=== PATIENT | female | born 1945 | race Caucasian/White ===

== ENCOUNTER 2017-06-16 09:07 | Observation (INO) | payer MEDICARE ==
--- NOTE | 2017-06-16 10:45 | CT ---
CT HEAD NONCONTRAST DATE: 06/16/17 HISTORY: Fall. Head injury. COMPARISON: 04/09/15. FINDINGS: There is no evidence of acute intracranial hemorrhage or infarct. Ventricular dilatation has progress ed slightly and is somewhat out of proportion to the degree of peripheral atrophy. There is no mass e ffect or shift of midline structures. IMPRESSION: 1. Diffuse ventricular prominence. Clinical correlation regarding other signs and symptoms of normal pressure hydrocephalus is required. 2. No acute traumatic injury is demonstrated. POS: XENA
[2017-06-16 12:17] LABS: #Eosinphils 0.3 thou/uL (0.0-0.7); #Lymphocytes 1.3 thou/uL (1.20-3.40); #Monocytes 0.4 thou/uL (0.11-0.59); #Neutrophils 6.4 thou/uL (1.40-6.50); %Basophils 0.6 % (0.0-1.0); %Eosinophils 4.1 % (0.0-10.0); %Lymphocytes 15.5 % (21.0-51.0); %Monocytes 4.6 % (0.0-10.0); %Neutrophils 75.3 % (42.0-75.0); Hemoglobin 11.7 g/dL (12.0-16.0); Mean Corpuscular HGB CONC 34.3 g/dL (32.0-36.0); Mean Corpuscular Hemoglobin 32.5 pg (27.0-31.0); Mean Corpuscular Volume 94.7 fl (81.0-99.0); Mean Platelet Volume 8.4 fL (7.4-10.4); Platelet Count 190 thou/uL (130-400); RBC Distribution Width 11.9 % (11.5-14.5); Red Blood Cell (RBC) Count 3.59 mill/uL (4.20-5.40); White Blood Cell (WBC) Count 8.6 thou/uL (4.8-10.8)
[2017-06-16 12:37] LABS: ALT (SGPT) 18 U/L (8-55); AST (SGOT) 22 U/L (5-34); Albumin 3.9 g/dL (3.4-4.8); Alkaline Phosphatase 54 U/L (40-150); Anion Gap 13 mmol/L (10-20); BUN (Urea Nitrogen) 50 mg/dL (9.8-20.1); Bilirubin, Total 0.3 mg/dL (0.2-1.2); Calc. Creatinine Clearance 0 mL/min (70-130); Calcium 9.6 mg/dL (7.8-10.44); Carbon Dioxide 19 mmol/L (23-31); Chloride 112 mmol/L (98-107); Estimated GFR-MDRD 17; Globulin 2.5 g/dL (2.4-3.5); Glucose 131 mg/dL (83-110); Potassium 4.8 mmol/L (3.5-5.1); Protein, Total 6.4 g/dL (6.0-8.3); Sodium 139 mmol/L (136-145)
[2017-06-16 12:39] LABS: Troponin I 0.016 ng/mL (< 0.028)
[2017-06-16 12:43] LABS: CKMB 10.5 ng/mL (0-6.6)
[2017-06-16 14:01] LABS: Bilirubin Negative (Negative); Blood, Urine Small (Negative); Clarity CLEAR (Clear); Glucose, Urine (Dipstick) Negative (Negative); Leukocyte Negative (Negative); Nitrite Negative (Negative); Protein, Urine (Dipstick) 300 mg/dL (Neg-Trace); Specific Gravity, Urine 1.012 (1.002-1.036); Urobilinogen 0.2 mg/dL (0.2-1.0)
[2017-06-16 14:03] LABS: Bacteria/HPF None Seen HPF (None Seen); Hyaline Casts/LPF 0-3 HYALINE CAST LPF (0-3 Hyaline); Pathc Cast-AUWi Flag 0.14 (0-2.49); RBC/HPF 0-3 HPF (0-3); Squamous Epithelial 0-3 HPF (0-3); WBC/HPF 0-3 HPF (0-3)
[2017-06-16] MEDS ORDERED: Ondansetron ODT 4 MG TAB SL PRN (16:06)
[2017-06-16] MEDS ORDERED: Ondansetron HCl/PF 4 MG/2 ML Vial IVP PRN (16:06)
[2017-06-16] MEDS ORDERED: Sodium Chloride 0.9% 1,000 ML IV SCH (16:06)
[2017-06-16 16:11] VITALS: BMI 33.4
[2017-06-16] MEDS ORDERED: Amlodipine 10 MG TAB PO SCH (17:15)
[2017-06-16] MEDS ORDERED: Dextrose 5% in Water 1,000 ML IV PRN (19:18)
[2017-06-16] MEDS ORDERED: Acetaminophen 325 MG TAB PO PRN (19:18)
[2017-06-16] MEDS ORDERED: Calcium Carbonate 500 MG ChewTAB PO PRN (19:18)
[2017-06-16] MEDS ORDERED: Nitroglycerin 0.4 MG TAB (25 Tab Bottle) PO PRN (19:18)
[2017-06-16] MEDS ORDERED: Insulin Regular 300 UNITS/3 ML VIAL SC PRN ×2 (19:18)
[2017-06-16] MEDS ORDERED: Dextrose 50% Abboject 50 ML SYRINGE SLOW IVP PRN (19:18)
[2017-06-16] MEDS ORDERED: Senokot 8.6 MG TAB PO PRN (19:18)
[2017-06-16] MEDS ORDERED: hydrALAZINE 20 MG/ML VIAL SLOW IVP PRN (19:21)
[2017-06-16] MEDS ORDERED: Labetalol HCl 100 MG/20 ML VIAL SLOW IVP PRN (19:21)
--- NOTE | 2017-06-16 20:01 | HP ---
DATE OF ADMISSION: 06/16/2017 PRIMARY CARE PHYSICIAN: Jennie Ayala M.D. at [facility]. CHIEF COMPLAINT: Mechanical fall. HISTORY OF PRESENT ILLNESS: Patient is a 71-year-old female with hypertension, diabetes mellitus typ e 2, and chronic kidney disease presented to the emergency room with above complaints. The patient currently lives at assisted living. She fell earlier today while she was trying to bend over to put something in a cabinet. She hit her head at that time. She was unable to get up for [facility] EMS was called. The patient denies any loss of consciousness, dizziness, double vision, blurring of vision, facial asymmetry, chest pain, palpitations prior to this event. When EMS picked her up, s he had some dizziness that has resolved. She denies any headaches or loss of consciousness. She is currently not on any blood thinners. In the emergency room, initial vital signs showed temperature 97.9, respirations 17, pulse of 81, blo od pressure of 155/80 with O2 saturation 100% on room air. Her workup was consistent with acute kidn ey injury with creatinine of 2.77. Her baseline creatinine is close to 2. She received IV fluids in the emergency room. PAST MEDICAL HISTORY: 1. Diabetes mellitus type 2. 2. Hypertension. 3. History of renal cancer requiring nephrectomy. 4. Dyslipidemia. 5. Hypothyroidism. 6. Glaucoma. 7. Chronic kidney disease stage 4. 8. Glaucoma. PAST SURGICAL HISTORY: 1. Appendectomy. 2. Nephrectomy. 3. Tonsillectomy. 4. Hysterectomy. ALLERGIES: Patient is allergic to AZITHROMYCIN and PENICILLIN. CURRENT HOME MEDICATIONS: Patient is unable to recall any of her home medications. Her son will get the accurate list of medications. SOCIAL HISTORY: Patient currently lives at the [facility] (Formerly [facility]). She is . She has two sons. [place] ambulates with the help of her walker. No alcohol or tobacco use. She makes her own physician. S he is FULL CODE. FAMILY HISTORY: Mother with breast cancer. Father with colon cancer. REVIEW OF SYSTEMS: The following complete review of systems was negative, unless otherwise mentioned in the HPI or below: Constitutional: Weight loss or gain, ability to conduct usual activities. Sk in: Rash, itching. Eyes: Double vision, pain. ENT/Mouth: Nose bleeding, neck stiffness, pain, te nderness. Cardiovascular: Palpitations, dyspnea on exertion, orthopnea. Respiratory: Shortness of breath, wheezing, cough, hemoptysis, fever or night sweats. Gastrointestinal: Poor appetite, abdom inal pain, heartburn, nausea, vomiting, constipation, or diarrhea. Genitourinary: Urgency, frequenc y, dysuria, nocturia. Musculoskeletal: Pain, swelling. Neurologic/Psychiatric: Anxiety, depressio n. Allergy/Immunologic: Skin rash, bleeding tendency. PHYSICAL EXAMINATION: VITAL SIGNS: As discussed above. GENERAL: A 71-year-old female in no apparent distress. Denies any symptoms at this time. HEENT: Head atraumatic, normocephalic. Sclerae are anicteric. Dry mucous membranes. No oral lesio n. NECK: Supple, no JVD appreciated. No carotid bruit. LUNGS: Clear to auscultation bilaterally, no wheezing, rales or rhonchi. HEART: S1, S2 present. Regular rate and rhythm, 2/6 systolic murmur over the mitral area. No heave s or pulsation. ABDOMEN: Soft, nontender, bowel sounds present, no rebound or guarding. EXTREMITIES: A 3+ to 4+ edema in bilateral lower extremities, which is chronic per patient report. SKIN: Warm and dry. LYMPH NODES: No palpable lymph nodes in the neck. PERIPHERAL VASCULAR: Radial pulses palpable bilaterally. MUSCULOSKELETAL: No joint swelling or tenderness. LABORATORY FINDINGS: CBC showed WBC 8.6 with hemoglobin 11.7, platelet count of 190. Chemistry show ed sodium 139, potassium 4.8, chloride 112, bicarbonate 19, BUN 50, creatinine 2.77, glucose 131. CK -MB was 10.5. Troponin was 0.016. Urinalysis was negative for wbc, bacteria. IMAGING: CT scan of the brain by my review was negative for acute findings. EKG by my review showed normal sinus rhythm. IMPRESSION: 1. Acute kidney injury on chronic kidney disease stage 4. 2. Mechanical fall without any loss of consciousness. 3. Diabetes mellitus type 2. 4. Hypertension. 5. Dyslipidemia. 6. Hypothyroidism. 7. Obesity with a BMI 33.5. 8. Chronic anemia, suspected secondary to renal insufficiency. PLAN: The patient will be monitored on the telemetry unit. Dr. Andrews has been notified of the consult . We will continue IV fluids. We will confirm home medications and start accordingly. We will chec k labs in a.m. We will check orthostatic vitals. Consult physical therapy. Plan of care was discussed with the patient in detail. She stated understanding.
[2017-06-16 20:32] LABS: Troponin I 0.021 ng/mL (< 0.028)
[2017-06-16] MEDS ORDERED: Donepezil HCl 10 MG TAB PO SCH (21:00)
[2017-06-16] MEDS ORDERED: Latanoprost 0.005% Ophth Soln 2.5 ml Bottle EA EYE SCH (21:00)
[2017-06-16] MEDS: cloNIDine 0.1 MG TAB PO SCH (21:02)
[2017-06-16] MEDS: hydrALAZINE 25 MG TAB PO SCH (21:03)
[2017-06-16] MEDS: Sodium Chloride 0.9% 1,000 ML IV SCH (21:04)
--- NOTE | 2017-06-17 00:01 | CON ---
DATE OF CONSULTATION: 06/16/2017 HISTORY OF PRESENT ILLNESS: Ms. Bee is a 71-year-old white female with known history of chronic renal failure from hypertensive nephropathy, longstanding hypertension, early dementia, and admitted for a fall. According to the patient, she bent and tripped over and fell down. She denies any syncopal episode with this. CAT scan done at the ER showed no acute intracranial abnormality. There was ? of her ventricle slightly larger from baseline. REVIEW OF SYSTEMS: No syncopal episode, status post fall. No chest pain or shortness of breath. Positive for chronic leg edema. No nausea, no vomiting. Appetite and energy level is fair. Positive for forgetfulness. No fever or chills. No productive cough. No gross hematuria, no dysuria, no urinary frequency. No syncopal episode. HOME MEDICATIONS: Include donepezil 10 mg once a day, levothyroxine 137 mcg tab daily, amlodipine 10 mg once a day, vitamin B1 100 mg daily, glimepiride 4 mg tablet before meals, fenofibrate 48 mg once a day, clonidine 0.1 mg daily, atorvastatin 80 mg tab at bedtime, latanoprost eye drop as directed, furosemide 40 mg - on hold, metoprolol succinate 25 mg once a day. PAST MEDICAL HISTORY: History of early dementia, chronic renal failure from hypertensive nephropathy, longstanding hypertension, diabetes mellitus, hyperlipidemia, DJD, renal cell carcinoma - in remission, hypothyroidism, and history of liver hemangioma/fatty liver. PAST SURGICAL HISTORY: Status post left nephrectomy for renal cell cancer, status post excision of squamous cell cancer, status post appendectomy, status post tonsillectomy, status post hysterectomy, status post colonoscopy, and status post liver biopsy. SOCIAL HISTORY: The patient is , lives in assisted living center. Smoked for 5 years, 1/4 pack per day, status post blood transfusion. 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 Alcohol, none. Education, high school. No IV drug abuse. ALLERGIES: PENICILLIN. TRAUMA: Status post snake bite. IMMUNIZATION: Up to date. HOSPITALIZATION: Please see past medical history. FAMILY HISTORY: No family history of ESRD. PHYSICAL EXAMINATION: VITAL SIGNS: Blood pressure is noted at 191/76, heart rate 76, respiratory rate 18, temperature 98.6, and pulse ox 98%. GENERAL: Awake, alert, comfortable, and not in distress. SKIN: Adequate turgor. HEENT: She has pinkish conjunctivae, anicteric sclerae. NECK: No neck mass, no carotid bruits, no JVD. CHEST: No deformities. LUNGS: Clear breath sounds, no wheezing, no crackles. HEART: Normal sinus rhythm. No murmurs, no gallops, no rubs. ABDOMEN: Globular, soft, nontender, no masses. EXTREMITIES: Positive for edema. NEUROLOGIC: Awake, oriented to 3 spheres. Moving all extremities. No tremors , no asterixis, no ataxia. LABORATORY DATA: On 06/16/2017 white count 8.6, hemoglobin 11.7. Sodium 139, potassium 4.8, chloride 112, carbon dioxide 19, BUN 50, creatinine 2.77, glucose 131, calcium 9.6, AST 22, ALT 18, CK 248, CK-MB 10.5. Troponin I 0.016. Albumin 3.9. CT scan of the brain on 06/16/2017, showed no acute traumatic injury, diffuse ventricular prominence. ASSESSMENT AND PLAN: 1. Acute Renal Failure/Chronic renal failure from hypertensive nephropathy. Creatinine slightly improved from baseline of 3.06. Please note she is already off her diuretics and for that reason, this may have caused some slight improvement of the renal dysfunction. She is currently at stage 4 chronic renal failure. Agree with empiric volume repletion, normal saline 100-125 mL per hour to see if we could still get some improvement with the renal function. 2. Hypertension - resume blood pressure medications. 3. Dementia, on donepezil. Continue current medications. Overall prognosis remains guarded with this patient. Agree with current management. Recheck patient's CBC in a.m. Renal ultrasound in a.m. [facility]
[2017-06-17] MEDS: Sodium Chloride 0.9% 1,000 ML IV SCH (03:28)
[2017-06-17 04:43] LABS: #Eosinphils 0.4 thou/uL (0.0-0.7); #Lymphocytes 1.7 thou/uL (1.20-3.40); #Monocytes 0.4 thou/uL (0.11-0.59); #Neutrophils 3.6 thou/uL (1.40-6.50); %Basophils 0.8 % (0.0-1.0); %Eosinophils 6.3 % (0.0-10.0); %Lymphocytes 26.8 % (21.0-51.0); %Monocytes 6.9 % (0.0-10.0); %Neutrophils 59.2 % (42.0-75.0); Hemoglobin 10.3 g/dL (12.0-16.0); Mean Corpuscular HGB CONC 34.6 g/dL (32.0-36.0); Mean Corpuscular Hemoglobin 32.3 pg (27.0-31.0); Mean Corpuscular Volume 93.3 fl (81.0-99.0); Mean Platelet Volume 8.3 fL (7.4-10.4); Platelet Count 157 thou/uL (130-400); RBC Distribution Width 11.9 % (11.5-14.5); White Blood Cell (WBC) Count 6.2 thou/uL (4.8-10.8)
[2017-06-17 05:04] LABS: Anion Gap 14 mmol/L (10-20); BUN (Urea Nitrogen) 45 mg/dL (9.8-20.1); Calc. Creatinine Clearance 33 mL/min (70-130); Calcium 9.1 mg/dL (7.8-10.44); Carbon Dioxide 18 mmol/L (23-31); Chloride 114 mmol/L (98-107); Estimated GFR-MDRD 19; Glucose 99 mg/dL (83-110); Potassium 4.2 mmol/L (3.5-5.1); Sodium 142 mmol/L (136-145)
[2017-06-17] MEDS ORDERED: Levothyroxine Sodium 25 MCG TAB PO SCH (06:00)
[2017-06-17] MEDS ORDERED: Levothyroxine Sodium 112 MCG TAB PO SCH (06:00)
[2017-06-17] MEDS ORDERED: Non-Formulary Item 1 EACH (Levothyroxine Sodium [Synthroid] 1 TAB) PO SCH (06:00)
[2017-06-17] MEDS ORDERED: Glimepiride 4 MG TAB PO SCH (07:30)
[2017-06-17] MEDS: cloNIDine 0.1 MG TAB PO SCH (09:20)
[2017-06-17] MEDS: hydrALAZINE 25 MG TAB PO SCH (09:21)
--- NOTE | 2017-06-17 09:43 | PRG ---
DATE OF SERVICE: 06/17/2017 RENAL MEDICINE SUBJECTIVE: Ms. Bee is a 71-year-old white female with chronic renal failure and was seen for man agement of chronic renal failure. She was essentially admitted for a fall. She denied losing any co nsciousness with this. She was also empirically given volume repletion to see if she will have some improvement with the estella al function. This morning, she is feeling better. She denies any chest pain, shortness of breath. PHYSICAL EXAMINATION: VITAL SIGNS: Blood pressure is 143/80, heart rate 85, respiratory rate 12, temperature 98.2, pulse o x 97%. GENERAL: Awake, sitting comfortable, not in distress. SKIN: Adequate turgor. HEENT: Pinkish conjunctivae, anicteric sclerae. NECK: No neck mass, no carotid bruits, no JVD. CHEST: No deformities. LUNGS: Clear breath sounds, no wheezing, no crackles. HEART: Normal sinus rhythm. No murmurs, no gallops, no rubs. ABDOMEN: Globular, soft, nontender, no masses. EXTREMITIES: No edema, no deformities. MEDICATIONS: Medications of 06/17/2017 reviewed. LABORATORY DATA: Laboratories of 06/17/2017; sodium 142, potassium 4.2, chloride 114, carbon dioxide 18, BUN 45, creatinine 2.49, GFR 19 mL per minute, glucose 99, calcium 9.1, troponin I 0.021, hemogl obin 10.3. ASSESSMENT AND PLAN: 1. Acute kidney injury on top of her chronic renal failure, improved renal function. Continue curre nt supportive management. Continue hydration. Creatinine is much improved and is now near baseline. She is currently stage 4 chronic renal failure. There is no indication for any renal dialysis. 2. Renal cancer - in remission. We will at least do a renal ultrasound prior to her discharge. 3. Status post fall, much improved. Overall, agree with current management.
[2017-06-17 12:08] VITALS: TEMP 98.6
--- NOTE | 2017-06-17 13:25 | ULT ---
ULTRASOUND RETROPERITONEUM COMPLETE: (RENAL) DATE: 06-17-17 HISTORY: 71-year-old female with chronic renal failure and renal cancer, status post nephrectomy. FINDINGS: The right kidney is 11 x 5.5 x 6.5 cm. There is a tiny 0.8 cm cortical cyst at the lower pole. Renal parenchymal thickness is normal. No hydronephrosis. No evidence of moderate sized or large solid mass of the right kidney. Urinary bladder is empty at the time of this scan. The left kidney is surgicall y absent. IMPRESSION: 1. Status post left nephrectomy. 2. Tiny right renal cortical cyst. 3. Otherwise negative. ИВАН Barreto POS: DEANDRE
[2017-06-17 14:02] VITALS: BP 139/82
--- NOTE | 2017-06-18 22:27 | DIS ---
DISCHARGE DISPOSITION: Home. FOLLOWUP: 1. Follow up with primary care physician at [facility] in 1 week. 2. Follow up with Nephrology, Dr. Andrews in 1 week. 3. Base met after 1 week is recommended. Primary care physician is advised to follow. The patient was seen and examined on the day of discharge, denies any new complaints. No chest pain, shortness of breath, or palpitations. BRIEF HOSPITAL COURSE: The patient is a 71-year-old female with chronic kidney disease stage 4, diab etes mellitus type 2, and hypertension, who presented to the emergency room with a mechanical fall. Her workup in the emergency room was consistent with acute kidney injury. There was no loss of consc iousness, chest pain, palpitations, or focal neurologic deficit reported. The patient was admitted to the hospital as 23-hour observation for acute kidney injury. The patient was seen by Dr. Andrews. Renal ultrasound was done that showed tiny right renal cortical cyst. The pat ient has a history of left nephrectomy. Renal function improved with IV hydration to 2.49 from 2.77. The patient has been cleared by Nephrology for discharge. FINAL DIAGNOSES: 1. Mechanical fall. 2. Acute kidney injury on chronic kidney disease stage 4, improved. 3. Diabetes mellitus type 2. 4. Hypertension. 5. Dyslipidemia. 6. Hypothyroidism. 7. Obesity with a BMI 33.5. 8. Chronic anemia, probably secondary to renal insufficiency. Plan of care was discussed with the patient in detail. She stated understanding.
== END 2017-06-17 14:05 | disposition home or self-care (01) ==
LOC: ERS 09:07 → 2SW 13:53
PROVIDERS: ADMIT Internal Medicine; ATTEND Internal Medicine
DX: Z04.3 Encounter for examination and observation following other accident (principal); E11.22 Type 2 diabetes mellitus with diabetic chronic kidney disease; I12.9 Hypertensive chronic kidney disease with stage 1 through stage 4 chronic kidney disease, or unspecified chronic kidney disease; N18.4 Chronic kidney disease, stage 4 (severe); N17.9 Acute kidney failure, unspecified; E78.5 Hyperlipidemia, unspecified; E03.9 Hypothyroidism, unspecified; E66.9 Obesity, unspecified; D63.1 Anemia in chronic kidney disease; F03.90 Unspecified dementia, unspecified severity, without behavioral disturbance, psychotic disturbance, mood disturbance, and anxiety; M19.90 Unspecified osteoarthritis, unspecified site; K76.0 Fatty (change of) liver, not elsewhere classified; F17.210 Nicotine dependence, cigarettes, uncomplicated; H40.9 Unspecified glaucoma; W22.8XXA Striking against or struck by other objects, initial encounter; Z68.33 Body mass index [BMI] 33.0-33.9, adult; Z79.84 Long term (current) use of oral hypoglycemic drugs; Z79.899 Other long term (current) drug therapy; Z88.0 Allergy status to penicillin; Z88.1 Allergy status to other antibiotic agents; Z90.5 Acquired absence of kidney; Z90.49 Acquired absence of other specified parts of digestive tract; Z90.89 Acquired absence of other organs; Z90.710 Acquired absence of both cervix and uterus; Z91.81 History of falling; Z85.528 Personal history of other malignant neoplasm of kidney
CPT/HCPCS: 70450; 76770; 80048; 80053; 82550; 82553; 82962; 84484 ×2; 85025 ×2; 93005; 94760; 96360; 96361 ×2; 97116; 97139; 99285; G0378; G8978; G8979; 36415; 36416; 81003; 81015

== ENCOUNTER 2017-08-09 17:53 | Inpatient (IN) | payer MEDICARE ==
[2017-08-09 18:49] LABS: #Basophils 0.1 thou/uL (0.0-0.2); #Eosinphils 0.3 thou/uL (0.0-0.7); #Lymphocytes 1.4 thou/uL (1.20-3.40); #Monocytes 0.5 thou/uL (0.11-0.59); %Basophils 1.1 % (0.0-1.0); %Eosinophils 4.2 % (0.0-10.0); %Lymphocytes 19.4 % (21.0-51.0); %Monocytes 6.5 % (0.0-10.0); %Neutrophils 68.8 % (42.0-75.0); Hemoglobin 11.2 g/dL (12.0-16.0); Mean Corpuscular HGB CONC 34.9 g/dL (32.0-36.0); Mean Corpuscular Hemoglobin 31.7 pg (27.0-31.0); Mean Corpuscular Volume 90.8 fL (78.0-98.0); Mean Platelet Volume 7.5 fL (7.4-10.4); Platelet Count 180 thou/uL (130-400); RBC Distribution Width 11.7 % (11.5-14.5); Red Blood Cell (RBC) Count 3.52 mill/uL (4.20-5.40); White Blood Cell (WBC) Count 7.3 thou/uL (4.8-10.8)
[2017-08-09 19:10] LABS: ALT (SGPT) 17 U/L (8-55); AST (SGOT) 20 U/L (5-34); Albumin 3.9 g/dL (3.4-4.8); Alkaline Phosphatase 69 U/L (40-150); Anion Gap 13 mmol/L (10-20); BUN (Urea Nitrogen) 42 mg/dL (9.8-20.1); Bilirubin, Total 0.4 mg/dL (0.2-1.2); Calc. Creatinine Clearance 0 mL/min (70-130); Calcium 9.3 mg/dL (7.8-10.44); Carbon Dioxide 19 mmol/L (23-31); Chloride 113 mmol/L (98-107); Estimated GFR-MDRD 15; Globulin 2.5 g/dL (2.4-3.5); Glucose 143 mg/dL (83-110); Potassium 4.6 mmol/L (3.5-5.1); Protein, Total 6.4 g/dL (6.0-8.3); Sodium 140 mmol/L (136-145)
[2017-08-09 19:15] LABS: CKMB 5.5 ng/mL (0-6.6); Troponin I 0.022 ng/mL (< 0.028)
--- NOTE | 2017-08-09 19:51 | CT ---
CT CERVICAL SPINE NONCONTRAST: 08/09/17 HISTORY: 71-year-old female status post acute cervical trauma from fall. FINDINGS: There are no jumped or perched facets. There is no evidence of acute fracture. The vertebral body h eights are maintained. There is no prevertebral soft tissue swelling. IMPRESSION: No evidence of acute fracture or acute traumatic subluxation. andre [] POS: DEANDRE
[2017-08-09 20:05] LABS: Bilirubin Negative (Negative); Blood, Urine Small (Negative); Clarity CLEAR (Clear); Glucose, Urine (Dipstick) 100 mg/dL (Negative); Leukocyte Small (Negative); Nitrite Negative (Negative); Protein, Urine (Dipstick) 300 mg/dL (Neg-Trace); Specific Gravity, Urine 1.017 (1.002-1.036); Urobilinogen 0.2 mg/dL (0.2-1.0); pH, Urine 6.5 (5.0-9.0)
[2017-08-09 20:07] LABS: Bacteria/HPF None Seen HPF (None Seen); Hyaline Casts/LPF 0-3 HYALINE CAST LPF (0-3 Hyaline); Pathc Cast-AUWi Flag 0.29 (0-2.49); Squamous Epithelial 0-3 HPF (0-3)
[2017-08-09] MEDS ORDERED: Ondansetron HCl/PF 4 MG/2 ML Vial IVP PRN (20:33)
[2017-08-09] MEDS ORDERED: Ondansetron ODT 4 MG TAB SL PRN (20:33)
[2017-08-09] MEDS ORDERED: Acetaminophen 325 MG TAB PO PRN (20:33)
[2017-08-09] MEDS ORDERED: cefTRIAXone\\ROCEPHIN 1 GM VIAL ONE (21:06)
--- NOTE | 2017-08-09 21:12 | CT ---
CT BRAIN NONCONTRAST: DATE: 08/09/17 TIME: 7:17 p.m. HISTORY: 71-year-old female status post acute head trauma due to fall, striking the back of the head. COMPARISON: 06/16/17 and 04/09/15. FINDINGS: Again noted is the moderate dilation of the lateral ventricles bilaterally, and mild to moderate dila tion of the third ventricle. This is unchanged since 04/09/15, but has progressed since 07/17/07. There is no acute intra-axial or extra-axial hemorrhage. There is periventricular white matter low attenua tion, consistent with chronic ischemic white matter changes (or transependymal migration of CSF). No mass effect, midline shift, extra-axial fluid collection, acute calvarial fracture, or gross opacific ation of the upper portions of the paranasal sinuses and the bilateral tympanomastoid cavities. No in terval change overall since 06/16/17 and 04/09/15. IMPRESSION: 1. No acute intracranial findings. 2. Ventriculomegaly. It is presumed that this is due to central brain parenchymal atrophy rather than obstructive hydrocephalus such as normal pressure hydrocephalus, but clinical correlation is re commended (is there gait apraxia, urinary incontinence, and/or dementia?). 3. Chronic ischemic white matter changes. ИВАН Barreto POS: DEANDRE
[2017-08-09] MEDS ORDERED: cefTRIAXone\\ROCEPHIN 2 GM VIAL ONE (21:13)
[2017-08-09] MEDS ORDERED: Acetaminophen 500 MG TAB ONE (23:24)
[2017-08-10 01:10] VITALS: BMI 35.3
[2017-08-10] MEDS ORDERED: Acetaminophen 325 MG TAB PO PRN (09:47)
[2017-08-10 11:06] LABS: INR-International Normal Ratio 1.1; Prothrombin Time 14.1 SEC (12.0-14.7)
[2017-08-10] MEDS ORDERED: Amlodipine 10 MG TAB PO SCH (11:30)
[2017-08-10] MEDS: Furosemide 40 MG/4 ML VIAL SLOW IVP SCH (15:36)
--- NOTE | 2017-08-10 18:42 | HP ---
REASON FOR ADMISSION: Normal pressure hydrocephalus with history of frequent falling. HISTORY OF PRESENTING ILLNESS: The patient gives history of having frequent falls from last 1 month. She fell almost twice yesterday and 2 more times last week. She ambulates with a walker. The patient states she was sitting in a chair and just could not hold herself up and she was fully awake when she slid through it. This happened yesterday. She also fell once she was ambulating with a walker. She has never lost consciousness. The patient does not recall if she loses her tone. She has had spinal tap done 2 years back for normal pressure hydrocephalus. No complaints of rectal incontinence. The patient has chronic history of urinary incontinence. Her son at bedside shows me cell phone video of how she was ambulating with the cane 2 years back. PAST MEDICAL AND SURGICAL HISTORY: History of normal pressure hydrocephalus, history of renal cancer requiring nephrectomy, hypertension, diabetes mellitus type 2, dyslipidemia, hypothyroidism, glaucoma, chronic kidney disease stage 4 for which she follows up with Dr. Andrews, glaucoma, appendectomy, nephrectomy, tonsillectomy, hysterectomy. ALLERGIES: ZITHROMAX and PENICILLIN. PERSONAL HISTORY: Does not abuse alcohol or drugs. No history of smoking. She lives at a snf place in [facility]. FAMILY HISTORY: Mother had breast cancer. Father had colon cancer. CODE STATUS: FULL. Power of assistant district attorney is her son. CURRENT MEDICATIONS: The patient is on Norvasc 10 mg daily, atorvastatin 80 mg daily, calcium with vitamin D3 one tab daily, clonidine 0.1 mg daily, donepezil 10 mg p.o. at bedtime, fenofibrate 48 mg daily, latanoprost eyedrops daily, levothyroxine 137 mcg daily, Toprol-XL 25 mg daily, multivitamin 1 tab once daily. REVIEW OF SYSTEMS: The following complete review of systems was negative, unless otherwise mentioned in the HPI or below: Constitutional: Weight loss or gain, ability to conduct usual activities. Skin: Rash, itching. Eyes: Double vision, pain. ENT/Mouth: Nose bleeding, neck stiffness, pain, tenderness. Cardiovascular: Palpitations, dyspnea on exertion, orthopnea. Respiratory: Shortness of breath, wheezing, cough, hemoptysis, fever or night sweats. Gastrointestinal: Poor appetite, abdominal pain, heartburn, nausea, vomiting, constipation, or diarrhea. Genitourinary: Urgency, frequency, dysuria, nocturia. Musculoskeletal: Pain, swelling. Neurologic/Psychiatric: Anxiety, depression. Allergy/Immunologic: Skin rash, bleeding tendency. PHYSICAL EXAMINATION: GENERAL: The patient is a 71-year-old female who is currently not in any acute distress. VITAL SIGNS: Blood pressure 166/84, pulse 76 per minute, respiratory rate 18 per minute, temperature 99 degrees on arrival, saturating 98% on room air. NECK: Supple, no elevated JVD. HEENT: Eyes: Extraocular muscles intact. Pupils reacting to light. Oral cavity mucous membranes are moist. No exudates or congestion. CARDIOVASCULAR: S1, S2 heard. Regular rhythm. RESPIRATORY: Air entry 1+ bilaterally. No rales or rhonchi. ABDOMEN: Soft, bowel sounds heard. No tenderness, rigidity or guarding. EXTREMITIES: There is 2+ peripheral edema. No calf tenderness. There is also mild erythema to both leg area. There is mild skin excoriation from retching. The patient states these are chronic in nature. VASCULAR: Peripheral pulses are 1+ bilateral. No ischemic ulcerations or gangrene. CENTRAL NERVOUS SYSTEM: No gross focal deficits noted. The patient is alert, awake, oriented well. PSYCHIATRIC: The patient's mood is euthymic. No hallucinations or delusions. LABORATORY AND X-RAY FINDINGS: White count 7, H&H 11 and 32, platelet count is 180 with 68% neutrophils, MCV is 90. PT, INR, PTT within normal limits. Serum bicarbonate 19, BUN 42, creatinine 3.0. Glucose is 143. Liver enzymes within normal limits. Albumin is 3.9. First set of cardiac enzymes are negative. BNP is 118. CT brain done shows no acute intracranial findings. The patient has ventriculomegaly with chronic ischemic white matter changes seen. CT cervical spine noncontrast done showed no acute fracture or traumatic subluxation. EKG normal sinus rhythm at 77 beats per minute. CLINICAL IMPRESSION AND PLAN: The patient will be admitted to stroke unit for recurrent falls with likely normal pressure hydrocephalus. The patient and son do mention that she has had lumbar puncture done 2 years back and had dramatic improvement with similar complaints. Her CT brain shows ventriculomegaly. I have discussed her findings with Dr. Nicholas over telephone. The plan is to have Interventional Radiology do spinal tap for relief of normal pressure hydrocephalus. She will have PT, OT evaluations as well. If patient were to have gait abnormalities, the patient will be discharged to inpatient rehabilitation prior to going back to her snf facility at [facility]. She also has chronic lower extremity edema which has been progressively worsening and has a history of CKD as well. She will be placed on Lasix 40 mg IV q.12 hourly. If needed, Dr. Andrews's help will be requested. We will continue her atorvastatin, Norvasc, donepezil, TriCor, latanoprost, levothyroxine, and Toprol-XL as before. She will set up outpatient appointment with Dr. Nicholas in the next 2-4 months for followup. She is hemodynamically and neurologically stable at present. The patient has no motor deficits as such at present. VERENICE
[2017-08-10] MEDS ORDERED: Latanoprost 0.005% Ophth Soln 2.5 ml Bottle EA EYE SCH (21:00)
[2017-08-10] MEDS ORDERED: Donepezil HCl 10 MG TAB PO SCH (21:00)
[2017-08-10] MEDS: Docusate 100 MG CAP PO SCH (21:15)
[2017-08-10] MEDS: Famotidine 20 MG TAB PO SCH (21:15)
[2017-08-11] MEDS: hydrALAZINE 20 MG/ML VIAL SLOW IVP PRN ×2 (00:18→04:01)
[2017-08-11] MEDS: Furosemide 40 MG/4 ML VIAL SLOW IVP SCH (05:26)
[2017-08-11 05:30] LABS: #Eosinphils 0.3 thou/uL (0.0-0.7); #Lymphocytes 2.1 thou/uL (1.20-3.40); #Monocytes 0.5 thou/uL (0.11-0.59); #Neutrophils 4.1 thou/uL (1.40-6.50); %Basophils 0.1 % (0.0-1.0); %Eosinophils 4.1 % (0.0-10.0); %Monocytes 6.6 % (0.0-10.0); %Neutrophils 59.2 % (42.0-75.0); Hemoglobin 11.2 g/dL (12.0-16.0); Mean Corpuscular HGB CONC 33.7 g/dL (32.0-36.0); Mean Corpuscular Hemoglobin 31.1 pg (27.0-31.0); Mean Corpuscular Volume 92.2 fL (78.0-98.0); Platelet Count 175 thou/uL (130-400); RBC Distribution Width 11.9 % (11.5-14.5); Red Blood Cell (RBC) Count 3.62 mill/uL (4.20-5.40); White Blood Cell (WBC) Count 6.9 thou/uL (4.8-10.8)
[2017-08-11 05:31] LABS: Anion Gap 15 mmol/L (10-20); BUN (Urea Nitrogen) 36 mg/dL (9.8-20.1); Calc. Creatinine Clearance 29 mL/min (70-130); Calcium 9.1 mg/dL (7.8-10.44); Carbon Dioxide 17 mmol/L (23-31); Chloride 113 mmol/L (98-107); Estimated GFR-MDRD 15; Glucose 142 mg/dL (83-110); Potassium 4.4 mmol/L (3.5-5.1); Sodium 141 mmol/L (136-145)
[2017-08-11] MEDS ORDERED: Levothyroxine Sodium 25 MCG TAB PO SCH (06:00)
[2017-08-11] MEDS ORDERED: Levothyroxine Sodium 112 MCG TAB PO SCH (06:00)
[2017-08-11] MEDS ORDERED: Non-Formulary Item 1 EACH (Levothyroxine Sodium [Synthroid] 1 TAB) PO SCH (09:00)
[2017-08-11] MEDS ORDERED: Amlodipine 10 MG TAB PO SCH (09:00)
[2017-08-11] MEDS ORDERED: Enoxaparin Sodium 40 MG/0.4 ML SYRINGE SC SCH (09:00)
[2017-08-11] MEDS ORDERED: Enoxaparin Sodium 30 MG/0.3 ML SYRINGE SC SCH (09:00)
[2017-08-11] MEDS ORDERED: Fenofibrate 48 MG TAB PO SCH (09:00)
[2017-08-11] MEDS ORDERED: Atorvastatin Calcium 40 MG TAB PO SCH (09:00)
--- NOTE | 2017-08-11 10:56 | PDOC.PN ---
- Subjective Encounter Start Date: 08/11/17 Encounter Start Time: 09:00 Subjective: no sob or specific weakness - Objective Resuscitation Status: Resuscitation Status FULL:Full Resuscitation MAR Reviewed: Yes Vital Signs & Weight: Vital Signs (12 hours) Temp Pulse Resp BP Pulse Ox 08/11/17 07:57 98.9 F 93 16 160/82 H 95 08/11/17 04:47 170/82 H 08/11/17 04:01 94 08/11/17 03:53 98.8 F 94 24 H 215/95 H 96 08/11/17 01:00 172/80 H 08/11/17 00:18 94 08/11/17 00:11 98.4 F 85 20 180/92 H 96 Weight Weight 232 lb 6.4 oz Result Diagrams: 08/11/17 04:29 08/11/17 04:29 Phys Exam - Physical Examination HEENT: PERRLA, moist MMs Neck: no JVD, supple Respiratory: no wheezing, no rales Cardiovascular: RRR, no significant murmur Gastrointestinal: soft, non-tender, positive bowel sounds Musculoskeletal: pulses present, edema present Neurological: non-focal, moves all 4 limbs Psychiatric: A&O x 3 Dx/Plan (1) Normal pressure hydrocephalus Code(s): G91.2 - (IDIOPATHIC) NORMAL PRESSURE HYDROCEPHALUS Status: Acute (2) Frequent falls Code(s): R29.6 - REPEATED FALLS Status: Acute (3) Hypothyroidism Code(s): E03.9 - HYPOTHYROIDISM, UNSPECIFIED Status: Chronic Qualifiers: Hypothyroidism type: unspecified Qualified Code(s): E03.9 - Hypothyroidism , unspecified (4) Metabolic acidosis Code(s): E87.2 - ACIDOSIS Status: Acute (5) DM type 2 (diabetes mellitus, type 2) Status: Chronic Qualifiers: Diabetes mellitus long-term insulin use: without long-term use Diabetes mellitus complication status: with kidney complications Diabetes mellitus complication detail: with chronic kidney disease Chronic kidney disease stage : stage 3 (moderate) Qualified Code(s): E11.22 - Type 2 diabetes mellitus with diabetic chronic kidney disease; N18.3 - Chronic kidney disease, stage 3 ( moderate); N18.3 - Chronic kidney disease, stage 3 (moderate); N18.3 - Chronic kidney disease, stage 3 (moderate) (6) Chronic kidney disease Code(s): N18.9 - CHRONIC KIDNEY DISEASE, UNSPECIFIED Status: Chronic Qualifiers: Chronic kidney disease stage: stage 3 (moderate) Qualified Code(s): N18.3 - Chronic kidney disease, stage 3 (moderate) (7) Dyslipidemia Code(s): E78.5 - HYPERLIPIDEMIA, UNSPECIFIED Status: Chronic (8) Hypertension Code(s): I10 - ESSENTIAL (PRIMARY) HYPERTENSION Status: Chronic Qualifiers: Hypertension type: essential hypertension Qualified Code(s): I10 - Essential (primary) hypertension - Plan is going for lumbar puncture with csf removal today -: will likely need rehab, await PT eval -: change lasix to oral daily -: norvasc, toprol, lipitor, tricor, aricept and synthroid -: Pt had lumbar puncture with removal of 30ml csf, post procedure has amb bet * . -ter and wants to go home. Son at bedside agrees with above. dc pt home with Review of Systems - Medications/Allergies Allergies/Adverse Reactions: Allergies Allergy/AdvReac Type Severity Reaction Status Date / Time azithromycin Allergy Verified 06/16/17 16:42 [From Zithromax Z-Gato] Penicillins Allergy Verified 06/16/17 16:42 Medications: Current Medications Acetaminophen (Tylenol) 650 mg PO Q4H PRN PRN Reason: Headache/Fever or Pain Last Admin: 08/11/17 05:27 Dose: 650 mg Amlodipine Besylate (Norvasc) 10 mg PO DAILY [facility] Atorvastatin Calcium (Lipitor) 80 mg PO DAILY [facility] Docusate Sodium (Colace) 100 mg PO BID [facility] Last Admin: 08/10/17 21:15 Dose: 100 mg Donepezil HCl (Aricept) 10 mg PO HS [facility] Last Admin: 08/10/17 21:15 Dose: 10 mg Enoxaparin Sodium (Lovenox) 30 mg SC 0900 [facility] Famotidine (Pepcid) 20 mg PO BID [facility] Last Admin: 08/10/17 21:15 Dose: 20 mg Fenofibrate (Tricor) 48 mg PO DAILY [facility] Furosemide (Lasix) 40 mg SLOW IVP 0600,1400 [facility] Last Admin: 08/11/17 05:26 Dose: 40 mg Hydralazine HCl (Apresoline) 10 mg SLOW IVP Q4H PRN PRN Reason: FOR SBP > 180 Last Admin: 08/11/17 04:01 Dose: 10 mg Latanoprost (Xalatan 0.005% [facility]) 0 drop EA EYE QPM [facility] Last Admin: 08/10/17 21:14 Dose: 1 drop Levothyroxine Sodium (Synthroid) 112 mcg PO 0600 [facility] Last Admin: 08/11/17 05:27 Dose: 112 mcg Levothyroxine Sodium (Synthroid) 25 mcg PO 0600 [facility] Last Admin: 08/11/17 05:26 Dose: 25 mcg Metoprolol Succinate (Toprol Xl) 25 mg PO DAILY [facility]
[2017-08-11 11:10] VITALS: TEMP 98.3
[2017-08-11] MEDS: Docusate 100 MG CAP PO SCH (11:21)
[2017-08-11] MEDS: Famotidine 20 MG TAB PO SCH (11:27)
--- NOTE | 2017-08-11 12:06 | RAD ---
LUMBAR PUNCTURE WITH FLUOROSCOPIC GUIDANCE: 08/11/2017 HISTORY: A 71-year-old female with frequent falls and balance abnormalities. CT demonstrates ventricular enlargement, concerning for normal pressure hydrocephalus. A high volume lumbar puncture, to obtain 30 mL, was requested. FINDINGS: Informed consent was obtained prior to the procedure. Postoperative clips are noted in the upper abdomen. There is mild anterolisthesis of L4 on L5, measuring in the 7 mm range. There is multilevel lower suha mbar spine facet hypertrophy. The patient was placed on the fluoroscopic table, in the oblique prone position, and the skin overlyi ng the lumbar spine was prepped and draped in the normal sterile fashion. At the L3 level, the skin was anesthetized with 1% buffered Lidocaine. With intermittent fluoroscopic guidance, a 22 gauge spi nal needle was advanced into the thecal sac. Removal of the stylet yielded clear cerebrospinal fluid , and 30 mL was obtained, as per request. the needle was removed. The patient tolerated the procedu re well. Opening pressure is 13 cm of water. EXPOSURE DATA: 0.6 minutes of fluoroscopic time 156.8 mGy per m2 IMPRESSION: Successful lumbar puncture with 30 mL of clear cerebrospinal fluid removed. POS: [facility]
[2017-08-11 12:16] VITALS: BP 157/106
[2017-08-11 13:55] LABS: CSF Source CSF; Clarity Clear (Clear); RBC Count - Manual 28 /cumm (None Seen); Tube # 4; WBC/NonHematics Count - Manual 0 /cumm (0-5)
--- NOTE | 2017-08-12 01:33 | DIS ---
DATE OF ADMISSION: 08/09/2017 DATE OF DISCHARGE: 08/11/2017 DISCHARGE DISPOSITION: To home. PRIMARY DISCHARGE DIAGNOSES: Normal pressure hydrocephalus, status post lumbar puncture with removal of 30 mL of cerebrospinal fluid; history of frequent falls , likely secondary to above. SECONDARY DISCHARGE DIAGNOSES: Hypothyroidism, chronic kidney disease stage 3 and 4, metabolic acidosis due to kidney disease, diabetes mellitus type 2, dyslipidemia, hypertension. PROCEDURES DONE DURING HOSPITALIZATION: CT cervical spine done showed no acute fracture or traumatic subluxation. CT brain done showed no acute intracranial abnormalities, but had ventriculomegaly. H and H 11 and 33, platelet count 175 , MCV is 92. Discharge BUN and creatinine is 36 and 2.9. BNP 118, CSF tube #4 showed 28 RBCs, no WBCs, which was clear and colorless. Had a lumbar puncture done by Interventional Radiology on 08/11/2017 with removal of 30 mL of CSF. DISCHARGE MEDICATIONS: Norvasc 10 mg daily, atorvastatin 80 mg daily, calcium with vitamin D3 one tab daily, clonidine 0.1 mg daily, Aricept 10 mg p.o. at bedtime, TriCor 48 mg daily, Lasix 40 mg daily, Xalatan eyedrops as before, Synthroid 137 mcg p.o. daily, Toprol-XL 25 mg daily, multivitamin 1 tab once daily. ALLERGIES: AZITHROMYCIN and PENICILLIN. DISCHARGE PLAN: Patient is to follow up with Dr. Nicholas, Neurosurgeon in 3 months. She also needs follow up with her primary care physician in 1 week. BRIEF COURSE DURING HOSPITALIZATION: Patient initially was brought to emergency room as she had frequent falls [facility] her [facility]. This has been gradually getting worse from the last 1 month or so. The patient has history of normal pressure hydrocephalus and has had lumbar puncture with removal of CSF for relief done 2 years back. I have discussed her CAT scan findings with Dr. Nicholas over telephone. Interventional Radiology was requested for removal of CSF. This was done this morning with removal of 30 mL of CSF. The patient has ambulated with the physical therapy post-procedure, she has felt better. All through her stay, her son and patient was completely updated. She has help at her [facility] and is wanting to go home today. She will be shortly discharged home. She is advised to follow up with Dr. Nicholas in 3 months. Please see a [id number] documentation on [facility] for the day of discharge. [facility]
[2017-08-12] MEDS ORDERED: Furosemide 40 MG TAB PO SCH (07:30)
[2017-08-12] MEDS ORDERED: Famotidine 20 MG TAB PO SCH (09:00)
== END 2017-08-11 17:06 | disposition home or self-care (01) | DRG 57 ==
LOC: ERS 17:53 → 2SE 22:20
PROVIDERS: ADMIT Hospitalist; ATTEND Hospitalist
PROC: 009Y3ZZ Drainage of Lumbar Spinal Cord, Percutaneous Approach (ICD-10-PCS; principal; 2017-08-11)
DX: G91.2 (Idiopathic) normal pressure hydrocephalus (principal); E87.2 Acidosis; E11.22 Type 2 diabetes mellitus with diabetic chronic kidney disease; I12.9 Hypertensive chronic kidney disease with stage 1 through stage 4 chronic kidney disease, or unspecified chronic kidney disease; N18.3 Chronic kidney disease, stage 3 (moderate); G30.9 Alzheimer's disease, unspecified; F02.80 Dementia in other diseases classified elsewhere, unspecified severity, without behavioral disturbance, psychotic disturbance, mood disturbance, and anxiety; E03.9 Hypothyroidism, unspecified; R29.6 Repeated falls; E78.5 Hyperlipidemia, unspecified
CPT/HCPCS: 36415; 36416; 62270; 70450; 72125; 80048; 80053; 81003; 81015; 82553; 83880; 84484; 85025; 85610; 85730; 87086; 89051; 93005; 96365; G8978-GP-CL; G8979-GP-CJ; G8987-GO-CK; G8988-GO-CI; J0360; J0696; J1650; J1940

== ENCOUNTER 2017-10-23 18:13 | Inpatient (IN) | payer MEDICARE ==
[2017-10-23 20:10] LABS: #Basophils 0.1 thou/uL (0.0-0.2); #Eosinphils 0.2 thou/uL (0.0-0.7); #Lymphocytes 1.5 thou/uL (1.20-3.40); #Monocytes 0.6 thou/uL (0.11-0.59); #Neutrophils 5.8 thou/uL (1.40-6.50); %Basophils 0.7 % (0.0-1.0); %Eosinophils 2.9 % (0.0-10.0); %Lymphocytes 18.6 % (21.0-51.0); %Neutrophils 70.8 % (42.0-75.0); Hemoglobin 10.6 g/dL (12.0-16.0); Mean Corpuscular HGB CONC 34.8 g/dL (32.0-36.0); Mean Corpuscular Hemoglobin 32.3 pg (27.0-31.0); Mean Corpuscular Volume 92.6 fL (78.0-98.0); Platelet Count 177 thou/uL (130-400); RBC Distribution Width 12.7 % (11.5-14.5); Red Blood Cell (RBC) Count 3.27 mill/uL (4.20-5.40); White Blood Cell (WBC) Count 8.2 thou/uL (4.8-10.8)
[2017-10-23 20:31] LABS: Anion Gap 13 mmol/L (10-20); BUN (Urea Nitrogen) 58 mg/dL (9.8-20.1); Calc. Creatinine Clearance 0 mL/min (70-130); Calcium 8.8 mg/dL (7.8-10.44); Carbon Dioxide 18 mmol/L (23-31); Chloride 115 mmol/L (98-107); Estimated GFR-MDRD 12; Glucose 80 mg/dL (83-110); Potassium 4.6 mmol/L (3.5-5.1); Sodium 141 mmol/L (136-145)
[2017-10-23 20:38] LABS: CKMB 13.1 ng/mL (0-6.6)
--- NOTE | 2017-10-23 20:54 | CT ---
CT CERVICAL SPINE NONCONTRAST: DATE: 10-23-18 TIME: 7:35 p.m. HISTORY: 72-year-old female status post acute cervical trauma from fall. FINDINGS: There are no jumped or perched facets. There is no evidence of acute fracture. The vertebral body h eights are maintained. There is no prevertebral soft tissue swelling. IMPRESSION: No evidence of acute fracture or acute traumatic subluxation. andre POS: [facility]
[2017-10-23 20:58] LABS: Bilirubin Negative (Negative); Blood, Urine Small (Negative); Clarity CLEAR (Clear); Glucose, Urine (Dipstick) Negative (Negative); Leukocyte Negative (Negative); Nitrite Negative (Negative); Protein, Urine (Dipstick) > or equal to 300 mg/dL (Neg-Trace); Specific Gravity, Urine 1.016 (1.002-1.036); Urobilinogen 0.2 mg/dL (0.2-1.0); pH, Urine 6.5 (5.0-9.0)
[2017-10-23 20:59] LABS: Bacteria/HPF None Seen HPF (None Seen); Hyaline Casts/LPF 0-3 HYALINE CAST LPF (0-3 Hyaline); Pathc Cast-AUWi Flag 0.14 (0-2.49); RBC/HPF 0-3 HPF (0-3); Squamous Epithelial 0-3 HPF (0-3); WBC/HPF 0-3 HPF (0-3)
--- NOTE | 2017-10-23 20:59 | CT ---
CT BRAIN NONCONTRAST: DATE: 10-23-17 TIME: 7:32 p.m. HISTORY: 72-year-old female with traumatic headache after fall. COMPARISON: 08-09-17, 04-09-15, and 07-17-07. FINDINGS: There is moderate dilation of the lateral ventricles bilaterally, and mild to moderate dilation of th e third ventricle. This is unchanged since 04-09-15, but has progressed since 07-17-07. There is no acu te intraaxial or extraaxial hemorrhage. There is periventricular white matter rim of low attenuation, consistent with chronic ischemic white matter changes (or alternatively, transepidermal migration of CSF). No mass effect, midline shift, extraaxial fluid collection, acute calvarial fracture, acute in traaxial hemorrhage, or acute extraaxial hemorrhage. No interval change overall since 04-09-15. IMPRESSION: 1. No acute intracranial findings. 2. Ventriculomegaly. It is presumed that this is due to central brain parenchymal atrophy, but there is a possibility that this could represent normal pressure hydrocephalus. Clinical correlation is rec ommended. (Is there gait apraxia, urinary incontinence, and/or dementia?). 3. Chronic ischemic white matter changes. ИВАН Barreto POS: [facility]
[2017-10-23] MEDS ORDERED: Ondansetron HCl/PF 4 MG/2 ML Vial ONE (21:04)
[2017-10-24 02:12] VITALS: BMI 34.2
[2017-10-24] MEDS: Lactated Ringer's 1,000 ML IV SCH ×3 (04:39→20:19)
[2017-10-24 05:43] LABS: #Eosinphils 0.2 thou/uL (0.0-0.7); #Lymphocytes 1.5 thou/uL (1.20-3.40); #Monocytes 0.4 thou/uL (0.11-0.59); #Neutrophils 3.7 thou/uL (1.40-6.50); %Basophils 0.6 % (0.0-1.0); %Eosinophils 3.6 % (0.0-10.0); %Lymphocytes 25.6 % (21.0-51.0); %Neutrophils 63.2 % (42.0-75.0); Hemoglobin 9.9 g/dL (12.0-16.0); Mean Corpuscular HGB CONC 34.4 g/dL (32.0-36.0); Mean Corpuscular Hemoglobin 31.5 pg (27.0-31.0); Mean Corpuscular Volume 91.5 fL (78.0-98.0); Platelet Count 156 thou/uL (130-400); RBC Distribution Width 12.5 % (11.5-14.5); Red Blood Cell (RBC) Count 3.13 mill/uL (4.20-5.40); White Blood Cell (WBC) Count 5.9 thou/uL (4.8-10.8)
[2017-10-24 06:00] LABS: Anion Gap 11 mmol/L (10-20); BUN (Urea Nitrogen) 52 mg/dL (9.8-20.1); Calc. Creatinine Clearance 24 mL/min (70-130); Calcium 8.4 mg/dL (7.8-10.44); Carbon Dioxide 17 mmol/L (23-31); Chloride 117 mmol/L (98-107); Estimated GFR-MDRD 13; Glucose 91 mg/dL (83-110); Potassium 4.2 mmol/L (3.5-5.1); Sodium 141 mmol/L (136-145)
[2017-10-24] MEDS ORDERED: Amlodipine 10 MG TAB PO SCH (10:45)
--- NOTE | 2017-10-24 11:17 | CON ---
DATE OF CONSULTATION: 10/24/2017 HISTORY OF PRESENT ILLNESS: Ms. Bee is a 72-year-old white female with chronic renal failure, and admitted for a fall. She landed on her head and back. She was admitted for volume repletion due to the slightly higher creatinine. She was also scheduled for head surgery this coming Tuesday. She h as a diagnosis of normal pressure hydrocephalus. I planned a shunt placement, this is being consider ed for tomorrow. She has a history of memory problems and hydrocephalus may be playing a factor with this as well as f or the frequent falls. We were consulted on this patient for further management of her acute kidney injury/chronic renal failure. This morning, she is feeling better. REVIEW OF SYSTEMS: No chest pain. Positive for frequent falls. No nausea, no vomiting. Decreased memory. No diarrhea, no constipation, no productive cough, no fever or chills, no headache, no diplo opal, no gross hematuria, no dysuria, no urinary frequency, no abdominal pain, appetite and energy lev el is fair. No joint pains, no new skin rash. MEDICATIONS: Currently on Tylenol 650 mg q.4 hours p.r.n., Norvasc 10 mg daily, Lipitor 80 mg at bed time, Catapres 0.1 mg daily, Aricept 10 mg at bedtime, TriCor 1 tab daily, lactated Ringer's 100 mL p er hour, metoprolol succinate 25 mg daily, Zofran 4 mg IV q.6 hours p.r.n. PAST MEDICAL HISTORY: Chronic renal failure from hypertensive nephropathy, longstanding hypertension , type 2 diabetes mellitus, hyperlipidemia, DJD, renal cell carcinoma in remission, hypothyroidism, h istory of liver hemangioma, history of fatty liver, recent diagnosis of normal pressure hydrocephalus , ? of dementia. PAST SURGICAL HISTORY: Status post left nephrectomy for renal cell cancer, status post excision of s quamous cell cancer, status post appendectomy, status post lumbar spinal tap, status post tonsillecto my, status post hysterectomy, status post colonoscopy, status post liver biopsy. SOCIAL HISTORY: Patient lives in assisted living center. Smoked for 5 years, 1/4 pack a day. Statu s post blood transfusion. 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 Alc ohol none. Education, high school. No IV drug abuse. ALLERGIES: PENICILLIN. TRAUMA: Status post snake bite, status post frequent falls. IMMUNIZATIONS: Up to date. HOSPITALIZATIONS: Please see past medical history. FAMILY HISTORY: No family history of end-stage renal disease. PHYSICAL EXAMINATION: VITAL SIGNS: Blood pressure 168/83, heart rate 81, respiratory rate 16, temperature 99, pulse ox 95% . GENERAL: The patient is noted to be awake, alert, comfortable, not in distress. SKIN: Adequate turgor. HEENT: She has pinkish conjunctivae, anicteric sclerae. NECK: No neck mass, no carotid bruits, no JVD. CHEST: No deformities. LUNGS: Clear breath sounds, no wheezing, no crackles. HEART: Normal sinus rhythm. No murmur, no gallops or rubs. ABDOMEN: Globular, soft, nontender, no masses. EXTREMITIES: No edema, no deformities. NEUROLOGIC: Moving all extremities. Oriented to 3 spheres. No tremors, no asterixis. LABORATORY DATA: Of 10/24/2017, white count 5.9, hemoglobin 9.9. Sodium 141, potassium 4.2, chlorid e 117, carbon dioxide 17, BUN 52, creatinine 3.43, GFR 13 mL per minute, glucose 90, and calcium 8.4. On 10/23/2017, BUN 50, creatinine 3.72. On 08/11/2017, BUN 36, creatinine 2.99. IMAGING: CT scan of the brain, 10/23/2017 shows ventriculomegaly - presence of hydrocephalus. Chron ic ischemic white matter changes. CT scan of the cervical spine, no acute traumatic subluxation. ASSESSMENT AND PLAN: 1. Status post fall, most likely related from her hydrocephalus. Neurosurgery is planning to do a s morales placement with this patient tomorrow. Continue current management. 2. Acute kidney injury on top of her chronic renal failure - superimposed prerenal azotemia. Contin ue current IV hydration with 100 mL per hour of lactated Ringer's or normal saline. There is no kevin cation for any dialytic intervention. 3. Hypertension. Increase metoprolol succinate from 25 to 50 mg tab once a day. Overall, agree with current management. We will recheck base met and CBC in a.m.
--- NOTE | 2017-10-24 18:34 | HP ---
CHIEF COMPLAINT: Fall. HISTORY OF PRESENT ILLNESS: The patient is a very pleasant 72-year-old female with a past medical hi story of hypertension, chronic renal failure, and also normal pressure hydrocephalus, who presented t o the hospital after a fall. The patient stated that she was walking with her walker when she fell b ackwards on her head. The patient denied any dizziness or syncopal episode. She just said that she kind of felt weak and her legs gave out and she fell backwards. According to patient and according t o the son, she was supposed to have a shunt placement tomorrow by Dr. Nicholas and Dr. Mix. The pa jacqueline has a diagnosis of normal pressure hydrocephalus and she has had multiple LPs for it in the pas t. PAST MEDICAL HISTORY: History of chronic renal failure, stable, most likely due to hypertension and diabetes. She also has a history of renal-cell carcinoma, status post nephrectomy of one kidney; hyp othyroidism; has a history of fatty liver; has a history of hemangiomas; and history of normal pressu re hydrocephalus. PAST SURGICAL HISTORY: She has a history of nephrectomy, left, for renal cell carcinoma, no radiatio n or chemotherapy. She also had an appendectomy. She has had LPs. She has had tonsillectomy, hyste rectomy, colonoscopies, and also liver biopsy. SOCIAL HISTORY: The patient lives in an assisted living. She smoked for 5 years, a fourth of a pack a day; however, currently she denies any smoking, alcohol, or drug use. ALLERGIES: She is allergic to PENICILLIN. HOME MEDICATIONS: As of the following: She is on, 1. Clonidine 0.1 mg daily. 2. Amlodipine 10 mg daily. 3. Atorvastatin 80 mg daily. 4. Aricept 10 mg at bedtime. 5. Fenofibrate 1 tablet daily. 6. She is also on levothyroxine 137 mcg daily. 7. Metoprolol 25 mg daily. 8. Thiamine 100 mg daily. REVIEW OF SYSTEMS: All negative except the ones mentioned above in the HPI. FAMILY HISTORY: No history of end-stage renal disease. PHYSICAL EXAMINATION: VITAL SIGNS: Blood pressure 168/83, temperature of 99, 95% on room air, respirations 16, heart rate 81. GENERAL: She is awake, alert, and oriented x3. Does not appear in distress. CARDIOVASCULAR: S1, S2 present. No murmurs, rubs, or gallops. ABDOMEN: Soft, nontender. Bowel sounds are present x2. LUNGS: Clear to auscultation. No rhonchi or wheezes noted. EXTREMITIES: No edema. Pedal pulses are present x2. NEUROLOGIC: She moves all extremities, oriented x3. No tremors. SKIN: No lesions or skin breakdown noted. LABORATORY DATA: Laboratory results are as of the following: Her urine appears to be pretty normal. Chemistry: Sodium of 141, potassium of 4.6, BUN of 50, creatinine of 3.72. She does have a little bit of bicarbonate of 18, anion gap is 13. Troponin is negative. Hematology: WBCs of 8.2, hemoglo bin of 10.6, hematocrit of 30.3, platelets of 177. She did have a CT head and also a CT cervical spi ne. CT head did not indicate any acute abnormalities. She did have ventriculomegaly that was noted and also it is presumed that it is due to central brain parenchymal atrophy, but there is also a poss ibility of NPH and chronic white matter ischemic changes. She also had a cervical spine CT that did not indicate a fracture, trauma, or subluxation. ASSESSMENT AND PLAN: The patient is a very pleasant 72-year-old female, who presented to the [facility] after a fall. 1. Mechanical fall secondary to most likely normal pressure hydrocephalus. The patient is supposed to be getting a shunt placement by Neurosurgery tomorrow. We will consult them to see what their rec ommendations are. We will get physical therapy and occupational therapy. We will also check a vitam in B12 and also check a TSH to make sure that she has got no deficiencies. The patient denies any sy ncopal episodes. Her EKG was reviewed, appeared to be stable. 2. Acute kidney injury on chronic kidney disease. The patient's baseline creatinine is usually arou nd high 2-3. Her last creatinine was 2.99, and on admission was 3.72; repeat one this morning was 3. 43. This could be due to some mild dehydration. We will continue to monitor. 3. Hypertension. We will continue her home medications. 4. [id number] metabolic acidosis. This could be secondary to her chronic kidney disease. 5. Chronic kidney disease. We will continue to monitor. Nephrology has been consulted. 6. Deep venous thrombosis prophylaxis. I will put the patient on sequential compression devices for now.
[2017-10-24] MEDS: hydrALAZINE 20 MG/ML VIAL SLOW IVP PRN (21:32)
[2017-10-24] MEDS: Latanoprost 0.005% Ophth Soln 2.5 ml Bottle EA EYE SCH (21:33)
[2017-10-24] MEDS: Donepezil HCl 10 MG TAB PO SCH (21:34)
[2017-10-24] MEDS: Acetaminophen 325 MG TAB PO PRN (22:28)
[2017-10-25] MEDS: hydrALAZINE 20 MG/ML VIAL SLOW IVP PRN (01:32)
[2017-10-25 04:43] LABS: #Eosinphils 0.1 thou/uL (0.0-0.7); #Lymphocytes 1.1 thou/uL (1.20-3.40); #Monocytes 0.4 thou/uL (0.11-0.59); #Neutrophils 5.5 thou/uL (1.40-6.50); %Basophils 0.6 % (0.0-1.0); %Eosinophils 2.1 % (0.0-10.0); %Lymphocytes 15.1 % (21.0-51.0); %Monocytes 5.7 % (0.0-10.0); %Neutrophils 76.5 % (42.0-75.0); Hemoglobin 10.9 g/dL (12.0-16.0); Mean Corpuscular HGB CONC 34.9 g/dL (32.0-36.0); Mean Corpuscular Hemoglobin 32.1 pg (27.0-31.0); Mean Corpuscular Volume 92.1 fL (78.0-98.0); Mean Platelet Volume 8.2 fL (7.4-10.4); Platelet Count 151 thou/uL (130-400); RBC Distribution Width 12.4 % (11.5-14.5); White Blood Cell (WBC) Count 7.2 thou/uL (4.8-10.8)
[2017-10-25 05:07] LABS: Anion Gap 15 mmol/L (10-20); BUN (Urea Nitrogen) 48 mg/dL (9.8-20.1); Calc. Creatinine Clearance 27 mL/min (70-130); Calcium 8.9 mg/dL (7.8-10.44); Carbon Dioxide 14 mmol/L (23-31); Chloride 115 mmol/L (98-107); Estimated GFR-MDRD 15; Glucose 148 mg/dL (83-110); Potassium 4.2 mmol/L (3.5-5.1); Sodium 140 mmol/L (136-145)
[2017-10-25] MEDS: Levothyroxine Sodium 112 MCG TAB PO SCH ×2 (05:59→07:28)
[2017-10-25] MEDS: Levothyroxine Sodium 25 MCG TAB PO SCH ×2 (06:00→07:28)
[2017-10-25] MEDS: Lactated Ringer's 1,000 ML IV SCH ×2 (06:10→14:10)
[2017-10-25] MEDS ORDERED: Lidocaine 0.5%/Epinephrine 1:200,000 50 ml Vial ONE (07:14)
[2017-10-25] MEDS ORDERED: Bupivacaine/Epinephrine 0.25% 30 ML VIAL ONE (07:14)
[2017-10-25] MEDS ORDERED: Bacitracin Zinc Ointment 30 gm TUBE ONE (07:21)
[2017-10-25] MEDS ORDERED: Thrombin 5000 UNITS/5 ML VIAL ONE (07:21)
[2017-10-25] MEDS ORDERED: Fentanyl 100 MCG/2 ML VIAL ONE (07:28)
--- NOTE | 2017-10-25 08:57 | PRG ---
DATE OF SERVICE: 10/25/2017 SUBJECTIVE: Ms. Bee is a 72-year-old white female who was admitted for a fall. She was also note d to have an acute kidney injury on top of her chronic renal failure. Empiric volume repletion was d one with improvement of the renal function. She is also scheduled for a shunt placement by her neuro surgeon due to normal pressure hydrocephalus. No other complaints today. Denies any chest pain or shortness of breath. OBJECTIVE: VITAL SIGNS: Blood pressure is 176/91, heart rate 95, respiratory rate 16, temperature 98.5, pulse o x 98%. GENERAL: Awake, alert, comfortable, not in distress. SKIN: Adequate turgor. HEENT: She has pinkish conjunctivae, anicteric sclerae. NECK: No neck mass, no carotid bruits, no JVD. CHEST: No deformities. LUNGS: Clear breath sounds. No wheezing, no crackles. HEART: Normal sinus rhythm. No murmur, no gallops or rubs. ABDOMEN: Globular, soft, nontender, no masses. EXTREMITIES: Trace edema, no deformities. MEDICATIONS: 10/25/2017 - Reviewed. LABORATORY DATA: 10/25/2017 - Sodium 140, potassium 4.2, chloride 115, carbon dioxide 14, BUN 48, cr eatinine 3.09, calcium 8.9. ASSESSMENT AND PLAN: 1. Acute kidney injury on top of her chronic renal failure - slowly improving renal function with IV hydration. Continue current hydration until she reaches baseline GFR. No indication for any dialyt ic intervention. Doing well. 2. Chronic renal failure secondary to presumed hypertensive nephropathy. 3. Normal pressure hydrocephalus. The patient is scheduled for a shunt placement this a.m. Due to the advanced renal dysfunction will discontinue fenofibrate. 4. Metabolic acidosis. Start sodium bicarbonate 650 mg tab t.i.d. Recheck base met and CBC in a.m.
[2017-10-25] MEDS ORDERED: Fenofibrate 48 MG TAB PO SCH (09:00)
[2017-10-25] MEDS ORDERED: Non-Formulary Item 1 EACH (Levothyroxine Sodium [Synthroid] 1 TAB) PO SCH (09:00)
[2017-10-25] MEDS: Ondansetron HCl/PF 4 MG/2 ML Vial IVP PRN (09:05)
[2017-10-25] MEDS: Calcium Carbonate + Vit D 1 TAB PO SCH (09:10)
[2017-10-25] MEDS: Multivitamin W/ Minerals 1 TAB PO SCH (09:14)
[2017-10-25] MEDS: Sodium Bicarbonate Tab 325 MG TAB PO SCH ×3 (09:14→21:22)
[2017-10-25] MEDS ORDERED: Levofloxacin 500 mg/D5W 100 ml Premix Bag ONE (10:33)
[2017-10-25] MEDS ORDERED: Clindamycin/D5W 900 mg/50 ml Premix Bag ONE (10:33)
[2017-10-25] MEDS ORDERED: Midazolam HCl 2 mg/2 ml Vial ONE (10:40)
[2017-10-25] MEDS ORDERED: Fentanyl 250 MCG/5 ML VIAL ONE (10:40)
[2017-10-25] MEDS ORDERED: Atracurium 100 MG/10 ML VIAL ONE (11:03)
--- NOTE | 2017-10-25 12:18 | OP ---
DATE OF PROCEDURE: 10/25/2017 PREOPERATIVE DIAGNOSIS: Hydrocephalus. POSTOPERATIVE DIAGNOSES: Hydrocephalus. PROCEDURE: Placement of intraabdominal catheter permanent laparoscopic. SURGEON: Mik Mix M.D. ANESTHESIA: General. ESTIMATED BLOOD LOSS: Minimal. COMPLICATIONS: None. SPECIMEN: None. FINDINGS: The tip of the catheter is up over the right lobe of liver. TECHNIQUE: The patient was taken to the operating room, placed supine on the table. After general a nesthetic was obtained, the chest, abdomen, and right scalp and neck was all prepped and draped in a sterile fashion. Curved incision made below the umbilicus. Cautery was used to dissect down to and score the fascia. Abdominal cavity entered bluntly using a Sandra clamp. PDS placed on each side of the fascia. A 5 mm laparoscopic sleeve is placed and high-flow pneumoperitoneum was obtained. Right abdominal 5-mm port is placed as well. As the tubing for the [employer] shunt is tunneled from the chest ar ea down to the upper abdomen, a small counter incision is made at the xiphoid. The 5 mm trocar was u sed to make a hole into the right upper quadrant up over the liver. The [employer] shunt tubing is threaded through the hole up over the liver and in good position. The redundancy of it is pulled out. All po rts sites are infiltrated using local anesthetic. All ports were removed under camera visualization without bleeding. Pneumoperitoneum was let down. PDS was used to close the fascial defect below the umbilicus. Incisions are closed using 4-0 Monocryl and Dermabond. The patient en route to recovery in stable condition. All instrument counts, needle counts, lap counts were correct.
[2017-10-25] MEDS ORDERED: Morphine Sulfate 2 MG/ML SYRINGE SLOW IVP PRN (12:45)
[2017-10-25] MEDS ORDERED: Promethazine HCl 25 MG/ML VIAL SLOW IVP PRN (12:45)
[2017-10-25] MEDS ORDERED: HYDROmorphone 2 MG/ML VIAL SLOW IVP PRN (12:45)
[2017-10-25] MEDS ORDERED: Ondansetron HCl/PF 4 MG/2 ML Vial IVP PRN (12:45)
[2017-10-25] MEDS ORDERED: Promethazine HCl 25 MG/ML VIAL IM PRN (12:45)
[2017-10-25] MEDS ORDERED: Promethazine HCl 25 MG/ML VIAL ONE (12:47)
[2017-10-25] MEDS ORDERED: Metoprolol Tartrate 5 MG/5 ML VIAL ONE (13:05)
[2017-10-25] MEDS ORDERED: Ondansetron HCl/PF 4 MG/2 ML Vial ONE (13:13)
[2017-10-25] MEDS ORDERED: Lidocaine 1% PF 5 ML VIAL ONE (13:13)
[2017-10-25] MEDS ORDERED: PHENYLEPHRINE-NS 100 MCG/ML 10 ML SYRINGE ONE (13:13)
[2017-10-25] MEDS ORDERED: PROPOFOL 200 MG/20 ML VIAL ONE (13:13)
[2017-10-25] MEDS ORDERED: Esmolol 100 MG/10 ML VIAL ONE (13:13)
[2017-10-25] MEDS ORDERED: Glycopyrrolate 0.2 MG/ML 5 ML SYRINGE ONE (13:13)
[2017-10-25] MEDS ORDERED: Dexamethasone 20 MG/5 ML VIAL ONE (13:13)
--- NOTE | 2017-10-25 13:22 | OP ---
SURGEON: Dinh Nicholas M.D. ROTARY DRILLER PROSPECTING SURGEON: Mik Mix M.D. POSTOPERATIVE DIAGNOSIS: Normal pressure hydrocephalus. PROCEDURE: Right-sided ventriculoperitoneal shunt placement with valve set at 1.0. SPECIMENS: None. ESTIMATED BLOOD LOSS: 30 mL. INTRAOPERATIVE FINDINGS: Normal pressure hydrocephalus.
--- NOTE | 2017-10-25 13:29 | OP ---
OR: #12 SURGEON: Dr. Dinh Nicholas did this surgery in conjunction with Dr. Kannan Mix. PREPROCEDURE DIAGNOSIS: Hydrocephalus, likely normal pressure variant. POSTPROCEDURE DIAGNOSIS: Hydrocephalus, likely normal pressure variant. PROCEDURE: Right frontal ventriculoperitoneal shunt placement with programmable valve set at 1.0. PROCEDURE IN DETAIL: After informed consent was obtained, the patient brought to OR 12. Proper andrea ent pause and identification was carried out. She was placed under excellent general endotracheal an esthesia and positioned supine on the OR table. Right frontal region was sterilely cleansed, prepare d, and draped following hair clipping in that region and also the retroauricular region. We then antione w out a right frontal semicircular incision over Bozena's point and a right retroauricular small inci torsten was drawn out. This region was all sterilely cleansed, prepared and draped. The wounds were th en opened with a combination of sharp, monopolar and blunt dissection, we proceeded over the right Ko berna's point. A bur hole was fashioned and at the same time, Dr. Mix obtain entry into the perit oneum. Peritoneal catheter was tunneled proximal to distal and connected to the valve. The dura was then opened, the opal was coagulated. CSF was obtained following placement of the ventricular cathet er was connected to the valve. Copious irrigation occurred throughout. The wound was maximized in r egards hemostasis and closed following the sprinkling of a small amount of vancomycin powder. The pa tient then emerged from anesthesia following closure the wound.
[2017-10-25] MEDS: Clindamycin/D5W 600 MG in Premix Bag 1 BAG IVPB SCH ×2 (14:08→21:24)
[2017-10-25] MEDS: Atorvastatin Calcium 40 MG TAB PO SCH (14:09)
[2017-10-25] MEDS: Amlodipine 10 MG TAB PO SCH (14:44)
[2017-10-25] MEDS: Acetaminophen 325 MG TAB PO PRN ×2 (14:45→21:38)
[2017-10-25] MEDS: cloNIDine 0.1 MG TAB PO SCH (16:23)
--- NOTE | 2017-10-25 17:10 | PDOC.PN ---
- Subjective Encounter Start Date: 10/25/17 Encounter Start Time: 14:45 Subjective: pt post op drowsy - Objective Resuscitation Status: Resuscitation Status DNR:Do Not Resuscitate Vital Signs & Weight: Vital Signs (12 hours) Temp Pulse Resp BP BP Pulse Ox 10/25/17 16:23 156/80 H 10/25/17 16:10 98.0 F 80 18 157/81 H 98 10/25/17 16:00 98.0 F 74 18 10/25/17 14:44 74 156/80 H 10/25/17 13:51 97.6 F 107 H 20 150/83 H 97 10/25/17 08:00 98.5 F 95 16 10/25/17 07:29 98.5 F 95 16 176/91 H 98 Weight Weight 225 lb I&O: 10/24/17 10/25/17 10/26/17 06:59 06:59 06:59 Intake Total 720 3340 Output Total 451 Balance 269 3340 Result Diagrams: 10/25/17 04:18 10/25/17 04:18 Phys Exam - Physical Examination does have dressing on her right cranium Neck: no nodes, no JVD, supple, full ROM Respiratory: no wheezing, no rales, no rhonchi, wheezing present, clear to auscultation bilateral Cardiovascular: RRR, no significant murmur, no rub, gallop, irregular Gastrointestinal: soft, non-tender, no distention, positive bowel sounds Dx/Plan (1) Normal pressure hydrocephalus Code(s): G91.2 - (IDIOPATHIC) NORMAL PRESSURE HYDROCEPHALUS Status: Acute (2) [id number] kidney injury Code(s): N17.9 - ACUTE KIDNEY FAILURE, UNSPECIFIED; N18.9 - CHRONIC KIDNEY DISEASE, UNSPECIFIED Status: Acute (3) Fall Code(s): W19.XXXA - UNSPECIFIED FALL, INITIAL ENCOUNTER Status: Acute - Plan pt s/p shunt placement for NPH -: will get PT to evaluate her in am -: creatinine has improved. -: possible rehab * . Review of Systems - Review of Systems Respiratory: negative: Cough, Dry, Shortness of Breath, Hemoptysis, SOB with Excertion, Pleuritic Pain, Sputum, Wheezing Cardiovascular: negative: chest pain, palpitations, orthopnea, paroxysmal nocturnal dyspnea, edema, light headedness, other Gastrointestinal: negative: Nausea, Vomiting, Abdominal Pain, Diarrhea, Constipation, Melena, Hematochezia, Other Genitourinary: negative: Dysuria, Frequency, Incontinence, Hematuria, Retention , Other - Medications/Allergies Allergies/Adverse Reactions: Allergies Allergy/AdvReac Type Severity Reaction Status Date / Time azithromycin Allergy Verified 10/24/17 02:02 [From Zithromax Z-Gato] Penicillins Allergy Verified 10/24/17 02:02 Medications: Current Medications Acetaminophen (Tylenol) 650 mg PO Q4H PRN PRN Reason: Headache/Fever or Pain Last Admin: 10/25/17 14:45 Dose: 650 mg Amlodipine Besylate (Norvasc) 10 mg PO DAILY [facility] Last Admin: 10/25/17 14:44 Dose: 10 mg Atorvastatin Calcium (Lipitor) 80 mg PO DAILY [facility] Last Admin: 10/25/17 14:09 Dose: Not Given Calcium/Vitamin D (Caltrate 600 + Vit D) 1 tab PO DAILY [facility] Last Admin: 10/25/17 09:10 Dose: Not Given Clonidine (Catapres) 0.1 mg PO DAILY [facility] Last Admin: 10/25/17 16:23 Dose: Not Given Donepezil HCl (Aricept) 10 mg PO HS [facility] Last Admin: 10/24/17 21:34 Dose: 10 mg Hydralazine HCl (Apresoline) 10 mg SLOW IVP Q4H PRN PRN Reason: BP>180/100 Last Admin: 10/25/17 01:32 Dose: 10 mg Lactated Ringer's (Lactated Ringer's) 1,000 mls @ 100 mls/hr IV .Q10H [facility] Last Admin: 10/25/17 14:10 Dose: Not Given Clindamycin Phosphate/Dextrose (600 mg/ Device) 50 mls @ 100 mls/hr IVPB Q8HR [facility] Last Admin: 10/25/17 14:08 Dose: Not Given Levofloxacin 500 mg/ Device 100 mls @ 100 mls/hr IVPB 1100 [facility] Iron/Minerals/Multivitamins (Theragran M) 1 tab PO DAILY [facility] Last Admin: 10/25/17 09:14 Dose: Not Given Latanoprost (Xalatan 0.005% Ophth Soln) 1 drop EA EYE QPM [facility] Last Admin: 10/24/17 21:33 Dose: 1 drop Levothyroxine Sodium (Synthroid) 112 mcg PO 0600 [facility] Last Admin: 10/25/17 07:28 Dose: 112 mcg Levothyroxine Sodium (Synthroid) 25 mcg PO 0600 [facility] Last Admin: 10/25/17 07:28 Dose: 25 mcg Metoprolol Succinate (Toprol Xl) 50 mg PO DAILY [facility] Last Admin: 10/25/17 07:28 Dose: 50 mg Ondansetron HCl (Zofran) 4 mg IVP Q6H PRN PRN Reason: Nausea/Vomiting Last Admin: 10/25/17 09:05 Dose: 4 mg Sodium Bicarbonate (Bicarbonate, Sodium) 650 mg PO TID [facility] Last Admin: 10/25/17 14:44 Dose: 650 mg Thiamine HCl (Thiamine) 100 mg PO DAILY [facility] Last Admin: 10/25/17 09:14 Dose: Not Given
[2017-10-25] MEDS: Latanoprost 0.005% Ophth Soln 2.5 ml Bottle EA EYE SCH (21:22)
[2017-10-25] MEDS: Donepezil HCl 10 MG TAB PO SCH (21:22)
[2017-10-26] MEDS: Lactated Ringer's 1,000 ML IV SCH ×3 (01:45→23:30)
[2017-10-26] MEDS: Acetaminophen 325 MG TAB PO PRN ×3 (03:45→21:40)
[2017-10-26] MEDS: Clindamycin/D5W 600 MG in Premix Bag 1 BAG IVPB SCH ×3 (05:54→21:39)
[2017-10-26] MEDS: Levothyroxine Sodium 25 MCG TAB PO SCH (05:55)
[2017-10-26] MEDS: Levothyroxine Sodium 112 MCG TAB PO SCH (05:55)
[2017-10-26 06:05] LABS: Anion Gap 13 mmol/L (10-20); BUN (Urea Nitrogen) 51 mg/dL (9.8-20.1); Calc. Creatinine Clearance 24 mL/min (70-130); Calcium 8.6 mg/dL (7.8-10.44); Carbon Dioxide 18 mmol/L (23-31); Chloride 112 mmol/L (98-107); Estimated GFR-MDRD 13; Glucose 137 mg/dL (83-110); Potassium 4.6 mmol/L (3.5-5.1); Sodium 138 mmol/L (136-145)
--- NOTE | 2017-10-26 08:48 | PRG ---
DATE OF SERVICE: 10/26/2017 SUBJECTIVE: Ms. Bee is a 72-year-old white female seen by the Renal Service for her chronic renal failure. Renal function has been fluctuating. She initially came in with a creatinine of 3.7. IV hydration was done with slight improvement with the renal function. Creatinine today was noted at 3. 4. She also underwent a right frontal ventriculoperitoneal shunt placement due to normal pressure hydroc ephalus. This patient has had history of worsening mentation/dementia as well as frequent falls. Th is morning she is feeling better after the said surgery. No complaints of chest pain or shortness of breath. PHYSICAL EXAMINATION: VITAL SIGNS: Blood pressure is 149/67, heart rate 87, respiratory rate 16, temperature 99.2, pulse o x 95%. GENERAL: Noted to be awake, alert, comfortable, not in distress. SKIN: Adequate turgor. HEENT: She has pinkish conjunctivae, anicteric sclerae. NECK: No neck mass, no carotid bruits, no JVD. CHEST: No deformities. LUNGS: Clear breath sounds. No wheezing, no crackles. HEART: Normal sinus rhythm. No murmur, no gallops, no rubs. ABDOMEN: Globular, soft, nontender, no masses. EXTREMITIES: Trace edema. MEDICATIONS: 10/26/2017 - Reviewed. LABORATORY DATA: 10/25/2017 - White count 7.2, hemoglobin 10.9. 10/26/2017 - Sodium 138, potassium 4.6, chloride 112, carbon dioxide 18, BUN 51, creatinine 3.41, GFR 13 mL per minute, glucose 137, calcium 8.6. TSH 3.8. ASSESSMENT AND PLAN: 1. Chronic renal failure - relatively stable. GFR 13 mL per minute is near baseline. Continue curr ent IV hydration. Currently, lactated Ringer's at 100 mL per hour. No changes to be made with the I V fluid. There is no indication for any dialytic intervention. 2. Metabolic acidosis, currently carbon dioxide is 18 and it is actually improved. She has been sta rted sodium bicarbonate 650 mg tab t.i.d. 3. Normal pressure hydrocephalus. The patient is currently doing well. She is status post right fr ontal CLAY GRINDER shunt placement. We will recheck base met in a.m.
[2017-10-26] MEDS: Ondansetron HCl/PF 4 MG/2 ML Vial IVP PRN (09:41)
--- NOTE | 2017-10-26 09:41 | PRG ---
DATE OF SERVICE: 10/26/2017 SUBJECTIVE: Ms. Bee is postoperative day 1 from right ventriculoperitoneal shunt. She is doing w ell. She feels that she has a bit more energy already this morning. Her wounds are healing well. S he is neurologically intact and doing well. She certainly appears to be more brisk in her verbal res ponses, which has already improvement. We will mobilize her today.
[2017-10-26] MEDS: cloNIDine 0.1 MG TAB PO SCH (09:50)
[2017-10-26] MEDS: Amlodipine 10 MG TAB PO SCH (09:51)
[2017-10-26] MEDS: Calcium Carbonate + Vit D 1 TAB PO SCH (09:51)
[2017-10-26] MEDS: Sodium Bicarbonate Tab 325 MG TAB PO SCH ×3 (09:51→21:40)
[2017-10-26] MEDS: Multivitamin W/ Minerals 1 TAB PO SCH (09:51)
[2017-10-26] MEDS: Atorvastatin Calcium 40 MG TAB PO SCH (09:52)
--- NOTE | 2017-10-26 14:44 | PDOC.PN ---
- Subjective Encounter Start Date: 10/26/17 Encounter Start Time: 14:30 Subjective: f/u s/p BLANKET WINDER OPERATOR shunt placement POD #1. Feels much better and less -: dizziness. Appetite depressed but no N/V. - Objective Resuscitation Status: Resuscitation Status DNR:Do Not Resuscitate MAR Reviewed: Yes Vital Signs & Weight: Vital Signs (12 hours) Temp Pulse Resp BP Pulse Ox 10/26/17 11:37 97.8 F 73 16 177/95 H 96 10/26/17 08:00 97.8 F 73 16 172/83 H 98 10/26/17 04:36 99.2 F 87 16 149/67 H 95 Weight Weight 225 lb I&O: 10/25/17 10/26/17 10/27/17 06:59 06:59 06:59 Intake Total 3340 2440 Balance 3340 2440 Result Diagrams: 10/25/17 04:18 10/26/17 05:25 Additional Labs: Microbiology 10/23/17 20:41 Urine Straight Catheter Urine Culture - Final NO GROWTH AT 36 HOURS Laboratory Tests 10/23/17 10/23/17 10/24/17 20:00 20:00 05:02 Hgb 10.6 L Creatinine 3.72 H 3.43 H Estimated GFR (MDRD) 12 13 10/24/17 10/25/17 05:02 04:18 Hgb 9.9 L Creatinine 3.09 H Estimated GFR (MDRD) 15 Phys Exam - Physical Examination Constitutional: NAD smiling, alert, responsive surgical wound/dressing in place on R parietal region HEENT: PERRLA, sclera anicteric, oral pharynx no lesions Neck: no nodes, no JVD, supple, full ROM Respiratory: no wheezing, no rales, no rhonchi, clear to auscultation bilateral S1, S2 Cardiovascular: RRR, no significant murmur, no rub, gallop Gastrointestinal: soft, non-tender, no distention, positive bowel sounds Musculoskeletal: no edema, pulses present Neurological: normal sensation, moves all 4 limbs Psychiatric: normal affect, A&O x 3 Skin: no rash, normal turgor, cap refill <2 seconds Dx/Plan (1) Normal pressure hydrocephalus Code(s): G91.2 - (IDIOPATHIC) NORMAL PRESSURE HYDROCEPHALUS Status: Acute Comment: s/p BLANKET WINDER OPERATOR shunt placement POD #1, continue supportive mgmt (2) Frequent falls Code(s): R29.6 - REPEATED FALLS Status: Acute Comment: Secondary to #1, PT for mobilization (3) Chronic kidney disease Code(s): N18.9 - CHRONIC KIDNEY DISEASE, UNSPECIFIED Status: Chronic Qualifiers: Chronic kidney disease stage: stage 4 (severe) Qualified Code(s): N18.4 - Chronic kidney disease, stage 4 (severe) Comment: Stable currently, avoid nephrotoxic meds and limit contrast exposure, no HD indicated (4) Hypertension Code(s): I10 - ESSENTIAL (PRIMARY) HYPERTENSION Status: Chronic Qualifiers: Hypertension type: essential hypertension Qualified Code(s): I10 - Essential (primary) hypertension Comment: Continue current BP regimen, serial monitoring - Plan plan discussed w/ family, continue antibiotics, PT/OT, social media manager, out of bed/ambulate, DVT proph w/SCDs Stable currently -: Continue IVF's -: Pain control as indicated -: OOB with PT -: AM lab: BMP, CBC * .
[2017-10-26] MEDS: Latanoprost 0.005% Ophth Soln 2.5 ml Bottle EA EYE SCH (21:39)
[2017-10-26] MEDS: Donepezil HCl 10 MG TAB PO SCH (21:40)
[2017-10-27 05:38] LABS: #Lymphocytes 1.5 thou/uL (1.20-3.40); #Monocytes 0.5 thou/uL (0.11-0.59); #Neutrophils 4.4 thou/uL (1.40-6.50); %Basophils 0.3 % (0.0-1.0); %Eosinophils 0.5 % (0.0-10.0); %Lymphocytes 22.9 % (21.0-51.0); %Monocytes 7.3 % (0.0-10.0); Hemoglobin 9.2 g/dL (12.0-16.0); Mean Corpuscular HGB CONC 34.1 g/dL (32.0-36.0); Mean Corpuscular Hemoglobin 31.5 pg (27.0-31.0); Mean Corpuscular Volume 92.4 fL (78.0-98.0); Mean Platelet Volume 8.5 fL (7.4-10.4); Platelet Count 181 thou/uL (130-400); RBC Distribution Width 12.3 % (11.5-14.5); Red Blood Cell (RBC) Count 2.92 mill/uL (4.20-5.40); White Blood Cell (WBC) Count 6.4 thou/uL (4.8-10.8)
[2017-10-27 05:42] LABS: Anion Gap 12 mmol/L (10-20); BUN (Urea Nitrogen) 50 mg/dL (9.8-20.1); Calc. Creatinine Clearance 24 mL/min (70-130); Calcium 8.3 mg/dL (7.8-10.44); Carbon Dioxide 18 mmol/L (23-31); Chloride 113 mmol/L (98-107); Estimated GFR-MDRD 13; Glucose 115 mg/dL (83-110); Potassium 4.2 mmol/L (3.5-5.1); Sodium 139 mmol/L (136-145)
[2017-10-27] MEDS: Ondansetron HCl/PF 4 MG/2 ML Vial IVP PRN ×3 (06:13→23:44)
[2017-10-27] MEDS: Clindamycin/D5W 600 MG in Premix Bag 1 BAG IVPB SCH ×3 (06:16→21:44)
[2017-10-27] MEDS: Levothyroxine Sodium 25 MCG TAB PO SCH (06:21)
[2017-10-27] MEDS: Levothyroxine Sodium 112 MCG TAB PO SCH (06:21)
[2017-10-27] MEDS: Acetaminophen 325 MG TAB PO PRN ×4 (06:22→23:49)
--- NOTE | 2017-10-27 08:14 | PRG ---
DATE OF SERVICE: 10/27/2017 Ms. Bee is hospital day #4 postoperative day 2 from right-sided ventriculoperitoneal shunt. She c ontinued neurologically to do well. She is nauseated today. [facility] We are working in that regard.
--- NOTE | 2017-10-27 10:15 | PRG ---
DATE OF SERVICE: 10/27/2017 SUBJECTIVE: Ms. Bee is a 72-year-old white female being followed by the Renal Service for her chr onic renal failure. Renal function has been remaining steady. She underwent recently a right-sided COLORED LIQUID PLASTIC APPLIER shunt placement. This morning, she is complaining of some nausea. She denies any chest pain or s hortness of breath. PHYSICAL EXAMINATION: VITAL SIGNS: Blood pressure 172/84, heart rate 75, respiratory rate 16, temperature 98.5, pulse ox 9 5%. GENERAL: Awake, lethargic but not in distress. The patient is oriented to 3 spheres. SKIN: Adequate turgor. HEENT: She has slightly pale conjunctivae, anicteric sclerae. NECK: No neck mass, no carotid bruits, no JVD. CHEST: No deformities. LUNGS: Clear breath sounds. No wheezing, no crackles. HEART: Normal sinus rhythm. No murmur, no gallops, no rubs. ABDOMEN: Globular, soft, nontender, no masses. EXTREMITIES: No edema, no deformities. MEDICATIONS: Medications of 10/27/2017 was reviewed. LABORATORY DATA: Laboratories of 10/27/2017; white count 6.4, hemoglobin 9.2. Sodium 139, potassium 4.2, chloride 113, carbon dioxide 18, BUN 50, creatinine 3.48, GFR 13 mL per minute, glucose 115, ca lcium 8.3. ASSESSMENT AND PLAN: 1. Chronic renal failure, stable renal function. GFR remains unchanged at 13 mL per minute. Contin ue current management. Continue IV fluid. No indication for dialytic intervention. 2. Hydrocephalus - patient is status post COLORED LIQUID PLASTIC APPLIER shunt placement. Possibility for rehab placement is be ing considered by the Neurosurgery Service. Overall, agree with current management. Recheck base met and CBC in a.m.
[2017-10-27] MEDS ORDERED: Magnesium Citrate 300 ML BOT PO SCH (11:30)
[2017-10-27] MEDS: cloNIDine 0.1 MG TAB PO SCH (12:20)
[2017-10-27] MEDS: Amlodipine 10 MG TAB PO SCH (12:20)
[2017-10-27] MEDS: Sodium Bicarbonate Tab 325 MG TAB PO SCH ×3 (12:21→21:43)
[2017-10-27] MEDS: Atorvastatin Calcium 40 MG TAB PO SCH (12:21)
[2017-10-27] MEDS: Lactated Ringer's 1,000 ML IV SCH ×2 (15:50→21:55)
[2017-10-27] MEDS: Multivitamin W/ Minerals 1 TAB PO SCH (15:50)
[2017-10-27] MEDS: Calcium Carbonate + Vit D 1 TAB PO SCH (15:50)
--- NOTE | 2017-10-27 16:21 | PDOC.PN ---
- Subjective Encounter Start Date: 10/27/17 Encounter Start Time: 16:20 Subjective: f/u for NPH with BEVERAGE HOST shunt placement POD #2. States overall feeling -: better and less dizziness. - Objective Resuscitation Status: Resuscitation Status DNR:Do Not Resuscitate MAR Reviewed: Yes Vital Signs & Weight: Vital Signs (12 hours) Temp Pulse Resp BP BP Pulse Ox 10/27/17 12:20 77 181/77 H 10/27/17 11:57 97.8 F 77 16 181/77 H 98 10/27/17 08:00 98.5 F 77 16 95 10/27/17 07:28 98.5 F 75 16 172/84 H 95 Weight Weight 225 lb I&O: 10/26/17 10/27/17 10/28/17 06:59 06:59 06:59 Intake Total 2440 4080 Balance 2440 4080 Result Diagrams: 10/27/17 04:39 10/27/17 04:39 Additional Labs: Microbiology 10/23/17 20:41 Urine Straight Catheter Urine Culture - Final NO GROWTH AT 36 HOURS Laboratory Tests 10/23/17 10/23/17 10/24/17 20:00 20:00 05:02 Hgb 10.6 L Carbon Dioxide Creatinine 3.72 H 3.43 H Estimated GFR (MDRD) 12 13 10/24/17 10/25/17 10/25/17 05:02 04:18 04:18 Hgb 9.9 L 10.9 L Carbon Dioxide Creatinine 3.09 H Estimated GFR (MDRD) 15 10/26/17 05:25 Hgb Carbon Dioxide 18 L Creatinine 3.41 H Estimated GFR (MDRD) Phys Exam - Physical Examination Constitutional: NAD alert, responsive R frontoparietal region with dressings in place HEENT: PERRLA, sclera anicteric, oral pharynx no lesions Neck: no nodes, no JVD, supple, full ROM Respiratory: no wheezing, no rales, no rhonchi, clear to auscultation bilateral S1, S2 Cardiovascular: RRR, no significant murmur, no rub, gallop Gastrointestinal: soft, non-tender, no distention, positive bowel sounds Musculoskeletal: no edema, pulses present Neurological: normal sensation, moves all 4 limbs Psychiatric: normal affect, A&O x 3 Skin: normal turgor, cap refill <2 seconds Dx/Plan (1) Normal pressure hydrocephalus Code(s): G91.2 - (IDIOPATHIC) NORMAL PRESSURE HYDROCEPHALUS Status: Acute Comment: s/p BEVERAGE HOST shunt placement POD #2, continue supportive mgmt (2) Nausea & vomiting Code(s): R11.2 - NAUSEA WITH VOMITING, UNSPECIFIED Status: Acute Comment: Suspect multifactorial, antiemetics prn, clear liquids as tolerated (3) Frequent falls Code(s): R29.6 - REPEATED FALLS Status: Acute Comment: Secondary to #1, PT for mobilization (4) Chronic kidney disease Code(s): N18.9 - CHRONIC KIDNEY DISEASE, UNSPECIFIED Status: Chronic Qualifiers: Chronic kidney disease stage: stage 4 (severe) Qualified Code(s): N18.4 - Chronic kidney disease, stage 4 (severe) Comment: Stable currently, avoid nephrotoxic meds and limit contrast exposure, no HD indicated (5) Hypertension Code(s): I10 - ESSENTIAL (PRIMARY) HYPERTENSION Status: Chronic Qualifiers: Hypertension type: essential hypertension Qualified Code(s): I10 - Essential (primary) hypertension Comment: Continue current BP regimen, serial monitoring - Plan continue antibiotics, PT/OT, social work manager, out of bed/ambulate, DVT proph w/ SCDs Stable overall -: Antiemetics prn -: Continue abx coverage and consider de-escalating in 24h -: Mag citrate today due to constipation -: AM lab: BMP, CBC * CM for Rehab options
[2017-10-27] MEDS ORDERED: Piperacillin/Tazobactam 4.5 GM VIAL ONE (19:38)
[2017-10-27] MEDS: Donepezil HCl 10 MG TAB PO SCH (21:43)
[2017-10-27] MEDS: Latanoprost 0.005% Ophth Soln 2.5 ml Bottle EA EYE SCH (21:44)
[2017-10-28 05:15] LABS: #Eosinphils 0.1 thou/uL (0.0-0.7); #Lymphocytes 1.2 thou/uL (1.20-3.40); #Monocytes 0.5 thou/uL (0.11-0.59); #Neutrophils 4.1 thou/uL (1.40-6.50); %Basophils 0.4 % (0.0-1.0); %Eosinophils 0.9 % (0.0-10.0); %Monocytes 7.8 % (0.0-10.0); %Neutrophils 69.9 % (42.0-75.0); Hemoglobin 9.9 g/dL (12.0-16.0); Mean Corpuscular HGB CONC 34.9 g/dL (32.0-36.0); Mean Corpuscular Volume 91.7 fL (78.0-98.0); Mean Platelet Volume 8.2 fL (7.4-10.4); Platelet Count 177 thou/uL (130-400); RBC Distribution Width 12.2 % (11.5-14.5); Red Blood Cell (RBC) Count 3.09 mill/uL (4.20-5.40); White Blood Cell (WBC) Count 5.8 thou/uL (4.8-10.8)
[2017-10-28] MEDS: Levothyroxine Sodium 112 MCG TAB PO SCH (05:21)
[2017-10-28] MEDS: Levothyroxine Sodium 25 MCG TAB PO SCH (05:21)
[2017-10-28] MEDS: Clindamycin/D5W 600 MG in Premix Bag 1 BAG IVPB SCH (05:21)
[2017-10-28] MEDS: Lactated Ringer's 1,000 ML IV SCH ×2 (05:22→14:40)
[2017-10-28 05:27] LABS: Anion Gap 12 mmol/L (10-20); BUN (Urea Nitrogen) 45 mg/dL (9.8-20.1); Calc. Creatinine Clearance 25 mL/min (70-130); Calcium 8.3 mg/dL (7.8-10.44); Carbon Dioxide 18 mmol/L (23-31); Chloride 112 mmol/L (98-107); Estimated GFR-MDRD 14; Glucose 126 mg/dL (83-110); Potassium 3.9 mmol/L (3.5-5.1); Sodium 138 mmol/L (136-145)
--- NOTE | 2017-10-28 08:20 | HP ---
DATE OF SERVICE: 10/28/2017 Ms. Bee is now 3 days out from ventriculoperitoneal shunting for normal pressure hydrocephalus. Kaveh Nicholas performed the surgery Tuesday of this week. Ms. Bee has no complaints. She is hoping t hat the shunt helps with her balance as she does not like falling. Her vital signs overnight have be en stable, still a loose bandage on the incisions. Her neurological examination is at her baseline. I do not think the incisions need to be dressed anymore. She can shower and all the incisions could be patted dry after showering. We will look for placement at inpatient rehabilitation or a swing bed or a nursing facility before returning to [facility] and living more independently. That transfer can happen anytime.
[2017-10-28] MEDS: Ondansetron HCl/PF 4 MG/2 ML Vial IVP PRN ×2 (08:32→17:36)
[2017-10-28] MEDS: Amlodipine 10 MG TAB PO SCH (09:55)
[2017-10-28] MEDS: Atorvastatin Calcium 40 MG TAB PO SCH (09:56)
[2017-10-28] MEDS: cloNIDine 0.1 MG TAB PO SCH (09:56)
[2017-10-28] MEDS: Sodium Bicarbonate Tab 325 MG TAB PO SCH ×3 (09:57→20:14)
[2017-10-28] MEDS: Multivitamin W/ Minerals 1 TAB PO SCH (09:57)
[2017-10-28] MEDS: Calcium Carbonate + Vit D 1 TAB PO SCH (09:57)
[2017-10-28] MEDS: Acetaminophen 325 MG TAB PO PRN ×2 (11:09→17:34)
--- NOTE | 2017-10-28 14:42 | PDOC.PN ---
- Subjective Encounter Start Date: 10/28/17 Encounter Start Time: 14:30 Subjective: f/u for NPH s/p PIPE CLEANER shunt POD #3. Feeling much better overall and nausea -: resolved. + BM. - Objective Resuscitation Status: Resuscitation Status DNR:Do Not Resuscitate MAR Reviewed: Yes Vital Signs & Weight: Vital Signs (12 hours) Temp Pulse Resp BP BP BP Pulse Ox 10/28/17 11:08 98.8 F 74 16 175/87 H 99 10/28/17 09:56 185/78 H 10/28/17 09:55 74 185/78 H 10/28/17 08:32 98.1 F 73 16 98 10/28/17 08:10 98.1 F 73 16 185/78 H 98 10/28/17 04:04 98.6 F 68 16 175/84 H 98 Weight Weight 225 lb I&O: 10/27/17 10/28/17 10/29/17 06:59 06:59 06:59 Intake Total 4080 3040 Balance 4080 3040 Result Diagrams: 10/28/17 04:55 10/28/17 04:55 Additional Labs: Microbiology 10/23/17 20:41 Urine Straight Catheter Urine Culture - Final NO GROWTH AT 36 HOURS Laboratory Tests 10/23/17 10/23/17 10/24/17 20:00 20:00 05:02 Hgb 10.6 L Carbon Dioxide Creatinine 3.72 H 3.43 H Estimated GFR (MDRD) 12 13 10/24/17 10/25/17 10/25/17 05:02 04:18 04:18 Hgb 9.9 L 10.9 L Carbon Dioxide Creatinine 3.09 H Estimated GFR (MDRD) 15 10/26/17 05:25 Hgb Carbon Dioxide 18 L Creatinine 3.41 H Estimated GFR (MDRD) Phys Exam - Physical Examination Constitutional: NAD smiling, alert R parietal surgical wound intact HEENT: PERRLA, sclera anicteric, oral pharynx no lesions Neck: no nodes, no JVD, supple, full ROM Respiratory: no wheezing, no rales, no rhonchi, clear to auscultation bilateral S1, S2 Cardiovascular: RRR, no significant murmur, no rub, gallop Gastrointestinal: soft, non-tender, no distention, positive bowel sounds Musculoskeletal: no edema, pulses present Neurological: normal sensation, moves all 4 limbs Psychiatric: normal affect, A&O x 3 Skin: no rash, normal turgor, cap refill <2 seconds Dx/Plan (1) Normal pressure hydrocephalus Code(s): G91.2 - (IDIOPATHIC) NORMAL PRESSURE HYDROCEPHALUS Status: Acute Comment: s/p PIPE CLEANER shunt placement POD #3, continue supportive mgmt (2) Nausea & vomiting Code(s): R11.2 - NAUSEA WITH VOMITING, UNSPECIFIED Status: Acute Comment: Resolved, Suspect multifactorial, antiemetics prn, ADAT (3) Frequent falls Code(s): R29.6 - REPEATED FALLS Status: Acute Comment: Secondary to #1, PT for mobilization, Inpt Rehab evaluation and referral (4) Chronic kidney disease Code(s): N18.9 - CHRONIC KIDNEY DISEASE, UNSPECIFIED Status: Chronic Qualifiers: Chronic kidney disease stage: stage 4 (severe) Qualified Code(s): N18.4 - Chronic kidney disease, stage 4 (severe) Comment: Stable currently, avoid nephrotoxic meds and limit contrast exposure, no HD indicated (5) Hypertension Code(s): I10 - ESSENTIAL (PRIMARY) HYPERTENSION Status: Chronic Qualifiers: Hypertension type: essential hypertension Qualified Code(s): I10 - Essential (primary) hypertension Comment: Continue current BP regimen, serial monitoring, labile, d/c IVF's - Plan continue antibiotics, PT/OT, 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
[2017-10-28] MEDS: Latanoprost 0.005% Ophth Soln 2.5 ml Bottle EA EYE SCH (20:14)
[2017-10-28] MEDS: Donepezil HCl 10 MG TAB PO SCH (20:14)
[2017-10-29] MEDS: Levothyroxine Sodium 112 MCG TAB PO SCH (05:52)
[2017-10-29] MEDS: Levothyroxine Sodium 25 MCG TAB PO SCH (05:53)
[2017-10-29] MEDS: Ondansetron HCl/PF 4 MG/2 ML Vial IVP PRN ×2 (07:11→12:11)
[2017-10-29] MEDS: Acetaminophen 325 MG TAB PO PRN ×3 (07:11→16:30)
[2017-10-29] MEDS: Atorvastatin Calcium 40 MG TAB PO SCH (08:56)
[2017-10-29] MEDS: Amlodipine 10 MG TAB PO SCH (08:57)
[2017-10-29] MEDS: Sodium Bicarbonate Tab 325 MG TAB PO SCH ×3 (08:57→20:41)
[2017-10-29] MEDS: cloNIDine 0.1 MG TAB PO SCH (08:58)
[2017-10-29] MEDS: Multivitamin W/ Minerals 1 TAB PO SCH (08:59)
[2017-10-29] MEDS: Calcium Carbonate + Vit D 1 TAB PO SCH (08:59)
--- NOTE | 2017-10-29 09:04 | PRG ---
DATE OF SERVICE: 10/29/2017 Ms. Bee is 4 days out from ventriculoperitoneal shunting for normal pressure hydrocephalus. Miladis ness are underway to move her from the hospital to inpatient rehabilitation. She is anxious to st art her rehabilitation. She was quite off balanced before shunting and she hopes that the placement of the shunt improves her neurological function significantly. Overnight, blood pressures have been in 160s to 170s. She has been afebrile and her other vital sign s are stable. Her neurological examination is stable. Her abdomen is soft. The incisions look well approximated without any sign of infection. Ms. Bee's nausea overnight was controlled with medicine. This may be lingering effects of anesthe avery or a small amount of blood in the ventricular system, which can happen with shunting. Hopefully, it will prove self-limited, although I am sure that she is on a proton pump inhibitor.
--- NOTE | 2017-10-29 10:24 | PRG ---
DATE OF SERVICE: 10/29/2017 RENAL MEDICINE SUBJECTIVE: Ms. Bee is a 72-year-old white female who underwent a UPSTREAM BIOMANUFACTURING TECHNICIAN shunt placement for normal p ressure hydrocephalus. She is complaining of some neck pain. We are currently following up this patient for her chronic estella al failure/acute kidney injury. No complaints of chest pain or shortness of breath. OBJECTIVE: VITAL SIGNS: Blood pressure is 183/83, heart rate 79, respiratory rate 16, temperature 98.7, pulse o x 96% on room air. GENERAL APPEARANCE: Sitting comfortable, not in overt distress. SKIN: Adequate turgor. HEENT: Pinkish conjunctivae. Anicteric sclerae. NECK: No neck mass, no carotid bruits, no JVD. CHEST: No deformities. LUNGS: Clear breath sounds. No wheezing, no crackles. HEART: Normal sinus rhythm. No murmur, no gallops, no rubs. ABDOMEN: Globular, soft, nontender, no masses. EXTREMITIES: No edema, no deformities. MEDICATIONS: Medications of 10/29/2017 was reviewed. LABORATORY DATA: Laboratories of 10/28/2017; white count 5.8, hemoglobin 9.9. Sodium 138, potassium 3.9, chloride 112, carbon dioxide 18, BUN 45, creatinine 3.22, glucose 126, calcium 8.3. ASSESSMENT AND PLAN: 1. Acute kidney injury/chronic renal failure, stable renal function. Creatinine 3.22 is nearing bas chasity. Continue supportive care. Off IV fluid. P.o. intake has picked up. No indication for any d ialytic intervention. 2. Hypertension. Continue current blood pressure medications for the moment. 3. Status post UPSTREAM BIOMANUFACTURING TECHNICIAN shunting, stable. Neurosurgery is following. Awaiting rehab placement. Recheck base met and CBC in a.m.
--- NOTE | 2017-10-29 16:09 | PDOC.PN ---
- Subjective Encounter Start Date: 10/29/17 Encounter Start Time: 16:08 Ms. Bee was seen today in follow-up of Normal pressure hydrocephalus. She notes some pain around the right side of the back of her head, and some mild nausea, otherwise ok. - Objective Resuscitation Status: Resuscitation Status DNR:Do Not Resuscitate MAR Reviewed: Yes Vital Signs & Weight: Vital Signs (12 hours) Temp Pulse Resp BP BP Pulse Ox 10/29/17 11:47 98.3 F 72 16 157/87 H 99 10/29/17 08:58 183/83 H 10/29/17 08:57 82 183/83 H 10/29/17 08:11 98.7 F 79 16 183/83 H 96 10/29/17 08:00 98.7 F 82 16 96 Weight Weight 225 lb I&O: 10/28/17 10/29/17 10/30/17 06:59 06:59 06:59 Intake Total 3040 1500 Balance 3040 1500 Result Diagrams: 10/28/17 04:55 10/28/17 04:55 Phys Exam - Physical Examination HEENT: PERRLA, sclera anicteric Neck- no erythema, or fluctuance Neck: no nodes, supple Respiratory: no wheezing, no rales, no rhonchi, clear to auscultation bilateral Cardiovascular: RRR, no significant murmur, no rub no gallop Gastrointestinal: soft, non-tender, no distention, positive bowel sounds Musculoskeletal: pulses present, edema present Neurological: non-focal, moves all 4 limbs Dx/Plan (1) Normal pressure hydrocephalus Code(s): G91.2 - (IDIOPATHIC) NORMAL PRESSURE HYDROCEPHALUS Status: Acute Comment: s/p DRAMATIC READER shunt placement POD #3, continue supportive mgmt (2) Wzbnz-er-osicaql kidney injury Code(s): N17.9 - ACUTE KIDNEY FAILURE, UNSPECIFIED; N18.9 - CHRONIC KIDNEY DISEASE, UNSPECIFIED Status: Acute (3) Hypertension Code(s): I10 - ESSENTIAL (PRIMARY) HYPERTENSION Status: Chronic Qualifiers: Hypertension type: essential hypertension Qualified Code(s): I10 - Essential (primary) hypertension Comment: Continue current BP regimen, serial monitoring, labile, d/c IVF's (4) Nausea Code(s): R11.0 - NAUSEA Status: Acute (5) Hypothyroidism Code(s): E03.9 - HYPOTHYROIDISM, UNSPECIFIED Status: Chronic Qualifiers: Hypothyroidism type: unspecified Qualified Code(s): E03.9 - Hypothyroidism , unspecified - Plan * NPH- she is s/p DRAMATIC READER shunt day #4 * Acute on chronic kidney injury- Diuretics are on hold- Nephrology managing * HTN- blood pressure has been a bit labile- will continue to monitor. * Hypothyroidism- stable * Nausea- ? medications- will observe, and treat symptomatically * Awaiting Rehab transfer
[2017-10-29] MEDS: Latanoprost 0.005% Ophth Soln 2.5 ml Bottle EA EYE SCH (20:41)
[2017-10-29] MEDS: Donepezil HCl 10 MG TAB PO SCH (20:41)
[2017-10-30] MEDS: hydrALAZINE 20 MG/ML VIAL SLOW IVP PRN (03:57)
[2017-10-30 04:09] LABS: #Eosinphils 0.1 thou/uL (0.0-0.7); #Lymphocytes 1.2 thou/uL (1.20-3.40); #Monocytes 0.4 thou/uL (0.11-0.59); #Neutrophils 4.1 thou/uL (1.40-6.50); %Basophils 0.6 % (0.0-1.0); %Eosinophils 1.8 % (0.0-10.0); %Lymphocytes 20.3 % (21.0-51.0); %Monocytes 6.1 % (0.0-10.0); %Neutrophils 71.3 % (42.0-75.0); Hemoglobin 10.5 g/dL (12.0-16.0); Mean Corpuscular Volume 91.5 fL (78.0-98.0); Mean Platelet Volume 8.6 fL (7.4-10.4); Platelet Count 147 thou/uL (130-400); RBC Distribution Width 12.3 % (11.5-14.5); Red Blood Cell (RBC) Count 3.28 mill/uL (4.20-5.40); White Blood Cell (WBC) Count 5.8 thou/uL (4.8-10.8)
[2017-10-30 04:27] LABS: Anion Gap 11 mmol/L (10-20); BUN (Urea Nitrogen) 44 mg/dL (9.8-20.1); Calc. Creatinine Clearance 24 mL/min (70-130); Calcium 8.1 mg/dL (7.8-10.44); Carbon Dioxide 21 mmol/L (23-31); Chloride 111 mmol/L (98-107); Estimated GFR-MDRD 13; Glucose 104 mg/dL (83-110); Potassium 3.7 mmol/L (3.5-5.1); Sodium 139 mmol/L (136-145)
[2017-10-30] MEDS: Levothyroxine Sodium 112 MCG TAB PO SCH (05:46)
[2017-10-30] MEDS: Levothyroxine Sodium 25 MCG TAB PO SCH (05:46)
--- NOTE | 2017-10-30 08:09 | PRG ---
DATE OF SERVICE: 10/30/2017 SUBJECTIVE: I saw Ms. Jodi Bee in her hospital room this morning. She is 5 days out from ve ntriculoperitoneal shunting for normal pressure hydrocephalus. She had some nausea 2 days ago, it wa s better yesterday than it had been. We started Protonix yesterday morning. Ms. Bee is walking b ack and forth to the bathroom. She needs assistance for safety while she is walking and therefore e will be a good candidate for inpatient rehabilitation. Processes are underway to make that transfe r happen as early as tomorrow. Ms. Bee's incisions look fine. She has been afebrile and her jamil l signs are stable. Her neurological function is stable. Dr. Nicholas will be back tomorrow and transfer can be made to rehabilitation.
[2017-10-30] MEDS: cloNIDine 0.1 MG TAB PO SCH (09:23)
[2017-10-30] MEDS: Atorvastatin Calcium 40 MG TAB PO SCH (09:23)
[2017-10-30] MEDS: Calcium Carbonate + Vit D 1 TAB PO SCH (09:24)
[2017-10-30] MEDS: Multivitamin W/ Minerals 1 TAB PO SCH (09:24)
[2017-10-30] MEDS: Amlodipine 10 MG TAB PO SCH (09:25)
[2017-10-30] MEDS: Sodium Bicarbonate Tab 325 MG TAB PO SCH ×3 (09:25→21:33)
--- NOTE | 2017-10-30 10:28 | PRG ---
DATE OF SERVICE: 10/30/2017 SUBJECTIVE: Ms. Bee is a 72-year-old white female being followed up for chronic renal failure. S he underwent recently ECONOMIC DEVELOPER shunting for normal pressure hydrocephalus. No new complaints today. Her n ausea and vomiting is much improved today. The patient voices no new complaints. No chest pain or s hortness of breath. OBJECTIVE: VITAL SIGNS: Blood pressure is noted at 171/84, heart rate 79, respiratory rate 18, temperature 98.6 , pulse ox 98%. GENERAL: Awake, alert, comfortable, not in distress. SKIN: Adequate turgor. HEENT: She has pinkish conjunctivae, anicteric sclerae. NECK: No neck mass, no carotid bruits, no JVD. CHEST: No deformities. LUNGS: Clear breath sounds. HEART: Normal sinus rhythm. No murmur, no gallops, no rubs. ABDOMEN: Globular, soft, nontender, no masses. EXTREMITIES: No edema, no deformities. MEDICATIONS: 10/30/2017 reviewed. LABORATORY DATA: 10/30/2017, white count 5.8, hemoglobin 10.5. Sodium 139, potassium 3.7, chloride 111, carbon dioxide 21, BUN 44, creatinine 3.44, glucose 104, calcium 8.1. ASSESSMENT AND PLAN: 1. Chronic renal failure/acute kidney injury - fluctuating creatinine. I did encourage patient to i ncrease p.o. intake. She is trying to comply with this. If renal function will worsen over time, we may need to start on IV fluid. For the moment, agree with current management. 2. Hypertension, labile. Continuing current blood pressure meds. Adjust blood pressure medications as needed. 3. Normal pressure hydrocephalus - the patient is status post ventriculoperitoneal shunting. Doing well from a general surgical point of view. Awaiting rehab placement. Recheck base met and CBC in a.m.
--- NOTE | 2017-10-30 13:51 | ULT ---
BILATERAL LOWER EXTREMITY VENOUS DOPPLER ULTRASOUND: DATE: 10/30/17. COMPARISON: None. HISTORY: Inactivity/immobility following surgery, assess for a DVT. TECHNIQUE: Multiplanar, patel scale, sonographic imaging of the venous structures of bilateral lower extremities obtained with color flow and spectral analysis. FINDINGS: Bilateral common femoral veins, greater saphenous veins, profunda femoral veins, femoral veins, popli teal veins, and posterior tibial veins were patent. Normal blood flow, augmentation, and compression within the deep venous system bilaterally. No evidence for DVT on either side. IMPRESSION: No evidence for deep venous thrombosis of either lower extremity. POS: [facility]
--- NOTE | 2017-10-30 14:57 | PDOC.PN ---
- Subjective Encounter Start Date: 10/30/17 Encounter Start Time: 14:54 Ms. Bee was seen today in follow-up of NPH, and HTN. She says she is feeling better today. She is less nauseated, and says her appetite has improved. - Objective Resuscitation Status: Resuscitation Status DNR:Do Not Resuscitate MAR Reviewed: Yes Vital Signs & Weight: Vital Signs (12 hours) Temp Pulse Resp BP BP BP BP 10/30/17 11:45 97.9 F 80 16 146/82 H 10/30/17 09:25 72 171/84 H 10/30/17 09:23 171/84 H 10/30/17 08:52 98.6 F 72 18 10/30/17 07:31 98.6 F 79 18 171/84 H 10/30/17 06:09 167/85 H 10/30/17 04:27 98.3 F 72 20 183/84 H 10/30/17 03:57 73 10/30/17 03:52 98.4 F 73 16 121/74 Pulse Ox 10/30/17 11:45 100 10/30/17 09:25 10/30/17 09:23 10/30/17 08:52 98 10/30/17 07:31 98 10/30/17 06:09 10/30/17 04:27 99 10/30/17 03:57 10/30/17 03:52 96 Weight Weight 225 lb I&O: 10/29/17 10/30/17 10/31/17 06:59 06:59 06:59 Intake Total 1500 1000 Balance 1500 1000 Result Diagrams: 10/30/17 03:36 10/30/17 03:36 Phys Exam - Physical Examination HEENT: PERRLA Respiratory: no wheezing, no rales, no rhonchi, clear to auscultation bilateral Cardiovascular: RRR, no significant murmur, no rub Gastrointestinal: soft, non-tender, no distention, positive bowel sounds Musculoskeletal: edema present 1+ edema in both lower extremities Neurological: non-focal, moves all 4 limbs Dx/Plan (1) Hypertension Code(s): I10 - ESSENTIAL (PRIMARY) HYPERTENSION Status: Chronic Qualifiers: Hypertension type: essential hypertension Qualified Code(s): I10 - Essential (primary) hypertension Comment: Continue current BP regimen, serial monitoring, labile, d/c IVF's (2) Normal pressure hydrocephalus Code(s): G91.2 - (IDIOPATHIC) NORMAL PRESSURE HYDROCEPHALUS Status: Acute Comment: s/p TIME CLERK shunt placement POD #3, continue supportive mgmt (3) Akzvq-lk-nesecnx kidney injury Code(s): N17.9 - ACUTE KIDNEY FAILURE, UNSPECIFIED; N18.9 - CHRONIC KIDNEY DISEASE, UNSPECIFIED Status: Acute (4) Nausea Code(s): R11.0 - NAUSEA Status: Acute (5) Hypothyroidism Code(s): E03.9 - HYPOTHYROIDISM, UNSPECIFIED Status: Chronic Qualifiers: Hypothyroidism type: unspecified Qualified Code(s): E03.9 - Hypothyroidism , unspecified - Plan * HTN- blood pressure is better today- will continue Amlodipine, and Metoprolol * NPH- she is s/p TIME CLERK shunt placement * Acute on chronic kidney injury- continue to encourage oral intake - Nephrology managing * Continue PT/OT * Awaiting Rehab transfer.
[2017-10-30] MEDS: Latanoprost 0.005% Ophth Soln 2.5 ml Bottle EA EYE SCH (21:33)
[2017-10-30] MEDS: Donepezil HCl 10 MG TAB PO SCH (21:33)
[2017-10-31 04:26] LABS: #Eosinphils 0.2 thou/uL (0.0-0.7); #Lymphocytes 1.4 thou/uL (1.20-3.40); #Monocytes 0.5 thou/uL (0.11-0.59); #Neutrophils 3.7 thou/uL (1.40-6.50); %Basophils 0.7 % (0.0-1.0); %Eosinophils 3.2 % (0.0-10.0); %Lymphocytes 23.9 % (21.0-51.0); %Monocytes 8.1 % (0.0-10.0); %Neutrophils 64.2 % (42.0-75.0); Hemoglobin 9.5 g/dL (12.0-16.0); Mean Corpuscular HGB CONC 35.4 g/dL (32.0-36.0); Mean Corpuscular Hemoglobin 32.5 pg (27.0-31.0); Mean Platelet Volume 8.8 fL (7.4-10.4); Platelet Count 144 thou/uL (130-400); RBC Distribution Width 12.3 % (11.5-14.5); Red Blood Cell (RBC) Count 2.93 mill/uL (4.20-5.40); White Blood Cell (WBC) Count 5.8 thou/uL (4.8-10.8)
[2017-10-31 04:43] LABS: Anion Gap 10 mmol/L (10-20); BUN (Urea Nitrogen) 53 mg/dL (9.8-20.1); Calc. Creatinine Clearance 22 mL/min (70-130); Calcium 7.9 mg/dL (7.8-10.44); Carbon Dioxide 21 mmol/L (23-31); Chloride 112 mmol/L (98-107); Estimated GFR-MDRD 12; Glucose 120 mg/dL (83-110); Potassium 3.8 mmol/L (3.5-5.1); Sodium 139 mmol/L (136-145)
[2017-10-31] MEDS: Levothyroxine Sodium 112 MCG TAB PO SCH (06:00)
[2017-10-31] MEDS: Levothyroxine Sodium 25 MCG TAB PO SCH (06:00)
[2017-10-31] MEDS: Sodium Bicarbonate Tab 325 MG TAB PO SCH ×3 (08:13→21:21)
[2017-10-31] MEDS: Amlodipine 10 MG TAB PO SCH (08:13)
[2017-10-31] MEDS: cloNIDine 0.1 MG TAB PO SCH (08:14)
[2017-10-31] MEDS: Calcium Carbonate + Vit D 1 TAB PO SCH (08:14)
[2017-10-31] MEDS: Atorvastatin Calcium 40 MG TAB PO SCH (08:14)
[2017-10-31] MEDS: Multivitamin W/ Minerals 1 TAB PO SCH (08:14)
[2017-10-31] MEDS: Lactated Ringer's 1,000 ML IV SCH ×2 (08:47→19:13)
--- NOTE | 2017-10-31 09:09 | PRG ---
DATE OF SERVICE: 10/31/2017 SUBJECTIVE: Ms. Bee is a 72-year-old white female, who was admitted for FLOAT BUILDER shunting placement for normal pressure hydrocephalus. The Renal Service has been following up this patient for her chronic renal failure. I noted the creatinine has been fluctuating. I decided to start her on lactated Rin otis's solution at 100 mL per hour today. Her p.o. appetite is actually improved. She denies any bong st pain or shortness of breath. PHYSICAL EXAMINATION: VITAL SIGNS: Blood pressure 177/85, heart rate 67, respiratory rate 16, temperature 98.3, and pulse ox 97%. GENERAL: Noted to be awake, alert, supine, comfortable, not in distress. SKIN: Adequate turgor. HEENT: She has slightly pale conjunctivae, anicteric sclerae. NECK: No neck mass, no carotid bruits, no JVD. CHEST: No deformities. LUNGS: Clear breath sounds. HEART: Normal sinus rhythm. No murmur, no gallops, no rubs. ABDOMEN: Globular, soft, nontender, no masses. EXTREMITIES: No edema, no deformities. MEDICATIONS: On 10/31/2017 - reviewed. LABORATORY DATA: On 10/31/2017 - white count 5.8, hemoglobin 9.5. Sodium 139, potassium 3.9, chlori de 112, carbon dioxide 21, BUN 53, creatinine 3.71, glucose 120, calcium 7.9. ASSESSMENT AND PLAN: 1. Acute kidney injury/chronic renal failure, fluctuating creatinine. Creatinine now noted at 3.71, start lactated ringer solution at 100 mL per hour. There is no indication for any dialytic interven tion. 2. Metabolic acidosis. Continue sodium bicarbonate tablets. 3. Normal pressure hydrocephalus - patient status post FLOAT BUILDER shunt placement, doing well. Neurosurgery is following. For the moment, awaiting rehab placement. Agree with current management. We will check base met and CBC in a.m.
--- NOTE | 2017-10-31 09:18 | PRG ---
DATE OF SERVICE: 10/31/2017 Ms. Bee is postoperative day 6 from right-sided ventriculoperitoneal shunt. She had nausea during last week which limited her mobilization. However, she is eating breakfast this morning and is in v marco good spirits, moving all extremities to command and appears quite vibrant an appropriate in conve rsation. Her wounds are healing well. We are making arrangements for inpatient rehab transfer.
--- NOTE | 2017-10-31 16:48 | PDOC.PN ---
- Subjective Encounter Start Date: 10/31/17 Encounter Start Time: 16:46 Ms. Bee was seen today in follow-up of HTN and NPH. she says she is feeling better. They nausea has improved. She has been eating well, and does not have any complaints. - Objective Resuscitation Status: Resuscitation Status DNR:Do Not Resuscitate MAR Reviewed: Yes Vital Signs & Weight: Vital Signs (12 hours) Temp Pulse Pulse Pulse Resp BP BP 10/31/17 15:18 97.9 F 65 16 10/31/17 15:09 64 64 157/103 H 10/31/17 11:40 98.3 F 63 16 10/31/17 09:14 98.3 F 63 16 10/31/17 08:14 177/85 H 10/31/17 08:13 63 177/85 H 10/31/17 07:54 98.3 F 67 16 BP BP BP Pulse Ox Pulse Ox Pulse Ox 10/31/17 15:18 138/84 98 10/31/17 15:09 156/74 H 99 100 10/31/17 11:40 155/65 H 97 10/31/17 09:14 97 10/31/17 08:14 10/31/17 08:13 10/31/17 07:54 177/85 H 97 Weight Weight 225 lb I&O: 10/30/17 10/31/17 11/01/17 06:59 06:59 06:59 Intake Total 1000 480 Balance 1000 480 Result Diagrams: 10/31/17 03:53 10/31/17 03:53 Phys Exam - Physical Examination HEENT: PERRLA Respiratory: no wheezing, no rales, no rhonchi, clear to auscultation bilateral Cardiovascular: RRR, no significant murmur, no rub Gastrointestinal: soft, non-tender, no distention, positive bowel sounds Musculoskeletal: no edema Dx/Plan (1) Hypertension Code(s): I10 - ESSENTIAL (PRIMARY) HYPERTENSION Status: Chronic Qualifiers: Hypertension type: essential hypertension Qualified Code(s): I10 - Essential (primary) hypertension Comment: Continue current BP regimen, serial monitoring, labile, d/c IVF's (2) Normal pressure hydrocephalus Code(s): G91.2 - (IDIOPATHIC) NORMAL PRESSURE HYDROCEPHALUS Status: Acute Comment: s/p METAL SPRAY OPERATOR shunt placement POD #3, continue supportive mgmt (3) Hiitv-ca-fjgdwji kidney injury Code(s): N17.9 - ACUTE KIDNEY FAILURE, UNSPECIFIED; N18.9 - CHRONIC KIDNEY DISEASE, UNSPECIFIED Status: Acute (4) Nausea Code(s): R11.0 - NAUSEA Status: Acute (5) Hypothyroidism Code(s): E03.9 - HYPOTHYROIDISM, UNSPECIFIED Status: Chronic Qualifiers: Hypothyroidism type: unspecified Qualified Code(s): E03.9 - Hypothyroidism , unspecified - Plan * HTN- blood pressure is still elevated, but trending down * Nausea- improved- suspect this may be due to NPH * Acute on chronic kidney injury- creatinine has not yet improved- Dr. Andrews has added IV fluids * Awaiting Rehab approval.
[2017-10-31] MEDS: Donepezil HCl 10 MG TAB PO SCH (21:21)
[2017-10-31] MEDS: Latanoprost 0.005% Ophth Soln 2.5 ml Bottle EA EYE SCH (21:21)
[2017-10-31] MEDS: hydrALAZINE 20 MG/ML VIAL SLOW IVP PRN (21:28)
[2017-11-01] MEDS ORDERED: cloNIDine 0.1 MG TAB PO SCH (01:15)
[2017-11-01] MEDS: Lactated Ringer's 1,000 ML IV SCH ×2 (01:16→11:10)
[2017-11-01] MEDS: hydrALAZINE 20 MG/ML VIAL SLOW IVP PRN (04:41)
[2017-11-01] MEDS: Levothyroxine Sodium 112 MCG TAB PO SCH (05:17)
[2017-11-01] MEDS: Levothyroxine Sodium 25 MCG TAB PO SCH (05:17)
[2017-11-01 05:46] LABS: #Basophils 0.1 thou/uL (0.0-0.2); #Eosinphils 0.4 thou/uL (0.0-0.7); #Lymphocytes 1.4 thou/uL (1.20-3.40); #Monocytes 0.4 thou/uL (0.11-0.59); #Neutrophils 4.1 thou/uL (1.40-6.50); %Basophils 0.8 % (0.0-1.0); %Eosinophils 5.7 % (0.0-10.0); %Monocytes 6.7 % (0.0-10.0); %Neutrophils 64.8 % (42.0-75.0); Mean Corpuscular HGB CONC 34.6 g/dL (32.0-36.0); Mean Corpuscular Hemoglobin 31.9 pg (27.0-31.0); Mean Corpuscular Volume 92.2 fL (78.0-98.0); Mean Platelet Volume 9.1 fL (7.4-10.4); Platelet Count 163 thou/uL (130-400); RBC Distribution Width 12.4 % (11.5-14.5); Red Blood Cell (RBC) Count 3.13 mill/uL (4.20-5.40); White Blood Cell (WBC) Count 6.2 thou/uL (4.8-10.8)
[2017-11-01 05:52] LABS: Anion Gap 11 mmol/L (10-20); BUN (Urea Nitrogen) 49 mg/dL (9.8-20.1); Calc. Creatinine Clearance 25 mL/min (70-130); Calcium 8.1 mg/dL (7.8-10.44); Carbon Dioxide 20 mmol/L (23-31); Chloride 112 mmol/L (98-107); Estimated GFR-MDRD 14; Glucose 126 mg/dL (83-110); Sodium 139 mmol/L (136-145)
[2017-11-01] MEDS: Multivitamin W/ Minerals 1 TAB PO SCH (08:54)
[2017-11-01] MEDS: Calcium Carbonate + Vit D 1 TAB PO SCH (08:54)
[2017-11-01] MEDS: Sodium Bicarbonate Tab 325 MG TAB PO SCH ×2 (08:54→15:27)
[2017-11-01] MEDS: Amlodipine 10 MG TAB PO SCH (08:54)
[2017-11-01] MEDS: Atorvastatin Calcium 40 MG TAB PO SCH (08:54)
--- NOTE | 2017-11-01 11:04 | PDOC.PN ---
- Subjective Encounter Start Date: 11/01/17 Encounter Start Time: 11:03 Ms. Bee was seen today in follow-up of NPH and Hypertension. She says she feels better than she has felt in days. She says the nausea has resolved. - Objective Resuscitation Status: Resuscitation Status DNR:Do Not Resuscitate MAR Reviewed: Yes Vital Signs & Weight: Vital Signs (12 hours) Temp Pulse Resp BP BP Pulse Ox 11/01/17 08:54 67 187/70 H 11/01/17 08:50 97.6 F 67 20 98 11/01/17 07:30 97.6 F 67 20 187/70 H 98 11/01/17 04:41 64 177/86 H 11/01/17 04:30 98 F 64 18 177/96 H 98 11/01/17 01:14 180/77 H 11/01/17 00:00 98.4 F 66 16 171/73 H 100 Weight Weight 225 lb I&O: 10/31/17 11/01/17 11/02/17 06:59 06:59 06:59 Intake Total 480 Balance 480 Result Diagrams: 11/01/17 04:47 11/01/17 04:47 Phys Exam - Physical Examination HEENT: PERRLA, sclera anicteric Respiratory: no wheezing, no rales, no rhonchi, clear to auscultation bilateral Cardiovascular: RRR, no significant murmur, no rub no gallop Gastrointestinal: soft, non-tender, no distention, positive bowel sounds Musculoskeletal: edema present 1+ edema Neurological: non-focal Dx/Plan (1) Hypertension Code(s): I10 - ESSENTIAL (PRIMARY) HYPERTENSION Status: Chronic Qualifiers: Hypertension type: essential hypertension Qualified Code(s): I10 - Essential (primary) hypertension Comment: Continue current BP regimen, serial monitoring, labile, d/c IVF's (2) Normal pressure hydrocephalus Code(s): G91.2 - (IDIOPATHIC) NORMAL PRESSURE HYDROCEPHALUS Status: Acute Comment: s/p LICENSING SERVICES CLERK shunt placement POD #3, continue supportive mgmt (3) Uuklg-dk-wzmrvyw kidney injury Code(s): N17.9 - ACUTE KIDNEY FAILURE, UNSPECIFIED; N18.9 - CHRONIC KIDNEY DISEASE, UNSPECIFIED Status: Acute (4) Nausea Code(s): R11.0 - NAUSEA Status: Acute (5) Hypothyroidism Code(s): E03.9 - HYPOTHYROIDISM, UNSPECIFIED Status: Chronic Qualifiers: Hypothyroidism type: unspecified Qualified Code(s): E03.9 - Hypothyroidism , unspecified - Plan * HTN- blood pressure is still elevated, will add Hydralazine scheduled * NPH- stable * Nausea- improved * Acute on chronic kidney injury- slightly improved.
[2017-11-01] MEDS: cloNIDine 0.1 MG TAB PO SCH (11:10)
--- NOTE | 2017-11-01 11:23 | PRG ---
DATE OF SERVICE: 11/01/2017 Mohit Martel PA-C., dictating for Dinh Nicholas MD Ms. Bee is now hospital day #7, having undergone a right frontal SHEARER OPERATOR shunt placement. The patient continues to improve neurologically. She states her walking is also improved. She is much more anim ated and conversant today. Our main concern is waiting on rehabilitation. She has good strength in the bilateral upper and bilateral lower extremities and her cranial incision is clean, dry, and intac t, and closed with barry. Again, the patient is ready for discharge at any time, and we appreciate Medicine managing the patient.
--- NOTE | 2017-11-01 11:23 | PRG ---
DATE OF SERVICE: 11/01/2017 SERVICE: Renal Medicine. SUBJECTIVE: Ms. Bee is a 72-year-old white female who was recently status post BUSINESS OFFICE MANAGER shunt placement , being followed by the Renal Service for her chronic renal failure. Her renal function is recently been fluctuating up and down. I resume back with normal saline yesterday due to the slightly higher creatinine of 3.7. She is feeling much better. Her appetite is much improved. Her energy level is also much improved. OBJECTIVE: VITAL SIGNS: Blood pressure 187/71, heart rate 71. GENERAL: Awake, sitting comfortable, not in distress. SKIN: Adequate turgor. HEENT: Pinkish conjunctivae, anicteric sclerae. No neck mass, no carotid bruits. No JVD. CHEST: No deformities. LUNGS: Clear breath sounds, no wheezing, no crackles. HEART: Normal sinus rhythm. No murmur, no gallops, no rubs. ABDOMEN: Globular, soft, nontender, no masses. EXTREMITIES: No edema, no deformities. LABORATORY DATA: Of 11/01/2017, pending. MEDICATIONS: 11/01/2017 was reviewed. ASSESSMENT AND PLAN: 1. Chronic renal failure, fluctuating creatinine. Continue normal saline. There is no indication f or any dialytic intervention with this patient. Continue supportive care. Encourage increased p.o. intake. 2. Normal pressure hydrocephalus - patient is status post BUSINESS OFFICE MANAGER shunting. Awaiting rehab placement. I will recheck another base met and CBC. 3. Labile hypertension, p.r.n. clonidine.
[2017-11-01] MEDS ORDERED: hydrALAZINE 25 MG TAB PO SCH (15:00)
[2017-11-01 15:28] VITALS: BP 165/72; TEMP 98.5
--- NOTE | 2017-11-01 21:07 | DIS ---
DATE OF ADMISSION: 10/25/2017 DATE OF DISCHARGE: 11/01/2017 PRIMARY CARE PHYSICIAN: Jennie Ayala M.D. DISCHARGE DISPOSITION: To inpatient rehabilitation. DISCHARGE DIAGNOSES: 1. Normal pressure hydrocephalus. 2. Hypertension. 3. Acute on chronic kidney injury. 4. Nausea, likely related to the normal pressure hydrocephalus. 5. History of hypothyroidism. DISCHARGE MEDICATIONS: Include sodium bicarbonate 650 mg t.i.d., Protonix 40 mg daily, Apresoline 25 mg t.i.d., thiamine 100 mg daily, multivitamin with iron daily, Toprol-XL 25 mg daily, Synthroid 137 mcg daily, Xalatan eyedrops q.p.m., fenofibrate 48 mg daily, Aricept 10 mg at bedtime, clonidine 0.1 mg daily, calcium plus vitamin D one tablet daily, atorvastatin 80 mg daily, amlodipine 10 mg daily. PROCEDURES DONE DURING THE ADMISSION: The patient had a CT scan of the brain showing no acute intrac ranial findings. There was evidence of ventriculomegaly and chronic ischemic white matter changes. The patient had a CT scan of the cervical spine showing no evidence of fracture or traumatic subluxat ion. The patient underwent a APPRENTICE COSMETOLOGIST shunt placement. CODE STATUS: DNR. ALLERGIES: AZITHROMYCIN and PENICILLINS. HOSPITAL COURSE: Ms. Bee is a pleasant 72-year-old female that presented to the emergency room co mplaining of a fall and fell backwards and hit her head. She has a known history of normal pressure hydrocephalus and has been getting multiple lumbar punctures in the past. She was admitted to the [facility] and Neurosurgery was consulted and the plan was to proceed with placing a APPRENTICE COSMETOLOGIST shunt. General S urgery was also consulted to gas turbine powerplant mechanic helper in the procedure. She had an uneventful postoperative course w ith the exception of acute on chronic kidney disease. Her box hinge and lock attacher was consulted. The acute on chronic kidney disease was felt to be prerenal. She was given some IV fluid during the course of her hospital stay and sodium bicarbonate was also added. Due to her severe deconditioning. She was jonathan luated for inpatient rehabilitation and was subsequently discharged to the inpatient rehabilitation [facility] on 11/01/2017.
== END 2017-11-01 16:37 | DRG 32 ==
LOC: ERS 18:13 → SJJU 22:55 → OBSVTOIN 10-25 14:38
PROVIDERS: ADMIT Hospitalist; ATTEND Hospitalist
PROC: 00160J6 Bypass Cerebral Ventricle to Peritoneal Cavity with Synthetic Substitute, Open Approach (ICD-10-PCS; principal; 2017-10-25)
PROC: 0FH Hepatobiliary System and Pancreas, Insertion (ICD-10-PCS; 2017-10-25)
DX: G91.2 (Idiopathic) normal pressure hydrocephalus (principal); N17.9 Acute kidney failure, unspecified; N18.4 Chronic kidney disease, stage 4 (severe); E87.2 Acidosis; E03.9 Hypothyroidism, unspecified; Z66 Do not resuscitate; R29.6 Repeated falls; I12.9 Hypertensive chronic kidney disease with stage 1 through stage 4 chronic kidney disease, or unspecified chronic kidney disease; Z90.5 Acquired absence of kidney; Z90.710 Acquired absence of both cervix and uterus; Z91.81 History of falling; Z85.528 Personal history of other malignant neoplasm of kidney; E78.5 Hyperlipidemia, unspecified; G30.9 Alzheimer's disease, unspecified; F02.80 Dementia in other diseases classified elsewhere, unspecified severity, without behavioral disturbance, psychotic disturbance, mood disturbance, and anxiety; E11.22 Type 2 diabetes mellitus with diabetic chronic kidney disease; S00.03XA Contusion of scalp, initial encounter; D63.1 Anemia in chronic kidney disease; Z87.891 Personal history of nicotine dependence
CPT/HCPCS: 36415; 51701; 70450; 72125; 80048; 81003; 81015; 82553; 82607; 84443; 84484; 85025; 87086; 93005; 93970; 96360; 96361; A4216; A4353; G8978-GP-CM; G8979-GP-CJ; G8987-GO-CL; G8988-GO-CI; J0131; J0360; J1100; J1956; J2001; J2250; J2270; J2405; J2543; J2550; J2704; J3010; J3370; J3490

== ENCOUNTER 2018-01-15 08:38 | Inpatient (IN) | payer MEDICARE ==
--- NOTE | 2018-01-15 10:14 | CT ---
CT BRAIN WITHOUT CONTRAST: HISTORY: Fall. Dizziness. Altered mental status. COMPARISON: CT brain 10/23/2017. FINDINGS: There is a large left subdural hematoma measuring up to 2.4 cm. There is tfcm-yu-kviur midline shift approximately 9 mm. External ventricular drain is present with tip in the right foramen of Ken[place]. No ventriculomegaly. There is retracting clot along the left subdural hematoma posteriorly. There is effacement of the le ft frontal and parietal sulci from mass effect. The basilar cisterns are patent. IMPRESSION: 1. Large left subdural hematoma with indwelling extraventricular drain in the tip in the right kenny en of [place]. There is midline shift [id number] approximately 9 mm. 2. Early subfalcine herniation anteriorly. Findings to Dr. Arteaga. CODE CR POS: [facility]
[2018-01-15 10:43] LABS: Bilirubin Negative (Negative); Blood, Urine Negative (Negative); Clarity CLEAR (Clear); Glucose, Urine (Dipstick) 100 mg/dL (Negative); Leukocyte Small (Negative); Nitrite Negative (Negative); Protein, Urine (Dipstick) > or equal to 300 mg/dL (Neg-Trace); Specific Gravity, Urine 1.018 (1.002-1.036); Urobilinogen 0.2 mg/dL (0.2-1.0); pH, Urine 5.5 (5.0-9.0)
[2018-01-15 10:46] LABS: Bacteria/HPF None Seen HPF (None Seen); Hyaline Casts/LPF 0-3 HYALINE CAST LPF (0-3 Hyaline); Pathc Cast-AUWi Flag 0.29 (0-2.49); RBC/HPF 0-3 HPF (0-3); Squamous Epithelial 0-3 HPF (0-3); WBC/HPF 21-50 HPF (0-3)
[2018-01-15 11:06] LABS: #Eosinphils 0.2 thou/uL (0.0-0.7); #Lymphocytes 1.2 thou/uL (1.20-3.40); #Monocytes 0.4 thou/uL (0.11-0.59); #Neutrophils 5.1 thou/uL (1.40-6.50); %Basophils 0.3 % (0.0-1.0); %Eosinophils 2.9 % (0.0-10.0); %Lymphocytes 17.3 % (21.0-51.0); %Monocytes 5.9 % (0.0-10.0); %Neutrophils 73.6 % (42.0-75.0); Hemoglobin 11.1 g/dL (12.0-16.0); Mean Corpuscular HGB CONC 32.8 g/dL (32.0-36.0); Mean Corpuscular Hemoglobin 31.1 pg (27.0-31.0); Mean Corpuscular Volume 94.8 fL (78.0-98.0); Mean Platelet Volume 9.3 fL (7.4-10.4); Platelet Count 155 thou/uL (130-400); RBC Distribution Width 12.4 % (11.5-14.5); Red Blood Cell (RBC) Count 3.57 mill/uL (4.20-5.40); White Blood Cell (WBC) Count 6.9 thou/uL (4.8-10.8)
[2018-01-15 11:12] LABS: INR-International Normal Ratio 1.1; PTT 27.8 SEC (22.9-36.1); Prothrombin Time 14.5 SEC (12.0-14.7)
[2018-01-15] MEDS ORDERED: Succinylcholine Chloride 20 MG/ML 10 ml SYRINGE FS ONE (11:22)
[2018-01-15] MEDS ORDERED: PROPOFOL 200 MG/20 ML VIAL ONE (11:22)
[2018-01-15] MEDS ORDERED: Glycopyrrolate 0.2 MG/ML 5 ML SYRINGE ONE (11:22)
[2018-01-15] MEDS ORDERED: Ondansetron PF 4 MG/2 ML Vial ONE (11:22)
[2018-01-15] MEDS ORDERED: Lidocaine 1% PF 5 ML VIAL ONE (11:22)
[2018-01-15] MEDS ORDERED: PHENYLEPHRINE-NS 100 MCG/ML 10 ML SYRINGE ONE (11:22)
[2018-01-15 11:31] LABS: Troponin I 0.016 ng/mL (< 0.028)
[2018-01-15] MEDS ORDERED: hydrALAZINE 20 MG/ML VIAL ONE (11:31)
[2018-01-15 11:33] LABS: ALT (SGPT) 22 U/L (8-55); AST (SGOT) 18 U/L (5-34); Albumin 3.6 g/dL (3.4-4.8); Alkaline Phosphatase 75 U/L (40-150); Anion Gap 13 mmol/L (10-20); BUN (Urea Nitrogen) 54 mg/dL (9.8-20.1); Bilirubin, Total 0.3 mg/dL (0.2-1.2); Calc. Creatinine Clearance 0 mL/min (70-130); Calcium 9.1 mg/dL (7.8-10.44); Carbon Dioxide 15 mmol/L (23-31); Chloride 119 mmol/L (98-107); Estimated GFR-MDRD 13; Globulin 2.3 g/dL (2.4-3.5); Glucose 85 mg/dL (83-110); Potassium 4.3 mmol/L (3.5-5.1); Protein, Total 5.9 g/dL (6.0-8.3); Sodium 143 mmol/L (136-145)
[2018-01-15 11:34] LABS: CKMB 7.9 ng/mL (0-6.6)
[2018-01-15] MEDS ORDERED: Fentanyl 100 MCG/2 ML VIAL ONE (11:46)
[2018-01-15] MEDS ORDERED: Sodium Chloride 0.9% 10 ML ONE (11:52)
[2018-01-15] MEDS ORDERED: Bacitracin Zinc Ointment 30 gm TUBE ONE (11:52)
[2018-01-15] MEDS ORDERED: Thrombin 5000 UNITS/5 ML VIAL ONE (11:52)
[2018-01-15] MEDS ORDERED: Lidocaine 0.5%/Epinephrine 1:200,000 50 ml Vial ONE (11:52)
[2018-01-15] MEDS ORDERED: Phenylephrine HCL 10 MG/ML VIAL ONE (11:54)
[2018-01-15] MEDS ORDERED: Levofloxacin 500 mg/D5W 100 ml Premix Bag ONE (12:25)
[2018-01-15] MEDS ORDERED: Clindamycin/D5W 900 mg/50 ml Premix Bag ONE (12:25)
--- NOTE | 2018-01-15 12:34 | HP ---
DATE OF SERVICE: 01/15/2018 SUBJECTIVE: Ms. Bee is known to me approximately 3 months ago, we did a right-sided ventriculoper itoneal shunt for normal pressure hydrocephalus. She subsequently did very well over the last couple of weeks, has developed increased balance issues and falling with increased headache and more confus ion. Review of a head CT demonstrates a large chronic subdural hematoma on the left convexity with s ignificant mass effect and moderate midline shift. Subdural hematoma is approximately 26 mm in size. We will plan to emergently go to the operating room to drain this through frontal and parietal zoe hole evacuation and we will consider only if necessary a craniotomy. I have let her and her son eddi thorpe that we will also adjust the shunt setting to allow for more expansion of her convexities and that the plan will be for her to be hospitalized least the next few days while she recovers from this. PHYSICAL EXAMINATION: She is alert. She is confused. She does recognize me. Moves all extremities to command with right-sided weakness due to the large subdural hematoma. Her wounds are well healed and frankly I think the shunt is working exceptionally well obviously given the size of her subdural hematoma. Goals, indications, risks, alternatives, complications were discussed in detail with the patient and her son regarding a left-sided frontal and parietal zoe hole evacuation for subdural hematoma with p ossible craniotomy only if necessary. They understand the risks, benefits, and indications, alternat carolyne, and wish to proceed with surgery. IMPRESSION: Large left chronic subdural hematoma with history of shunting for normal pressure hydroc ephalus with initial improvement.
[2018-01-15] MEDS ORDERED: Senokot S 8.6-50 MG TAB PO PRN (14:04)
[2018-01-15] MEDS ORDERED: Acetaminophen 325 MG TAB PO PRN (14:04)
[2018-01-15] MEDS ORDERED: Promethazine HCl 25 MG/ML VIAL IM/IV PRN (14:12)
[2018-01-15] MEDS ORDERED: Labetalol HCl 100 MG/20 ML VIAL ONE (14:32)
[2018-01-15] MEDS: Labetalol HCl 100 MG/20 ML VIAL SLOW IVP PRN ×5 (14:39→15:58)
[2018-01-15] MEDS: hydrALAZINE 25 MG TAB PO SCH ×2 (15:29→21:57)
[2018-01-15] MEDS: Sodium Chloride 0.9% 1,000 ML IV SCH (15:36)
[2018-01-15] MEDS: niCARdipine HCl 25 MG in Sodium Chloride 0.9% 250 ML 240 ML IVPB SCH ×2 (17:02→23:11)
--- NOTE | 2018-01-15 21:03 | OP ---
SURGEON: Dinh Nicholas M.D. EXCELLENCE COACH: Mohit Martel PA-C OR: 12 WOUND TYPE: Type 1 wound. A modifier 57 should be added to this surgery this surgery. A decision to operate was made on the da y I saw the patient. PREPROCEDURE DIAGNOSES: Large left chronic subdural hematoma with mass effect, midline shift, and ne urological decline. POSTPROCEDURE DIAGNOSES: PROCEDURES: Left frontal and parietal zoe hole evacuation for subdural hematoma evacuation and plac ement of subdural drain. DESCRIPTION OF PROCEDURE: After informed consent was obtained from the patient and her son, the andrea ent was brought to OR 12. Proper patient pause and identification was carried out. She was placed i n excellent general endotracheal anesthesia, positioned supine on the OR table. All appropriate poin ts were padded. We identified the left frontal and parietal region. Hair was clipped in this area a nd a linear vance was made. This region was sterilely cleansed, prepared, and draped. Proper patient pause and identification was carried out. The left frontal and parietal linear incisions were opene d. Zoe holes were fashioned and the dura opened and the release of a dark yellow colored fluid cons istent with hygroma and chronic subdural hematoma was released under moderate pressure. The underlyi ng brain was visualized. Copious irrigation occurred throughout. The subdural drain was then placed through the parietal zoe hole and secured to the scalp. Again, copious irrigation occurred through out and was then closed in anatomic layers. The patient then emerged from anesthesia.
[2018-01-15] MEDS: Donepezil HCl 10 MG TAB PO SCH (21:57)
[2018-01-15] MEDS: Clindamycin/D5W 900 MG in Premix Bag 1 BAG IVPB SCH (21:57)
[2018-01-15] MEDS: Latanoprost 0.005% Ophth Soln 2.5 ml Bottle EA EYE SCH (22:12)
[2018-01-16] MEDS: niCARdipine HCl 25 MG in Sodium Chloride 0.9% 250 ML 240 ML IVPB SCH ×2 (03:54→07:53)
[2018-01-16 04:48] LABS: #Lymphocytes 0.9 thou/uL (1.20-3.40); #Monocytes 0.5 thou/uL (0.11-0.59); #Neutrophils 7.5 thou/uL (1.40-6.50); %Basophils 0.2 % (0.0-1.0); %Eosinophils 0.4 % (0.0-10.0); %Lymphocytes 10.1 % (21.0-51.0); %Monocytes 5.4 % (0.0-10.0); %Neutrophils 83.9 % (42.0-75.0); Mean Corpuscular HGB CONC 33.4 g/dL (32.0-36.0); Mean Corpuscular Hemoglobin 31.1 pg (27.0-31.0); Mean Corpuscular Volume 93.3 fL (78.0-98.0); Mean Platelet Volume 9.4 fL (7.4-10.4); Platelet Count 160 thou/uL (130-400); RBC Distribution Width 12.3 % (11.5-14.5); Red Blood Cell (RBC) Count 3.19 mill/uL (4.20-5.40)
[2018-01-16 05:16] LABS: Anion Gap 13 mmol/L (10-20); BUN (Urea Nitrogen) 54 mg/dL (9.8-20.1); Calc. Creatinine Clearance 24 mL/min (70-130); Calcium 8.7 mg/dL (7.8-10.44); Carbon Dioxide 12 mmol/L (23-31); Chloride 120 mmol/L (98-107); Estimated GFR-MDRD 14; Glucose 122 mg/dL (83-110); Sodium 141 mmol/L (136-145)
[2018-01-16] MEDS: Labetalol HCl 100 MG/20 ML VIAL SLOW IVP PRN ×3 (06:13→06:51)
[2018-01-16] MEDS: Levothyroxine Sodium 112 MCG TAB PO SCH (06:16)
[2018-01-16] MEDS: Clindamycin/D5W 900 MG in Premix Bag 1 BAG IVPB SCH ×3 (06:16→21:46)
[2018-01-16] MEDS: Levothyroxine Sodium 25 MCG TAB PO SCH (06:16)
[2018-01-16] MEDS: Amlodipine 10 MG TAB PO SCH (08:32)
[2018-01-16] MEDS: cloNIDine 0.1 MG TAB PO SCH (08:33)
[2018-01-16] MEDS: Atorvastatin Calcium 40 MG TAB PO SCH (08:33)
[2018-01-16] MEDS: hydrALAZINE 25 MG TAB PO SCH ×3 (08:34→21:45)
[2018-01-16] MEDS: Fenofibrate 48 MG TAB PO SCH (08:34)
[2018-01-16] MEDS ORDERED: Non-Formulary Item 1 EACH (Levothyroxine Sodium [Synthroid] 1 TAB) PO SCH (09:00)
[2018-01-16 09:46] LABS: Lactic Acid 0.5 mmol/L (0.5-2.2)
[2018-01-16 09:48] LABS: Anion Gap 13 mmol/L (10-20); BUN (Urea Nitrogen) 51 mg/dL (9.8-20.1); Calc. Creatinine Clearance 23 mL/min (70-130); Calcium 8.5 mg/dL (7.8-10.44); Carbon Dioxide 12 mmol/L (23-31); Chloride 120 mmol/L (98-107); Estimated GFR-MDRD 14; Glucose 112 mg/dL (83-110); Magnesium 1.7 mg/dL (1.6-2.6); Potassium 3.9 mmol/L (3.5-5.1); Sodium 141 mmol/L (136-145)
[2018-01-16] MEDS: Sodium Chloride 0.9% 1,000 ML IV SCH ×2 (10:15→21:49)
--- NOTE | 2018-01-16 10:41 | PRG ---
DATE OF SERVICE: 01/16/2018 Ms. Bee is postoperative day 1 from left-sided frontal and parietal zoe hole evacuation of subdur al hematoma. She is doing very well and is neurologically intact with improvement in her strength in the right side. Her drain output is serosanguineous in nature and approximately 100 mL of output at this time. She is in good spirits and I will plan to raise the head of her bed and to progress to a ctivity as tolerated today leaving the subdural drain in place. We will order a head CT for tomorrow and should it be satisfactory and the drain output reduced I would be fine with removal of the subdu ral drain at that time and transferred to the floor. She does have a creatinine of 3.2. This appear s to be longstanding. Although we do not have any long-term labs on her from prior hospitalization. She only has 1 kidney. We will ask our medical colleagues to weigh in in this regard.
--- NOTE | 2018-01-16 11:31 | CON ---
DATE OF CONSULTATION: 01/15/2018 TIME: 8:00 p.m. Ms. Bee was taken to the operating room for a subdural. She reports falling the day before striking her head on the floor. She thinks she tripped over something. She was urgently taken to the operating room the day of consultation for zoe hole for a subdural hematoma. She says she feels fine. She has a bandaged head, but answers questions quickly and appropriately, moves all of her extremities. PAST MEDICAL HISTORY: 1. Remarkable for recent hospitalization in October for reported normal pressure hydrocephalus. 2. She has a history of hypertension. 3. History of acute on chronic kidney disease. 4. History of hypothyroidism. 5. 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 FAMILY HISTORY: Negative for lung disease at an early age. SOCIAL HISTORY: She is nonsmoker, nondrinker. ALLERGIES: She reports allergies to PENICILLIN, AZITHROMYCIN. REVIEW OF SYSTEMS: Ten-point review of systems completed, otherwise negative. PHYSICAL EXAMINATION: GENERAL: She says she feels fine. VITAL SIGNS: Blood pressure 115/63, heart rate 86, respiratory rate 18. HEENT: Pupils react, they are equal. Sclerae is anicteric. NECK: Supple. LUNGS: Clear. CARDIOVASCULAR: Regular rhythm. S1 and S2 are normal. ABDOMEN: Soft and nontender. EXTREMITIES: Without clubbing, cyanosis or edema. IMPRESSION: 1. Status post zoe hole for evacuation of a subdural hematoma. This was felt to be a chronic subdural but she had a mass effect and midline shift and declining neurological status. She is obviously clinically dramatically clinically improved. We will be happy to follow while she is in the Critical Care Unit. This is a 70 minute consult, with greater than 50% of the time spent on unit in coordination of care. VERENICE
--- NOTE | 2018-01-16 11:33 | PRG ---
DATE OF SERVICE: 01/16/2018 SUBJECTIVE: She has no complaints. She says she is feeling well. She does not have much of a heada bong she says. OBJECTIVE: VITAL SIGNS: Blood pressure 151/60, heart rate 75, respiratory rate is 18. LUNGS: Clear. HEART: Regular rhythm. ABDOMEN: Soft and nontender. EXTREMITIES: Without clubbing, cyanosis or edema. IMPRESSION: Status post zoe hole for chronic subdural with clinical symptoms, clinically improved. PLAN: Continue supportive care in the ICU.
--- NOTE | 2018-01-16 18:46 | PDOC.PN ---
- Subjective Encounter Start Date: 01/16/18 Encounter Start Time: 09:30 Patient seen and examined for med mngt. No CP/SOB. No new complaints. No overnight events - Objective Resuscitation Status: Resuscitation Status FULL:Full Resuscitation MAR Reviewed: Yes Vital Signs & Weight: Vital Signs (12 hours) Temp Pulse Pulse Pulse BP BP BP 01/16/18 16:00 98.7 F 01/16/18 15:37 75 143/63 H 01/16/18 12:00 98.4 F 01/16/18 11:20 75 77 152/72 H 165/75 H 01/16/18 09:13 79 80 149/60 H 154/64 H 01/16/18 08:34 75 151/60 H 01/16/18 08:33 155/61 H 01/16/18 08:32 76 155/63 H 01/16/18 08:00 98.7 F 01/16/18 06:51 76 173/66 H Pulse Ox Pulse Ox Pulse Ox 01/16/18 16:00 01/16/18 15:37 01/16/18 12:00 01/16/18 11:20 97 97 01/16/18 09:13 96 96 01/16/18 08:34 01/16/18 08:33 01/16/18 08:32 01/16/18 08:00 96 01/16/18 06:51 Weight Admit Weight 205 lb Weight 205 lb 0.478 oz Most Recent Monitor Data Heart Rate from ECG 74 NIBP 148/80 NIBP BP-Mean 102 Respiration from ECG 19 SpO2 98 I&O: 01/15/18 01/16/18 01/17/18 06:59 06:59 06:59 Intake Total 1307.6 1194 Output Total 1193 745 Balance 114.6 449 Result Diagrams: 01/16/18 03:33 01/16/18 09:18 EKG Reviewed by me: Yes (Tele SR) Phys Exam - Physical Examination Constitutional: NAD Respiratory: no wheezing, no rhonchi Cardiovascular: RRR, no rub Gastrointestinal: soft, non-tender, positive bowel sounds Musculoskeletal: no edema Neurological: moves all 4 limbs Dx/Plan - Plan DVT proph w/SCDs 1. HTN - uncontrolled. On Cardene drip 2. CKD 4 3. Obesity BMI 31.2 4. Chronic Metabolic acidosis - due to CKD 5. Hypothyroidism / Glaucoma / DM2 - diet controlled. PLAN: Home meds restarted Wean Cardene drip Add Clonidine PRN Cont Levothyroxine Cont other meds as below Full code. DPOA - self/family. Review of Systems - Review of Systems Respiratory: negative: Cough, Dry, Shortness of Breath, Hemoptysis, SOB with Excertion, Pleuritic Pain, Sputum, Wheezing Cardiovascular: negative: chest pain, palpitations, orthopnea, paroxysmal nocturnal dyspnea, edema, light headedness, other - Medications/Allergies Allergies/Adverse Reactions: Allergies Allergy/AdvReac Type Severity Reaction Status Date / Time azithromycin Allergy Verified 10/24/17 02:02 [From Zithromax Z-Gato] Penicillins Allergy Verified 01/15/18 16:06 Medications: Current Medications Acetaminophen (Tylenol) 650 mg PO Q4H PRN PRN Reason: Headache/Fever/Mild Pain (1-3) Amlodipine Besylate (Norvasc) 10 mg PO DAILY [facility] Last Admin: 01/16/18 08:32 Dose: 10 mg Atorvastatin Calcium (Lipitor) 80 mg PO DAILY [facility] Last Admin: 01/16/18 08:33 Dose: 80 mg Clonidine (Catapres) 0.1 mg PO DAILY [facility] Last Admin: 01/16/18 08:33 Dose: 0.1 mg Clonidine (Catapres) 0.1 mg PO Q4H PRN PRN Reason: Systolic BP > 160 Donepezil HCl (Aricept) 10 mg PO HS [facility] Last Admin: 01/15/18 21:57 Dose: 10 mg Fenofibrate (Tricor) 48 mg PO DAILY [facility] Last Admin: 01/16/18 08:34 Dose: 48 mg Hydralazine HCl (Apresoline) 25 mg PO TID [facility] Last Admin: 01/16/18 15:37 Dose: 25 mg Sodium Chloride (Normal Saline 0.9%) 1,000 mls @ 50 mls/hr IV .Q20H [facility] Last Admin: 01/16/18 10:15 Dose: Not Given Clindamycin Phosphate/Dextrose (900 mg/ Device) 50 mls @ 100 mls/hr IVPB Q8HR [facility] Last Admin: 01/16/18 13:35 Dose: 50 mls Nicardipine HCl 25 mg/ Sodium (Chloride) 250 mls @ 0 mls/hr IVPB INF [facility]; Protocol Last Admin: 01/16/18 07:53 Dose: 250 mls Labetalol HCl (Normodyne) 10 mg SLOW IVP Q10MIN PRN PRN Reason: SBP GREATER THAN 160 Last Admin: 01/16/18 06:51 Dose: 10 mg Latanoprost (Xalatan 0.005% Ophth Soln) 1 drop EA EYE QPM [facility] Last Admin: 01/15/18 22:12 Dose: 1 drop Levothyroxine Sodium (Synthroid) 112 mcg PO 0600 [facility] Last Admin: 01/16/18 06:16 Dose: 112 mcg Levothyroxine Sodium (Synthroid) 25 mcg PO 0600 [facility] Last Admin: 01/16/18 06:16 Dose: 25 mcg Metoprolol Succinate (Toprol Xl) 25 mg PO DAILY [facility] Last Admin: 01/16/18 08:35 Dose: 25 mg Pantoprazole Sodium (Protonix) 40 mg PO DAILY [facility] Last Admin: 01/16/18 08:34 Dose: 40 mg Promethazine HCl (Phenergan) 12.5 mg IM/IV Q6H PRN PRN Reason: Nausea/Vomiting Senna/Docusate Sodium (Senokot S) 2 tab PO BID PRN PRN Reason: Constipation Sodium Chloride (Flush - Normal Saline) 10 ml IVF PRN PRN PRN Reason: Saline Flush Thiamine HCl (Thiamine) 100 mg PO DAILY [facility] Last Admin: 01/16/18 08:34 Dose: 100 mg
[2018-01-16] MEDS: Donepezil HCl 10 MG TAB PO SCH (21:45)
[2018-01-16] MEDS: Latanoprost 0.005% Ophth Soln 2.5 ml Bottle EA EYE SCH (21:46)
[2018-01-17 05:13] LABS: Anion Gap 12 mmol/L (10-20); BUN (Urea Nitrogen) 52 mg/dL (9.8-20.1); Calc. Creatinine Clearance 22 mL/min (70-130); Calcium 8.4 mg/dL (7.8-10.44); Carbon Dioxide 14 mmol/L (23-31); Chloride 119 mmol/L (98-107); Estimated GFR-MDRD 14; Glucose 101 mg/dL (83-110); Potassium 4.2 mmol/L (3.5-5.1); Sodium 141 mmol/L (136-145)
[2018-01-17] MEDS: Levothyroxine Sodium 25 MCG TAB PO SCH (06:35)
[2018-01-17] MEDS: Clindamycin/D5W 900 MG in Premix Bag 1 BAG IVPB SCH ×3 (06:36→21:24)
[2018-01-17] MEDS: Levothyroxine Sodium 112 MCG TAB PO SCH (06:36)
[2018-01-17] MEDS: Amlodipine 10 MG TAB PO SCH (08:34)
[2018-01-17] MEDS: Sodium Chloride 0.9% 1,000 ML IV SCH (08:34)
[2018-01-17] MEDS: Atorvastatin Calcium 40 MG TAB PO SCH (08:35)
[2018-01-17] MEDS: cloNIDine 0.1 MG TAB PO SCH (08:37)
[2018-01-17] MEDS: Fenofibrate 48 MG TAB PO SCH (08:37)
[2018-01-17] MEDS: hydrALAZINE 25 MG TAB PO SCH ×3 (08:38→20:10)
--- NOTE | 2018-01-17 08:42 | CT ---
PRELIMINARY REPORT/[facility]/EMERGENTY AFTER-HOURS PROCEDURE Addendum created by Marcin Brown MD on 01/17/2018 5:17 AM Central Time ([place]) THIS REPORT CONTAINS FINDINGS THAT MAY BE CRITICAL TO PATIENT CARE. The findings were verbally commun icated via telephone conference with SUNITA Sumner, at 5:16 AM CENTRAL OFFICE SUPERVISOR on 01/17/2018. The findings wer e acknowledged and understood. Initial Report created on 01/17/2018 5:06 AM Central Time ([place] & [place]) CT Head Without Intravenous Contrast EXAM DATE/TIME: 01/17/2018 4:33 AM CLINICAL HISTORY: 72 years old, female; Condition or disease; Brain lesion; Prior surgery; Surgery date: Post-operative (0-2 days); Patient HX: Sub durmal hematoma post op x 2 daysshi TECHNIQUE: Axial computed tomography images of the head/brain without intravenous contrast. COMPARISON: No relevant prior studies available. FINDINGS: Left frontal scalp skin barry and mild soft tissue swelling noted. There is a zoe hole along the posterior left frontal bone through which a drainage catheter extends, directed anteriorly into the left frontal extra-axial space. There are bubbles intracranial extra-ax ial gas on the left most pronounced adjacent to the left frontal lobe. There is a slightly complex left extra-axial fluid collection which also demonstrates dense material, most likely related to acute superimposed upon chronic subdural hemorrhage. Maximal thickness is 16. 2 mm and this extends from the left frontal lobe to the left parieto-occipital junction. Trace amount of high density material is also seen adjacent to the posterior aspect right frontal lob e consistent with trace amount of right sided subdural hemorrhage. No intraparenchymal hemorrhage is seen. There is mass effect with effacement of left frontal, parietal sulci. There is midline shift measuring up to 7.9 mm at the septum pellucidum, towards the right. No evidence of herniation is seen. There is intracranial atherosclerosis. No CT findings are seen at the current time to suggest changes of acute territorial vascular infarction. Note is made however, that CT changes, may lag clinical fi ndings in acute CVA. If clinically indicated, consideration could be given to MRI with diffusion weig hted imaging, due to its greater sensitivity, for detection of acute ischemic change. A right frontal ventriculostomy catheter is noted, the tip terminating along the foramen of [place], d irected posteriorly. There is slight asymmetric prominence of the anterior horn left lateral ventricl e, compared to right but overall no evidence of ventricular obstruction. No acute cranial vault fracture is seen. No fluid is seen within the visualized paranasal sinuses or mastoid air cells. IMPRESSION: Mixed density subdural hemorrhage along the left frontoparietal supratentorial convexity with a drain age catheter. Maximal thickness is 16.2 mm. This results in local mass effect as well as midline shift towards the right by 7.9 mm. Trace amount of right subdural hemorrhage also noted. Other findings discussed above. Thank you for allowing us to participate in the care of your patient. Dictated and Authenticated by: Marcin Brown MD 01/17/2018 5:06 AM Central Time ([place] & [place]) CT OF HEAD NONCONTRAST: Comparison: 01-15-18 Indication: Follow up left subdural hematoma. FINDINGS: Subdural drainage catheter traverses extraaxial mixed density collection with interval decreased volu me. The mixed density subdural hematoma now measures 17 mm. This does result in effacement of the lef t cerebral sulci. Rightward subfalcine herniation at the level of the septum pellucidum, measures 6-7 mm. There is a thin linear hyperdensity overlying the right convexity without mass effect which coul d either be related to trace extraaxial hemorrhage versus dural prominence. Right frontal approach ve ntriculoscopy remains. There is a cavum septum pellucidum at vergae. IMPRESSION: Interval placement of left sided subdural drain within the mixed density left subdural hematoma which does result in decreased volume and reduced mass effect/falcine herniation. Recommend continued imag ing follow up. POS: DEANDRE
--- NOTE | 2018-01-17 13:18 | PQF ---
CLINICAL DOCUMENTATION IMPROVEMENT CLARIFICATION FORM: ICD-10 Updated PLEASE DO AN ADDENDUM TO THE PROGRESS NOTE WITH ANY DOCUMENTATION UPDATES OR ADDITIONS AND CARRY THROUGH TO DC SUMMARY. THANK YOU. DATE: 01/17 ATTN: DR. LIZ VILLAFANA Please exercise your independent, professional judgment in responding to the clarification form. Clinical indicators are provided on the bottom of this form for your review. Please check appropriate box(s): [ ] Cerebral edema / Vasogenic edema [ ] Compression of brain Due to: [ ] Subdural hematoma [ ] Obstructive hydrocephalus [ ] Other diagnosis [ ] Unable to determine For continuity of documentation, please document condition throughout progress notes and discharge summary. Thank You. CLINICAL INDICATORS - SIGNS / SYMPTOMS / LABS CT BRAIN 01/15: IMPRESSION: 1) LARGE LEFT SUBDURAL HEMATOMA. ...THERE IS [id number] MIDLINE SHIFT; 2) EARLY SUBFALCINE HERNIATION ANTERIORLY PHYSICIAN PN 01/15: SUBJECTIVE: REVIEW OF HEAD CT DEMONSTRATES A LARGE CHRONIC SUBDURAL HEMATOMA ON THE LEFT CONVEXITY WITH SIGNIFICANT MASS EFFECT & MODERATE MIDLINE SHIFT. RISK FACTORS: CHRONIC SUBDURAL HEMATOMA W/ MASS EFFECT & MODERATE MIDLINE SHIFT NORMAL PRESSURE HYDROCEPHALUS TREATMENTS: L FRONTAL & PARIETAL WALKER HOLE EVACUATION FOR SUBDURAL HEMATOMA EVACUATION & PLACEMENT OF SUBDURAL DRAIN CCU MONITORING THANK YOU! Alexandrea (This form is maintained as a part of the permanent medical record) 2015 [employer]. All Rights Reserved Alexandrea Hernandez RN, BSN [email or web address] Office: [phone] [facility]ITALKaveh
[2018-01-17] MEDS: Labetalol HCl 100 MG/20 ML VIAL SLOW IVP PRN ×2 (14:02→16:23)
[2018-01-17] MEDS: Donepezil HCl 10 MG TAB PO SCH (20:10)
[2018-01-17] MEDS: Latanoprost 0.005% Ophth Soln 2.5 ml Bottle EA EYE SCH (20:10)
--- NOTE | 2018-01-17 20:18 | PDOC.PN ---
- Subjective Encounter Start Date: 01/17/18 Encounter Start Time: 14:00 Patient seen and examined for med mngt. No new complaints. No overnight events - Objective Resuscitation Status - Order Detail: 01/17/18 12:20 Resuscitation Status Routine Resuscitation Status: FULL: Full Resuscitation Discussed with: per previous order MAR Reviewed: Yes Vital Signs & Weight: Vital Signs (12 hours) Temp Pulse Pulse Pulse BP BP BP 01/17/18 20:10 73 171/85 H 01/17/18 16:23 73 162/71 H 01/17/18 16:00 99.2 F 01/17/18 14:02 72 180/75 H 01/17/18 12:00 98.9 F 01/17/18 09:00 77 74 168/76 H 174/79 H 01/17/18 08:38 85 165/86 H 01/17/18 08:37 165/86 H 01/17/18 08:34 74 165/86 H Pulse Ox Pulse Ox 01/17/18 20:10 01/17/18 16:23 01/17/18 16:00 01/17/18 14:02 01/17/18 12:00 01/17/18 09:00 99 100 01/17/18 08:38 01/17/18 08:37 01/17/18 08:34 Weight Admit Weight 205 lb Weight 208 lb 8.917 oz Most Recent Monitor Data Heart Rate from ECG 76 NIBP 152/70 NIBP BP-Mean 97 Respiration from ECG 20 SpO2 99 I&O: 01/16/18 01/17/18 01/18/18 06:59 06:59 06:59 Intake Total 1307.6 2094 1175 Output Total 1193 1870 560 Balance 114.6 224 615 Result Diagrams: 01/16/18 03:33 01/18/18 04:31 EKG Reviewed by me: Yes (Tele SR) Phys Exam - Physical Examination Constitutional: NAD Respiratory: no wheezing, no rhonchi Cardiovascular: RRR, no rub Gastrointestinal: soft, non-tender, positive bowel sounds Neurological: moves all 4 limbs Dx/Plan - Plan DVT proph w/SCDs 1. HTN - off Cardene drip 2. CKD 4 3. Obesity BMI 31.2 4. Chronic Metabolic acidosis - due to CKD 5. Hypothyroidism / Glaucoma / DM2 - diet controlled. PLAN: Increase Hydralazine to 50 mg TID Cont Amlodipine and Toprol XL Cardene drip PRN Add Clonidine PRN Cont Levothyroxine Cont other meds as below Review of Systems - Review of Systems Respiratory: negative: Cough, Dry, Shortness of Breath, Hemoptysis, SOB with Excertion, Pleuritic Pain, Sputum, Wheezing Cardiovascular: negative: chest pain, palpitations, orthopnea, paroxysmal nocturnal dyspnea, edema, light headedness, other - Medications/Allergies Allergies/Adverse Reactions: Allergies Allergy/AdvReac Type Severity Reaction Status Date / Time azithromycin Allergy Verified 10/24/17 02:02 [From Zithromax Z-Gato] Penicillins Allergy Verified 01/15/18 16:06 Medications: Current Medications Acetaminophen (Tylenol) 650 mg PO Q4H PRN PRN Reason: Headache/Fever/Mild Pain (1-3) Amlodipine Besylate (Norvasc) 10 mg PO DAILY [facility] Last Admin: 01/17/18 08:34 Dose: 10 mg Atorvastatin Calcium (Lipitor) 80 mg PO DAILY [facility] Last Admin: 01/17/18 08:35 Dose: 80 mg Clonidine (Catapres) 0.1 mg PO DAILY [facility] Last Admin: 01/17/18 08:37 Dose: 0.1 mg Clonidine (Catapres) 0.1 mg PO Q4H PRN PRN Reason: Systolic BP > 160 Donepezil HCl (Aricept) 10 mg PO HS [facility] Last Admin: 01/17/18 20:10 Dose: 10 mg Fenofibrate (Tricor) 48 mg PO DAILY [facility] Last Admin: 01/17/18 08:37 Dose: 48 mg Hydralazine HCl (Apresoline) 25 mg PO TID [facility] Last Admin: 01/17/18 20:10 Dose: 25 mg Sodium Chloride (Normal Saline 0.9%) 1,000 mls @ 50 mls/hr IV .Q20H [facility] Last Admin: 01/17/18 08:34 Dose: 1,000 mls Clindamycin Phosphate/Dextrose (900 mg/ Device) 50 mls @ 100 mls/hr IVPB Q8HR [facility] Last Admin: 01/17/18 14:02 Dose: 50 mls Nicardipine HCl 25 mg/ Sodium (Chloride) 250 mls @ 0 mls/hr IVPB INF [facility]; Protocol Last Admin: 01/16/18 07:53 Dose: 250 mls Labetalol HCl (Normodyne) 10 mg SLOW IVP Q10MIN PRN PRN Reason: SBP GREATER THAN 160 Last Admin: 01/17/18 16:23 Dose: 10 mg Latanoprost (Xalatan 0.005% Ophth Soln) 1 drop EA EYE QPM [facility] Last Admin: 01/17/18 20:10 Dose: 1 drop Levothyroxine Sodium (Synthroid) 112 mcg PO 0600 [facility] Last Admin: 01/17/18 06:36 Dose: 112 mcg Levothyroxine Sodium (Synthroid) 25 mcg PO 0600 [facility] Last Admin: 01/17/18 06:35 Dose: 25 mcg Metoprolol Succinate (Toprol Xl) 25 mg PO DAILY [facility] Last Admin: 01/17/18 08:39 Dose: 25 mg Pantoprazole Sodium (Protonix) 40 mg PO DAILY [facility] Last Admin: 01/17/18 08:39 Dose: 40 mg Promethazine HCl (Phenergan) 12.5 mg IM/IV Q6H PRN PRN Reason: Nausea/Vomiting Senna/Docusate Sodium (Senokot S) 2 tab PO BID PRN PRN Reason: Constipation Sodium Chloride (Flush - Normal Saline) 10 ml IVF PRN PRN PRN Reason: Saline Flush Thiamine HCl (Thiamine) 100 mg PO DAILY [facility] Last Admin: 01/17/18 08:39 Dose: 100 mg
[2018-01-18] MEDS: Sodium Chloride 0.9% 1,000 ML IV SCH (00:38)
[2018-01-18 05:16] LABS: Anion Gap 10 mmol/L (10-20); BUN (Urea Nitrogen) 49 mg/dL (9.8-20.1); Calc. Creatinine Clearance 22 mL/min (70-130); Calcium 8.2 mg/dL (7.8-10.44); Carbon Dioxide 13 mmol/L (23-31); Chloride 119 mmol/L (98-107); Estimated GFR-MDRD 13; Glucose 91 mg/dL (83-110); Potassium 4.4 mmol/L (3.5-5.1); Sodium 138 mmol/L (136-145)
[2018-01-18] MEDS: Levothyroxine Sodium 112 MCG TAB PO SCH (05:43)
[2018-01-18] MEDS: Clindamycin/D5W 900 MG in Premix Bag 1 BAG IVPB SCH ×3 (05:43→21:03)
[2018-01-18] MEDS: Levothyroxine Sodium 25 MCG TAB PO SCH (05:43)
[2018-01-18] MEDS: Labetalol HCl 100 MG/20 ML VIAL SLOW IVP PRN ×3 (06:30→22:18)
[2018-01-18] MEDS ORDERED: hydrALAZINE 25 MG TAB PO SCH ×2 (06:45→14:00)
[2018-01-18] MEDS: Amlodipine 10 MG TAB PO SCH (08:44)
[2018-01-18] MEDS: Atorvastatin Calcium 40 MG TAB PO SCH (08:47)
[2018-01-18] MEDS: cloNIDine 0.1 MG TAB PO SCH (08:47)
[2018-01-18] MEDS: Fenofibrate 48 MG TAB PO SCH (08:48)
[2018-01-18] MEDS: cloNIDine 0.1 MG TAB PO PRN ×2 (10:34→21:03)
[2018-01-18] MEDS ORDERED: Polyethylene Glycol 3350 17 GM Packet PO SCH (11:15)
--- NOTE | 2018-01-18 11:28 | PRG ---
DATE OF SERVICE: 01/17/2018 SUBJECTIVE: Not as quick to answer questions today, but still doing well. OBJECTIVE: VITAL SIGNS: Heart rate is in the 70s, blood pressure 127/71, and respiratory rate is 17. LUNGS: Clear. HEART: Regular rate and rhythm. ABDOMEN: Soft. EXTREMITIES: Without edema. LABORATORY DATA: Electrolytes show sodium 141, potassium 4.2, chloride 119, bicarb 14, BUN 52, and creatinine 3.35. IMPRESSION: 1. Status post evacuation of chronic subdural hematoma. 2. Mild hyperchloremic acidosis, not chronically causing any issues. She probably needs to be a little bit hyperosmolar. 3. Chronic kidney disease, that appears to be stable. Creatinine is 3.35 today, which is 3.46 on the 25th spoke with and answered all of his questions. Job ID: [id number]
--- NOTE | 2018-01-18 11:41 | PRG ---
DATE OF SERVICE: 01/18/2018 Postoperative recheck. SUBJECTIVE: Ms. Bee is now postoperative day #3, having undergone left-sided zoe hole placement for subdural hematoma evacuation. She continues to improve neurologically. She has a red rubber drain to gravity and this appears to be consistent with serosanguinous fluid and mixed with CSF. We will continue to keep the drain in 1 more day, but likely plan for removal tomorrow. Her postoperative head CT shows satisfactory and improved evacuation of the left subdural hematoma. Neurologically, the patient is alert, awake, oriented, and has good strength in all extremities. She does have some weakness into the right upper and lower extremities, but this is stable. The patient should be working with therapies, and hopefully, we will get her to a regular room and drain removed tomorrow. Please call with any changes in the patient's neurological status. It should be noted that the patient's shunt setting was changed from 1.0 to 1.5, and we will keep it at this setting . Job ID: [id number]
[2018-01-18] MEDS: hydrALAZINE 25 MG TAB PO SCH ×2 (14:09→21:03)
--- NOTE | 2018-01-18 17:59 | PRG ---
DATE OF SERVICE: 01/18/2018 SUBJECTIVE: The patient is more alert today. She has no complaints. OBJECTIVE: VITAL SIGNS: Stable. Blood pressure 161/79, heart rate 71, respiratory rate 20, oximetry 99. LUNGS: Clear. HEART: Regular rhythm. ABDOMEN: Soft. EXTREMITIES: Without clubbing, cyanosis, or edema. DIAGNOSTIC STUDIES: White count 9, hemoglobin 10, and platelets 160. Sodium 138, potassium 4.4, chloride 119, bicarb 13, BUN 49, creatinine 3.37. IMPRESSION: 1. Status post zoe hole for acute on chronic subdural. 2. Chronic kidney injury. 3. Hyperosmolar state. 4. Normal pressure hydrocephalus by history. PLAN: 1. Continue supportive care in critical care unit. 2. Intake and output monitored, taken output, positive 467. There is no drainage recorded for her zoe hole drain today. Job ID: [id number]
--- NOTE | 2018-01-18 18:43 | PDOC.PN ---
- Subjective Encounter Start Date: 01/18/18 Encounter Start Time: 11:30 Patient seen and examined for med mngt. Off Cardene drip. No CP/SOB. No new complaints. No overnight events - Objective Resuscitation Status - Order Detail: 01/17/18 12:20 Resuscitation Status Routine Resuscitation Status: FULL: Full Resuscitation Discussed with: per previous order MAR Reviewed: Yes Vital Signs & Weight: Vital Signs (12 hours) Temp Pulse Pulse Pulse Pulse BP BP 01/18/18 16:00 99.3 F 01/18/18 14:09 67 164/76 H 01/18/18 12:00 98.8 F 01/18/18 10:34 164/76 H 01/18/18 09:35 80 74 78 160/82 H 01/18/18 09:30 74 187/79 H 01/18/18 08:47 164/68 H 01/18/18 08:44 73 164/68 H 01/18/18 08:00 01/18/18 07:00 99.6 F 01/18/18 06:52 73 164/68 H BP BP Pulse Ox Pulse Ox Pulse Ox Pulse Ox 01/18/18 16:00 01/18/18 14:09 01/18/18 12:00 01/18/18 10:34 01/18/18 09:35 168/85 H 163/85 H 100 100 99 01/18/18 09:30 01/18/18 08:47 01/18/18 08:44 01/18/18 08:00 95 01/18/18 07:00 01/18/18 06:52 Weight Admit Weight 205 lb Weight 205 lb 4.006 oz Most Recent Monitor Data Heart Rate from ECG 72 NIBP 143/87 NIBP BP-Mean 105 Respiration from ECG 20 SpO2 99 I&O: 01/17/18 01/18/18 01/19/18 06:59 06:59 06:59 Intake Total 2094 1732 960 Output Total 1870 1275 770 Balance 224 457 190 Result Diagrams: 01/16/18 03:33 01/18/18 04:31 Phys Exam - Physical Examination Constitutional: NAD Respiratory: no wheezing, no rhonchi Cardiovascular: RRR, no rub Gastrointestinal: soft, positive bowel sounds Musculoskeletal: no edema Dx/Plan - Plan DVT proph w/SCDs 1. HTN - off Cardene drip 2. CKD 4 3. Obesity BMI 31.2 4. Chronic Metabolic acidosis - due to CKD 5. Hypothyroidism / Glaucoma / DM2 - diet controlled. PLAN: Increase Hydralazine to 75 mg TID Continue Amlodipine/Toprol XL Cardene drip PRN ContClonidine PRN Cont other meds as below Review of Systems - Review of Systems Respiratory: negative: Cough, Dry, Shortness of Breath, Hemoptysis, SOB with Excertion, Pleuritic Pain, Sputum, Wheezing Cardiovascular: negative: chest pain, palpitations, orthopnea, paroxysmal nocturnal dyspnea, edema, light headedness, other - Medications/Allergies Allergies/Adverse Reactions: Allergies Allergy/AdvReac Type Severity Reaction Status Date / Time azithromycin Allergy Verified 10/24/17 02:02 [From Zithromax Z-Gato] Penicillins Allergy Verified 01/15/18 16:06 Medications: Current Medications Acetaminophen (Tylenol) 650 mg PO Q4H PRN PRN Reason: Headache/Fever/Mild Pain (1-3) Amlodipine Besylate (Norvasc) 10 mg PO DAILY [facility] Last Admin: 01/18/18 08:44 Dose: 10 mg Atorvastatin Calcium (Lipitor) 80 mg PO DAILY [facility] Last Admin: 01/18/18 08:47 Dose: 80 mg Clonidine (Catapres) 0.1 mg PO DAILY [facility] Last Admin: 01/18/18 08:47 Dose: 0.1 mg Clonidine (Catapres) 0.1 mg PO Q4H PRN PRN Reason: Systolic BP > 160 Last Admin: 01/18/18 10:34 Dose: 0.1 mg Donepezil HCl (Aricept) 10 mg PO HS [facility] Last Admin: 01/17/18 20:10 Dose: 10 mg Fenofibrate (Tricor) 48 mg PO DAILY [facility] Last Admin: 01/18/18 08:48 Dose: 48 mg Hydralazine HCl (Apresoline) 75 mg PO Q8HR [facility] Last Admin: 01/18/18 14:09 Dose: 75 mg Clindamycin Phosphate/Dextrose (900 mg/ Device) 50 mls @ 100 mls/hr IVPB Q8HR [facility] Last Admin: 01/18/18 14:09 Dose: 50 mls Nicardipine HCl 25 mg/ Sodium (Chloride) 250 mls @ 0 mls/hr IVPB INF [facility]; Protocol Last Admin: 01/16/18 07:53 Dose: 250 mls Labetalol HCl (Normodyne) 10 mg SLOW IVP Q10MIN PRN PRN Reason: SBP GREATER THAN 160 Last Admin: 01/18/18 09:30 Dose: 10 mg Latanoprost (Xalatan 0.005% Ophth Soln) 1 drop EA EYE QPM [facility] Last Admin: 01/17/18 20:10 Dose: 1 drop Levothyroxine Sodium (Synthroid) 112 mcg PO 0600 [facility] Last Admin: 01/18/18 05:43 Dose: 112 mcg Levothyroxine Sodium (Synthroid) 25 mcg PO 0600 [facility] Last Admin: 01/18/18 05:43 Dose: 25 mcg Metoprolol Succinate (Toprol Xl) 25 mg PO DAILY [facility] Last Admin: 01/18/18 08:45 Dose: 25 mg Pantoprazole Sodium (Protonix) 40 mg PO DAILY [facility] Last Admin: 01/18/18 08:46 Dose: 40 mg Polyethylene Glycol (Miralax) 17 gm PO DAILY [facility] Promethazine HCl (Phenergan) 12.5 mg IM/IV Q6H PRN PRN Reason: Nausea/Vomiting Senna/Docusate Sodium (Senokot S) 2 tab PO BID PRN PRN Reason: Constipation Senna/Docusate Sodium (Senokot S) 1 tab PO BID [facility] Sodium Chloride (Flush - Normal Saline) 10 ml IVF PRN PRN PRN Reason: Saline Flush Thiamine HCl (Thiamine) 100 mg PO DAILY [facility] Last Admin: 01/18/18 08:48 Dose: 100 mg
[2018-01-18] MEDS: Senokot S 8.6-50 MG TAB PO SCH (19:16)
[2018-01-18] MEDS: Donepezil HCl 10 MG TAB PO SCH (19:39)
[2018-01-18] MEDS: Latanoprost 0.005% Ophth Soln 2.5 ml Bottle EA EYE SCH (19:39)
[2018-01-19 05:13] LABS: Anion Gap 13 mmol/L (10-20); BUN (Urea Nitrogen) 53 mg/dL (9.8-20.1); Calc. Creatinine Clearance 22 mL/min (70-130); Calcium 8.2 mg/dL (7.8-10.44); Carbon Dioxide 13 mmol/L (23-31); Chloride 115 mmol/L (98-107); Estimated GFR-MDRD 13; Glucose 119 mg/dL (83-110); Potassium 4.6 mmol/L (3.5-5.1); Sodium 136 mmol/L (136-145)
[2018-01-19] MEDS: Clindamycin/D5W 900 MG in Premix Bag 1 BAG IVPB SCH ×3 (06:05→22:19)
[2018-01-19] MEDS: hydrALAZINE 25 MG TAB PO SCH ×3 (06:05→22:09)
[2018-01-19] MEDS: Levothyroxine Sodium 25 MCG TAB PO SCH (06:06)
[2018-01-19] MEDS: Levothyroxine Sodium 112 MCG TAB PO SCH (06:06)
[2018-01-19] MEDS: cloNIDine 0.1 MG TAB PO SCH ×2 (08:36→20:20)
[2018-01-19] MEDS: Atorvastatin Calcium 40 MG TAB PO SCH (08:37)
[2018-01-19] MEDS: Senokot S 8.6-50 MG TAB PO SCH ×2 (08:37→20:22)
[2018-01-19] MEDS: Polyethylene Glycol 3350 17 GM Packet PO SCH (08:37)
[2018-01-19] MEDS: Fenofibrate 48 MG TAB PO SCH (08:38)
[2018-01-19 08:50] LABS: #Eosinphils 0.3 thou/uL (0.0-0.7); #Lymphocytes 1.3 thou/uL (1.20-3.40); #Monocytes 0.6 thou/uL (0.11-0.59); %Basophils 0.2 % (0.0-1.0); %Eosinophils 3.8 % (0.0-10.0); %Lymphocytes 15.4 % (21.0-51.0); %Monocytes 7.3 % (0.0-10.0); %Neutrophils 73.3 % (42.0-75.0); Hemoglobin 10.8 g/dL (12.0-16.0); Mean Corpuscular HGB CONC 33.4 g/dL (32.0-36.0); Mean Corpuscular Volume 92.8 fL (78.0-98.0); Mean Platelet Volume 9.6 fL (7.4-10.4); Platelet Count 140 thou/uL (130-400); RBC Distribution Width 12.3 % (11.5-14.5); Red Blood Cell (RBC) Count 3.48 mill/uL (4.20-5.40); White Blood Cell (WBC) Count 8.2 thou/uL (4.8-10.8)
[2018-01-19 09:02] LABS: Anion Gap 14 mmol/L (10-20); BUN (Urea Nitrogen) 50 mg/dL (9.8-20.1); Calc. Creatinine Clearance 22 mL/min (70-130); Calcium 8.4 mg/dL (7.8-10.44); Carbon Dioxide 12 mmol/L (23-31); Chloride 114 mmol/L (98-107); Estimated GFR-MDRD 13; Glucose 134 mg/dL (83-110); Potassium 4.5 mmol/L (3.5-5.1); Sodium 135 mmol/L (136-145)
--- NOTE | 2018-01-19 09:30 | CT ---
CT OF HEAD NONCONTRAST: INDICATION: Subdural hematoma, followup evaluation. FINDINGS: There is a mixed-density extraaxial collection overlying the left convexity again demonstrated with a n indwelling subdural drain. Maximum thickness of the collection is approximately 2.4 cm which is in creased from examination 2 days prior. There is a mild mixed density collection overlying the right convexity predominantly CSF density, although there is a linear hyperdensity peripherally which could relate to a thin linear component of hemorrhage versus dural thickening. Right frontal approach ra triculostomy remains. There is a minimal thin linear hyperdensity localizing to the anterior 3rd ra tricle which may be related to a minute volume of intraventricular hemorrhage. There is rightward sub falcine herniation, approximately 8 mm at the level of the lateral ventricles, slightly increased fro m prior. Redemonstration of multifocal parenchymal hypodensities indicating gliosis with a component of superimposed edema about traversing ventriculostomy. IMPRESSION: 1. Left side subdural drain remains in place, although the mixed-density subdural hematoma has incre ased in volume and there has been slight increase with regard to degree of rightward subfalcine herni ation. 2. Small mixed-density collection overlies the right convexity, as well. 3. Recommend continued imaging followup. POS: [facility]
--- NOTE | 2018-01-19 09:39 | ULT ---
ULTRASOUND WITH DOPPLER DUPLEX VENOUS LOWER EXTREMITIES BILATERAL: Date: 01/19/18 HISTORY: 72-year-old female with impaired mobility, increasing the risk for deep venous thrombosis. TECHNIQUE: Color flow Doppler, spectral waveform analysis of pulsed Doppler, and patel-scale imaging with sierra torsten and augmentation, were used to evaluate the bilateral common femoral, femoral, popliteal, director of events ior tibial, and superficial femoral, veins; and the proximal portions of the profunda femoral and gre ater saphenous, veins. FINDINGS: There is normal compressibility, demonstration of blood flow by color Doppler and pulsed Doppler, and response to augmentation, in all interrogated veins. There is mild soft tissue edema bilaterally. IMPRESSION: 1. No deep vein thrombosis in the bilateral lower extremities. 2. Mild bilateral lower extremity soft tissue edema. jnr POS: [facility]
[2018-01-19] MEDS ORDERED: levETIRAcetam In NaCl (Iso-Os) 1,000 MG in Premix Bag 1 BAG IVPB SCH (11:30)
--- NOTE | 2018-01-19 11:53 | PRG ---
DATE OF SERVICE: 01/19/2018 SUBJECTIVE: Ms. Bee is postoperative day 4 from left-sided frontoparietal zoe hole evacuation of chronic subdural hematoma and adjustment of a shunt from a setting of 1.0 to 1.5. Yesterday, she has had CT demonstrated persistent subdural fluid over the left hemisphere, which certainly better than it was preoperatively. Unfortunately, today's head CT demonstrates it has been bad as preoperatively some recurrence. I think she simply is not expanding her ventricular system rapidly enough and this is essentially leading to a space in a subdural space run on left hemisphere. As such, what we will do is increase her shunt setting today to 2.0 and convert her gravity subdural drain to a FALGUNI drain to try and promote more of a negative pressure response along the left convexity. I should know she is a bit more symptomatic this morning and that she seems to be a bit more confused and delayed and moving on right side, although she certainly does it without clear weakness. She does endorse neck pain on the right side from having her head essentially tilted to the left and does endorse headache. We will initiate levetiracetam as well and continue to watch her closely. Job ID: [id number]
--- NOTE | 2018-01-19 14:03 | PDOC.PN ---
- Subjective Encounter Start Date: 01/19/18 Encounter Start Time: 10:15 Patient seen and examined for med mngt. No new complaints. No overnight events - Objective Resuscitation Status - Order Detail: 01/17/18 12:20 Resuscitation Status Routine Resuscitation Status: FULL: Full Resuscitation Discussed with: per previous order MAR Reviewed: Yes Vital Signs & Weight: Vital Signs (12 hours) Temp Pulse Pulse BP BP Pulse Ox 01/19/18 13:03 77 130/74 01/19/18 11:00 98.7 F 01/19/18 10:51 78 140/61 01/19/18 08:36 158/75 H 01/19/18 07:17 98 01/19/18 07:00 98.6 F 01/19/18 06:05 67 01/19/18 03:00 99.2 F Weight Admit Weight 205 lb Weight 206 lb 12.697 oz Most Recent Monitor Data Heart Rate from ECG 77 NIBP 130/74 NIBP BP-Mean 92 Respiration from ECG 21 SpO2 98 I&O: 01/18/18 01/19/18 01/20/18 06:59 06:59 06:59 Intake Total 1732 1786 360 Output Total 1275 1910 415 Balance 457 -124 -55 Result Diagrams: 01/21/18 03:21 01/21/18 03:21 EKG Reviewed by me: Yes (Tele SR) Phys Exam - Physical Examination Constitutional: NAD Respiratory: no wheezing, no rhonchi Cardiovascular: RRR, no rub Gastrointestinal: soft, non-tender, positive bowel sounds Musculoskeletal: no edema Dx/Plan - Plan DVT proph w/SCDs 1. HTN - better controlled 2. CKD 4 3. Obesity BMI 31.2 4. Chronic Metabolic acidosis - due to CKD 5. Hypothyroidism / Glaucoma / DM2 - diet controlled. PLAN: Cont Hydralazine 75 mg TID Continue Amlodipine & Toprol XL Add Sodium bicarbonate for Metabolic acidosis Cardene drip and Clonidine PRN Cont other meds as below Review of Systems - Review of Systems Respiratory: negative: Cough, Dry, Shortness of Breath, Hemoptysis, SOB with Excertion, Pleuritic Pain, Sputum, Wheezing Cardiovascular: negative: chest pain, palpitations, orthopnea, paroxysmal nocturnal dyspnea, edema, light headedness, other - Medications/Allergies Allergies/Adverse Reactions: Allergies Allergy/AdvReac Type Severity Reaction Status Date / Time azithromycin Allergy Verified 10/24/17 02:02 [From Zithromax Z-Gato] Penicillins Allergy Verified 01/15/18 16:06 Medications: Current Medications Acetaminophen (Tylenol) 650 mg PO Q4H PRN PRN Reason: Headache/Fever/Mild Pain (1-3) Atorvastatin Calcium (Lipitor) 80 mg PO DAILY [facility] Last Admin: 01/19/18 08:37 Dose: 40 mg Clonidine (Catapres) 0.1 mg PO Q4H PRN PRN Reason: Systolic BP > 160 Last Admin: 01/18/18 21:03 Dose: 0.1 mg Clonidine (Catapres) 0.1 mg PO BID [facility] Last Admin: 01/19/18 08:36 Dose: 0.1 mg Donepezil HCl (Aricept) 10 mg PO HS [facility] Last Admin: 01/18/18 19:39 Dose: 10 mg Fenofibrate (Tricor) 48 mg PO DAILY [facility] Last Admin: 01/19/18 08:38 Dose: 48 mg Hydralazine HCl (Apresoline) 75 mg PO Q8HR [facility] Last Admin: 01/19/18 13:03 Dose: 75 mg Clindamycin Phosphate/Dextrose (900 mg/ Device) 50 mls @ 100 mls/hr IVPB Q8HR [facility] Last Admin: 01/19/18 13:03 Dose: 50 mls Nicardipine HCl 25 mg/ Sodium (Chloride) 250 mls @ 0 mls/hr IVPB INF [facility]; Protocol Last Admin: 01/16/18 07:53 Dose: 250 mls Levetiracetam 500 mg/ Device 100 mls @ 200 mls/hr IVPB BID [facility] Labetalol HCl (Normodyne) 10 mg SLOW IVP Q10MIN PRN PRN Reason: SBP GREATER THAN 160 Last Admin: 01/18/18 22:18 Dose: 10 mg Latanoprost (Xalatan 0.005% Oph Soln) 1 drop EA EYE QPM [facility] Last Admin: 01/18/18 19:39 Dose: 1 drop Levothyroxine Sodium (Synthroid) 112 mcg PO 0600 [facility] Last Admin: 01/19/18 06:06 Dose: 112 mcg Levothyroxine Sodium (Synthroid) 25 mcg PO 0600 [facility] Last Admin: 01/19/18 06:06 Dose: 25 mcg Metoprolol Succinate (Toprol Xl) 25 mg PO DAILY [facility] Last Admin: 01/19/18 08:38 Dose: 25 mg Pantoprazole Sodium (Protonix) 40 mg PO DAILY [facility] Last Admin: 01/19/18 08:37 Dose: 40 mg Polyethylene Glycol (Miralax) 17 gm PO DAILY [facility] Last Admin: 01/19/18 08:37 Dose: 17 gm Promethazine HCl (Phenergan) 12.5 mg IM/IV Q6H PRN PRN Reason: Nausea/Vomiting Senna/Docusate Sodium (Senokot S) 2 tab PO BID PRN PRN Reason: Constipation Senna/Docusate Sodium (Senokot S) 1 tab PO BID [facility] Last Admin: 01/19/18 08:37 Dose: 1 tab Sodium Chloride (Flush - Normal Saline) 10 ml IVF PRN PRN PRN Reason: Saline Flush Thiamine HCl (Thiamine) 100 mg PO DAILY [facility] Last Admin: 01/19/18 08:37 Dose: 100 mg
[2018-01-19] MEDS: cloNIDine 0.1 MG TAB PO PRN (16:25)
[2018-01-19] MEDS: Labetalol HCl 100 MG/20 ML VIAL SLOW IVP PRN (17:25)
[2018-01-19] MEDS: Donepezil HCl 10 MG TAB PO SCH (20:20)
[2018-01-19] MEDS: Latanoprost 0.005% Ophth Soln 2.5 ml Bottle EA EYE SCH (20:21)
[2018-01-19] MEDS: Sodium Bicarbonate Tab 325 MG TAB PO SCH (20:22)
--- NOTE | 2018-01-19 23:21 | PRG ---
DATE OF SERVICE: 01/19/2018 SUBJECTIVE: Ms. Bee has remained stable. She still has a drain in place. Based on what is recorded it does not look she is draining a significant amount. OBJECTIVE: She has no new neurological complaints. She says that her lower extremity appears to be still weak, but it is getting stronger. LUNGS: Clear. HEART: Regular rhythm. ABDOMEN: Soft and nontender. VITAL SIGNS: Stable. She has had mild elevation in blood pressure today, she has p.r.n. blood pressure medicines ordered. IMPRESSION: 1. [id number] subdural hematoma. 2. Hypertension. 3. Normal pressure hydrocephalus, status post bur hole, she has a drain in place. Job ID: [id number]
[2018-01-20] MEDS: Labetalol HCl 100 MG/20 ML VIAL SLOW IVP PRN (00:10)
[2018-01-20] MEDS: hydrALAZINE 25 MG TAB PO SCH ×3 (05:24→22:41)
[2018-01-20] MEDS: Clindamycin/D5W 900 MG in Premix Bag 1 BAG IVPB SCH ×3 (05:24→21:32)
[2018-01-20] MEDS: Levothyroxine Sodium 25 MCG TAB PO SCH (05:26)
[2018-01-20] MEDS: Levothyroxine Sodium 112 MCG TAB PO SCH (05:26)
--- NOTE | 2018-01-20 07:27 | PQF ---
CLINICAL DOCUMENTATION IMPROVEMENT CLARIFICATION FORM: ICD-10 Updated PLEASE DO AN ADDENDUM TO THE PROGRESS NOTE WITH ANY DOCUMENTATION UPDATES OR ADDITIONS AND CARRY THROUGH TO DC SUMMARY. THANK YOU. DATE: , 01/23, ATTN: DR. LIZ VILLAFANA Please exercise your independent, professional judgment in responding to the clarification form. Clinical indicators are provided on the bottom of this form for your review. Please check appropriate box(s): [ ] Cerebral edema / Vasogenic edema [ ] Compression of brain [ ] Other diagnosis [ ] Unable to determine For continuity of documentation, please document condition throughout progress notes and discharge summary. Thank You. CLINICAL INDICATORS - SIGNS / SYMPTOMS / LABS CT BRAIN 01/15: IMPRESSION: 1) LARGE LEFT SUBDURAL HEMATOMA. ...THERE IS [id number] MIDLINE SHIFT; 2) EARLY SUBFALCINE HERNIATION ANTERIORLY PHYSICIAN PN 01/15: SUBJECTIVE: REVIEW OF HEAD CT DEMONSTRATES A LARGE CHRONIC SUBDURAL HEMATOMA ON THE LEFT CONVEXITY WITH SIGNIFICANT MASS EFFECT & MODERATE MIDLINE SHIFT. RISK FACTORS: ACUTE ON CHRONIC SUBDURAL HEMATOMA W/ MASS EFFECT & MODERATE MIDLINE SHIFT TREATMENTS: L FRONTAL & PARIETAL WALKER HOLE EVACUATION FOR SUBDURAL HEMATOMA EVACUATION & PLACEMENT OF SUBDURAL DRAIN THANK YOU! Alexandrea (This form is maintained as a part of the permanent medical record) 2015 [employer] All Rights Reserved Alexandrea Hernandez RN, BSN [email or web address] Office: [phone] [facility] CENTERKaveh
--- NOTE | 2018-01-20 08:12 | CT ---
PRELIMINARY REPORT/[facility]/EMERGENTY AFTER-HOURS PROCEDURE CT Head Without Intravenous Contrast EXAM DATE/TIME: 01/20/2018 4:33 AM CLINICAL HISTORY: 72 years old, female; Condition or disease; Other: Sdh; Prior surgery; Patient HX: Follow up zoe hol es for left sdh evacuation TECHNIQUE: Axial computed tomography images of the head/brain without intravenous contrast. COMPARISON: CT Brain WO Con 01/19/2018 8:55 AM FINDINGS: Tubes, catheters and devices: Essentially stable position of left subdural drain. Right frontal ventr iculostomy catheter unchanged in position, Brain: Essentially stable size and appearance of a mixed attenuation left subdural fluid collection/h ematoma. Minimal subdural blood again suspected in the right frontal/parietal region, unchanged. Essentially s table mass effect and [id number] midline shift. No definite acute or new intracranial hemorrhage in the interval. There is mild, relatively symmetrical decreased attenuation in the periventricular white matter, like ly from microvascular disease. No definite acute infarct by CT. Ventricles: Ventricle size is unchanged, no hydrocephalus. Bones/joints: Postsurgical changes again noted. Small amount of intracranial gas, not significantly c hanged. Sinuses: Included paranasal sinuses are essentially clear. Mastoid air cells: No significant acute finding. IMPRESSION: 1. Essentially stable size and appearance of mixed attenuation left subdural fluid collection/hematom a. 2. Essentially stable mass effect and [id number]-[id number] midline shift. 3. No definite new hemorrhage in the interval. 4. Other findings discussed above. Thank you for allowing us to participate in the care of your patient. Dictated and Authenticated by: Kannan Jon MD 01/20/2018 5:19 AM Central Time ([place] & [place]) FINAL REPORT CT BRAIN WITHOUT CONTRAST: Date: 01/20/18 FINDINGS/IMPRESSION: I agree with the preliminary report given by Pennie. POS: [facility]
[2018-01-20] MEDS: Atorvastatin Calcium 40 MG TAB PO SCH (08:17)
[2018-01-20] MEDS: cloNIDine 0.1 MG TAB PO SCH ×2 (08:17→21:31)
[2018-01-20] MEDS: Sodium Bicarbonate Tab 325 MG TAB PO SCH ×2 (08:17→22:41)
[2018-01-20 08:30] LABS: #Eosinphils 0.3 thou/uL (0.0-0.7); #Lymphocytes 1.1 thou/uL (1.20-3.40); #Monocytes 0.5 thou/uL (0.11-0.59); #Neutrophils 4.5 thou/uL (1.40-6.50); %Eosinophils 4.1 % (0.0-10.0); %Monocytes 7.2 % (0.0-10.0); %Neutrophils 70.7 % (42.0-75.0); Hemoglobin 10.4 g/dL (12.0-16.0); Mean Corpuscular HGB CONC 31.2 g/dL (32.0-36.0); Mean Corpuscular Hemoglobin 30.8 pg (27.0-31.0); Mean Corpuscular Volume 98.8 fL (78.0-98.0); Mean Platelet Volume 9.9 fL (7.4-10.4); Platelet Count 143 thou/uL (130-400); RBC Distribution Width 12.2 % (11.5-14.5); Red Blood Cell (RBC) Count 3.36 mill/uL (4.20-5.40); White Blood Cell (WBC) Count 6.3 thou/uL (4.8-10.8)
[2018-01-20 08:47] LABS: Anion Gap 12 mmol/L (10-20); BUN (Urea Nitrogen) 51 mg/dL (9.8-20.1); Calc. Creatinine Clearance 22 mL/min (70-130); Calcium 8.3 mg/dL (7.8-10.44); Carbon Dioxide 15 mmol/L (23-31); Chloride 115 mmol/L (98-107); Estimated GFR-MDRD 13; Glucose 138 mg/dL (83-110); Potassium 4.6 mmol/L (3.5-5.1); Sodium 137 mmol/L (136-145)
[2018-01-20] MEDS: Fenofibrate 48 MG TAB PO SCH (09:13)
[2018-01-20] MEDS: Polyethylene Glycol 3350 17 GM Packet PO SCH (09:13)
[2018-01-20] MEDS: Senokot S 8.6-50 MG TAB PO SCH ×2 (09:14→21:37)
--- NOTE | 2018-01-20 11:17 | PRG ---
DATE OF SERVICE: 01/20/2018 SUBJECTIVE: Ms. Bee is postoperative day 5 from evacuation of left subdural hygroma and chronic subdural hematoma. Postoperatively, her CTs have been certainly improved compared to preoperatively. Neurologically, she is doing well today. She moves all 4 extremities. She does not have the delay in her right-sided movement that she had yesterday. She does endorse some neck pain, although it is not meningitic. Her subdural drain, which was converted to a FALGUNI drain yesterday essentially is putting out nothing and we will remove it. Her CT today demonstrates reduction in the size of the subdural collection from 25 mm to 21 mm, although the patient was crooked in the scanner yesterday. Today, the scan appears to be more along normal anatomic planes. Nevertheless, it does appear as if it is better. We will remove again her subdural again her subdural drain and we will raise her shunt to 2.5. At this point, it is going to drain much slower and hopefully with time, her ventricles will expand. I do not think it is necessary to pursue surgical intervention given the radiologic improvement and clinical stability. Job ID: [id number]
--- NOTE | 2018-01-20 12:22 | PRG ---
DATE OF SERVICE: 01/20/2018 SUBJECTIVE: Jodi Bee has her drain out. She says she feels great. OBJECTIVE: VITAL SIGNS: Heart rates in the 70s, blood pressure 189/78, respiratory rate is 18. LUNGS: Clear. HEART: Regular rhythm. ABDOMEN: Soft. EXTREMITIES: Without edema. Right lower extremity is still weaker than the left. IMPRESSION: 1. Acute on chronic subdural hematoma. 2. Normal pressure hydrocephalus with recent ventriculoperitoneal shunt. PLAN: Overall, she is clinically stable. She needs better blood pressure control. We will continue to follow. Job ID: [id number]
[2018-01-20] MEDS: Donepezil HCl 10 MG TAB PO SCH (21:31)
[2018-01-20] MEDS: Latanoprost 0.005% Ophth Soln 2.5 ml Bottle EA EYE SCH (21:31)
--- NOTE | 2018-01-20 22:35 | PDOC.PN ---
- Subjective Encounter Start Date: 01/20/18 Encounter Start Time: 10:00 Patient seen and examined for med mngt. No new complaints. No overnight events - Objective Resuscitation Status - Order Detail: 01/17/18 12:20 Resuscitation Status Routine Resuscitation Status: FULL: Full Resuscitation Discussed with: per previous order MAR Reviewed: Yes Vital Signs & Weight: Vital Signs (12 hours) Temp Pulse Pulse Pulse BP BP BP 01/20/18 21:31 142/61 H 01/20/18 16:00 98.5 F 01/20/18 15:33 102 H 115 H 148/79 H 166/90 H 01/20/18 13:46 73 131/62 01/20/18 12:00 98.7 F Weight Admit Weight 205 lb Weight 206 lb 9.17 oz Most Recent Monitor Data Heart Rate from ECG 71 NIBP 162/68 NIBP BP-Mean 99 Respiration from ECG 35 SpO2 100 I&O: 01/19/18 01/20/18 01/21/18 06:59 06:59 06:59 Intake Total 1786 1324 1286 Output Total 1910 1638 1030 Balance -124 -314 256 Result Diagrams: 01/21/18 03:21 01/21/18 03:21 EKG Reviewed by me: Yes (Tele SR) Phys Exam - Physical Examination Constitutional: NAD Respiratory: no wheezing, no rhonchi Cardiovascular: RRR, no rub Gastrointestinal: soft, non-tender, positive bowel sounds Musculoskeletal: no edema Neurological: moves all 4 limbs Dx/Plan - Plan DVT proph w/SCDs 1. HTN - better controlled 2. CKD 4 3. Obesity BMI 31.2 4. Chronic Metabolic acidosis - due to CKD 5. 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 PLAN: Change Clonidine to 0.1 mg BID Continue Amlodipine,Hydralazine & Toprol XL Cont Sodium bicarb for Metabolic acidosis Cardene drip and Clonidine PRN Cont other meds as below Review of Systems - Review of Systems Respiratory: negative: Cough, Dry, Shortness of Breath, Hemoptysis, SOB with Excertion, Pleuritic Pain, Sputum, Wheezing Cardiovascular: negative: chest pain, palpitations, orthopnea, paroxysmal nocturnal dyspnea, edema, light headedness, other - Medications/Allergies Allergies/Adverse Reactions: Allergies Allergy/AdvReac Type Severity Reaction Status Date / Time azithromycin Allergy Verified 10/24/17 02:02 [From Zithromax Z-Gato] Penicillins Allergy Verified 01/15/18 16:06 Medications: Current Medications Acetaminophen (Tylenol) 650 mg PO Q4H PRN PRN Reason: Headache/Fever/Mild Pain (1-3) Atorvastatin Calcium (Lipitor) 80 mg PO DAILY [facility] Last Admin: 01/20/18 08:17 Dose: 80 mg Clonidine (Catapres) 0.1 mg PO Q4H PRN PRN Reason: Systolic BP > 160 Last Admin: 01/19/18 16:25 Dose: 0.1 mg Clonidine (Catapres) 0.1 mg PO BID [facility] Last Admin: 01/20/18 21:31 Dose: 0.1 mg Donepezil HCl (Aricept) 10 mg PO HS [facility] Last Admin: 01/20/18 21:31 Dose: 10 mg Fenofibrate (Tricor) 48 mg PO DAILY [facility] Last Admin: 01/20/18 09:13 Dose: 48 mg Hydralazine HCl (Apresoline) 75 mg PO Q8HR [facility] Last Admin: 01/20/18 13:46 Dose: 75 mg Clindamycin Phosphate/Dextrose (900 mg/ Device) 50 mls @ 100 mls/hr IVPB Q8HR [facility] Last Admin: 01/20/18 21:32 Dose: 50 mls Nicardipine HCl 25 mg/ Sodium (Chloride) 250 mls @ 0 mls/hr IVPB INF [facility]; Protocol Last Admin: 01/16/18 07:53 Dose: 250 mls Levetiracetam 500 mg/ Device 100 mls @ 200 mls/hr IVPB BID [facility] Last Admin: 01/20/18 21:31 Dose: 100 mls Labetalol HCl (Normodyne) 10 mg SLOW IVP Q10MIN PRN PRN Reason: SBP GREATER THAN 160 Last Admin: 01/20/18 00:10 Dose: 10 mg Latanoprost (Xalatan 0.005% Oph Soln) 1 drop EA EYE QPM [facility] Last Admin: 01/20/18 21:31 Dose: 1 drop Levothyroxine Sodium (Synthroid) 112 mcg PO 0600 [facility] Last Admin: 01/20/18 05:26 Dose: 112 mcg Levothyroxine Sodium (Synthroid) 25 mcg PO 0600 [facility] Last Admin: 01/20/18 05:26 Dose: 25 mcg Metoprolol Succinate (Toprol Xl) 25 mg PO DAILY [facility] Last Admin: 01/20/18 08:16 Dose: 25 mg Pantoprazole Sodium (Protonix) 40 mg PO DAILY [facility] Last Admin: 01/20/18 08:18 Dose: 40 mg Polyethylene Glycol (Miralax) 17 gm PO DAILY [facility] Last Admin: 01/20/18 09:13 Dose: Not Given Promethazine HCl (Phenergan) 12.5 mg IM/IV Q6H PRN PRN Reason: Nausea/Vomiting Senna/Docusate Sodium (Senokot S) 2 tab PO BID PRN PRN Reason: Constipation Senna/Docusate Sodium (Senokot S) 1 tab PO BID [facility] Last Admin: 01/20/18 21:37 Dose: Not Given Sodium Bicarbonate (Bicarbonate, Sodium) 325 mg PO BID [facility] Last Admin: 01/20/18 08:17 Dose: 325 mg Sodium Chloride (Flush - Normal Saline) 10 ml IVF PRN PRN PRN Reason: Saline Flush Thiamine HCl (Thiamine) 100 mg PO DAILY [facility] Last Admin: 01/20/18 08:18 Dose: 100 mg
[2018-01-21] MEDS: Labetalol HCl 100 MG/20 ML VIAL SLOW IVP PRN ×2 (03:12→04:23)
[2018-01-21 04:07] LABS: #Eosinphils 0.3 thou/uL (0.0-0.7); #Lymphocytes 1.3 thou/uL (1.20-3.40); #Monocytes 0.6 thou/uL (0.11-0.59); #Neutrophils 5.5 thou/uL (1.40-6.50); %Basophils 0.1 % (0.0-1.0); %Eosinophils 4.3 % (0.0-10.0); %Lymphocytes 16.9 % (21.0-51.0); %Monocytes 8.2 % (0.0-10.0); %Neutrophils 70.5 % (42.0-75.0); Hemoglobin 10.2 g/dL (12.0-16.0); Mean Corpuscular HGB CONC 34.5 g/dL (32.0-36.0); Mean Corpuscular Hemoglobin 31.7 pg (27.0-31.0); Mean Platelet Volume 10.6 fL (7.4-10.4); Platelet Count 154 thou/uL (130-400); RBC Distribution Width 12.1 % (11.5-14.5); Red Blood Cell (RBC) Count 3.22 mill/uL (4.20-5.40); White Blood Cell (WBC) Count 7.8 thou/uL (4.8-10.8)
[2018-01-21] MEDS: cloNIDine 0.1 MG TAB PO PRN (04:22)
[2018-01-21 04:34] LABS: Chloride 114 mmol/L (98-107)
[2018-01-21 04:35] LABS: Calcium 8.2 mg/dL (7.8-10.44); Glucose 141 mg/dL (83-110); Magnesium 1.8 mg/dL (1.6-2.6); Potassium 4.5 mmol/L (3.5-5.1); Sodium 138 mmol/L (136-145)
[2018-01-21 04:37] LABS: Anion Gap 15 mmol/L (10-20); Carbon Dioxide 14 mmol/L (23-31)
[2018-01-21 04:39] LABS: Calc. Creatinine Clearance 22 mL/min (70-130); Estimated GFR-MDRD 13
[2018-01-21 04:40] LABS: BUN (Urea Nitrogen) 60 mg/dL (9.8-20.1)
[2018-01-21] MEDS: hydrALAZINE 25 MG TAB PO SCH ×3 (05:17→21:53)
[2018-01-21] MEDS: Levothyroxine Sodium 25 MCG TAB PO SCH (05:17)
[2018-01-21] MEDS: Clindamycin/D5W 900 MG in Premix Bag 1 BAG IVPB SCH ×3 (05:17→21:54)
[2018-01-21] MEDS: Levothyroxine Sodium 112 MCG TAB PO SCH (05:21)
[2018-01-21] MEDS: cloNIDine 0.1 MG TAB PO SCH ×2 (08:37→20:09)
[2018-01-21] MEDS: Atorvastatin Calcium 40 MG TAB PO SCH (08:38)
[2018-01-21] MEDS: Fenofibrate 48 MG TAB PO SCH (08:38)
[2018-01-21] MEDS: Sodium Bicarbonate Tab 325 MG TAB PO SCH ×2 (08:38→20:07)
[2018-01-21] MEDS: Polyethylene Glycol 3350 17 GM Packet PO SCH (09:00)
--- NOTE | 2018-01-21 10:59 | PRG ---
DATE OF SERVICE: SUBJECTIVE: She is doing well, has no complaints today. She is up in the chair. OBJECTIVE: VITAL SIGNS: Temperature is 98.3, pulse 74, blood pressure 117/65, O2 saturation 99%. HEENT: Remarkable for a surgical wound in the left temporal area well healed. NECK: No JVD. CHEST: Clear. CARDIAC: S1, S2 regular. ABDOMEN: Soft. EXTREMITIES: No edema. LABORATORY DATA: White blood cell count 7.8, hematocrit 29.6, platelet count 154. Sodium 138, potassium 4.5, chloride 114, CO2 of 14, BUN 60, creatinine 3.4, glucose 141. ASSESSMENT: 1. [id number] left subdural hematoma. 2. 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 3. Chronic kidney disease. 4. Chronic metabolic acidosis. PLAN: She seems to be doing reasonably well from an ICU standpoint. She can be transferred to the floor when okay with Neurosurgery. Job ID: [id number]
[2018-01-21] MEDS: Senokot S 8.6-50 MG TAB PO SCH ×2 (15:32→20:09)
--- NOTE | 2018-01-21 16:52 | EKG ---
Test Reason : FALL Blood Pressure : / mmHG Vent. Rate : 060 BPM Atrial Rate : 060 BPM P-R Int : 122 ms QRS Dur : 090 ms QT Int : 432 ms P-R-T Axes : 054 -20 000 degrees QTc Int : 432 ms Normal sinus rhythm Minimal voltage criteria for LVH, may be normal variant old Borderline ECG Confirmed by SEGUNDO DICKERSON, FILEMON ([id number]), features editor FEMI DOHERTY ([id number]) on 01/21/2018 4:52:50 PM Referred By: Confirmed By:FILEMON RAYMOND MD
--- NOTE | 2018-01-21 16:57 | PDOC.PN ---
- Subjective Encounter Start Date: 01/21/18 Encounter Start Time: 09:00 Patient seen and examined for med mngt. No CP/SOB. No new complaints. No overnight events - Objective Resuscitation Status - Order Detail: 01/17/18 12:20 Resuscitation Status Routine Resuscitation Status: FULL: Full Resuscitation Discussed with: per previous order MAR Reviewed: Yes Vital Signs & Weight: Vital Signs (12 hours) Temp Pulse Pulse Pulse BP BP BP 01/21/18 15:20 137/64 01/21/18 12:00 98.5 F 01/21/18 09:23 75 76 124/66 138/69 01/21/18 08:37 154/68 H 01/21/18 07:40 01/21/18 07:00 98.3 F 01/21/18 05:17 76 154/68 H Pulse Ox Pulse Ox Pulse Ox 01/21/18 15:20 01/21/18 12:00 01/21/18 09:23 99 99 01/21/18 08:37 01/21/18 07:40 97 01/21/18 07:00 01/21/18 05:17 Weight Admit Weight 205 lb Weight 206 lb 9.17 oz Most Recent Monitor Data Heart Rate from ECG 67 NIBP 143/70 NIBP BP-Mean 94 Respiration from ECG 18 SpO2 99 I&O: 01/20/18 01/21/18 01/22/18 06:59 06:59 06:59 Intake Total 1324 1642 730 Output Total 1638 1613 480 Balance -314 29 250 Result Diagrams: 01/21/18 03:21 01/21/18 03:21 EKG Reviewed by me: Yes (Tele SR) Phys Exam - Physical Examination Constitutional: NAD Respiratory: no wheezing, no rhonchi Cardiovascular: RRR, no rub Gastrointestinal: soft, non-tender, positive bowel sounds Musculoskeletal: no edema Neurological: moves all 4 limbs Dx/Plan - Plan DVT proph w/SCDs 1. HTN 2. CKD 4 3. Obesity BMI 31.2 4. Chronic Metabolic acidosis - due to CKD 5. 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 PLAN: Cont Clonidine 0.1 mg BID Continue Amlodipine,Hydralazine & Toprol XL Cardene / Clonidine PRN Cont other meds as below BMP in AM Review of Systems - Review of Systems Respiratory: negative: Cough, Dry, Shortness of Breath, Hemoptysis, SOB with Excertion, Pleuritic Pain, Sputum, Wheezing Cardiovascular: negative: chest pain, palpitations, orthopnea, paroxysmal nocturnal dyspnea, edema, light headedness, other - Medications/Allergies Allergies/Adverse Reactions: Allergies Allergy/AdvReac Type Severity Reaction Status Date / Time azithromycin Allergy Verified 10/24/17 02:02 [From Zithromax Z-Gato] Penicillins Allergy Verified 01/15/18 16:06 Medications: Current Medications Acetaminophen (Tylenol) 650 mg PO Q4H PRN PRN Reason: Headache/Fever/Mild Pain (1-3) Atorvastatin Calcium (Lipitor) 80 mg PO DAILY [facility] Last Admin: 01/21/18 08:38 Dose: 80 mg Clonidine (Catapres) 0.1 mg PO Q4H PRN PRN Reason: Systolic BP > 160 Last Admin: 01/21/18 04:22 Dose: 0.1 mg Clonidine (Catapres) 0.1 mg PO BID [facility] Last Admin: 01/21/18 08:37 Dose: 0.1 mg Donepezil HCl (Aricept) 10 mg PO HS [facility] Last Admin: 01/20/18 21:31 Dose: 10 mg Fenofibrate (Tricor) 48 mg PO DAILY [facility] Last Admin: 01/21/18 08:38 Dose: 48 mg Hydralazine HCl (Apresoline) 75 mg PO Q8HR [facility] Last Admin: 01/21/18 15:20 Dose: 75 mg Clindamycin Phosphate/Dextrose (900 mg/ Device) 50 mls @ 100 mls/hr IVPB Q8HR [facility] Last Admin: 01/21/18 15:20 Dose: 50 mls Nicardipine HCl 25 mg/ Sodium (Chloride) 250 mls @ 0 mls/hr IVPB INF [facility]; Protocol Last Admin: 01/16/18 07:53 Dose: 250 mls Levetiracetam 500 mg/ Device 100 mls @ 200 mls/hr IVPB BID [facility] Last Admin: 01/21/18 08:37 Dose: 100 mls Labetalol HCl (Normodyne) 10 mg SLOW IVP Q10MIN PRN PRN Reason: SBP GREATER THAN 160 Last Admin: 01/21/18 04:23 Dose: 10 mg Latanoprost (Xalatan 0.005% [facility]) 1 drop EA EYE QPM [facility] Last Admin: 01/20/18 21:31 Dose: 1 drop Levothyroxine Sodium (Synthroid) 112 mcg PO 0600 [facility] Last Admin: 01/21/18 05:21 Dose: 112 mcg Levothyroxine Sodium (Synthroid) 25 mcg PO 0600 [facility] Last Admin: 01/21/18 05:17 Dose: 25 mcg Metoprolol Succinate (Toprol Xl) 25 mg PO DAILY [facility] Last Admin: 01/21/18 08:38 Dose: 25 mg Pantoprazole Sodium (Protonix) 40 mg PO DAILY [facility] Last Admin: 01/21/18 08:39 Dose: 40 mg Polyethylene Glycol (Miralax) 17 gm PO DAILY [facility] Last Admin: 01/21/18 09:00 Dose: Not Given Promethazine HCl (Phenergan) 12.5 mg IM/IV Q6H PRN PRN Reason: Nausea/Vomiting Senna/Docusate Sodium (Senokot S) 2 tab PO BID PRN PRN Reason: Constipation Senna/Docusate Sodium (Senokot S) 1 tab PO BID [facility] Last Admin: 01/21/18 15:32 Dose: Not Given Sodium Bicarbonate (Bicarbonate, Sodium) 325 mg PO BID [facility] Last Admin: 01/21/18 08:38 Dose: 325 mg Sodium Chloride (Flush - Normal Saline) 10 ml IVF PRN PRN PRN Reason: Saline Flush Thiamine HCl (Thiamine) 100 mg PO DAILY [facility] Last Admin: 01/21/18 08:37 Dose: 100 mg
[2018-01-21] MEDS: Latanoprost 0.005% Ophth Soln 2.5 ml Bottle EA EYE SCH (20:07)
[2018-01-21] MEDS: Donepezil HCl 10 MG TAB PO SCH (20:08)
[2018-01-22 04:35] LABS: #Eosinphils 0.3 thou/uL (0.0-0.7); #Lymphocytes 1.3 thou/uL (1.20-3.40); #Monocytes 0.5 thou/uL (0.11-0.59); #Neutrophils 3.9 thou/uL (1.40-6.50); %Basophils 0.6 % (0.0-1.0); %Eosinophils 4.8 % (0.0-10.0); %Neutrophils 64.6 % (42.0-75.0); Hemoglobin 8.9 g/dL (12.0-16.0); Mean Corpuscular HGB CONC 34.5 g/dL (32.0-36.0); Mean Corpuscular Hemoglobin 31.7 pg (27.0-31.0); Mean Platelet Volume 10.8 fL (7.4-10.4); Platelet Count 153 thou/uL (130-400); RBC Distribution Width 12.2 % (11.5-14.5)
[2018-01-22 04:43] LABS: Anion Gap 13 mmol/L (10-20); BUN (Urea Nitrogen) 67 mg/dL (9.8-20.1); Calc. Creatinine Clearance 20 mL/min (70-130); Carbon Dioxide 14 mmol/L (23-31); Chloride 115 mmol/L (98-107); Estimated GFR-MDRD 12; Glucose 156 mg/dL (83-110); Potassium 4.6 mmol/L (3.5-5.1); Sodium 137 mmol/L (136-145)
[2018-01-22] MEDS: Levothyroxine Sodium 112 MCG TAB PO SCH (05:44)
[2018-01-22] MEDS: Levothyroxine Sodium 25 MCG TAB PO SCH (05:45)
[2018-01-22] MEDS: Clindamycin/D5W 900 MG in Premix Bag 1 BAG IVPB SCH ×3 (05:45→21:43)
[2018-01-22] MEDS: hydrALAZINE 25 MG TAB PO SCH ×3 (05:46→21:47)
[2018-01-22] MEDS: Sodium Bicarbonate Tab 325 MG TAB PO SCH ×2 (08:25→20:15)
[2018-01-22] MEDS: Fenofibrate 48 MG TAB PO SCH (08:25)
[2018-01-22] MEDS: Atorvastatin Calcium 40 MG TAB PO SCH (08:25)
[2018-01-22] MEDS: Senokot S 8.6-50 MG TAB PO SCH ×2 (08:25→19:51)
[2018-01-22] MEDS: cloNIDine 0.1 MG TAB PO SCH ×2 (08:27→19:49)
[2018-01-22] MEDS: Polyethylene Glycol 3350 17 GM Packet PO SCH (08:28)
--- NOTE | 2018-01-22 18:39 | PDOC.PN ---
- Subjective Encounter Start Date: 01/22/18 Encounter Start Time: 14:00 Patient seen and examined for med mngt. No new complaints. No overnight events - Objective Resuscitation Status - Order Detail: 01/17/18 12:20 Resuscitation Status Routine Resuscitation Status: FULL: Full Resuscitation Discussed with: per previous order MAR Reviewed: Yes Vital Signs & Weight: Vital Signs (12 hours) Temp Pulse Resp BP BP Pulse Ox 01/22/18 16:10 96 01/22/18 15:02 98.1 F 64 22 H 158/72 H 96 01/22/18 13:00 63 131/69 01/22/18 12:00 98 F 01/22/18 08:27 143/70 H 01/22/18 08:00 98.7 F 99 Weight Admit Weight 205 lb Weight 205 lb 1.6 oz Most Recent Monitor Data Heart Rate from ECG 62 NIBP 131/69 NIBP BP-Mean 89 Respiration from ECG 18 SpO2 100 I&O: 01/21/18 01/22/18 01/23/18 06:59 06:59 06:59 Intake Total 1642 1580 300 Output Total 1613 1156 265 Balance 29 424 35 Result Diagrams: 01/22/18 03:45 01/22/18 03:45 Phys Exam - Physical Examination Constitutional: NAD Respiratory: no wheezing, no rhonchi Cardiovascular: RRR, no rub Gastrointestinal: soft, non-tender, positive bowel sounds Musculoskeletal: no edema Neurological: moves all 4 limbs Dx/Plan - Plan DVT proph w/SCDs 1. HTN 2. CKD 4 3. Obesity BMI 31.2 4. Chronic Metabolic acidosis - due to CKD 5. Hypothyroidism / Glaucoma / DM2 - diet controlled/ NPH s/p DIESEL ENGINE I PIPE FITTER shunt PLAN: Cont Clonidine,Amlodipine,Hydralazine & Toprol XL Clonidine PRN Increase Sodium bicarb to 650 mg BID Cont other meds as below Review of Systems - Review of Systems Cardiovascular: negative: chest pain, palpitations, orthopnea, paroxysmal nocturnal dyspnea, edema, light headedness, other Gastrointestinal: negative: Nausea, Vomiting, Abdominal Pain, Diarrhea, Constipation, Melena, Hematochezia, Other - Medications/Allergies Allergies/Adverse Reactions: Allergies Allergy/AdvReac Type Severity Reaction Status Date / Time azithromycin Allergy Verified 10/24/17 02:02 [From Zithromax Z-Gato] Penicillins Allergy Verified 01/15/18 16:06 Medications: Current Medications Acetaminophen (Tylenol) 650 mg PO Q4H PRN PRN Reason: Headache/Fever/Mild Pain (1-3) Atorvastatin Calcium (Lipitor) 80 mg PO DAILY [facility] Last Admin: 01/22/18 08:25 Dose: 80 mg Clonidine (Catapres) 0.1 mg PO Q4H PRN PRN Reason: Systolic BP > 160 Last Admin: 01/21/18 04:22 Dose: 0.1 mg Clonidine (Catapres) 0.1 mg PO BID [facility] Last Admin: 01/22/18 08:27 Dose: 0.1 mg Donepezil HCl (Aricept) 10 mg PO HS [facility] Last Admin: 01/21/18 20:08 Dose: 10 mg Fenofibrate (Tricor) 48 mg PO DAILY [facility] Last Admin: 01/22/18 08:25 Dose: 48 mg Hydralazine HCl (Apresoline) 75 mg PO Q8HR [facility] Last Admin: 01/22/18 13:00 Dose: 75 mg Clindamycin Phosphate/Dextrose (900 mg/ Device) 50 mls @ 100 mls/hr IVPB Q8HR [facility] Last Admin: 01/22/18 13:00 Dose: 50 mls Nicardipine HCl 25 mg/ Sodium (Chloride) 250 mls @ 0 mls/hr IVPB INF [facility]; Protocol Last Admin: 01/16/18 07:53 Dose: 250 mls Levetiracetam 500 mg/ Device 100 mls @ 200 mls/hr IVPB BID [facility] Last Admin: 01/22/18 08:25 Dose: 100 mls Labetalol HCl (Normodyne) 10 mg SLOW IVP Q10MIN PRN PRN Reason: SBP GREATER THAN 160 Last Admin: 01/21/18 04:23 Dose: 10 mg Latanoprost (Xalatan 0.005% [facility] Soln) 1 drop EA EYE QPM [facility] Last Admin: 01/21/18 20:07 Dose: 1 drop Levothyroxine Sodium (Synthroid) 112 mcg PO 0600 [facility] Last Admin: 01/22/18 05:44 Dose: 112 mcg Levothyroxine Sodium (Synthroid) 25 mcg PO 0600 [facility] Last Admin: 01/22/18 05:45 Dose: 25 mcg Metoprolol Succinate (Toprol Xl) 25 mg PO DAILY [facility] Last Admin: 01/22/18 08:25 Dose: 25 mg Pantoprazole Sodium (Protonix) 40 mg PO DAILY [facility] Last Admin: 01/22/18 08:26 Dose: 40 mg Polyethylene Glycol (Miralax) 17 gm PO DAILY [facility] Last Admin: 01/22/18 08:28 Dose: Not Given Promethazine HCl (Phenergan) 12.5 mg IM/IV Q6H PRN PRN Reason: Nausea/Vomiting Senna/Docusate Sodium (Senokot S) 2 tab PO BID PRN PRN Reason: Constipation Senna/Docusate Sodium (Senokot S) 1 tab PO BID [facility] Last Admin: 01/22/18 08:25 Dose: 1 tab Sodium Bicarbonate (Bicarbonate, Sodium) 650 mg PO BID [facility] Last Admin: 01/22/18 08:25 Dose: 650 mg Sodium Chloride (Flush - Normal Saline) 10 ml IVF PRN PRN PRN Reason: Saline Flush Thiamine HCl (Thiamine) 100 mg PO DAILY [facility] Last Admin: 01/22/18 08:25 Dose: 100 mg
[2018-01-22] MEDS: Donepezil HCl 10 MG TAB PO SCH (19:50)
[2018-01-22] MEDS: Latanoprost 0.005% Ophth Soln 2.5 ml Bottle EA EYE SCH (20:10)
[2018-01-23] MEDS: Levothyroxine Sodium 25 MCG TAB PO SCH (06:05)
[2018-01-23] MEDS: Levothyroxine Sodium 112 MCG TAB PO SCH (06:05)
[2018-01-23] MEDS: hydrALAZINE 25 MG TAB PO SCH ×3 (06:06→21:23)
[2018-01-23] MEDS: Clindamycin/D5W 900 MG in Premix Bag 1 BAG IVPB SCH (06:06)
[2018-01-23 06:51] LABS: Anion Gap 13 mmol/L (10-20); BUN (Urea Nitrogen) 70 mg/dL (9.8-20.1); Calc. Creatinine Clearance 18 mL/min (70-130); Calcium 8.3 mg/dL (7.8-10.44); Carbon Dioxide 14 mmol/L (23-31); Chloride 115 mmol/L (98-107); Estimated GFR-MDRD 11; Glucose 112 mg/dL (83-110); Potassium 4.5 mmol/L (3.5-5.1); Sodium 137 mmol/L (136-145)
--- NOTE | 2018-01-23 07:49 | PRG ---
DATE OF SERVICE: 01/22/2018 SUBJECTIVE: The patient is up in a chair. She feels fine. She says she is being transferred out to the floor today. OBJECTIVE: VITAL SIGNS: Temperature 98.7, pulse 75, blood pressure 143/70. HEENT: Unremarkable. NECK: No JVD. CHEST: Clear. CARDIAC: S1 and S2, regular. ABDOMEN: Soft. EXTREMITIES: No edema. LABORATORY DATA: Sodium 137, potassium 4.6, chloride 115, CO2 of 14, BUN 67, creatinine 3.7, glucose 156. White blood cell count 6, hematocrit 25.8, platelet count 153. ASSESSMENT: 1. Acute on chronic left subdural hematoma. 2. 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 3. Chronic kidney disease. 4. Chronic metabolic acidosis. PLAN: Okay to transfer out to the floor. No further Pulmonary recommendations at this time. Job ID: [id number]
--- NOTE | 2018-01-23 07:50 | PRG ---
DATE OF SERVICE: 01/22/2018 The patient is seen and examined. She is alert and appropriate, sitting up in the chair, doing quite well. We are planning transfer to the floor and increase mobilization today. Job ID: [id number]
[2018-01-23] MEDS: Sodium Bicarbonate Tab 325 MG TAB PO SCH ×2 (10:30→21:19)
[2018-01-23] MEDS: Atorvastatin Calcium 40 MG TAB PO SCH (10:30)
[2018-01-23] MEDS: Senokot S 8.6-50 MG TAB PO SCH ×2 (10:30→21:18)
[2018-01-23] MEDS: cloNIDine 0.1 MG TAB PO SCH ×2 (10:30→21:22)
[2018-01-23] MEDS: Fenofibrate 48 MG TAB PO SCH (10:31)
--- NOTE | 2018-01-23 10:36 | PRG ---
DATE OF SERVICE: 01/23/[address] Dinh Nicholas. This is a postoperative recheck. Ms. Bee is now postoperative day #8, having undergone left-sided zoe hole for evacuation of subdural hematoma. Her subdural drain was removed on Tuesday and her shunt setting was placed at 2.5. Today, she appears much more awake and alert and interactive. She has evening breakfast. She has not been mobilizing much, so we will ask Therapy to work with her on this. She does also still have a Moore catheter and I have asked this to be removed if she is ambulating satisfactorily. She remains, on my exam today, more interactive with the examiner. She is oriented to person, place, and time. She follows commands equally in all four extremities. Really does not appear to have much in the way of right-sided weakness. The [facility] when [facility] have been made, but ideally I would like her to be ambulating a little bit more and void prior to discharge. We will check back on her later this afternoon, but if arrangements can me made, she is ready for discharge. Please call with any changes in the patient's neurological status. Job ID: [id number]
[2018-01-23] MEDS: Polyethylene Glycol 3350 17 GM Packet PO SCH (13:34)
--- NOTE | 2018-01-23 14:20 | PRG ---
DATE OF SERVICE: 01/23/2018 SUBJECTIVE: Ms. Bee has no complaints. She is sitting in the chair by the window, looking outside, and reading. OBJECTIVE: VITAL SIGNS: She is afebrile, heart rate 76, respiratory rate 18, oximetry is 97 on room air, blood pressure 167/79, it was 128/67 earlier. LUNGS: Clear. HEART: Regular rhythm. ABDOMEN: Soft and nontender. EXTREMITIES: Without edema. IMPRESSION: Status post evacuation of a left-sided subdural with a zoe hole. We are working on transferring back to half-way. We will sign off. Job ID: [id number]
[2018-01-23 14:35] LABS: Bilirubin Negative (Negative); Blood, Urine Negative (Negative); Clarity CLEAR (Clear); Glucose, Urine (Dipstick) 100 mg/dL (Negative); Leukocyte Negative (Negative); Nitrite Negative (Negative); Protein, Urine (Dipstick) 300 mg/dL (Neg-Trace); Specific Gravity, Urine 1.016 (1.002-1.036); Urobilinogen 0.2 mg/dL (0.2-1.0); pH, Urine 5.5 (5.0-9.0)
[2018-01-23 14:40] LABS: Bacteria/HPF None Seen HPF (None Seen); Hyaline Casts/LPF 4-6 HYALINE CAST LPF (0-3 Hyaline); Pathc Cast-AUWi Flag 1.01 (0-2.49); RBC/HPF 0-3 HPF (0-3); Squamous Epithelial 0-3 HPF (0-3); WBC/HPF 0-3 HPF (0-3)
[2018-01-23 14:50] LABS: Creatinine, Urine 81.4 mg/dL (47-110)
--- NOTE | 2018-01-23 20:01 | PDOC.PN ---
- Subjective Encounter Start Date: 01/23/18 Encounter Start Time: 12:00 Patient seen and examined for med mngt. No new complaints. No overnight events - Objective Resuscitation Status - Order Detail: 01/17/18 12:20 Resuscitation Status Routine Resuscitation Status: FULL: Full Resuscitation Discussed with: per previous order MAR Reviewed: Yes Vital Signs & Weight: Vital Signs (12 hours) Temp Pulse Resp BP Pulse Ox 01/23/18 16:00 99.0 F 68 18 176/81 H 96 01/23/18 12:00 98.7 F 68 18 149/77 H 100 Weight Admit Weight 205 lb Weight 218 lb Most Recent Monitor Data Heart Rate from ECG 62 NIBP 131/69 NIBP BP-Mean 89 Respiration from ECG 18 SpO2 100 I&O: 01/22/18 01/23/18 01/24/18 06:59 06:59 06:59 Intake Total 1580 500 240 Output Total 1156 615 Balance 424 -115 240 Result Diagrams: 01/22/18 03:45 01/23/18 05:51 Phys Exam - Physical Examination Constitutional: NAD Respiratory: no wheezing, no rhonchi Cardiovascular: RRR, no rub Gastrointestinal: soft, non-tender, positive bowel sounds Musculoskeletal: no edema Neurological: moves all 4 limbs Dx/Plan - Plan DVT proph w/SCDs 1. HTN 2. TOSHIA/CKD 4 3. Obesity BMI 31.2 4. Chronic Metabolic acidosis - due to CKD 5. Hypothyroidism / Glaucoma / DM2 - diet controlled/ NPH s/p TRAFFIC SUPERVISOR shunt PLAN: UA I d/w Dr Andrews Cont Clonidine,Amlodipine,Hydralazine & Toprol XL Clonidine PRN Cont Sodium bicard 650 mg BID Cont other meds as below Review of Systems - Review of Systems Respiratory: negative: Cough, Dry, Shortness of Breath, Hemoptysis, SOB with Excertion, Pleuritic Pain, Sputum, Wheezing Cardiovascular: negative: chest pain, palpitations, orthopnea, paroxysmal nocturnal dyspnea, edema, light headedness, other - Medications/Allergies Allergies/Adverse Reactions: Allergies Allergy/AdvReac Type Severity Reaction Status Date / Time azithromycin Allergy Verified 10/24/17 02:02 [From Zithromax Z-Gato] Penicillins Allergy Verified 01/15/18 16:06 Medications: Current Medications Acetaminophen (Tylenol) 650 mg PO Q4H PRN PRN Reason: Headache/Fever/Mild Pain (1-3) Atorvastatin Calcium (Lipitor) 80 mg PO DAILY [facility] Last Admin: 01/23/18 10:30 Dose: 80 mg Clonidine (Catapres) 0.1 mg PO Q4H PRN PRN Reason: Systolic BP > 160 Last Admin: 01/21/18 04:22 Dose: 0.1 mg Clonidine (Catapres) 0.1 mg PO BID [facility] Last Admin: 01/23/18 10:30 Dose: 0.1 mg Donepezil HCl (Aricept) 10 mg PO HS [facility] Last Admin: 01/22/18 19:50 Dose: 10 mg Fenofibrate (Tricor) 48 mg PO DAILY [facility] Last Admin: 01/23/18 10:31 Dose: 48 mg Hydralazine HCl (Apresoline) 75 mg PO Q8HR [facility] Last Admin: 01/23/18 13:35 Dose: 75 mg Nicardipine HCl 25 mg/ Sodium (Chloride) 250 mls @ 0 mls/hr IVPB INF [facility]; Protocol Last Admin: 01/16/18 07:53 Dose: 250 mls Labetalol HCl (Normodyne) 10 mg SLOW IVP Q10MIN PRN PRN Reason: SBP GREATER THAN 160 Last Admin: 01/21/18 04:23 Dose: 10 mg Latanoprost (Xalatan 0.005% [facility]) 1 drop EA EYE QPM [facility] Last Admin: 01/22/18 20:10 Dose: 1 drop Levetiracetam (Keppra) 500 mg PO BID [facility] Levothyroxine Sodium (Synthroid) 112 mcg PO 0600 [facility] Last Admin: 01/23/18 06:05 Dose: 112 mcg Levothyroxine Sodium (Synthroid) 25 mcg PO 0600 [facility] Last Admin: 01/23/18 06:05 Dose: 25 mcg Metoprolol Succinate (Toprol Xl) 25 mg PO DAILY [facility] Last Admin: 01/23/18 10:31 Dose: 25 mg Pantoprazole Sodium (Protonix) 40 mg PO DAILY [facility] Last Admin: 01/23/18 10:31 Dose: 40 mg Polyethylene Glycol (Miralax) 17 gm PO DAILY [facility] Last Admin: 01/23/18 13:34 Dose: Not Given Promethazine HCl (Phenergan) 12.5 mg IM/IV Q6H PRN PRN Reason: Nausea/Vomiting Senna/Docusate Sodium (Senokot S) 2 tab PO BID PRN PRN Reason: Constipation Senna/Docusate Sodium (Senokot S) 1 tab PO BID [facility] Last Admin: 01/23/18 10:30 Dose: 1 tab Sodium Bicarbonate (Bicarbonate, Sodium) 650 mg PO BID [facility] Last Admin: 01/23/18 10:30 Dose: 650 mg Sodium Chloride (Flush - Normal Saline) 10 ml IVF PRN PRN PRN Reason: Saline Flush Thiamine HCl (Thiamine) 100 mg PO DAILY [facility] Last Admin: 01/23/18 10:30 Dose: 100 mg
[2018-01-23] MEDS: levETIRAcetam 500 MG TAB PO SCH (21:18)
[2018-01-23] MEDS: Donepezil HCl 10 MG TAB PO SCH (21:18)
[2018-01-23] MEDS: Latanoprost 0.005% Ophth Soln 2.5 ml Bottle EA EYE SCH (21:19)
[2018-01-23] MEDS ORDERED: hydrALAZINE 20 MG/ML VIAL SLOW IVP PRN (21:52)
[2018-01-24] MEDS: cloNIDine 0.1 MG TAB PO PRN ×2 (02:04→16:43)
[2018-01-24] MEDS: Levothyroxine Sodium 25 MCG TAB PO SCH (05:08)
[2018-01-24] MEDS: Levothyroxine Sodium 112 MCG TAB PO SCH (05:09)
[2018-01-24] MEDS: hydrALAZINE 25 MG TAB PO SCH ×3 (05:09→21:26)
[2018-01-24 07:27] LABS: Hemoglobin 9.2 g/dL (12.0-16.0); Platelet Count 165 thou/uL (130-400)
[2018-01-24 07:39] LABS: Anion Gap 12 mmol/L (10-20); BUN (Urea Nitrogen) 68 mg/dL (9.8-20.1); Calc. Creatinine Clearance 20 mL/min (70-130); Calcium 8.6 mg/dL (7.8-10.44); Carbon Dioxide 15 mmol/L (23-31); Chloride 117 mmol/L (98-107); Estimated GFR-MDRD 11; Glucose 127 mg/dL (83-110); Potassium 4.4 mmol/L (3.5-5.1); Sodium 140 mmol/L (136-145)
[2018-01-24] MEDS: cloNIDine 0.1 MG TAB PO SCH ×2 (07:45→21:21)
[2018-01-24] MEDS: Atorvastatin Calcium 40 MG TAB PO SCH (07:48)
[2018-01-24] MEDS: Fenofibrate 48 MG TAB PO SCH (07:48)
[2018-01-24] MEDS: Senokot S 8.6-50 MG TAB PO SCH ×2 (07:49→21:22)
[2018-01-24] MEDS: levETIRAcetam 500 MG TAB PO SCH ×2 (07:49→21:21)
[2018-01-24] MEDS: Sodium Bicarbonate Tab 325 MG TAB PO SCH ×3 (07:49→21:22)
[2018-01-24] MEDS: Polyethylene Glycol 3350 17 GM Packet PO SCH (07:50)
[2018-01-24] MEDS ORDERED: Albumin 25% 25 GM/100 ML BOT IVPB SCH (12:00)
[2018-01-24 12:38] VITALS: BMI 41.4
--- NOTE | 2018-01-24 14:42 | CON ---
DATE OF CONSULTATION: HISTORY OF PRESENT ILLNESS: Ms. Bee is a 72-year-old white female with chronic renal failure, normal-pressure hydrocephalus and was recently admitted due to a subdural hematoma. At that time, the subdural hematoma was noted to be causing mass effect with midline shift and for that reason, underwent left frontal and parietal zoe-hole evacuation. During the last several days, she has been stable, but creatinine was noted to have worsened, where the creatinine was said to have peaked at a value of 4.14. This morning, it is currently now 3.91. Renal function is a little above baseline. It usually runs about 3.4. We are evaluating this patient for her acute kidney injury. She has received significant IV hydration in the past. She also has a history of labile hypertension. REVIEW OF SYSTEMS: No chest pain. No nausea. No vomiting. No shortness of breath. No abdominal pain. No diarrhea. No constipation. No productive cough. No fever or chills. Occasional headache. MEDICATIONS: Medications of January 24, 2018: 1. Lipitor 80 mg at bedtime. 2. Catapres 0.1 mg q.4 p.r.n. 3. Catapres 0.1 mg b.i.d. 4. Aricept 10 mg at bedtime. 5. Fenofibrate 48 mg once a day. 6. Hydralazine 75 mg q.8. 7. Normodyne 10 mg IV q.10 p.r.n. 8. Xalatan eyedrop. 9. Keppra 500 mg p.o. b.i.d. 10. Synthroid 112 mcg q.a.m. plus 25 mcg q.a.m. 11. Metoprolol succinate 25 mg once a day. 12. Protonix 40 mg daily. 13. MiraLAX 17 g daily. 14. Sodium bicarbonate 650 mg p.o. t.i.d. 15. Thiamine 100 mg once a day. PAST MEDICAL HISTORY: 1. Chronic renal failure from hypertensive nephropathy. 2. Longstanding hypertension. 3. Hyperlipidemia. 4. Early dementia. 5. History of normal-pressure hydrocephalus. 6. Type 2 diabetes mellitus. 7. Renal cancer - in remission. 8. Hypothyroidism. 9. History of liver hemangioma. 10. History of fatty liver. PAST SURGICAL HISTORY: Recently status post parietal and frontal zoe-hole with evacuation of intracranial hematoma, status post left nephrectomy for renal cancer, status post excision of squamous cell cancer, status post appendectomy, status post lumbar spinal tap, status post tonsillectomy, status post hysterectomy, status post colonoscopy, status post liver biopsy. SOCIAL HISTORY: The patient is in assisted living. Smoked for 5 years, one-fourth pack a day, status post blood transfusion. The patient is , 2 children. 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 Alcohol, none. Education, high school. No drug abuse. ALLERGIES: PENICILLIN. TRAUMA: Status post snake bite, status post fall. IMMUNIZATION: Up-to-date. HOSPITALIZATIONS: Please see past medical history. FAMILY HISTORY: No family history of ESRD. PHYSICAL EXAMINATION: VITAL SIGNS: Blood pressure is 170/76, heart rate 77, respiratory rate 15, temperature 98.5, and pulse ox 95%. GENERAL: Awake, alert, comfortable, not in distress. SKIN: Adequate turgor. HEENT: Pinkish conjunctivae. Anicteric sclerae. She does have a surgical scar on her head. NECK: No neck mass. No carotid bruits. No JVD. LUNGS: Clear breath sounds. No wheezing. No crackles. HEART: Normal sinus rhythm. No murmurs. No gallops. No rubs. ABDOMEN: Globular, soft, and nontender. No masses. EXTREMITIES: No edema. No deformities noted. LABORATORY DATA: Laboratories of January 24, 2018, sodium 140, potassium 4.4, chloride 117, carbon dioxide 15, BUN 68, creatinine 3.91, glucose 127, and calcium 8.6. On January 23, 2018, creatinine 4.1. On January 22, 2018, creatinine 3.71. On January 19, 2018, creatinine was 3.7. ASSESSMENT AND PLAN: 1. Acute kidney injury - this is most likely hemodynamically-mediated renal dysfunction. I did review the urine sediment. There is no evidence of acute tubular necrosis. Of interest, she has persistent proteinuria. Creatinine is slightly improved. My bias is to give her albumin infusion for 3 days - 25 g IV q.6. 2. Hypertension. Continue current BP medications. 3. Intracranial hematoma - status post parietal and frontal zoe-hole, evacuation of the hematoma, stable, doing well. The patient is coherent. There is no indication for any dialytic intervention. 4. Metabolic acidosis. I increased the sodium bicarbonate to 650 mg t.i.d. Partha ID: [id number]
--- NOTE | 2018-01-24 15:13 | PRG ---
DATE OF SERVICE: 01/24/[address] Dinh Nicholas. This is postoperative recheck. Ms. Bee is now postoperative day #9, having undergone left-sided zoe hole for subdural evacuation. The patient is continuing to do well on the floor. She attempts to ambulate yesterday with physical therapy, but had some difficult with gait. Otherwise, she remains in her neurologic baseline with no appreciable weakness in any of the extremities. Her incision is uncovered, clean, dry, intact, and closed with barry with scabbing throughout the incisions. She is comfortably eating breakfast in bed. She denies headache. The main concern now is her disposition for discharge. She is stable from our standpoint for discharge; however, she is going to require more active rehab to help improve her gait and then she is requiring max assist for her ADLs. Therefore, we have put in a consult for inpatient rehab with [facility]. Hopefully, this will be approved soon. Again, she is stable from discharge from our standpoint, but again arrangement should be made to inpatient nursing, so that she may benefit from physical therapy and more acute nursing care at this time. Her Moore catheter has been removed. Job ID: [id number]
--- NOTE | 2018-01-24 18:04 | PDOC.PN ---
- Subjective Encounter Start Date: 01/24/18 Encounter Start Time: 10:40 Patient seen and examined for medical mngt. No new complaints. No overnight events - Objective Resuscitation Status - Order Detail: 01/17/18 12:20 Resuscitation Status Routine Resuscitation Status: FULL: Full Resuscitation Discussed with: per previous order MAR Reviewed: Yes Vital Signs & Weight: Vital Signs (12 hours) Temp Pulse Resp BP BP Pulse Ox 01/24/18 16:43 183/79 H 01/24/18 15:29 98.7 F 72 16 179/89 H 97 01/24/18 13:57 71 01/24/18 11:32 98.7 F 71 16 176/73 H 97 01/24/18 08:00 98.5 F 77 15 95 01/24/18 07:45 170/76 H Weight Admit Weight 205 lb Weight 212 lb 3 oz Most Recent Monitor Data Heart Rate from ECG 62 NIBP 131/69 NIBP BP-Mean 89 Respiration from ECG 18 SpO2 100 I&O: 01/23/18 01/24/18 01/25/18 06:59 06:59 06:59 Intake Total 817 867 6506 Output Total 485 333 3636 Balance -115 320 -160 Result Diagrams: 01/24/18 06:16 01/24/18 06:16 Phys Exam - Physical Examination Constitutional: NAD Respiratory: no wheezing, no rhonchi Cardiovascular: RRR, no rub Gastrointestinal: soft, non-tender, positive bowel sounds Musculoskeletal: no edema Neurological: moves all 4 limbs Dx/Plan - Plan DVT proph w/SCDs 1. HTN 2. TOSHIA/CKD 4 3. Obesity BMI 31.2 4. Chronic Metabolic acidosis - due to CKD 5. Hypothyroidism / Glaucoma / DM2 - diet controlled/ NPH s/p WORK[employer] COMP[employer]ORNEY shunt PLAN: Renal function improving BMP in AM Cont Clonidine,Amlodipine,Hydralazine & Toprol XL Clonidine PRN Cont Sodium bicarb 650 mg BID Cont other meds as below Review of Systems - Review of Systems Respiratory: negative: Cough, Dry, Shortness of Breath, Hemoptysis, SOB with Excertion, Pleuritic Pain, Sputum, Wheezing Gastrointestinal: negative: Nausea, Vomiting, Abdominal Pain, Diarrhea, Constipation, Melena, Hematochezia, Other - Medications/Allergies Allergies/Adverse Reactions: Allergies Allergy/AdvReac Type Severity Reaction Status Date / Time azithromycin Allergy Verified 10/24/17 02:02 [From [facility]] Penicillins Allergy Verified 01/15/18 16:06 Medications: Current Medications Acetaminophen (Tylenol) 650 mg PO Q4H PRN PRN Reason: Headache/Fever/Mild Pain (1-3) Atorvastatin Calcium (Lipitor) 80 mg PO DAILY [facility] Last Admin: 01/24/18 07:48 Dose: 80 mg Clonidine (Catapres) 0.1 mg PO Q4H PRN PRN Reason: Systolic BP > 160 Last Admin: 01/24/18 16:43 Dose: 0.1 mg Clonidine (Catapres) 0.1 mg PO BID [facility] Last Admin: 01/24/18 07:45 Dose: 0.1 mg Donepezil HCl (Aricept) 10 mg PO HS [facility] Last Admin: 01/23/18 21:18 Dose: 10 mg Hydralazine HCl (Apresoline) 75 mg PO Q8HR [facility] Last Admin: 01/24/18 13:57 Dose: 75 mg Hydralazine HCl (Apresoline) 10 mg SLOW IVP Q4H PRN PRN Reason: SBP Greater Than 180 Nicardipine HCl 25 mg/ Sodium (Chloride) 250 mls @ 0 mls/hr IVPB INF ELADIO; Protocol Last Admin: 01/16/18 07:53 Dose: 250 mls Labetalol HCl (Normodyne) 10 mg SLOW IVP Q10MIN PRN PRN Reason: SBP GREATER THAN 160 Last Admin: 01/21/18 04:23 Dose: 10 mg Latanoprost (Xalatan 0.005% Oph Soln) 1 drop EA EYE QPM [facility] Last Admin: 01/23/18 21:19 Dose: 1 drop Levetiracetam (Keppra) 500 mg PO BID [facility] Last Admin: 01/24/18 07:49 Dose: 500 mg Levothyroxine Sodium (Synthroid) 112 mcg PO 0600 [facility] Last Admin: 01/24/18 05:09 Dose: 112 mcg Levothyroxine Sodium (Synthroid) 25 mcg PO 0600 [facility] Last Admin: 01/24/18 05:08 Dose: 25 mcg Metoprolol Succinate (Toprol Xl) 25 mg PO DAILY [facility] Last Admin: 01/24/18 07:48 Dose: 25 mg Pantoprazole Sodium (Protonix) 40 mg PO DAILY [facility] Last Admin: 01/24/18 07:49 Dose: 40 mg Polyethylene Glycol (Miralax) 17 gm PO DAILY [facility] Last Admin: 01/24/18 07:50 Dose: 17 gm Promethazine HCl (Phenergan) 12.5 mg IM/IV Q6H PRN PRN Reason: Nausea/Vomiting Senna/Docusate Sodium (Senokot S) 2 tab PO BID PRN PRN Reason: Constipation Senna/Docusate Sodium (Senokot S) 1 tab PO BID [facility] Last Admin: 01/24/18 07:49 Dose: 1 tab Sodium Bicarbonate (Bicarbonate, Sodium) 650 mg PO TID [facility] Last Admin: 01/24/18 13:57 Dose: 650 mg Sodium Chloride (Flush - Normal Saline) 10 ml IVF PRN PRN PRN Reason: Saline Flush Thiamine HCl (Thiamine) 100 mg PO DAILY [facility] Last Admin: 01/24/18 07:48 Dose: 100 mg
[2018-01-24] MEDS: Donepezil HCl 10 MG TAB PO SCH (21:21)
[2018-01-24] MEDS: Latanoprost 0.005% Ophth Soln 2.5 ml Bottle EA EYE SCH (21:22)
[2018-01-25 06:28] LABS: Anion Gap 12 mmol/L (10-20); BUN (Urea Nitrogen) 65 mg/dL (9.8-20.1); Calc. Creatinine Clearance 21 mL/min (70-130); Calcium 8.4 mg/dL (7.8-10.44); Carbon Dioxide 15 mmol/L (23-31); Chloride 116 mmol/L (98-107); Estimated GFR-MDRD 12; Glucose 137 mg/dL (83-110); Potassium 4.6 mmol/L (3.5-5.1); Sodium 138 mmol/L (136-145)
[2018-01-25] MEDS: Levothyroxine Sodium 112 MCG TAB PO SCH (07:00)
[2018-01-25] MEDS: hydrALAZINE 25 MG TAB PO SCH ×2 (07:00→14:27)
[2018-01-25] MEDS: Levothyroxine Sodium 25 MCG TAB PO SCH (07:00)
--- NOTE | 2018-01-25 09:57 | PRG ---
DATE OF SERVICE: SUBJECTIVE: Ms. Bee's hospital day 10, following a subdural hygroma/chronic hematoma evacuation. She is neurologically doing well this morning. She is alert, appropriately conversant, moves all extremities. Her wounds are healing well. Her shunt had been programmed at 2.5. We will repeat a head CT in the coming days. Once we see her in followup for staple removal, make a determination as to whether we can reduce her shunt from 2.5 to 2.0. I am fine with rehab at any point. Job ID: [id number]
[2018-01-25] MEDS: cloNIDine 0.1 MG TAB PO SCH (10:08)
[2018-01-25] MEDS: levETIRAcetam 500 MG TAB PO SCH (10:09)
[2018-01-25] MEDS: Atorvastatin Calcium 40 MG TAB PO SCH (10:09)
[2018-01-25] MEDS: Senokot S 8.6-50 MG TAB PO SCH (10:10)
[2018-01-25] MEDS: Polyethylene Glycol 3350 17 GM Packet PO SCH (10:10)
[2018-01-25] MEDS: Sodium Bicarbonate Tab 325 MG TAB PO SCH ×2 (11:31→14:27)
[2018-01-25 16:11] VITALS: TEMP 97.6
--- NOTE | 2018-01-25 16:33 | PRG ---
DATE OF SERVICE: 01/25/2018 SERVICE: Renal Medicine. SUBJECTIVE: Ms. Bee is a 72-year-old white female, who is status post zoe hole placement/craniotomy and seen by the Renal Service for acute kidney injury. Creatinine was noted to have peaked at a value of 4.14. She has been receiving volume repletion. Adjustment of her medication has been made. Creatinine is now much improved from 4.14 to a most recent value of 3.72. No new complaints today. The plan is to transfer her to rehab. OBJECTIVE: VITAL SIGNS: Blood pressure is 184/84, heart rate 72, respiratory rate 18, temperature 98.3, and pulse ox 97%. GENERAL: Noted to be awake, alert, comfortable, not in distress. SKIN: Adequate turgor. HEENT: Pinkish conjunctivae. Anicteric sclerae. NECK: No neck mass. No carotid bruits. No JVD. CHEST: No deformities. LUNGS: Clear breath sounds. No wheezing. No crackles heard. HEART: Normal sinus rhythm. No murmurs, gallops, or rubs. ABDOMEN: Globular, soft, nontender. No masses. EXTREMITIES: No edema, no deformities. MEDICATIONS: Medications of January 25, 2018, reviewed. LABORATORY DATA: Laboratories of January 25, 2018, sodium 138, potassium 4.6, chloride 116, carbon dioxide 15, BUN 65, creatinine 3.72, GFR 12 mL/minute, glucose 137, and calcium 8.4. Hemoglobin 9.2 and hematocrit 27.2. ASSESSMENT AND PLAN: 1. Acute kidney injury on top of chronic renal failure, improving renal function. Continue current management. Continue to encourage the patient to increase her fluid intake. Hold off any diuretics or MARCO ANTONIO inhibitors for the moment. 2. Intracranial hematoma, status post zoe hole placement with evacuation of the said hematoma, doing well. Neurosurgery is following. 3. Hypertension. Continue current BP medications. In the near future, consider initiating Epogen with this patient due to the anemia, if this is persistent. Agree with plan of discharge to rehab. Job ID: [id number]
[2018-01-25 20:01] VITALS: BP 145/77
--- NOTE | 2018-01-30 11:46 | DIS ---
DATE OF ADMISSION: 01/15/2018 DATE OF DISCHARGE: 01/25/2018 DISCHARGE DIAGNOSES: 1. Normal pressure hydrocephalus with ventriculoperitoneal shunt placement. 2. Left chronic subdural hematoma with mass effect and midline shift and neurologic decline. 3. Hypertension. 4. Acute on chronic kidney disease. 5. Hypothyroidism. HOSPITAL COURSE: Ms. Bee was admitted to [facility] from the emergency room to undergo emergent left frontal and parietal zoe hole placement for evacuation of chronic left subdural hematoma. The patient had a history of PARTS CATALOGUER shunt placed in October and had done well since that time. She required several overnight stays in the ICU as she had some continued left subdural fluid collection. The patient had some waxing and waning of drowsiness, and ultimately, her shunt setting was changed to 2.5 at the time of discharge. The patient met criteria for discharge to inpatient rehab to help with improvement of mobility. Overall at the time of discharge, the patient was doing well and appropriately followed commands and reported no headache. Appropriate patient education and outpatient followups were provided to the patient. She and her family understood to call the office for questions or concerns prior to her next followup appointment. Job ID: [id number]
== END 2018-01-25 19:15 | DRG 25 ==
LOC: ERS 08:38 → SDC 12:02 → CCU 12:02 → SJJU 01-22 14:27
PROVIDERS: ADMIT Surgery; ATTEND Surgery
PROC: 009400Z Drainage of Intracranial Subdural Space with Drainage Device, Open Approach (ICD-10-PCS; principal; 2018-01-15)
DX: I62.03 Nontraumatic chronic subdural hemorrhage (principal); G93.6 Cerebral edema; G93.5 Compression of brain; N18.4 Chronic kidney disease, stage 4 (severe); E87.2 Acidosis; G91.2 (Idiopathic) normal pressure hydrocephalus; N17.9 Acute kidney failure, unspecified; E11.22 Type 2 diabetes mellitus with diabetic chronic kidney disease; I12.9 Hypertensive chronic kidney disease with stage 1 through stage 4 chronic kidney disease, or unspecified chronic kidney disease; E66.9 Obesity, unspecified; Z68.31 Body mass index [BMI] 31.0-31.9, adult; E03.9 Hypothyroidism, unspecified; H40.9 Unspecified glaucoma; F17.210 Nicotine dependence, cigarettes, uncomplicated; Z88.0 Allergy status to penicillin; Z85.528 Personal history of other malignant neoplasm of kidney; Z98.2 Presence of cerebrospinal fluid drainage device
CPT/HCPCS: 36415; 70450; 80048; 80053; 81001; 81003; 81015; 82010; 82553; 82570; 83605; 83735; 84300; 84484; 85014; 85018; 85025; 85049; 85610; 85730; 93005; 93970; 96374; G8978-GP-CM; G8979-GP-CJ; G8987-GO-CL; G8988-GO-CJ; J0131; J0360; J1953; J1956; J2001; J2370; J2405; J2704; J3010; J3490; J7050; P9047

== ENCOUNTER 2018-02-08 13:23 | Outpatient (CLI) | payer MEDICARE ==
--- NOTE | 2018-02-08 15:13 | CT ---
CT HEAD WITHOUT CONTRAST: Technique: Multiple contiguous axial images were obtained through the head without IV enhancement. Indication: Follow up subdural hematoma. Comparison: 01-20-18 FINDINGS: There is a low density left subdural collection over the left convexity producing mass effect on the left frontal lobe. This measures approximately 2 cm thickness and is unchanged from the prior exam. T here is midline shift to the right measured at 7-8 mm at the septum pellucidum. This appears unchange d. The drainage catheter that was in this subdural collection on the prior exam, has been removed. There is an interventricular shunt catheter via the right frontal lobe which enters the right anterio r horn and has tip overlying midline. This catheter is unchanged in position. No acute hemorrhage. No acute interval change. IMPRESSION: The left subdural extraaxial collection is unchanged. There is mass effect to the right. This is pred ominately low attenuation although there is some higher attenuation peripherally which may represent some dural thickening. The size of the collection and the midline shift does not appear significant c hanged from 01-20-18. POS: TPC
== END 2018-02-08 13:24 | disposition home or self-care (01) ==
LOC: TBSIIMAG 13:23
PROVIDERS: ATTEND Surgery
DX: S06.5X9A Traumatic subdural hemorrhage with loss of consciousness of unspecified duration, initial encounter (principal)
CPT/HCPCS: 70450

== ENCOUNTER 2018-03-03 19:11 | Observation (INO) | payer MEDICARE ==
[2018-03-03 20:20] LABS: #Eosinphils 0.3 thou/uL (0.0-0.7); #Lymphocytes 1.5 thou/uL (1.20-3.40); #Monocytes 0.4 thou/uL (0.11-0.59); #Neutrophils 3.9 thou/uL (1.40-6.50); %Basophils 0.5 % (0.0-1.0); %Eosinophils 5.6 % (0.0-10.0); %Lymphocytes 23.7 % (21.0-51.0); %Neutrophils 64.1 % (42.0-75.0); Hemoglobin 9.3 g/dL (12.0-16.0); Mean Corpuscular HGB CONC 33.5 g/dL (32.0-36.0); Mean Corpuscular Volume 92.6 fL (78.0-98.0); Mean Platelet Volume 8.8 fL (7.4-10.4); Platelet Count 142 thou/uL (130-400); RBC Distribution Width 12.9 % (11.5-14.5); Red Blood Cell (RBC) Count 2.99 mill/uL (4.20-5.40); White Blood Cell (WBC) Count 6.1 thou/uL (4.8-10.8)
[2018-03-03 20:56] LABS: ALT (SGPT) 21 U/L (8-55); AST (SGOT) 18 U/L (5-34); Albumin 3.6 g/dL (3.4-4.8); Alkaline Phosphatase 88 U/L (40-150); Anion Gap 15 mmol/L (10-20); BUN (Urea Nitrogen) 55 mg/dL (9.8-20.1); Bilirubin, Total 0.2 mg/dL (0.2-1.2); Calc. Creatinine Clearance 0 mL/min (70-130); Calcium 8.8 mg/dL (7.8-10.44); Carbon Dioxide 17 mmol/L (23-31); Chloride 115 mmol/L (98-107); Estimated GFR-MDRD 13; Globulin 2.2 g/dL (2.4-3.5); Glucose 119 mg/dL (83-110); Potassium 4.7 mmol/L (3.5-5.1); Protein, Total 5.8 g/dL (6.0-8.3); Sodium 142 mmol/L (136-145)
--- NOTE | 2018-03-03 21:56 | CT ---
BRAIN CT WITHOUT IV CONTRAST: 03/03/18 HISTORY: Vision changes. History of hypertension. COMPARISON: 02/08/18. FINDINGS: Right sided ventriculoperitoneal shunt tube. Bilateral zoe holes. Fairly large chronic left sided almonte bdural hematoma with approximately 3.7 mm of midline shift to the right. This is improved when compar ed to the 02/08/18 study. Small right sided extra-axial collection. No evidence for acute hemorrhage. IMPRESSION: Large but decreasing left sided chronic subdural hematoma with small amount of subdural fluid on the right side with improved right sided mass effect when compared to the prior study of 02/08/18. Some s table encephalomalacia around the ventriculostomy catheter. No acute mass or bleed. Atrophy and chron ic white matter ischemic change. POS: DEANDRE
[2018-03-04 02:19] VITALS: BMI 31.5
[2018-03-04] MEDS ORDERED: Acetaminophen 325 MG TAB PO PRN (02:51)
[2018-03-04] MEDS ORDERED: Senokot S 8.6-50 MG TAB PO PRN (02:51)
[2018-03-04] MEDS ORDERED: Calcium Carbonate 500 MG ChewTAB PO PRN (02:51)
[2018-03-04] MEDS ORDERED: Zolpidem Tartrate 5 MG TAB PO PRN (02:51)
[2018-03-04] MEDS ORDERED: Bisacodyl 5 MG TAB PO PRN (02:51)
[2018-03-04] MEDS ORDERED: hydrALAZINE 20 MG/ML VIAL SLOW IVP PRN (02:51)
[2018-03-04] MEDS ORDERED: Labetalol HCl 100 MG/20 ML VIAL SLOW IVP PRN (02:51)
[2018-03-04] MEDS ORDERED: HumaLOG 300 UNITS/3 ML VIAL SC PRN ×2 (02:54)
[2018-03-04] MEDS ORDERED: Dextrose 50% Abboject 50 ML SYRINGE SLOW IVP PRN (02:54)
[2018-03-04] MEDS ORDERED: Dextrose 5% in Water 1,000 ML IV PRN (02:54)
[2018-03-04 04:55] LABS: #Eosinphils 0.3 thou/uL (0.0-0.7); #Lymphocytes 1.3 thou/uL (1.20-3.40); #Monocytes 0.4 thou/uL (0.11-0.59); #Neutrophils 3.1 thou/uL (1.40-6.50); %Basophils 0.6 % (0.0-1.0); %Eosinophils 6.3 % (0.0-10.0); %Lymphocytes 26.3 % (21.0-51.0); %Monocytes 7.1 % (0.0-10.0); %Neutrophils 59.7 % (42.0-75.0); Hemoglobin 8.7 g/dL (12.0-16.0); Mean Corpuscular HGB CONC 33.3 g/dL (32.0-36.0); Mean Corpuscular Hemoglobin 30.8 pg (27.0-31.0); Mean Corpuscular Volume 92.7 fL (78.0-98.0); Mean Platelet Volume 8.9 fL (7.4-10.4); Platelet Count 129 thou/uL (130-400); RBC Distribution Width 12.8 % (11.5-14.5); Red Blood Cell (RBC) Count 2.81 mill/uL (4.20-5.40); White Blood Cell (WBC) Count 5.1 thou/uL (4.8-10.8)
[2018-03-04 05:04] LABS: Anion Gap 11 mmol/L (10-20); BUN (Urea Nitrogen) 53 mg/dL (9.8-20.1); Calc. Creatinine Clearance 24 mL/min (70-130); Calcium 8.6 mg/dL (7.8-10.44); Carbon Dioxide 18 mmol/L (23-31); Cardiac Risk 5.9 (Less than 4.5); Chloride 117 mmol/L (98-107); Cholesterol 200 mg/dl (< 200 Desired); Estimated GFR-MDRD 15; Glucose 87 mg/dL (83-110); HDL Cholesterol 34 mg/dL (>60 Neg Risk); LDL Cholesterol, Calculated 132 mg/dL; Potassium 4.3 mmol/L (3.5-5.1); Sodium 142 mmol/L (136-145); Triglycerides 169 mg/dL (Less than 150)
[2018-03-04] MEDS: hydrALAZINE 25 MG TAB PO SCH ×3 (06:47→20:28)
[2018-03-04] MEDS: Levothyroxine Sodium 25 MCG TAB PO SCH (06:47)
[2018-03-04] MEDS: Levothyroxine Sodium 112 MCG TAB PO SCH (06:47)
[2018-03-04] MEDS ORDERED: Glimepiride 1 MG TAB PO SCH (08:00)
[2018-03-04] MEDS ORDERED: cloNIDine 0.3mg/24 Hour PATCH TD SCH (09:00)
[2018-03-04] MEDS ORDERED: Non-Formulary Item 1 EACH (Levothyroxine Sodium [Synthroid] 1 TAB) PO SCH (09:00)
[2018-03-04] MEDS: Calcium Carbonate + Vit D 1 TAB PO SCH (09:38)
[2018-03-04] MEDS: levETIRAcetam 500 MG TAB PO SCH ×2 (09:38→20:29)
[2018-03-04] MEDS: Metoprolol Tartrate 25 MG TAB PO SCH ×2 (09:38→20:29)
[2018-03-04] MEDS: Sodium Bicarbonate Tab 325 MG TAB PO SCH ×3 (09:38→20:29)
[2018-03-04] MEDS: Amlodipine 10 MG TAB PO SCH (09:39)
[2018-03-04] MEDS: Aspirin 81 mg Enteric Coated Tablet PO SCH (09:39)
[2018-03-04] MEDS: Famotidine 20 MG TAB PO SCH (09:40)
[2018-03-04] MEDS: Famotidine/PF 20 mg/2ml Vial SLOW IVP SCH (09:42)
--- NOTE | 2018-03-04 12:09 | CON ---
DATE OF CONSULTATION: 03/04/2018 REFERRING PHYSICIAN: Hospitalist Service. IMPRESSION: 1. Probable right central retinal artery occlusion. 2. Hypertension. 3. Chronic subdural hematoma. 4. Renal failure. PLAN: 1. Aspirin 81 mg per day. 2. Carotid ultrasound. 3. Echocardiogram. HISTORY OF PRESENT ILLNESS: Ms. Bee is a 72-year-old woman, who came in with acute right eye vision loss. She described unusual colors that were sparkling prior to developing almost near blindness in the right eye. There is no associated pain. She has no history of any prior events. Her CT scan of the brain showed evidence of SUGAR CONTROLLER shunt and chronic subdural fluid collection. Her laboratory studies were only notable for a BUN of 55 and creatinine of 3.46. She has a lipid profile with a ratio of 5.9. She denies a history of heart disease or any known carotid disease. PAST MEDICAL HISTORY: As listed above. ALLERGIES: AZITHROMYCIN, PENICILLIN. SOCIAL HISTORY: No tobacco use. FAMILY HISTORY: Unremarkable. REVIEW OF SYSTEMS: No complaint of headache, vertigo, nausea, or vomiting. No neck pain or difficulty swallowing. No chest pain or shortness of breath. No abdominal pain, cramps, or diarrhea. No peripheral edema. No lateralized weakness or numbness of the extremities. PHYSICAL EXAMINATION: VITAL SIGNS: Blood pressure 193/89, pulse 83, respirations 20, and temperature 98. HEENT: Pupils are equal, but she has an afferent pupil defect on the right. Conjunctivae are clear. Oropharynx clear. NECK: Supple. No lymphadenopathy. ABDOMEN: Soft and nontender. EXTREMITIES: No cyanosis, clubbing, or edema. NEUROLOGIC: She is alert and appropriate. Her speech is fluent and clear. Her motor exam shows equal strength. Sensations intact to light touch. No tremor. Dysmetria is present. Reflexes are equal. Gait was not tested. LABORATORY STUDIES: Reviewed. CT scan of the brain was reviewed as noted. SUMMARY: This is a 72-year-old woman, who presents with monocular vision loss consistent with a probable retinal artery occlusion. There is no treatment available. Further workup of the vascular system would be appropriate. An aspirin and statin would be appropriate as well. Job ID: [id number]
[2018-03-04] MEDS ORDERED: Latanoprost 0.005% Ophth Soln 2.5 ml Bottle EA EYE SCH (21:00)
[2018-03-04] MEDS ORDERED: Atorvastatin Calcium 40 MG TAB PO SCH (21:00)
[2018-03-04] MEDS ORDERED: Donepezil HCl 10 MG TAB PO SCH (21:00)
--- NOTE | 2018-03-04 22:24 | HP ---
CHIEF COMPLAINT: Right eye vision loss. HISTORY OF PRESENT ILLNESS: This is a 72-year-old with past medical history significant for type 2 diabetes, hyperlipidemia, hypertension, Alzheimer's, hemorrhagic stroke in the past, kidney cancer status post left nephrectomy, presenting with right eye vision changes and decreased small centralized circular area with vision loss. Per the patient, on the day of admission, she noted that she was seeing some grayish brown object in her right eye and it had a clear spot that she was not able to see through, the clear spot. Due to this new change in her vision, got her worried and that prompted her to come to the ED to be evaluated. At this point, the patient denies any headaches, fevers, dizziness, chills, nausea, vomiting, chest pain, shortness of breath, cough, abdominal discomfort, dysuria, hematuria, melena, hematochezia. REVIEW OF SYSTEMS: Positive for vision changes. Otherwise as documented in the HPI. All other system has been reviewed and are negative. PAST MEDICAL HISTORY: Kidney cancer with left nephrectomy, diabetes mellitus type 2, hyperlipidemia, hypertension, Alzheimer's, glaucoma, hemorrhagic stroke in the past. FAMILY HISTORY: Reviewed and noncontributory to this visit. PAST SURGICAL HISTORY: Appendectomy, hysterectomy, nephrectomy on the left, tonsillectomy, JUMPBASTING FACING BASTER shunt. PSYCHIATRIC HISTORY: No previous psych history. SOCIAL HISTORY: The patient is a former tobacco smoker, quit smoking more than 10 years ago. The patient denies any alcohol use or any illicit drug use. The patient lives in a long-term care facility. ALLERGIES: THE PATIENT IS ALLERGIC TO ERYTHROMYCIN AND PENICILLIN. CURRENT MEDICATIONS: The patient is on: 1. Amlodipine 10 mg. 2. Atorvastatin 80 mg. 3. Clonidine. 4. Donepezil 10 mg. 5. Fenofibrate 48 mg. 6. Lasix 40 mg. 7. Levothyroxine. 8. Metoprolol. PHYSICAL EXAMINATION: VITAL SIGNS: Blood pressure is 152/72, pulse of 81, respiratory rate of 14, temperature of 98.1, oxygen saturation is 99 on room air. GENERAL: The patient is lying in bed, does not appear to be in any acute distress. The patient is very pleasant. HEENT: Normocephalic, atraumatic. Pupils are equally round and reactive to light. Right pupil is sluggish to light. There is a near total vision loss in the right eye. Mucous membranes are moist. NECK: Trachea is midline. Full range of motion. No JVD. RESPIRATORY: Lungs are clear to auscultation bilaterally. CARDIAC: Positive S1 and S2. Regular rate and rhythm. ABDOMEN: Soft, nontender, and nondistended. Positive bowel sounds in all quadrants. EXTREMITIES: 5/5 upper extremity strength and 5/5 lower extremity strength. No edema noted. Good pulses bilaterally. NEUROLOGIC: Cranial nerves 2 through 12 grossly intact. No neurologic deficits noted. SKIN: Warm, dry, and intact. PSYCH: Normal affect. DIAGNOSTIC DATA: CT of the head shows large but decreasing in size left subdural hemorrhage, improved right-sided mass effect from prior studies. JUMPBASTING FACING BASTER catheter in place. LABORATORY DATA: WBC 6.1, hemoglobin is 9.3, hematocrit 27.7, RDW is 12.9, platelet count is 142. Sodium is 142, potassium is 4.7, chloride is 115, carbon dioxide of 17, anion gap of 15, BUN is 55, creatinine is 3.46, glucose is 119, cholesterol of 200, triglycerides of 169. ASSESSMENT AND PLAN: This is a 72-year-old female being admitted for: 1. Right vision changes, likely due to stroke. At this point, we have ordered CT of the head which has been negative. We are going to order an MRI of the head and we will follow up on the results. We have consulted Neurology. We will follow up with Neurology regarding any further recommendations. At this point, we have discussed with the patient regarding possible Ophthalmology outpatient consult. The patient states that she knows Dr. Osuna and she will follow up with Dr. Osuna after we are done with our workup in the hospital. We will continue the patient on aspirin and atorvastatin. We will continue the patient on home medications. 2. Diabetes mellitus type 2. We will continue the patient on insulin sliding scale. We will monitor the patient's blood glucose closely. 3. Hyperlipidemia. Continue the patient on home medications. 4. Hypertension. We will monitor the patient's blood pressure closely and we will treat accordingly. 5. Alzheimer's. We will continue the patient on her home medication. 6. Deep venous thrombosis and gastrointestinal prophylaxis. Job ID: [id number]
--- NOTE | 2018-03-04 23:22 | ULT ---
BILATERAL CAROTID DUPLEX ULTRASOUND INCLUDING COLOR AND SPECTRAL IMAGIN03/04/18 HISTORY: Vision changes. There is some visual plaque in the proximal ICAs bilaterally. PSV right ICA 111 cm/s. EDV 19 cm/s. ICA/CCA ratio is 1.0. PSV left ICA 127 cm/s. EDV 22 cm/s. ICA/CCA ratio is 1.0. IMPRESSION: No hemodynamically significant stenosis. Mild, less than 50% stenosis of the proximal left ICA. Visua l plaque noted bilaterally. Evidence for arteriovascular carotid artery disease. POS: DEANDRE
[2018-03-05] MEDS: Levothyroxine Sodium 112 MCG TAB PO SCH (05:59)
[2018-03-05] MEDS: hydrALAZINE 25 MG TAB PO SCH ×2 (05:59→13:36)
[2018-03-05] MEDS: Levothyroxine Sodium 25 MCG TAB PO SCH (05:59)
--- NOTE | 2018-03-05 07:40 | PDOC.PN ---
- Subjective Encounter Start Date: 03/05/18 Encounter Start Time: 07:39 Subjective: Seen and examined with no new complaint - Objective Vital Signs & Weight: Vital Signs (12 hours) Temp Pulse Resp BP BP Pulse Ox 03/05/18 05:59 74 169/80 H 03/05/18 04:11 98.1 F 72 16 164/91 H 97 03/05/18 00:00 98.4 F 70 18 149/82 H 96 03/04/18 20:00 98.7 F 75 16 156/80 H 98 Weight Weight 207 lb I&O: 03/04/18 03/05/18 03/06/18 06:59 06:59 06:59 Intake Total 1360 Balance 1360 Result Diagrams: 03/04/18 04:09 03/04/18 04:09 Additional Labs: Accuchecks 03/05/18 03/04/18 03/04/18 05:59 20:28 16:33 POC Glucose 103 147 H 122 H 03/04/18 10:25 POC Glucose 128 H Phys Exam - Physical Examination Constitutional: NAD HEENT: PERRLA, moist MMs, sclera anicteric, oral pharynx no lesions Neck: no nodes, no JVD, supple, full ROM Respiratory: no wheezing, no rales, no rhonchi, clear to auscultation bilateral Cardiovascular: RRR, no significant murmur, no rub Gastrointestinal: soft, non-tender, no distention, positive bowel sounds Musculoskeletal: no edema, pulses present Dx/Plan (1) Vision loss of right eye Code(s): H54.61 - UNQUALIFIED VISUAL LOSS, RIGHT EYE, NORMAL VISION LEFT EYE Status: Acute (2) CKD (chronic kidney disease) stage 4, GFR 15-29 ml/min Code(s): N18.4 - CHRONIC KIDNEY DISEASE, STAGE 4 (SEVERE) Status: Acute (3) CHF (congestive heart failure) Code(s): I50.9 - HEART FAILURE, UNSPECIFIED Status: Acute (4) Dyslipidemia Code(s): E78.5 - HYPERLIPIDEMIA, UNSPECIFIED Status: Chronic (5) Glaucoma Code(s): H40.9 - UNSPECIFIED GLAUCOMA Status: Chronic (6) Hypertension Code(s): I10 - ESSENTIAL (PRIMARY) HYPERTENSION Status: Chronic Qualifiers: Comment: Continue current BP regimen, serial monitoring, labile, d/c IVF's (7) Hypothyroidism Code(s): E03.9 - HYPOTHYROIDISM, UNSPECIFIED Status: Chronic Qualifiers: - Plan plan discussed w/ family, DVT proph w/lovenox Appreciate Neurology input -: Possible outpatient Opthalmology eval -: Awaiting MRI * .
[2018-03-05] MEDS: Sodium Bicarbonate Tab 325 MG TAB PO SCH ×2 (09:06→14:48)
[2018-03-05] MEDS: Calcium Carbonate + Vit D 1 TAB PO SCH (09:06)
[2018-03-05] MEDS: Aspirin 81 mg Enteric Coated Tablet PO SCH (09:06)
[2018-03-05] MEDS: levETIRAcetam 500 MG TAB PO SCH (09:06)
[2018-03-05] MEDS: Metoprolol Tartrate 25 MG TAB PO SCH (09:06)
[2018-03-05] MEDS: Amlodipine 10 MG TAB PO SCH (09:07)
[2018-03-05] MEDS: Famotidine 20 MG TAB PO SCH (09:07)
[2018-03-05] MEDS: Famotidine/PF 20 mg/2ml Vial SLOW IVP SCH (09:08)
--- NOTE | 2018-03-05 09:53 | PRG ---
DATE OF SERVICE: 03/05/2018 NEUROSURGERY PROGRESS NOTE SUBJECTIVE: I personally interviewed, examined the patient, reviewed imaging and notes, and agreed with documentation of Saniya Nloan PA-C dated 03/05/2018. Briefly, Jodi Bee is a patient of Dr. Nicholas, who went for ventriculoperitoneal shunting for normal-pressure hydrocephalus in October. She developed a subdural hemorrhage over the left hemisphere and had zoe hole evacuation. That zoe hole placement was in December of this year and she has made slow but steady recovery from that. She was doing well at home until yesterday she had acute onset of visual changes. The first visual changes involved some purple flashing lights and haziness from the right eye. Eventually those phenomenon stopped and she has not had return of her vision. This is monocular, per the patient. CT imaging of the brain was performed yesterday and the subdural hemorrhage is better than it looked on previous studies. The shunt is in place. I saw Ms. Bee this morning on hospital bed. She is awake. She is alert. She is speaking appropriately. There is no dysphasia. There is no lateralizing motor or sensory deficits other than a very subtle right pronator drift. There is no neglect. In confrontation, there may indeed be a small nasal field defect in the left eye as well, but it is subtle. Most of the deficit is monocular. I see an MR is ordered and an order for her to safely go through MR imaging of the brain, we will need to review notes from Dr. Nicholas in clinic as the pressure setting on the programmable valve. We will ensure that pressure is set to its last designated setting before the MR and we will reset the shunt to the aforementioned setting immediately afterwards. The shunt is compatible with the MRI scan, but the scan is likely to re-programme it. I do not plan any neurosurgical intervention during this hospitalization. The MR will be helpful in determining whether this is a small cortical infarct in the posterior circulation or retinal phenomenon only. Job ID: [id number]
--- NOTE | 2018-03-05 10:26 | PDOC.PN ---
- Subjective Encounter Start Date: 03/05/18 Encounter Start Time: 09:15 Subjective: still has visual defect in her right eye -: sees a opthal at [id number] -: is moving all extremities, has gone to restroom and back - Objective MAR Reviewed: Yes Vital Signs & Weight: Vital Signs (12 hours) Temp Pulse Resp BP BP Pulse Ox 03/05/18 09:07 71 188/81 H 03/05/18 07:47 98.9 F 71 16 188/81 H 98 03/05/18 05:59 74 169/80 H 03/05/18 04:11 98.1 F 72 16 164/91 H 97 03/05/18 00:00 98.4 F 70 18 149/82 H 96 Weight Weight 207 lb I&O: 03/04/18 03/05/18 03/06/18 06:59 06:59 06:59 Intake Total 1360 Balance 1360 Result Diagrams: 03/04/18 04:09 03/04/18 04:09 Additional Labs: Accuchecks 03/05/18 03/04/18 03/04/18 05:59 20:28 16:33 POC Glucose 103 147 H 122 H 03/04/18 10:25 POC Glucose 128 H Phys Exam - Physical Examination HEENT: PERRLA, moist MMs Neck: no JVD, supple Respiratory: no wheezing, no rales Cardiovascular: RRR, no significant murmur Gastrointestinal: soft, non-tender, positive bowel sounds Musculoskeletal: no edema, pulses present Neurological: moves all 4 limbs eom is normal, has haziness and cant see well in her right eye Psychiatric: A&O x 3 Dx/Plan (1) Vision loss of right eye Code(s): H54.61 - UNQUALIFIED VISUAL LOSS, RIGHT EYE, NORMAL VISION LEFT EYE Status: Acute (2) [id number] kidney injury Code(s): N17.9 - ACUTE KIDNEY FAILURE, UNSPECIFIED; N18.9 - CHRONIC KIDNEY DISEASE, UNSPECIFIED Status: Acute Qualifiers: Chronic kidney disease stage: stage 4 (severe) (3) CKD (chronic kidney disease) stage 4, GFR 15-29 ml/min Code(s): N18.4 - CHRONIC KIDNEY DISEASE, STAGE 4 (SEVERE) Status: Chronic (4) Normal pressure hydrocephalus Code(s): G91.2 - (IDIOPATHIC) NORMAL PRESSURE HYDROCEPHALUS Status: Chronic Comment: with h/o chronic subdural hematoma, vp emerging media shunt was placed in 10/2017 (5) Diabetes mellitus Code(s): E11.9 - TYPE 2 DIABETES MELLITUS WITHOUT COMPLICATIONS Status: Chronic Qualifiers: Diabetes mellitus type: type 2 Diabetes mellitus complication status: with kidney complications Diabetes mellitus complication detail: with chronic kidney disease Chronic kidney disease stage: stage 4 (severe) Qualified Code (s): E11.8 - Type 2 diabetes mellitus with unspecified complications (6) Dyslipidemia Code(s): E78.5 - HYPERLIPIDEMIA, UNSPECIFIED Status: Chronic (7) Hypertension Code(s): I10 - ESSENTIAL (PRIMARY) HYPERTENSION Status: Chronic Qualifiers: Hypertension type: essential hypertension (8) Hypothyroidism Code(s): E03.9 - HYPOTHYROIDISM, UNSPECIFIED Status: Chronic Qualifiers: - Plan for MRI today, has nsx on standby to reset her settings for vp emerging media shunt post m -: -ri, clinically has no motor symptoms except right eye visual disturbances -: has h/o glaucoma as well, if no cva on mri, will need urgent ophthal eval -: continue asp, lipitor, norvasc, clonidine patch, hydralazine, lopressor -: is on keppra likely for seizure prophylaxis?, echo shows good ef, no thromb * . Review of Systems - Medications/Allergies Allergies/Adverse Reactions: Allergies Allergy/AdvReac Type Severity Reaction Status Date / Time azithromycin Allergy Verified 10/24/17 02:02 [From Zithromax Z-Gato] Penicillins Allergy Verified 01/15/18 16:06 Medications: Current Medications Acetaminophen (Tylenol) 650 mg PO Q4H PRN PRN Reason: Headache/Fever/Mild Pain (1-3) Amlodipine Besylate (Norvasc) 10 mg PO DAILY [facility] Last Admin: 03/05/18 09:07 Dose: 10 mg Aspirin (Ecotrin) 81 mg PO DAILY [facility] [place] Last Admin: 03/05/18 09:06 Dose: 81 mg Atorvastatin Calcium (Lipitor) 80 mg PO HS [facility] [place] Last Admin: 03/04/18 20:28 Dose: 80 mg Bisacodyl (Dulcolax) 10 mg PO DAILYPRN PRN PRN Reason: Constipation Calcium Carbonate (Tums) 1,000 mg PO Q4H PRN PRN Reason: Heartburn or Indigestion Calcium/Vitamin D (Caltrate 600 + Vit D) 1 tab PO DAILY [facility] [place] Last Admin: 03/05/18 09:06 Dose: 1 tab Clonidine (Ntpowzjl-Axh-2) 0.3 mg TD Q7DAYS [facility] [place] Last Admin: 03/04/18 11:06 Dose: Not Given Dextrose/Water (Dextrose 50%) 25 gm SLOW IVP PRN PRN PRN Reason: Hypoglycemia Donepezil HCl (Aricept) 10 mg PO HS [facility] Last Admin: 03/04/18 20:28 Dose: 10 mg Famotidine (Pepcid) 20 mg SLOW IVP QAM [facility] Last Admin: 03/05/18 09:08 Dose: Not Given Famotidine (Pepcid) 20 mg PO QAM [facility] Last Admin: 03/05/18 09:07 Dose: 20 mg Glucagon (Glucagon) 1 mg IM PRN PRN PRN Reason: Hypoglycemia Hydralazine HCl (Apresoline) 50 mg PO Q8HR [facility] Last Admin: 03/05/18 05:59 Dose: 50 mg Hydralazine HCl (Apresoline) 10 mg SLOW IVP Q4H PRN PRN Reason: BP > 220/110 Dextrose/Water (D5w) 1,000 mls @ 0 mls/hr IV .Q0M PRN PRN Reason: Hypoglycemia Insulin Human Lispro (Humalog) 0 units SC .MILD SLIDING SCALE PRN PRN Reason: Mild Correctional Scale Insulin Human Lispro (Humalog) 0 units SC .BEDTIME SLIDING SC PRN PRN Reason: Bedtime Correctional Scale Labetalol HCl (Normodyne) 20 mg SLOW IVP Q1H PRN PRN Reason: BP > 220/110 Latanoprost (Xalatan 0.005% [facility]) 1 drop EA EYE QPM [facility] Last Admin: 03/04/18 20:48 Dose: 1 drop Levetiracetam (Keppra) 500 mg PO BID [facility] Last Admin: 03/05/18 09:06 Dose: 500 mg Levothyroxine Sodium (Synthroid) 112 mcg PO 0600 [facility] Last Admin: 03/05/18 05:59 Dose: 112 mcg Levothyroxine Sodium (Synthroid) 25 mcg PO 0600 [facility] Last Admin: 03/05/18 05:59 Dose: 25 mcg Metoprolol Tartrate (Lopressor) 25 mg PO BID [facility] Last Admin: 03/05/18 09:06 Dose: 25 mg Senna/Docusate Sodium (Senokot S) 2 tab PO BID PRN PRN Reason: Constipation Sodium Bicarbonate (Bicarbonate, Sodium) 650 mg PO TID [facility] [place] Last Admin: 03/05/18 09:06 Dose: 650 mg Sodium Chloride (Flush - Normal Saline) 10 ml IVF PRN PRN PRN Reason: Saline Flush Thiamine HCl (Thiamine) 50 mg PO DAILY [facility] Last Admin: 03/05/18 09:06 Dose: 50 mg Zolpidem Tartrate (Ambien) 5 mg PO HSPRN PRN PRN Reason: Insomnia
--- NOTE | 2018-03-05 11:26 | MRI ---
MRI BRAIN WITHOUT CONTRAST: Multiplanar, multisequential imaging brain obtained. INDICATION: New-onset right vision loss. FINDINGS: Comparison is made to head CTs of 03/03/2018 and 02/08/2018. The previously noted chronic left subdural hematoma is again noted. This is a chronic collection whi ch shows complex findings consisting of septations and associated dural thickening. The collection i s low intensity on T1 and high intensity on T2 indicating a chronic collection. Maximal width was re corded at 1.6 cm in the axial plane. Width recorded on 02/08/2018 at 20 cm. Minimal midline shift a t the septum pellucidum is less today, recorded at 3 mm. It was previously recorded at 7-8 mm. No evidence of restricted diffusion. There is no evidence of acute infarct. Moderate chronic ischem ic white matter changes noted on FLAIR sequence. The ventriculostomy catheter entering via the right frontal lobe is again noted and appears unchanged from the recent CT. IMPRESSION: Chronic left subdural hematoma is again noted. There are complexities within this collecting indicat ing internal septations and dural thickening. Minimal midline shift. No evidence of acute infarct. POS: [facility]
[2018-03-05 15:40] VITALS: BP 186/87; TEMP 99.4
--- NOTE | 2018-03-06 08:57 | CON ---
DATE OF CONSULTATION: HISTORY OF PRESENT ILLNESS: The patient is a 72-year-old female with past medical history significant for diabetes, hyperlipidemia, hypertension, Alzheimer's, hemorrhagic stroke, kidney cancer, she presented to the ED with vision changes. She states that she was watching TV shortly before her supper time, and her vision got colorful, she started seeing hazy, pixelated blue and purple the right eye. She states that it progressed to a patel ring of haziness with clear central vision on the right side. When I see her today, she states that her vision has improved slightly to the right, but it is not clear. She feels as though her peripheral vision is better to the right in the right eye, left side of her right eye is still blurred. The patient states that her depth perception is off. The patient denies any headaches or dizziness. She denies any numbness or tingling in the extremities. She currently has followup with Dr. Nicholas, Neurosurgery, for previous subdural in March. Neurosurgery was consulted to reprogram her shunt. Her physician states that she most likely sustained a stroke, An MRI is recommended to verify. REVIEW OF SYSTEMS: A 10-point review of systems has been completed and is negative other than stated in the above HPI. PAST MEDICAL HISTORY: Kidney cancer with left nephrectomy, diabetes type 2, hyperlipidemia, hypertension, Alzheimer's, glaucoma, and hemorrhagic stroke in the past. PAST SURGICAL HISTORY: Appendectomy, hysterectomy, nephrectomy on the left, tonsillectomy, and TECHNICIAN HELPER INSTRUMENT stent placement. SOCIAL HISTORY: The patient is a former tobacco smoker, quit smoking more than 10 years ago. She denies any alcohol or illicit drug use and she lives in a long- term care facility. ALLERGIES: THE PATIENT STATES ALLERGIES TO ERYTHROMYCIN AND PENICILLIN. MEDICATIONS: 1. Amlodipine. 2. Atorvastatin. 3. Clonidine. 4. Donepezil. 5. Fenofibrate. 6. Lasix. 7. Levothyroxine. 8. Metoprolol. PHYSICAL EXAMINATION: VITAL SIGNS: Temperature 98.9, heart rate 71, blood pressure 188/61, and O2 saturation is 98% on room air. CONSTITUTION: The patient is alert and oriented. She is afebrile, hypertensive, and nontoxic. HEENT: Head is normocephalic and atraumatic. Pupils are equally round and reactive to light. Extraocular movements are intact. Hearing is intact. Moist mucous membranes. LUNGS: Respirations, normal work of breathing on room air. CARDIAC: Regular rate and rhythm. Normal S1 and S2. EXTREMITIES: The patient is moving all 4 extremities well. She has some mild decrease in strength on the right.5/5 biceps, triceps, ductfixing plumber strength, hip flexion, knee flexion, knee extension, dorsiflexion, and plantar flexion. NEUROLOGIC: The patient is alert and oriented x3. Her speech is spontaneous and fluent. She has normal fund of knowledge. Cranial nerves 2 through 12 are tested and intact. Visual field decreased acuity right lateral, vision loss medial right, intact left eye. She has no other neurosensory deficits noted. ASSESSMENT AND PLAN: Ms. Bee is a 72-year-old female in the hospital for right vision changes, most likely due to a stroke. She needs to have an MRI of her head and Neurosurgery was consulted to program her shunt before and after her MRI. Her shunt is set at 2.5 and we will make sure that it is working before an MRI and after. Job ID: [id number] [facility]
--- NOTE | 2018-03-07 11:46 | DIS ---
DATE OF ADMISSION: 03/04/2018 DATE OF DISCHARGE: 03/05/2018 DISCHARGE DISPOSITION: To home. PRIMARY DISCHARGE DIAGNOSES: 1. Right eye likely central retinal artery occlusion with visual loss. 2. Acute kidney injury with stage 4 chronic kidney disease. 3. Normal-pressure hydrocephalus with history of COTTONSEED MEAT PRESSER shunt placed in October of 2017 due to subdural hematoma. SECONDARY DISCHARGE DIAGNOSES: 1. Diabetes mellitus, type 2. 2. Dyslipidemia. 3. Hypertension. 4. Hypothyroidism. PROCEDURES DONE DURING HOSPITALIZATION: MRI of brain done showed chronic left subdural hematoma. No evidence of acute infarct. Carotid Doppler showed no hemodynamically significant stenosis. Mild less than 50% stenosis of the proximal left ICA. Visual plaque noted bilaterally. Echo with 2D Doppler showed an EF of 55% to 60%, moderate mitral regurgitation. H and H 8.7 and 26 and platelet count 129. Sedimentation rate was 13. CRP less than 0.5. Initial BUN and creatinine 55 and 3.4, discharge numbers are 53 and 3.1. Total cholesterol 200, triglycerides 169, and LDL 132. DISCHARGE MEDICATIONS: 1. Norvasc 10 mg daily. 2. Calcium citrate with vitamin D3 one tab daily. 3. Clonidine transdermal patch 0.3 mg once weekly. 4. Aricept 10 mg p.o. at bedtime. 5. Glimepiride 1 mg p.o. daily. 6. Xalatan eye drops as before. 7. Synthroid 137 mcg daily. 8. Metoprolol 25 mg daily. 9. Aspirin 81 mg daily. 10. Atorvastatin 40 mg at bedtime. 11. Hydralazine 50 mg p.o. three times daily. 12. Keppra 500 mg p.o. twice daily. 13. Sodium bicarbonate 650 mg p.o. three times daily. ALLERGIES: ALLERGIC TO AZITHROMYCIN AND PENICILLIN. INPATIENT CONSULT: Dr. White for Neurology and Dr. Bonds for Neurosurgery. DISCHARGE PLAN: The patient to follow up with Dr. White as advised and primary care physician in 1 week. BRIEF COURSE DURING HOSPITALIZATION: The patient initially came to the ER with complaints of right eye visual loss. She did not have any motor symptoms in any of the extremities. In view of her sudden decrease in vision, the patient was placed under observation to rule out CVA. She has had complete workup including CT of brain and MRI of brain, which have not shown any acute infarct. Neurosurgery was consulted in view of the patient having a COTTONSEED MEAT PRESSER shunt requiring MRI. Her shunt was reset after the MRI to her baseline. She was evaluated by Dr. White for Neurology and Dr. Varghese for Ophthalmology as well. She was found to have had central retinal artery occlusion on the right with visual loss. The patient is advised to follow up with her cutter banana room at the earliest. She is ambulating and eating well prior to discharge. She has remained hemodynamically stable and needs to follow up with her fork repairer as well in 2 weeks. The patient is on low-dose aspirin and needs to be closely monitored by primary care physician in view of her prior history of subdural hematoma. This has been stable from October, and in fact, the size is shrinking. Please see a [id number] documentation for the day of discharge on [employer]. Job ID: [id number]
== END 2018-03-05 19:58 | disposition home or self-care (01) ==
LOC: ERS 19:11 → 2SE 03-04 00:17
PROVIDERS: ADMIT Internal Medicine; ATTEND Internal Medicine
DX: H54.61 Unqualified visual loss, right eye, normal vision left eye (principal); I13.0 Hypertensive heart and chronic kidney disease with heart failure and stage 1 through stage 4 chronic kidney disease, or unspecified chronic kidney disease; E11.22 Type 2 diabetes mellitus with diabetic chronic kidney disease; N18.4 Chronic kidney disease, stage 4 (severe); I50.9 Heart failure, unspecified; N17.9 Acute kidney failure, unspecified; G91.9 Hydrocephalus, unspecified; E78.5 Hyperlipidemia, unspecified; E03.9 Hypothyroidism, unspecified; G30.9 Alzheimer's disease, unspecified; F02.80 Dementia in other diseases classified elsewhere, unspecified severity, without behavioral disturbance, psychotic disturbance, mood disturbance, and anxiety; I62.03 Nontraumatic chronic subdural hemorrhage; I34.0 Nonrheumatic mitral (valve) insufficiency; I36.1 Nonrheumatic tricuspid (valve) insufficiency; H40.9 Unspecified glaucoma; Z86.73 Personal history of transient ischemic attack (TIA), and cerebral infarction without residual deficits; Z85.528 Personal history of other malignant neoplasm of kidney; Z87.891 Personal history of nicotine dependence; Z90.5 Acquired absence of kidney; Z90.49 Acquired absence of other specified parts of digestive tract; Z90.710 Acquired absence of both cervix and uterus; Z90.89 Acquired absence of other organs; Z88.1 Allergy status to other antibiotic agents; Z88.0 Allergy status to penicillin; Z79.82 Long term (current) use of aspirin; Z79.899 Other long term (current) drug therapy
CPT/HCPCS: 70450; 70551; 80048; 80053; 80061; 82962 ×2; 85025 ×2; 85652; 86140; 93306; 93880; 99285; G0378 ×2; 36415; 36416

== ENCOUNTER 2018-03-10 14:01 | Emergency (ER) | payer MEDICARE ==
[2018-03-10 15:45] LABS: #Eosinphils 0.4 thou/uL (0.0-0.7); #Lymphocytes 1.4 thou/uL (1.20-3.40); #Monocytes 0.4 thou/uL (0.11-0.59); #Neutrophils 3.8 thou/uL (1.40-6.50); %Basophils 0.7 % (0.0-1.0); %Eosinophils 7.1 % (0.0-10.0); %Lymphocytes 22.4 % (21.0-51.0); %Monocytes 6.9 % (0.0-10.0); Hemoglobin 9.5 g/dL (12.0-16.0); Mean Corpuscular Hemoglobin 31.5 pg (27.0-31.0); Mean Corpuscular Volume 95.4 fL (78.0-98.0); Mean Platelet Volume 9.1 fL (7.4-10.4); Platelet Count 157 thou/uL (130-400); Red Blood Cell (RBC) Count 3.02 mill/uL (4.20-5.40); White Blood Cell (WBC) Count 6.1 thou/uL (4.8-10.8)
[2018-03-10 16:08] LABS: ALT (SGPT) 15 U/L (8-55); AST (SGOT) 12 U/L (5-34); Albumin 3.5 g/dL (3.4-4.8); Alkaline Phosphatase 82 U/L (40-150); Anion Gap 12 mmol/L (10-20); BUN (Urea Nitrogen) 57 mg/dL (9.8-20.1); Bilirubin, Total 0.3 mg/dL (0.2-1.2); Calc. Creatinine Clearance 0 mL/min (70-130); Calcium 9.2 mg/dL (7.8-10.44); Carbon Dioxide 17 mmol/L (23-31); Chloride 118 mmol/L (98-107); Estimated GFR-MDRD 12; Globulin 2.3 g/dL (2.4-3.5); Glucose 98 mg/dL (83-110); Potassium 4.3 mmol/L (3.5-5.1); Protein, Total 5.8 g/dL (6.0-8.3); Sodium 143 mmol/L (136-145)
== END 2018-03-10 18:18 | disposition home or self-care (01) ==
LOC: ERS 14:01
DX: I12.9 Hypertensive chronic kidney disease with stage 1 through stage 4 chronic kidney disease, or unspecified chronic kidney disease (principal); N18.9 Chronic kidney disease, unspecified; E11.22 Type 2 diabetes mellitus with diabetic chronic kidney disease; E78.5 Hyperlipidemia, unspecified; I10 Essential (primary) hypertension; G30.9 Alzheimer's disease, unspecified; F02.80 Dementia in other diseases classified elsewhere, unspecified severity, without behavioral disturbance, psychotic disturbance, mood disturbance, and anxiety; Z87.891 Personal history of nicotine dependence
CPT/HCPCS: 36415; 80053; 85025; 99283

== ENCOUNTER 2018-03-29 13:30 | Outpatient (CLI) | payer MEDICARE ==
--- NOTE | 2018-03-29 14:32 | CT ---
CT BRAIN NONCONTRAST: DATE: 03/29/18 TIME: 1338 hours HISTORY: 72-year-old female with G91.9 hydrocephalus. History of stroke. Follow-up. COMPARISON: 03/03/18. FINDINGS: The left frontoparietal mixed age subdural hematoma, perhaps subacute on chronic, is slightly smaller than before. Whereas previously the greatest transverse dimension was approximately 1.7 cm, it is ap proximately 1.4 cm now (measured at level 17 of 36, series 2). The left to right midline shift of the septum pellucidum was previously approximately 0.4 cm, and it is currently approximately 0.3 cm. The re is a smaller, contralateral right, thin subdural fluid collection which is unchanged. The left sub dural hematoma compresses the left cerebral hemisphere. The bilateral lateral ventricles are slightly narrowed. Fourth and third ventricles are not dilated. Again noted is the CARD STRIPPER shunt catheter entering through right frontal bur hole with distal tip to the left of midline at the foramen of Monro. No in tra-axial acute hemorrhage. Region of encephalomalacia and gliosis around the path of the CARD STRIPPER shunt ca theter in the right frontal lobe again noted. IMPRESSION: Slight interval decrease in size of subacute left supratentorial subdural hematoma, resulting in slig ht interval decrease in the mass effect. ИВАН Barreto POS: [facility]
== END 2018-03-29 13:31 | disposition home or self-care (01) ==
LOC: TBSIIMAG 13:30
PROVIDERS: ATTEND Surgery
DX: G91.9 Hydrocephalus, unspecified (principal); I62.02 Nontraumatic subacute subdural hemorrhage
CPT/HCPCS: 70450

== ENCOUNTER 2018-04-07 09:50 | Emergency (ER) | payer MEDICARE ==
[2018-04-07 11:00] LABS: #Eosinphils 0.2 thou/uL (0.0-0.7); #Monocytes 0.4 thou/uL (0.11-0.59); #Neutrophils 5.8 thou/uL (1.40-6.50); %Basophils 0.3 % (0.0-1.0); %Eosinophils 3.3 % (0.0-10.0); %Lymphocytes 13.5 % (21.0-51.0); %Monocytes 5.1 % (0.0-10.0); %Neutrophils 77.8 % (42.0-75.0); Hemoglobin 9.4 g/dL (12.0-16.0); Mean Corpuscular HGB CONC 32.2 g/dL (32.0-36.0); Mean Corpuscular Hemoglobin 30.9 pg (27.0-31.0); Mean Platelet Volume 9.8 fL (7.4-10.4); Platelet Count 136 thou/uL (130-400); RBC Distribution Width 12.2 % (11.5-14.5); Red Blood Cell (RBC) Count 3.03 mill/uL (4.20-5.40); White Blood Cell (WBC) Count 7.5 thou/uL (4.8-10.8)
[2018-04-07 11:21] LABS: ALT (SGPT) 15 U/L (8-55); AST (SGOT) 15 U/L (5-34); Albumin 4.2 g/dL (3.4-4.8); Alkaline Phosphatase 89 U/L (40-150); Anion Gap 18 mmol/L (10-20); BUN (Urea Nitrogen) 72 mg/dL (9.8-20.1); Bilirubin, Total 0.5 mg/dL (0.2-1.2); Calc. Creatinine Clearance 0 mL/min (70-130); Calcium 9.6 mg/dL (7.8-10.44); Carbon Dioxide 17 mmol/L (23-31); Chloride 112 mmol/L (98-107); Estimated GFR-MDRD 9; Globulin 2.1 g/dL (2.4-3.5); Glucose 132 mg/dL (83-110); Potassium 4.3 mmol/L (3.5-5.1); Protein, Total 6.3 g/dL (6.0-8.3); Sodium 143 mmol/L (136-145)
--- NOTE | 2018-04-07 12:11 | RAD ---
TWO VIEW CHEST: INDICATIONS: Cough. COMPARISON: 04/27/2016 FINDINGS: There is bilateral pleural-based density, greater on the right, compatible with pleural fluid. There is a partially imaged catheter traversing the right neck and chest, incompletely visualized. There is prominence of the cardiac silhouette. IMPRESSION: 1. Bilateral pleural effusions, right greater than left. 2. Prominent cardiac silhouette. POS: [facility]
== END 2018-04-07 12:05 | disposition home or self-care (01) ==
LOC: ERS 09:50
DX: J20.9 Acute bronchitis, unspecified (principal); E11.9 Type 2 diabetes mellitus without complications; E78.5 Hyperlipidemia, unspecified; I10 Essential (primary) hypertension; G30.9 Alzheimer's disease, unspecified; F02.80 Dementia in other diseases classified elsewhere, unspecified severity, without behavioral disturbance, psychotic disturbance, mood disturbance, and anxiety; Z87.891 Personal history of nicotine dependence
CPT/HCPCS: 36415; 71046; 80053; 83880; 84484; 85025; 93005; 94760

== ENCOUNTER 2018-04-12 11:56 | Inpatient (IN) | payer MEDICARE ==
[2018-04-12 12:44] LABS: #Eosinphils 0.1 thou/uL (0.0-0.7); #Lymphocytes 0.9 thou/uL (1.20-3.40); #Monocytes 0.6 thou/uL (0.11-0.59); #Neutrophils 10.5 thou/uL (1.40-6.50); %Eosinophils 0.9 % (0.0-10.0); %Lymphocytes 7.3 % (21.0-51.0); %Neutrophils 86.7 % (42.0-75.0); Hemoglobin 9.3 g/dL (12.0-16.0); Mean Corpuscular HGB CONC 32.3 g/dL (32.0-36.0); Mean Corpuscular Hemoglobin 30.9 pg (27.0-31.0); Mean Corpuscular Volume 95.6 fL (78.0-98.0); Mean Platelet Volume 9.8 fL (7.4-10.4); Platelet Count 176 thou/uL (130-400); RBC Distribution Width 12.4 % (11.5-14.5); Red Blood Cell (RBC) Count 3.02 mill/uL (4.20-5.40); White Blood Cell (WBC) Count 12.1 thou/uL (4.8-10.8)
[2018-04-12 12:59] LABS: ALT (SGPT) 33 U/L (8-55); AST (SGOT) 32 U/L (5-34); Albumin 4.3 g/dL (3.4-4.8); Alkaline Phosphatase 84 U/L (40-150); Anion Gap 21 mmol/L (10-20); BUN (Urea Nitrogen) 106 mg/dL (9.8-20.1); Bilirubin, Total 0.4 mg/dL (0.2-1.2); Calc. Creatinine Clearance 0 mL/min (70-130); Calcium 9.8 mg/dL (7.8-10.44); Carbon Dioxide 14 mmol/L (23-31); Chloride 111 mmol/L (98-107); Estimated GFR-MDRD 8; Globulin 2.2 g/dL (2.4-3.5); Glucose 100 mg/dL (83-110); Potassium 4.3 mmol/L (3.5-5.1); Protein, Total 6.5 g/dL (6.0-8.3); Sodium 142 mmol/L (136-145)
[2018-04-12 13:22] LABS: CKMB 6.1 ng/mL (0-6.6)
[2018-04-12] MEDS ORDERED: Nitroglycerin 2% Ointment 1 INCH/1 GM Packet ONE (14:49)
[2018-04-12] MEDS ORDERED: Furosemide 40 MG/4 ML VIAL ONE (14:49)
--- NOTE | 2018-04-12 15:14 | RAD ---
CHEST 1 VIEW: Date: 04/12/18 HISTORY: Cough. COMPARISON: 04/07/18. FINDINGS: Cardiac silhouette is magnified by projection. Pulmonary vasculature is upper limits of normal. Media stinum is midline. Blunting of each costophrenic angle is less pronounced than on the prior study. No lobar consolidation or evidence of pneumothorax. Ventriculostomy tubing over the right chest wall re blossom in place. IMPRESSION: Pulmonary vascular congestion and pleural fluid have improved slightly from the previous exam. POS: [facility]
[2018-04-12] MEDS ORDERED: Acetaminophen 325 MG TAB PO PRN (18:02)
[2018-04-12 19:01] LABS: Troponin I 0.064 ng/mL (< 0.028)
[2018-04-12] MEDS ORDERED: Ondansetron ODT 8 MG TAB SL PRN (19:44)
[2018-04-12] MEDS ORDERED: Furosemide 40 MG/4 ML VIAL SLOW IVP SCH (20:00)
[2018-04-12] MEDS: Latanoprost 0.005% Ophth Soln 2.5 ml Bottle EA EYE SCH (20:42)
[2018-04-12] MEDS: hydrALAZINE 25 MG TAB PO SCH (20:43)
[2018-04-12] MEDS: Heparin 5,000 UNITS/ML VIAL SC SCH (20:44)
[2018-04-12] MEDS: Donepezil HCl 10 MG TAB PO SCH (20:44)
[2018-04-12] MEDS: Atorvastatin Calcium 40 MG TAB PO SCH (20:44)
[2018-04-12] MEDS: Minoxidil 2.5 MG TAB PO SCH (20:45)
[2018-04-12] MEDS: levETIRAcetam 500 MG TAB PO SCH (20:45)
[2018-04-13 04:45] LABS: #Monocytes 0.5 thou/uL (0.11-0.59); #Neutrophils 5.3 thou/uL (1.40-6.50); %Basophils 0.2 % (0.0-1.0); %Eosinophils 0.5 % (0.0-10.0); %Lymphocytes 14.7 % (21.0-51.0); %Monocytes 7.2 % (0.0-10.0); %Neutrophils 77.4 % (42.0-75.0); Hemoglobin 8.2 g/dL (12.0-16.0); Mean Corpuscular HGB CONC 33.2 g/dL (32.0-36.0); Mean Corpuscular Hemoglobin 31.3 pg (27.0-31.0); Mean Corpuscular Volume 94.3 fL (78.0-98.0); Mean Platelet Volume 10.1 fL (7.4-10.4); Platelet Count 142 thou/uL (130-400); RBC Distribution Width 12.2 % (11.5-14.5); Red Blood Cell (RBC) Count 2.62 mill/uL (4.20-5.40); White Blood Cell (WBC) Count 6.9 thou/uL (4.8-10.8)
[2018-04-13 05:08] LABS: Anion Gap 16 mmol/L (10-20); BUN (Urea Nitrogen) 110 mg/dL (9.8-20.1); Calc. Creatinine Clearance 17 mL/min (70-130); Calcium 9.2 mg/dL (7.8-10.44); Carbon Dioxide 16 mmol/L (23-31); Chloride 113 mmol/L (98-107); Estimated GFR-MDRD 8; Glucose 108 mg/dL (83-110); Potassium 4.2 mmol/L (3.5-5.1); Sodium 141 mmol/L (136-145)
[2018-04-13] MEDS: Levothyroxine Sodium 112 MCG TAB PO SCH (05:25)
[2018-04-13] MEDS: Levothyroxine Sodium 25 MCG TAB PO SCH (05:25)
[2018-04-13] MEDS ORDERED: Dextrose 50% Abboject 50 ML SYRINGE SLOW IVP PRN (07:56)
[2018-04-13] MEDS ORDERED: Dextrose 5% in Water 1,000 ML IV PRN (07:56)
[2018-04-13] MEDS ORDERED: Furosemide 40 MG/4 ML VIAL SLOW IVP SCH (08:00)
[2018-04-13] MEDS ORDERED: Tuberculin PPD 0.1 ML VIAL I-DERMAL SCH (08:30)
--- NOTE | 2018-04-13 08:52 | CON ---
DATE OF CONSULTATION: SERVICE: Renal Medicine HISTORY OF PRESENT ILLNESS: Ms. Bee is a 72-year-old white female with known history of chronic renal failure from a presumed hypertensive nephropathy and admitted for congestive heart failure. She came in yesterday due to complaints of leg edema and shortness of breath. She was started on IV Lasix. Her renal function over time has been progressively worsening. I did discuss that issue with the patient about initiating dialysis and she is amenable to it. I also spoke with his son, Lopez, regarding initiating dialysis and the family is agreeable with this. Her shortness of breath is slightly improved this morning. REVIEW OF SYSTEMS: No chest pain. Positive for mild shortness of breath. No nausea. No vomiting. No diarrhea. Appetite, decreased. Energy level is decreased. No abdominal pain. No fever or chills. No gross hematuria. No dysuria. No urinary frequency. No hematochezia. No melena. No sore throat. Occasional joint pains. No diplopia. MEDICATIONS: The patient is on; 1. Lasix at 40 mg IV daily. 2. Norvasc 10 mg tablet once a day. 3. Ecotrin 81 mg tablet once daily. 4. Lipitor 40 mg at bedtime. 5. Amaryl 1 mg p.o. q.a.m. 6. Heparin 5000 units subcu t.i.d. 7. Hydralazine 100 mg p.o. t.i.d. 8. Xalatan eye drop as directed. 9. Keppra 500 mg p.o. b.i.d. 10. Synthroid 112 mcg p.o. daily. 11. Metoprolol 50 mg daily. 12. Minoxidil 2.5 mg at bedtime. PAST MEDICAL HISTORY: 1. Chronic renal failure from hypertensive nephropathy. 2. History of fatty liver. 3. History of liver hemangioma. 4. Hypothyroidism. 5. Renal cancer, in remission. 6. Type 2 diabetes mellitus. 7. History of normal-pressure hydrocephalus. 8. Early dementia. 9. Hyperlipidemia. 10. Longstanding hypertension. PAST SURGICAL HISTORY: Status post parietal and frontal zoe hole with evacuation of intracranial hematoma, status post left nephrectomy for renal cancer, status post excision of squamous cell cancer, status post appendectomy, status post lumbar spinal tap, status post tonsillectomy, status post hysterectomy, status post colonoscopy, status post liver biopsy, and chronic renal failure. SOCIAL HISTORY: Currently in assisted living. Smoked for 5 years, one-fourth pack a day. Status post blood transfusion. The patient is , 2 children. 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 Alcohol, none. Education, high school. No drug abuse. ALLERGIES: PENICILLIN. TRAUMA: Status post snake bite, status post fall. IMMUNIZATIONS: Up-to-date. HOSPITALIZATIONS: Please see past medical history. FAMILY HISTORY: No family history of ESRD. PHYSICAL EXAMINATION: VITAL SIGNS: Blood pressure is 129/61, heart rate 79, respiratory rate 20, temperature 97.7, and pulse ox 97%. GENERAL: Awake, alert, comfortable, not in overt distress. SKIN: Adequate turgor. HEENT: She has slightly pale conjunctivae. Anicteric sclerae. NECK: No neck mass. No carotid bruits. No JVD. CHEST: No deformities. LUNGS: Clear breath sounds. No wheezing. No crackles. HEART: Normal sinus rhythm. No murmurs. No gallops. No rubs. ABDOMEN: Globular, soft, and nontender. No masses. EXTREMITIES: No edema. No deformities. NEUROLOGICAL: Awake, oriented to 3 spheres. Moving all extremities. No tremors. No asterixis. LABORATORY DATA: Laboratories of April 13, 2018; white count 6.9, hemoglobin 8.2. Sodium 141, potassium 4.2, chloride 113, carbon dioxide 16, BUN 110, creatinine 5.12, GFR 8 mL/minute, glucose 108, and calcium 9.2. IMAGING DATA: Chest x-ray shows CHF. ASSESSMENT AND PLAN: 1. Congestive heart failure - continue IV Lasix. We will initiate dialysis. 2. Chronic renal failure - the patient has worsened renal dysfunction. GFR has now dropped to less than 10 mL/minute. We will initiate dialysis. The patient has agreed with this. We will consult Surgery for placement of a cuffed hemodialysis catheter. 3. Anemia. Continuing Epogen and iron supplementation. We will make arrangements for outpatient dialysis placement. Job ID: [id number]
[2018-04-13] MEDS ORDERED: Prevnar 13-Val Conj/PF 0.5 ML SYRINGE IM ONE (09:00)
[2018-04-13] MEDS ORDERED: Non-Formulary Item 1 EACH (Levothyroxine Sodium [Synthroid] 1 TAB) PO SCH (09:00)
--- NOTE | 2018-04-13 09:18 | HP ---
The patient is seen on 04/12/2018. CHIEF COMPLAINT: Difficulty breathing and edema. HISTORY OF PRESENT ILLNESS: This patient is a 72-year-old female, who has a history of chronic kidney disease and diastolic dysfunction. She is followed as an outpatient by Dr. Andrews. The patient has been developing significant lower extremity edema and increasing shortness of breath with exertion. However, she has been avoiding diuretics because of some progression of renal dysfunction. Ultimately, the patient got to the point where she was having difficulty functioning and reported that she had gained between 30 and 40 pounds over several weeks. She did speak to Dr. Andrews's office and was told that she could go ahead and start Lasix which she had been taking for a couple of days. However, her symptoms have progressed, so she presented to the emergency department. She denies any chest pain, fevers, chills, or cough. REVIEW OF SYSTEMS: She denies any significant pain in the lower extremities. No redness or swelling. She has had no recent extended travel. All other systems were reviewed and all pertinent positives and negatives noted in the history of present illness. PAST MEDICAL HISTORY: Notable for diabetes mellitus, hyperlipidemia, hypertensions, some history reported of Alzheimer's, history of prior stroke with subdural hematoma and normal-pressure hydrocephalus necessitating a TAX ASSOCIATE shunt. She has a history of renal cancer requiring left nephrectomy. She also has a history of a right central retinal artery occlusion with diminished vision on the right. PAST SURGICAL HISTORY: Appendectomy, hysterectomy, left nephrectomy for renal cancer, tonsillectomy, and TAX ASSOCIATE shunt placed in 2018. FAMILY HISTORY: Reviewed and noncontributory to this admission. SOCIAL HISTORY: The patient is a former smoker, who quit about 10 years ago. Denies alcohol or drugs. She is relatively recently . She is a DNR. ALLERGIES: AZITHROMYCIN AND PENICILLIN. CURRENT MEDICATIONS: 1. Thiamine 50 mg p.o. daily. 2. Xalatan eye drops one drop each eye q.p.m. 3. Aspirin 81 mg daily. 4. Prednisone 50 mg daily. 5. Zofran 8 mg sublingual p.r.n. 6. Fosfomycin 5.631 g p.o. as directed. 7. Minoxidil 2.5 at bedtime. 8. Metoprolol 50 mg daily. 9. Keppra 500 mg b.i.d. 10. Hydralazine 100 mg t.i.d. 11. Levothyroxine one p.o. daily. 12. Glimepiride 1 mg p.o. daily. 13. Clonidine 0.3 mg patch weekly. 14. Donepezil 10 mg at bedtime. 15. Calcium with vitamin D one p.o. daily. 16. Atorvastatin 40 mg at bedtime. 17. Amlodipine 10 mg p.o. daily. PHYSICAL EXAMINATION: VITAL SIGNS: Temperature is 98.1, pulse 86, respirations 21, O2 saturation 97% on room air, BP is 160/70. GENERAL APPEARANCE: Age-appropriate female. She is awake, alert, extremely pleasant, appears to be quite oriented and appropriate. HEENT: PERRL. No OP lesions. NECK: Supple and symmetric with no lymphadenopathy, JVD, or bruits. No thyromegaly. HEART: Regular rate and rhythm without murmurs, but there is an S3 at the left lower sternal border present. LUNGS: Slightly diminished at the bases, but otherwise clear to auscultation bilaterally. ABDOMEN: Soft, nontender, and nondistended. Positive bowel sounds. No masses. No organomegaly. EXTREMITIES: Reveal 3 to 4+ pitting edema up to the level of the knee. There is no erythema or palpable cords. Pulses are not palpable secondary to edema. LABORATORY DATA: White count 12.1, hemoglobin 9.3, platelets 176. Sodium 142, potassium 4.3, chloride 111, CO2 is 14, anion gap 21, BUN 106, creatinine 5.16, glucose 100, calcium is 9.8, AST is 32, ALT 33, alkaline phosphatase 84. Troponin is 0.059. BNP 580.2. Chest x-ray shows pulmonary vascular congestion and pleural fluid, that have slightly improved from her previous exam on April 07, 2018. IMPRESSION AND PLAN: 1. Volume overload, likely secondary to history of diastolic dysfunction and progressive renal dysfunction. We will attempt to diurese. Need to watch the renal function closely, however. 2. Worsening renal function, currently with a GFR estimated at 8. The patient's baseline appears to be closer to 13-15. Nephrology is consulted. She certainly has some associated acidosis and some volume overload. 3. History of diastolic dysfunction. The patient had an echocardiogram in February, which revealed an EF of 55% to 60%, but suggestion of diastolic dysfunction. Again, in combination with her renal failure, the patient has volume overload. We will continue to attempt to diurese. 4. Mild leukocytosis. The patient has no evidence of active infection. We will continue to monitor. 5. Anemia, likely chronic secondary to her renal failure. 6. Diabetes mellitus. The patient is currently on glimepiride. We will continue with Accu-Cheks and monitoring, may need to add some sliding scale insulin coverage. 7. Hypertension, stable. Continue with her usual home regimen. 8. Hyperlipidemia, stable. Continue with her home statin. 9. Glaucoma. Continue with her home eye drops. Job ID: [id number]
[2018-04-13] MEDS: Heparin 5,000 UNITS/ML VIAL SC SCH ×3 (09:30→21:16)
[2018-04-13] MEDS: Calcium Carbonate + Vit D 1 TAB PO SCH (09:31)
[2018-04-13] MEDS: levETIRAcetam 500 MG TAB PO SCH ×2 (09:31→21:17)
[2018-04-13] MEDS: Amlodipine 10 MG TAB PO SCH (09:32)
[2018-04-13] MEDS: Thiamine 100 MG TAB PO SCH (09:33)
[2018-04-13] MEDS: hydrALAZINE 25 MG TAB PO SCH ×3 (09:33→21:17)
[2018-04-13] MEDS: Epoetin (ESRD) 20,000 UNITS/ML SC SCH (09:37)
[2018-04-13] MEDS: Metoprolol Tartrate 25 MG TAB PO SCH (09:39)
[2018-04-13] MEDS: Glimepiride 1 MG TAB PO SCH (09:43)
--- NOTE | 2018-04-13 10:00 | PDOC.PN ---
- Subjective Encounter Start Date: 04/13/18 Encounter Start Time: 09:58 Feeling better. Breathing better. Does report that she was having some discomfort with her bladder prior to the Moore. Spoke with Dr. Andrews this morning. He recommended HD. - Objective Resuscitation Status - Order Detail: 04/12/18 18:02 Resuscitation Status Routine Resuscitation Status: DNAR: NO Resuscitation Discussed with: Patient Vital Signs & Weight: Vital Signs (12 hours) Temp Pulse Resp BP Pulse Ox 04/13/18 09:33 79 04/13/18 09:32 79 04/13/18 08:00 97.7 F 79 20 129/61 97 04/13/18 03:33 98.8 F 83 20 129/60 96 04/13/18 00:00 98.1 F 71 18 121/64 98 Weight Weight 238 lb I&O: 04/12/18 04/13/18 04/14/18 06:59 06:59 06:59 Intake Total 410 Output Total 650 Balance -240 Result Diagrams: 04/13/18 04:19 04/13/18 04:19 Additional Labs: Accuchecks 04/13/18 04/12/18 05:27 20:17 POC Glucose 105 188 H Phys Exam - Physical Examination Constitutional: NAD Neck: no nodes, no JVD Respiratory: no wheezing, no rales, no rhonchi, clear to auscultation bilateral Cardiovascular: RRR, no significant murmur S3 Gastrointestinal: soft, non-tender, no distention 3-4+ edema BLE Psychiatric: normal affect, A&O x 3 Dx/Plan (1) Volume overload Code(s): E87.70 - FLUID OVERLOAD, UNSPECIFIED Status: Acute Comment: Due to ESRD. (2) Herny-[id number] kidney injury Code(s): N17.9 - ACUTE KIDNEY FAILURE, UNSPECIFIED; N18.9 - CHRONIC KIDNEY DISEASE, UNSPECIFIED Status: Acute Qualifiers: Chronic kidney disease stage: stage 4 (severe) Comment: Now ESRD. Starting HD. Nephrology following. (3) Chronic diastolic (congestive) heart failure Code(s): I50.32 - CHRONIC DIASTOLIC (CONGESTIVE) HEART FAILURE Status: Chronic Comment: Overload is related to the ESRD and not CHF. (4) Metabolic acidosis Code(s): E87.2 - ACIDOSIS Status: Acute (5) Diabetes mellitus Code(s): E11.9 - TYPE 2 DIABETES MELLITUS WITHOUT COMPLICATIONS Status: Chronic Qualifiers: Diabetes mellitus type: type 2 Diabetes mellitus complication status: with kidney complications Diabetes mellitus complication detail: with chronic kidney disease Chronic kidney disease stage: stage 4 (severe) Qualified Code (s): E11.8 - Type 2 diabetes mellitus with unspecified complications (6) Dyslipidemia Code(s): E78.5 - HYPERLIPIDEMIA, UNSPECIFIED Status: Chronic (7) Hypertension Code(s): I10 - ESSENTIAL (PRIMARY) HYPERTENSION Status: Chronic Qualifiers: Hypertension type: essential hypertension (8) Hypothyroidism Code(s): E03.9 - HYPOTHYROIDISM, UNSPECIFIED Status: Chronic Qualifiers: (9) Normal pressure hydrocephalus Code(s): G91.2 - (IDIOPATHIC) NORMAL PRESSURE HYDROCEPHALUS Status: Chronic Comment: with h/o chronic subdural hematoma, svp group director shunt was placed in 10/2017 (10) Anemia of renal disease Code(s): N18.9 - CHRONIC KIDNEY DISEASE, UNSPECIFIED; D63.1 - ANEMIA IN CHRONIC KIDNEY DISEASE Status: Acute (11) Glaucoma Code(s): H40.9 - UNSPECIFIED GLAUCOMA Status: Chronic - Plan * Continue diuresis today. * Discussed HD with the patient. Confirmed that I agree with the plan. She has volume overload and acidosis with GFR of 8. She is amenable. * Continue Moore. Will try to dc tomorrow to see if she can void. * Plan for HD catheter tomorrow. * Blood sugars ok.
[2018-04-13 10:27] LABS: HBSAB Concentration 2.58 mIU/mL; HBSAg Index 0.24 S/CO (0-0.99); Hep B Core Total Ab Non-Reactive (NonReactive); Hep B Core Total Index 0.06 S/CO (0-0.79); Hep B Surf AB Non-Reactive (NonReactive); Hep B Surf Ag Non-Reactive S/CO (NonReactive); Hep C IgG Ab Non-Reactive (NonReactive); Hep C Index 0.14 S/CO (0-0.79)
--- NOTE | 2018-04-13 12:16 | ULT ---
ULTRASOUND VESSEL MAPPING DIALYSIS ACCESS: HISTORY: End stage renal disease. COMPARISON: None. TECHNIQUE: Real-time, patel scale, color Doppler, and spectral analysis of bilateral upper extremity venous and a rterial systems was performed. FINDINGS: RIGHT SIDE: Brachial artery 5.5 mm Radial artery 3.3 mm Ulnar artery 3.2 mm Cephalic Vein: Proximal humerus 2.1 mm Mid humerus 1.2 mm Distal 2.1 mm Elbow 3.1 mm Proximal forearm 2.3 mm Mid 2.2 mm Distal 1.7 mm Basilic Vein: Proximal humerus 5.8 mm Mid humerus 3.6 mm Distal 2.2 mm Elbow 1.4 mm Proximal forearm 1.1 mm Mid 1.0 mm Distal 0.8 mm LEFT SIDE: Brachial artery 4.5 mm Radial artery 3.2 mm Ulnar artery 1.9 mm Cephalic Vein: Proximal humerus 2.2 mm Mid humerus 1.1 mm Distal 1.4 mm Elbow 0.9 mm Proximal forearm 1.1 mm Mid 1.1 mm Distal 1.2 mm Basilic Vein: Proximal humerus 10.7 mm Mid humerus 6.4 mm Distal 3.5 mm Elbow 4.9 mm Proximal forearm 1.0 mm Mid 1.3 mm Distal 1.1 mm IMPRESSION: Vascular sizes as above. POS: [facility]
[2018-04-13] MEDS: Furosemide 40 MG/4 ML VIAL SLOW IVP SCH (14:07)
[2018-04-13] MEDS: Aspirin 81 mg Enteric Coated Tablet PO SCH (14:21)
[2018-04-13] MEDS: Ferrous Sulfate 325 MG TAB PO SCH (16:24)
[2018-04-13] MEDS: Atorvastatin Calcium 40 MG TAB PO SCH (21:17)
[2018-04-13] MEDS: Minoxidil 2.5 MG TAB PO SCH (21:17)
[2018-04-13] MEDS: Donepezil HCl 10 MG TAB PO SCH (21:18)
[2018-04-13] MEDS: Latanoprost 0.005% Ophth Soln 2.5 ml Bottle EA EYE SCH (21:26)
[2018-04-14] MEDS: Furosemide 40 MG/4 ML VIAL SLOW IVP SCH ×2 (05:20→14:57)
[2018-04-14] MEDS: Levothyroxine Sodium 112 MCG TAB PO SCH (05:20)
[2018-04-14] MEDS: Metoprolol Tartrate 25 MG TAB PO SCH (05:20)
[2018-04-14] MEDS: Levothyroxine Sodium 25 MCG TAB PO SCH (05:20)
[2018-04-14 05:30] LABS: Anion Gap 16 mmol/L (10-20); BUN (Urea Nitrogen) 116 mg/dL (9.8-20.1); Calc. Creatinine Clearance 18 mL/min (70-130); Carbon Dioxide 17 mmol/L (23-31); Chloride 113 mmol/L (98-107); Estimated GFR-MDRD 9; Glucose 75 mg/dL (83-110); Sodium 142 mmol/L (136-145)
--- NOTE | 2018-04-14 06:42 | PDOC.GSCN ---
Surgery Consult: HPI - Consult details Date: 04/13/18 Time: 15:00 Reason for consult: other (Dialysis access) Requesting physician: Milad Andrews History of present illness: 04/14/18 06:41 Patient admitted for shortness of breath and lower extremity edema. She has chronic renal failure due to hypertension and a single kidney after nephrectomy for renal cancer. She states that since coming into the hospital the swelling in her legs and arms has gone down and she is breathing much easier. Dr. Andrews has decided to start her on hemodialysis and she will need access for this. She is right-handed. Surgery Consult: ROS - Review of Systems All systems: 10 systems reviewed and no additional complaints unless stated below. 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 negative: tender, organomegaly, surgical scars, wound, masses, guarding, rigid, rebound, distended Integumentary: no rash Neurologic: normal coordination, normal sensation, deep tendon reflexes. negative: disoriented, combative, confused, memory loss Musculoskeletal: other (Slow gait and requires assistance) Psychiatric: memory intact, oriented to time, oriented to person, oriented to place, speech is normal, other (Chart mentions early dementia but not noticeable during casual conversation) Additional exam: Severe lower extremity edema but only mild upper extremity edema. Palpable forearm cephalic vein on the right. This is not easily palpable on the left. Palpable antecubital veins bilaterally. IV in right hand. Normal filling bilaterally on Wilberto's testing from either radial or ulnar distribution Surgery Consult: Meds - Medications MAR Reviewed: Yes Medications: Current Medications Acetaminophen (Tylenol) 650 mg PO Q4H PRN PRN Reason: Headache/Fever/Mild Pain (1-3) Amlodipine Besylate (Norvasc) 10 mg PO DAILY [facility] Last Admin: 04/13/18 09:32 Dose: 10 mg Aspirin (Ecotrin) 81 mg PO DAILY [facility] Last Admin: 04/13/18 14:21 Dose: Not Given Atorvastatin Calcium (Lipitor) 40 mg PO HS [facility] Last Admin: 04/13/18 21:17 Dose: 40 mg Calcium/Vitamin D (Caltrate 600 + Vit D) 1 tab PO DAILY [facility] Last Admin: 04/13/18 09:31 Dose: 1 tab Clonidine (Bqckclmx-Uva-6) 0.3 mg TD Q7DAYS [facility] Dextrose/Water (Dextrose 50%) 25 gm SLOW IVP PRN PRN PRN Reason: Hypoglycemia Donepezil HCl (Aricept) 10 mg PO HS [facility] Last Admin: 04/13/18 21:18 Dose: 10 mg Epoetin Grabiel (Procrit) 7,500 units SC Q7D@0900 [facility] Last Admin: 04/13/18 09:37 Dose: 7,500 units Ferrous Sulfate (Feosol) 325 mg PO BID-[facility] Last Admin: 04/13/18 16:24 Dose: 325 mg Furosemide (Lasix) 40 mg SLOW IVP 0600,1400 [facility] Last Admin: 04/14/18 05:20 Dose: 40 mg Glimepiride (Amaryl) 1 mg PO QAM-[facility] Last Admin: 04/13/18 09:43 Dose: 1 mg Glucagon (Glucagon) 1 mg IM PRN PRN PRN Reason: Hypoglycemia Heparin Sodium (Porcine) (Heparin) 5,000 units SC TID [facility] Last Admin: 04/13/18 21:16 Dose: 5,000 units Hydralazine HCl (Apresoline) 100 mg PO TID [facility] Last Admin: 04/13/18 21:17 Dose: 100 mg Dextrose/Water (D5w) 1,000 mls @ 0 mls/hr IV .Q0M PRN PRN Reason: Hypoglycemia Insulin Human Lispro (Humalog) 0 units SC .MILD SLIDING SCALE PRN PRN Reason: Mild Correctional Scale Latanoprost (Xalatan 0.005% Ophth Soln) 1 drop EA EYE QPM [facility] Last Admin: 04/13/18 21:26 Dose: 1 drop Levetiracetam (Keppra) 500 mg PO BID [facility] Last Admin: 04/13/18 21:17 Dose: 500 mg Levothyroxine Sodium (Synthroid) 112 mcg PO 0600 [facility] Last Admin: 04/14/18 05:20 Dose: 112 mcg Levothyroxine Sodium (Synthroid) 25 mcg PO 0600 [facility] Last Admin: 04/14/18 05:20 Dose: 25 mcg Metoprolol Tartrate (Lopressor) 50 mg PO DAILY [facility] Last Admin: 04/14/18 05:20 Dose: 50 mg Minoxidil (Minoxidil) 2.5 mg PO HS [facility] Last Admin: 04/13/18 21:17 Dose: 2.5 mg Ondansetron HCl (Zofran Odt) 8 mg SL Q8HR PRN PRN Reason: Nausea Sodium Chloride (Flush - Normal Saline) 10 ml IVF Q12HR [facility] Last Admin: 04/13/18 21:18 Dose: 10 ml Sodium Chloride (Flush - Normal Saline) 10 ml IVF PRN PRN PRN Reason: Saline Flush Last Admin: 04/13/18 14:07 Dose: 10 ml Thiamine HCl (Thiamine) 50 mg PO DAILY [facility] Last Admin: 04/13/18 09:33 Dose: 50 mg Tuberculin PPD (Aplisol) 0.1 ml I-DERMAL ONE [facility] Stop: 04/16/18 08:31 Last Admin: 04/13/18 09:19 Dose: 0.1 ml - Allergies Allergies/Adverse Reactions: Allergies Allergy/AdvReac Type Severity Reaction Status Date / Time azithromycin Allergy Verified 04/12/18 18:22 [From Zithromax Z-Gato] Penicillins Allergy Verified 04/12/18 18:22 Surgery Consult: Results - Labs Result Diagrams: 04/13/18 04:19 04/14/18 04:03 Lab results: Laboratory Results WBC 6.9 thou/uL (4.8-10.8) 04/13/18 04:19 RBC 2.62 mill/uL (4.20-5.40) L 04/13/18 04:19 Hgb 8.2 g/dL (12.0-16.0) L 04/13/18 04:19 Hct 24.7 % (36.0-47.0) L 04/13/18 04:19 MCV 94.3 fL (78.0-98.0) 04/13/18 04:19 MCH 31.3 pg (27.0-31.0) H 04/13/18 04:19 MCHC 33.2 g/dL (32.0-36.0) 04/13/18 04:19 RDW 12.2 % (11.5-14.5) 04/13/18 04:19 Plt Count 142 thou/uL (130-400) 04/13/18 04:19 MPV 10.1 fL (7.4-10.4) 04/13/18 04:19 Neutrophils % 77.4 % (42.0-75.0) H 04/13/18 04:19 Lymphocytes % 14.7 % (21.0-51.0) L 04/13/18 04:19 Monocytes % 7.2 % (0.0-10.0) 04/13/18 04:19 Eosinophils % 0.5 % (0.0-10.0) 04/13/18 04:19 Basophils % 0.2 % (0.0-1.0) 04/13/18 04:19 Neutrophils # 5.3 thou/uL (1.40-6.50) 04/13/18 04:19 Lymphocytes # 1.0 thou/uL (1.20-3.40) L 04/13/18 04:19 Monocytes # 0.5 thou/uL (0.11-0.59) 04/13/18 04:19 Eosinophils # 0.0 thou/uL (0.0-0.7) 04/13/18 04:19 Basophils # 0.0 thou/uL (0.0-0.2) 04/13/18 04:19 Sodium 142 mmol/L (136-145) 04/14/18 04:03 Potassium 4.0 mmol/L (3.5-5.1) 04/14/18 04:03 Chloride 113 mmol/L (98-107) H 04/14/18 04:03 Carbon Dioxide 17 mmol/L (23-31) L 04/14/18 04:03 Anion Gap 16 mmol/L (10-20) 04/14/18 04:03 BUN 116 mg/dL (9.8-20.1) H 04/14/18 04:03 Creatinine 4.88 mg/dL (0.6-1.1) H 04/14/18 04:03 Estimated GFR (MDRD) 9 04/14/18 04:03 Glucose 75 mg/dL (83-110) L 04/14/18 04:03 POC Glucose 90 mg/dL (70-110) 04/14/18 05:54 Calcium 9.0 mg/dL (7.8-10.44) 04/14/18 04:03 Total Bilirubin 0.4 mg/dL (0.2-1.2) 04/12/18 12:29 AST 32 U/L (5-34) 04/12/18 12:29 ALT 33 U/L (8-55) 04/12/18 12:29 Alkaline Phosphatase 84 U/L (40-150) 04/12/18 12:29 CK-MB (CK-2) 6.1 ng/mL (0-6.6) 04/12/18 12:29 Troponin I 0.064 ng/mL (< 0.028) H 04/12/18 18:26 B-Natriuretic Peptide 580.2 pg/mL (0-100) H 04/12/18 12:29 Serum Total Protein 6.5 g/dL (6.0-8.3) 04/12/18 12:29 Albumin 4.3 g/dL (3.4-4.8) 04/12/18 12:29 Globulin 2.2 g/dL (2.4-3.5) L 04/12/18 12:29 Albumin/Globulin Ratio 2.0 g/dL (1.2-2.2) 04/12/18 12:29 Hep Bs Antigen Non-Reactive S/CO (NonReactive) 04/12/18 12:29 Hep Bs Antibody Non-Reactive (NonReactive) 04/12/18 12:29 Hep Bs Antibody Index 2.58 mIU/mL 04/12/18 12:29 Hep B Core Total Ab Non-Reactive (NonReactive) 04/12/18 12:29 Hepatitis C Antibody Non-Reactive (NonReactive) 04/12/18 12:29 - Radiology Interpretation US - venous Status: report reviewed by me Additional comments: Right forearm cephalic vein of good caliber and quality. Smaller cephalic vein on the left but upper arm basilic looks okay. Surgery Consult: A/P - Problem (1) Pxygo-dw-dvllgpo kidney injury Current Visit: No Code(s): N17.9 - ACUTE KIDNEY FAILURE, UNSPECIFIED; N18.9 - CHRONIC KIDNEY DISEASE, UNSPECIFIED Status: Acute Qualifiers: Chronic kidney disease stage: stage 4 (severe) Assessment and Plan: Patient with acute worsening renal failure who will require institution of hemodialysis during this admission. A tunneled hemodialysis catheter will be placed for this. She is right-handed but has no history of vascular disease and the veins are better in the right forearm. An upper arm fistula would be a 2 part procedure so we will attempt a right Aron fistula first. If this is unsuccessful, I will plan an attempt at a primary fistula in the left arm, but this would likely require 2 surgeries. Inherent risks of both tunneled dialysis catheter placement and AV fistula were discussed with the patient. These risks include but are not limited to bleeding, infection, risks of anesthesia, hemothorax, pneumothorax, DVT, failure of the fistula to develop, need for other procedures to obtain or maintain patency of the fistula, and arterial steal which can cause ischemic damage to the hand. The patient understands and accepts these risks and wishes to proceed.
--- NOTE | 2018-04-14 07:02 | PRG ---
DATE OF SERVICE: 04/14/2018 SUBJECTIVE: Ms. Bee is a 72-year-old white female, who was admitted for CHF. She has been started on IV diuretics. In addition, renal function has worsened over time. I had a long discussion with the patient and the family regarding proceeding with dialysis. They have agreed with this. She is scheduled for a cuffed hemodialysis catheter placement. No other complaints. Shortness of breath slightly improved. OBJECTIVE: VITAL SIGNS: Blood pressure 125/59, heart rate 81, respiratory rate 20, temperature 98.6, and pulse ox 96%. GENERAL: Noted to be awake, alert, comfortable, not in overt distress. SKIN: Adequate turgor. HEENT: Slightly pale conjunctivae. Anicteric sclerae. No neck mass. No carotid bruits. No JVD. CHEST: No deformities. LUNGS: Decreased breath sounds. HEART: Normal sinus rhythm. No murmur. No gallops. No rubs. ABDOMEN: Globular, soft, nontender. No masses. EXTREMITIES: No edema. Positive for edema. No deformities. MEDICATIONS: Medications of April 14, 2018, reviewed. LABORATORY DATA: Laboratories of April 14, 2018; sodium 142, potassium 4, chloride 113, carbon dioxide 17, BUN 116, creatinine 4.88, glucose 75, calcium 9.0. On April 13, 2018, hemoglobin 8.2. ASSESSMENT AND PLAN: 1. Anemia-currently on ferrous sulfate and weekly Epogen. 2. Chronic renal failure-we will initiate dialysis once the access is placed. She is scheduled for an access placement today. 3. Congestive heart failure, clinically improved. We will recheck basic metabolic profile, CBC in a.m. Job ID: [id number]
[2018-04-14] MEDS ORDERED: Bupivacaine HCl 0.5%/Epinephrine 1:200,000/PF 30 ml Vial ONE (09:44)
[2018-04-14] MEDS ORDERED: Sodium Chloride 0.9% 20 ML ONE (09:44)
[2018-04-14] MEDS ORDERED: Protamine Sulfate 50 MG/5 ML VIAL ONE (09:44)
[2018-04-14] MEDS ORDERED: Heparin 10,000 UNITS/1 ML VIAL ONE (09:44)
[2018-04-14] MEDS ORDERED: Lidocaine 2% PF 5 ML VIAL ONE (09:44)
[2018-04-14] MEDS ORDERED: Heparin 5,000 UNITS/ML VIAL ONE (09:45)
[2018-04-14] MEDS ORDERED: Fentanyl 100 MCG/2 ML VIAL ONE (09:46)
[2018-04-14] MEDS ORDERED: Clindamycin/D5W 900 mg/50 ml Premix Bag ONE (10:16)
[2018-04-14] MEDS ORDERED: Levofloxacin 500 mg/D5W 100 ml Premix Bag ONE (10:16)
[2018-04-14] MEDS: Glimepiride 1 MG TAB PO SCH (10:33)
[2018-04-14] MEDS: Aspirin 81 mg Enteric Coated Tablet PO SCH (10:33)
[2018-04-14] MEDS: Ferrous Sulfate 325 MG TAB PO SCH ×2 (10:33→20:38)
[2018-04-14] MEDS: Heparin 5,000 UNITS/ML VIAL SC SCH ×3 (10:34→20:38)
[2018-04-14] MEDS: hydrALAZINE 25 MG TAB PO SCH ×3 (10:34→20:38)
[2018-04-14] MEDS: Calcium Carbonate + Vit D 1 TAB PO SCH (10:34)
[2018-04-14] MEDS: Thiamine 100 MG TAB PO SCH (10:35)
[2018-04-14] MEDS ORDERED: Heparin 1,000 UNITS/ML VIAL ONE (11:11)
[2018-04-14] MEDS ORDERED: Heparin 10,000 UNITS/ 10 ML VIAL ONE ×3 (14:02→14:24)
[2018-04-14] MEDS ORDERED: Lidocaine 1% PF 5 ML VIAL ONE (14:24)
[2018-04-14] MEDS ORDERED: ePHEDrine 50 MG/ML VIAL ONE (14:24)
[2018-04-14] MEDS ORDERED: PHENYLEPHRINE-NS 100 MCG/ML 10 ML SYRINGE ONE (14:24)
[2018-04-14] MEDS ORDERED: Calcium Chloride 1 GM/10 ML Abboject SYRINGE ONE (14:24)
[2018-04-14] MEDS ORDERED: PROPOFOL 200 MG/20 ML VIAL ONE (14:24)
[2018-04-14] MEDS ORDERED: Glycopyrrolate 0.2 MG/ML 5 ML SYRINGE ONE (14:24)
[2018-04-14] MEDS ORDERED: Rocuronium Bromide 10 MG/ML (10ML VIAL) ONE (14:24)
--- NOTE | 2018-04-14 14:53 | PDOC.OP ---
Operative Note - Operative Note Operative Note: PROCEDURE: Placement of right internal jugular tunneled hemodialysis catheter with ultrasound and fluoroscopic guidance and right Aron AV fistula. SURGEON: Felecia Chan M.D. DATE OF PROCEDURE: 04/14/2017 PREOPERATIVE DIAGNOSIS: Acute/Chronic renal failure. POSTOPERATIVE DIAGNOSIS: Acute/Chronic renal failure. HISTORY: Patient with acute on chronic renal failure with need for institution of hemodialysis. 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 PROCEDURE: After informed consent was obtained and appropriate preoperative antibiotics were administered, the patient was taken to the Operating Room, placed in the supine position and monitored anesthesia care was administered. The neck and chest were prepped and draped in a standard sterile fashion and the patient placed in Trendelenburg position. A sterile ultrasound probe was used to identify the patent compressible right IJ vein which was accessed under direct ultrasound guidance. A wire was threaded through the needle and confirmed by ultrasound to be within the patent compressible vessel with the tip in the vena cava by fluoroscopy. Local anesthesia was infused to the skin and subcutaneous tissues of the right neck and chest. An infraclavicular incision was made and a catheter tunneled from the infraclavicular to the right IJ access site. The right IJ was sequentially dilated over the wire following which a dilator and sheath were placed over the wire and the dilator and wire removed leaving the sheath in place. The catheter was tunneled through the sheath which was then split and removed leaving the catheter in place. This was confirmed by fluoroscopy to be in good position in the superior vena cava with no kinking of the course of the catheter. Both ports easily aspirated dark venous nonpulsatile blood and easily flushed without resistance. Heparin was instilled to the quantity specified on the hub, and the hub was secured to the skin with 3-0 nylon sutures. The skin incision at the neck was closed in two layers with 4-0 Monocryl suture and Dermabond dressings were placed. The skin at the exit site was snugged up around the catheter with 4-0 Monocryl suture and Dermabond was placed there as well. Once the Dermabond was dry, a Biopatch and Tegaderm dressing was placed at the exit site. Attention was then turned to creation of the right Aron AV fistula. The arm was prepped and draped in a standard sterile fashion and local anesthesia infused at the level of the wrist. An incision made between the palpable cephalic vein and radial artery. Dissection was carried out to the cephalic vein, which appeared to be of adequate quality and caliber to support a fistula. This was dissected free circumferentially, ligated, and divided distally, and spatulated with Arriaga scissors. This was serially interrogated with cardiac dilators and easily accepted up to a 3.5mm cardiac dilator. This was flushed with heparinized saline and clamped with a bulldog clamp. The radial artery was then dissected free and found to be of adequate quality and caliber to support a fistula. Heparin was administered systemically and allowed to circulate for 3 minutes following which the radial artery was clamped proximally and distally. An anterior arteriotomy was created with an 11 blade scalpel and extended with Arriaga scissors. An end-to-side anastomosis created with a running 6-0 Prolene suture with excellent technical result. Prior to tying down the anastomosis, the inflow was released to flush the anastomosis. Flow was established first through the fistula and then through the distal radial artery. Hemostasis at the site was confirmed, and an excellent thrill was felt in the cephalic vein outflow and an excellent bruit was heard with Doppler as well up to the proximal forearm. Hemostasis at the operative site was again confirmed. The incision was closed with a running 3-0 subcutaneous and running 4-0 subcuticular Monocryl sutures. Dermabond dressings were placed and the patient was taken to the recovery room in good condition. Estimated blood loss was minimal. There were no complications. There were no specimens.
[2018-04-14] MEDS: Amlodipine 10 MG TAB PO SCH (14:55)
[2018-04-14] MEDS: levETIRAcetam 500 MG TAB PO SCH ×2 (14:56→20:38)
--- NOTE | 2018-04-14 14:58 | RAD ---
CHEST 1 VIEW: INDICATION: Status post fistula creation. COMPARISON: Prior exam of 04/12/2018. FINDINGS: There has been interval placement of a new right IJ dialysis catheter. No pneumothorax is evident. Ventriculoperitoneal catheter is unchanged. Mild cardiomegaly is stable. There are some perihilar o pacities greater on the right with small bilateral pleural effusions that may reflect volume overload or CHF. Osseous structures are unchanged. IMPRESSION: 1. New right internal jugular dialysis catheter with tip projecting in the region of the distal supe rior vena cava. No pneumothorax. 2. Perihilar airspace opacities and small bilateral pleural effusions may reflect volume overload or congestive heart failure. 3. Stable ventriculoperitoneal catheter. POS: [facility]
[2018-04-14] MEDS: Latanoprost 0.005% Ophth Soln 2.5 ml Bottle EA EYE SCH (20:37)
[2018-04-14] MEDS: Minoxidil 2.5 MG TAB PO SCH (20:38)
[2018-04-14] MEDS: Atorvastatin Calcium 40 MG TAB PO SCH (20:38)
[2018-04-14] MEDS: cloNIDine 0.3mg/24 Hour PATCH TD SCH (20:40)
[2018-04-14] MEDS: Donepezil HCl 10 MG TAB PO SCH (20:41)
--- NOTE | 2018-04-14 20:43 | PDOC.PN ---
- Subjective Encounter Start Date: 04/14/18 Encounter Start Time: 15:15 Doing well. Tolerated the shunt and access placement well. Feeling better in general. - Objective Resuscitation Status - Order Detail: 04/12/18 18:02 Resuscitation Status Routine Resuscitation Status: DNAR: NO Resuscitation Discussed with: Patient Vital Signs & Weight: Vital Signs (12 hours) Temp Pulse Resp BP BP Pulse Ox 04/14/18 16:55 98.2 F 74 17 140/66 94 L 04/14/18 14:55 76 146/65 H 04/14/18 14:22 97.4 F L 89 16 166/72 H 96 Weight Admit Weight 238 lb Weight 232 lb I&O: 04/13/18 04/14/18 04/15/18 06:59 06:59 06:59 Intake Total 410 1324 480 Output Total 650 1075 700 Balance -240 249 -220 Result Diagrams: 04/13/18 04:19 04/14/18 04:03 Additional Labs: Accuchecks 04/14/18 04/14/18 04/14/18 16:56 13:55 05:54 POC Glucose 97 103 90 04/13/18 20:47 POC Glucose 130 H Phys Exam - Physical Examination Constitutional: NAD HEENT: oral pharynx no lesions Respiratory: no wheezing, no rales, no rhonchi Cardiovascular: RRR, no significant murmur Gastrointestinal: soft, non-tender, no distention, positive bowel sounds 1-2+ edema. Thrill at right wrist shunt. Neurological: non-focal, normal sensation Psychiatric: normal affect Dx/Plan (1) Volume overload Code(s): E87.70 - FLUID OVERLOAD, UNSPECIFIED Status: Acute Comment: Due to ESRD. (2) Udmbu-zr-lsbnvht kidney injury Code(s): N17.9 - ACUTE KIDNEY FAILURE, UNSPECIFIED; N18.9 - CHRONIC KIDNEY DISEASE, UNSPECIFIED Status: Acute Qualifiers: Chronic kidney disease stage: stage 4 (severe) Comment: Now ESRD. Starting HD. Nephrology following. (3) Chronic diastolic (congestive) heart failure Code(s): I50.32 - CHRONIC DIASTOLIC (CONGESTIVE) HEART FAILURE Status: Chronic Comment: Overload is related to the ESRD and not CHF. (4) Metabolic acidosis Code(s): E87.2 - ACIDOSIS Status: Acute (5) Diabetes mellitus Code(s): E11.9 - TYPE 2 DIABETES MELLITUS WITHOUT COMPLICATIONS Status: Chronic Qualifiers: Diabetes mellitus type: type 2 Diabetes mellitus complication status: with kidney complications Diabetes mellitus complication detail: with chronic kidney disease Chronic kidney disease stage: stage 4 (severe) Qualified Code (s): E11.8 - Type 2 diabetes mellitus with unspecified complications (6) Dyslipidemia Code(s): E78.5 - HYPERLIPIDEMIA, UNSPECIFIED Status: Chronic (7) Hypertension Code(s): I10 - ESSENTIAL (PRIMARY) HYPERTENSION Status: Chronic Qualifiers: Hypertension type: essential hypertension (8) Hypothyroidism Code(s): E03.9 - HYPOTHYROIDISM, UNSPECIFIED Status: Chronic Qualifiers: (9) Normal pressure hydrocephalus Code(s): G91.2 - (IDIOPATHIC) NORMAL PRESSURE HYDROCEPHALUS Status: Chronic Comment: with h/o chronic subdural hematoma, [employer] sales shunt was placed in 10/2017 (10) Anemia of renal disease Code(s): N18.9 - CHRONIC KIDNEY DISEASE, UNSPECIFIED; D63.1 - ANEMIA IN CHRONIC KIDNEY DISEASE Status: Acute (11) Glaucoma Code(s): H40.9 - UNSPECIFIED GLAUCOMA Status: Chronic - Plan * Doing well. Continued diuresis today. * Had shunt and access placed today. * Will get dialysis started today. * Blood sugars are great. * Continue home meds for HTN and cholesterol.
[2018-04-15] MEDS: Levothyroxine Sodium 112 MCG TAB PO SCH (05:34)
[2018-04-15] MEDS: Levothyroxine Sodium 25 MCG TAB PO SCH (05:34)
[2018-04-15] MEDS: Furosemide 40 MG/4 ML VIAL SLOW IVP SCH (05:40)
[2018-04-15 06:17] LABS: #Eosinphils 0.2 thou/uL (0.0-0.7); #Lymphocytes 1.2 thou/uL (1.20-3.40); #Monocytes 0.6 thou/uL (0.11-0.59); %Basophils 0.1 % (0.0-1.0); %Eosinophils 2.6 % (0.0-10.0); %Lymphocytes 19.2 % (21.0-51.0); %Monocytes 10.4 % (0.0-10.0); %Neutrophils 67.6 % (42.0-75.0); Hemoglobin 8.3 g/dL (12.0-16.0); Mean Corpuscular HGB CONC 32.7 g/dL (32.0-36.0); Mean Corpuscular Hemoglobin 31.3 pg (27.0-31.0); Mean Corpuscular Volume 95.8 fL (78.0-98.0); Mean Platelet Volume 10.1 fL (7.4-10.4); Platelet Count 104 thou/uL (130-400); RBC Distribution Width 12.2 % (11.5-14.5); Red Blood Cell (RBC) Count 2.65 mill/uL (4.20-5.40)
[2018-04-15 06:35] LABS: Anion Gap 14 mmol/L (10-20); BUN (Urea Nitrogen) 98 mg/dL (9.8-20.1); Calc. Creatinine Clearance 19 mL/min (70-130); Calcium 8.7 mg/dL (7.8-10.44); Carbon Dioxide 20 mmol/L (23-31); Chloride 114 mmol/L (98-107); Estimated GFR-MDRD 10; Glucose 71 mg/dL (83-110); Potassium 3.8 mmol/L (3.5-5.1); Sodium 144 mmol/L (136-145)
[2018-04-15] MEDS: Calcium Carbonate + Vit D 1 TAB PO SCH (08:01)
[2018-04-15] MEDS: Glimepiride 1 MG TAB PO SCH (08:01)
[2018-04-15] MEDS: Ferrous Sulfate 325 MG TAB PO SCH ×2 (08:02→15:41)
[2018-04-15] MEDS: levETIRAcetam 500 MG TAB PO SCH ×2 (08:02→20:31)
[2018-04-15] MEDS: Thiamine 100 MG TAB PO SCH (08:02)
[2018-04-15] MEDS: Heparin 5,000 UNITS/ML VIAL SC SCH ×3 (08:04→20:30)
[2018-04-15] MEDS: Amlodipine 10 MG TAB PO SCH (08:04)
[2018-04-15] MEDS: Metoprolol Tartrate 25 MG TAB PO SCH (08:05)
[2018-04-15] MEDS: hydrALAZINE 25 MG TAB PO SCH ×3 (08:05→20:30)
[2018-04-15] MEDS: Aspirin 81 mg Enteric Coated Tablet PO SCH (08:09)
[2018-04-15] MEDS ORDERED: Heparin 1,000 UNITS/ML VIAL ONE (11:11)
--- NOTE | 2018-04-15 11:18 | PRG ---
DATE OF SERVICE: 04/15/2018 SERVICE: Renal Medicine. SUBJECTIVE: Ms. Bee is a 72-year-old white female with known history of chronic renal failure, was admitted due to uremic signs and symptoms and volume overload. We have initiated dialysis. She is feeling better. The patient voices no new complaints. OBJECTIVE: VITAL SIGNS: Blood pressure is 141/63, heart rate 91, respiratory rate 18, temperature 98.1, pulse ox 96%. GENERAL: The patient is awake, alert, comfortable, not in distress. SKIN: Adequate turgor. HEENT: She has slightly pale conjunctivae. Anicteric sclerae. NECK: No neck mass. No carotid bruits. No JVD. CHEST: No deformities. LUNGS: Clear breath sounds. HEART: Normal sinus rhythm. No murmur. No gallops. No rubs. ABDOMEN: Globular, soft, nontender. No masses. EXTREMITIES: No edema. No deformities. MEDICATIONS: Medications of April 15, 2018, was reviewed. LABORATORY DATA: Laboratories of April 15, 2018; white count 6, hemoglobin 8.3. Sodium 144, potassium 3.8, chloride 114, carbon dioxide 20, BUN 98, creatinine 4.22, glucose 71, and calcium 8.7. ASSESSMENT AND PLAN: 1. End-stage renal failure/chronic renal failure. Continuing daily dialysis. Fluid removal as tolerated by the patient. The patient is clinically improved. 2. Anemia. Continue Epogen and iron supplementation. 3. Hypertension, adequate control. Continue current BP medications. No changes will be made with her medication. 4. Congestive heart failure, clinically much improved with fluid removal. We will plan to discontinue her furosemide. Job ID: [id number]
[2018-04-15] MEDS: Donepezil HCl 10 MG TAB PO SCH (20:29)
[2018-04-15] MEDS: Atorvastatin Calcium 40 MG TAB PO SCH (20:29)
[2018-04-15] MEDS: Minoxidil 2.5 MG TAB PO SCH (20:31)
[2018-04-15] MEDS: Latanoprost 0.005% Ophth Soln 2.5 ml Bottle EA EYE SCH (20:31)
--- NOTE | 2018-04-15 23:11 | PRG ---
DATE OF SERVICE: 04/15/2018 SUBJECTIVE: The patient denies any new complaints. Shortness of breath is improving. No fevers or chills reported. Telemetry monitoring by my review showed sinus rhythm. OBJECTIVE: VITAL SIGNS: Temperature 98.1, pulse rate of 91, respirations of 18, blood pressure of 141/63, O2 saturation 96% on room air. GENERAL: A 72-year-old female in no apparent distress undergoing hemodialysis. LUNGS: Clear to auscultation bilaterally with diminished air entry at bilateral bases. HEART: S1 and S2 present. Regular. ABDOMEN: Soft. Bowel sounds present. EXTREMITIES: Showed edema. LABORATORY FINDINGS: WBC 6.0 with platelet count 104, hemoglobin 8.3. Chemistry showed sodium 144, potassium 3.8, chloride 114, bicarb 20, BUN 98, creatinine 4.22. Current medications were reviewed. IMPRESSION: 1. Volume overload. 2. Acute kidney injury on chronic kidney disease stage 5, started on hemodialysis. 3. Elevated troponin secondary to demand ischemia. 4. Chronic anemia secondary to renal insufficiency. 5. Hypertension. 6. Dyslipidemia. 7. Hypothyroidism. 8. Glaucoma. 9. Diabetes mellitus type 2. 10. Metabolic acidosis. 11. Normal-pressure hydrocephalus, status post CHIEF CLERK shunt in the past. 12. History of renal cancer, requiring left nephrectomy. PLAN: Hemodialysis per Nephrology service. We will continue current antihypertensives with holding parameters. IV Lasix has been discontinued. We will monitor platelets while on heparin. Recheck CBC. Placement in a.m. Continue beta blockers. Job ID: [id number]
[2018-04-16] MEDS: Levothyroxine Sodium 25 MCG TAB PO SCH (05:20)
[2018-04-16] MEDS: Levothyroxine Sodium 112 MCG TAB PO SCH (05:20)
[2018-04-16 07:14] LABS: #Eosinphils 0.2 thou/uL (0.0-0.7); #Lymphocytes 1.1 thou/uL (1.20-3.40); #Monocytes 0.5 thou/uL (0.11-0.59); #Neutrophils 3.8 thou/uL (1.40-6.50); %Basophils 0.3 % (0.0-1.0); %Eosinophils 4.3 % (0.0-10.0); %Lymphocytes 19.5 % (21.0-51.0); %Monocytes 9.1 % (0.0-10.0); %Neutrophils 66.8 % (42.0-75.0); Hemoglobin 7.8 g/dL (12.0-16.0); Mean Corpuscular HGB CONC 32.1 g/dL (32.0-36.0); Mean Corpuscular Hemoglobin 30.4 pg (27.0-31.0); Mean Corpuscular Volume 94.9 fL (78.0-98.0); Mean Platelet Volume 10.3 fL (7.4-10.4); Platelet Count 98 thou/uL (130-400); RBC Distribution Width 12.2 % (11.5-14.5); Red Blood Cell (RBC) Count 2.56 mill/uL (4.20-5.40); White Blood Cell (WBC) Count 5.7 thou/uL (4.8-10.8)
[2018-04-16 07:24] LABS: Anion Gap 15 mmol/L (10-20); BUN (Urea Nitrogen) 64 mg/dL (9.8-20.1); Calc. Creatinine Clearance 24 mL/min (70-130); Calcium 8.4 mg/dL (7.8-10.44); Carbon Dioxide 21 mmol/L (23-31); Chloride 111 mmol/L (98-107); Estimated GFR-MDRD 14; Glucose 68 mg/dL (83-110); Potassium 3.7 mmol/L (3.5-5.1); Sodium 143 mmol/L (136-145)
[2018-04-16] MEDS: Aspirin 81 mg Enteric Coated Tablet PO SCH (08:01)
[2018-04-16] MEDS: Glimepiride 1 MG TAB PO SCH (08:01)
[2018-04-16] MEDS: Metoprolol Tartrate 25 MG TAB PO SCH (08:01)
[2018-04-16] MEDS: Ferrous Sulfate 325 MG TAB PO SCH ×2 (08:01→15:33)
[2018-04-16] MEDS: Calcium Carbonate + Vit D 1 TAB PO SCH (08:01)
[2018-04-16] MEDS: hydrALAZINE 25 MG TAB PO SCH ×3 (08:01→20:32)
[2018-04-16] MEDS: levETIRAcetam 500 MG TAB PO SCH ×2 (08:01→20:32)
[2018-04-16] MEDS: Thiamine 100 MG TAB PO SCH (08:02)
[2018-04-16] MEDS: Heparin 5,000 UNITS/ML VIAL SC SCH ×3 (08:02→20:34)
[2018-04-16] MEDS: Amlodipine 10 MG TAB PO SCH (08:02)
--- NOTE | 2018-04-16 10:34 | PRG ---
DATE OF SERVICE: 04/16/2018 SUBJECTIVE: Ms. Bee is a 72-year-old white female, who was initiated with dialysis due to uremic signs and symptoms and volume overload. She has been tolerating her dialysis. She did undergo a 2-hour hemodialysis yesterday, and she is doing well. She tolerated her treatment. Denies any complaints today. No chest pain or shortness of breath. OBJECTIVE: VITAL SIGNS: Blood pressure 142/65, heart rate 86, respiratory rate 20, temperature 97.9, pulse ox 96%. GENERAL: Awake, alert, and comfortable, not in distress. SKIN: Adequate turgor. HEENT: Slightly pale conjunctivae. Anicteric sclerae. NECK: No neck mass. No carotid bruits. No JVD. CHEST: No deformities. LUNGS: Clear breath sounds. HEART: Normal sinus rhythm. No murmur. No gallops. No rubs. ABDOMEN: Globular, soft, and nontender. No masses. EXTREMITIES: No edema. No deformities. MEDICATIONS: Medications of April 16, 2018, were reviewed. LABORATORY DATA: Laboratories of April 16, 2018: White count 5.7, hemoglobin 7.8. Sodium 143, potassium 3.7, chloride 111, carbon dioxide 21, BUN 64, creatinine 3.34, glucose 68, calcium 8.4. ASSESSMENT AND PLAN: 1. End-stage renal failure/secondary to HTN Nephropathy - tolerating hemodialysis. My plan is to do a 3-hour hemodialysis in a.m. Again, fluid removal as tolerated. 2. Congestive heart failure, clinically much improved with dialysis. 3. Hypertension. Continue current BP medications. 4. Anemia-currently on weekly Epogen as well as on iron supplementation. Overall, agree with current management. We will recheck CBC in a.m. Job ID: [id number] [facility]
--- NOTE | 2018-04-16 19:24 | PDOC.PN ---
- Subjective Encounter Start Date: 04/16/18 Encounter Start Time: 12:30 - Objective Resuscitation Status - Order Detail: 04/12/18 18:02 Resuscitation Status Routine Resuscitation Status: DNAR: NO Resuscitation Discussed with: Patient MAR Reviewed: Yes Vital Signs & Weight: Vital Signs (12 hours) Temp Pulse Resp BP Pulse Ox 04/16/18 15:40 97.9 F 76 18 128/59 L 98 04/16/18 15:32 73 04/16/18 13:11 97.4 F L 73 20 136/61 97 04/16/18 08:02 86 04/16/18 08:01 86 04/16/18 08:00 96 04/16/18 07:58 97.9 F 86 20 142/65 H 96 Weight Admit Weight 238 lb Weight 218 lb I&O: 04/15/18 04/16/18 04/17/18 06:59 06:59 06:59 Intake Total 720 920 640 Output Total 1250 2800 400 Balance -530 -1880 240 Result Diagrams: 04/16/18 06:07 04/16/18 06:07 Additional Labs: Accuchecks 04/16/18 04/16/18 04/16/18 17:43 17:19 16:39 POC Glucose 83 57 L* 68 L 04/16/18 04/16/18 04/15/18 10:47 05:15 20:42 POC Glucose 106 78 95 EKG Reviewed by me: Yes (Tele SR) Phys Exam - Physical Examination Constitutional: NAD Respiratory: no wheezing, no rhonchi Cardiovascular: RRR, no rub Gastrointestinal: soft, non-tender, positive bowel sounds Musculoskeletal: edema present Dx/Plan - Plan DVT proph w/SCDs IMPRESSION: 1. Volume overload. 2. Acute kidney injury on chronic kidney disease stage 5, started on hemodialysis. 3. Elevated troponin secondary to demand ischemia. 4. Chronic anemia secondary to renal insufficiency. 5. Hypertension. 6. Dyslipidemia. 7. Hypothyroidism. 8. Glaucoma. 9. Diabetes mellitus type 2 with hypoglycemia 10. Metabolic acidosis. 11. Normal-pressure hydrocephalus, status post WHITE SHOE RAGGER shunt in the past. 12. History of renal cancer, requiring left nephrectomy. PLAN: DC Amaryl DC Moore in AM Check iron profile CBC in AM Reduce Heparin to BID Cont other meds as below Await outpt dialysis setup Review of Systems - Review of Systems Respiratory: negative: Cough, Dry, Shortness of Breath, Hemoptysis, SOB with Excertion, Pleuritic Pain, Sputum, Wheezing Cardiovascular: negative: chest pain, palpitations, orthopnea, paroxysmal nocturnal dyspnea, edema, light headedness, other - Medications/Allergies Allergies/Adverse Reactions: Allergies Allergy/AdvReac Type Severity Reaction Status Date / Time azithromycin Allergy Verified 04/12/18 18:22 [From Zithromax Z-Gato] Penicillins Allergy Verified 04/12/18 18:22 Medications: Current Medications Acetaminophen (Tylenol) 650 mg PO Q4H PRN PRN Reason: Headache/Fever/Mild Pain (1-3) Amlodipine Besylate (Norvasc) 10 mg PO DAILY [facility] Last Admin: 04/16/18 08:02 Dose: 10 mg Aspirin (Ecotrin) 81 mg PO DAILY [facility] Last Admin: 04/16/18 08:01 Dose: 81 mg Atorvastatin Calcium (Lipitor) 40 mg PO [facility] Last Admin: 04/15/18 20:29 Dose: 40 mg Calcium/Vitamin D (Caltrate 600 + Vit D) 1 tab PO DAILY [facility] Last Admin: 04/16/18 08:01 Dose: 1 tab Clonidine (Rhtxyvdf-Zqt-1) 0.3 mg TD Q7D@1700 [facility] Last Admin: 04/14/18 20:40 Dose: 0.3 mg Dextrose/Water (Dextrose 50%) 25 gm SLOW IVP PRN PRN PRN Reason: Hypoglycemia Donepezil HCl (Aricept) 10 mg PO [facility] Last Admin: 04/15/18 20:29 Dose: 10 mg Epoetin Grabiel (Procrit) 7,500 units SC Q7D@0900 [facility] Last Admin: 04/13/18 09:37 Dose: 7,500 units Ferrous Sulfate (Feosol) 325 mg PO BID-[facility] Last Admin: 04/16/18 15:33 Dose: 325 mg Glimepiride (Amaryl) 1 mg PO QAM-[facility] Last Admin: 04/16/18 08:01 Dose: 1 mg Glucagon (Glucagon) 1 mg IM PRN PRN PRN Reason: Hypoglycemia Heparin Sodium (Porcine) (Heparin) 5,000 units SC TID [facility] Last Admin: 04/16/18 15:32 Dose: 5,000 units Hydralazine HCl (Apresoline) 100 mg PO TID [facility] Last Admin: 04/16/18 15:32 Dose: 100 mg Dextrose/Water (D5w) 1,000 mls @ 0 mls/hr IV .Q0M PRN PRN Reason: Hypoglycemia Insulin Human Lispro (Humalog) 0 units SC .MILD SLIDING SCALE PRN PRN Reason: Mild Correctional Scale Latanoprost (Xalatan 0.005% Ophth Soln) 1 drop EA EYE QPM [facility] Last Admin: 04/15/18 20:31 Dose: 1 drop Levetiracetam (Keppra) 500 mg PO BID [facility] Last Admin: 04/16/18 08:01 Dose: 500 mg Levothyroxine Sodium (Synthroid) 112 mcg PO 0600 [facility] Last Admin: 04/16/18 05:20 Dose: 112 mcg Levothyroxine Sodium (Synthroid) 25 mcg PO 0600 [facility] Last Admin: 04/16/18 05:20 Dose: 25 mcg Metoprolol Tartrate (Lopressor) 50 mg PO DAILY [facility] Last Admin: 04/16/18 08:01 Dose: 50 mg Minoxidil (Minoxidil) 2.5 mg PO HS [facility] Last Admin: 04/15/18 20:31 Dose: 2.5 mg Ondansetron HCl (Zofran Odt) 8 mg SL Q8HR PRN PRN Reason: Nausea Sodium Chloride (Flush - Normal Saline) 10 ml IVF Q12HR [facility] Last Admin: 04/16/18 08:16 Dose: Not Given Sodium Chloride (Flush - Normal Saline) 10 ml IVF PRN PRN PRN Reason: Saline Flush Last Admin: 04/13/18 14:07 Dose: 10 ml Thiamine HCl (Thiamine) 50 mg PO DAILY [facility] Last Admin: 04/16/18 08:02 Dose: 50 mg
[2018-04-16] MEDS ORDERED: Bisacodyl 10 MG SUPP PR PRN (19:33)
[2018-04-16] MEDS: Minoxidil 2.5 MG TAB PO SCH (20:33)
[2018-04-16] MEDS: Latanoprost 0.005% Ophth Soln 2.5 ml Bottle EA EYE SCH (20:33)
[2018-04-16] MEDS: Donepezil HCl 10 MG TAB PO SCH (20:33)
[2018-04-16] MEDS: Atorvastatin Calcium 40 MG TAB PO SCH (20:33)
[2018-04-16] MEDS: Senokot S 8.6-50 MG TAB PO SCH (20:33)
[2018-04-17] MEDS: Levothyroxine Sodium 112 MCG TAB PO SCH (05:52)
[2018-04-17] MEDS: Levothyroxine Sodium 25 MCG TAB PO SCH (05:52)
[2018-04-17 06:59] LABS: Reticulocyte Count 3.6 % (0.5-1.5)
[2018-04-17 07:07] LABS: Iron 25 ug/dL (50-170); Iron Binding Capacity, Total 179 mcg/dL (265-497)
[2018-04-17 07:20] LABS: #Eosinphils 0.3 thou/uL (0.0-0.7); #Lymphocytes 1.4 thou/uL (1.20-3.40); #Monocytes 0.7 thou/uL (0.11-0.59); %Basophils 0.2 % (0.0-1.0); %Lymphocytes 18.5 % (21.0-51.0); %Monocytes 9.1 % (0.0-10.0); %Neutrophils 68.3 % (42.0-75.0); Hemoglobin 8.6 g/dL (12.0-16.0); Mean Corpuscular HGB CONC 33.1 g/dL (32.0-36.0); Mean Corpuscular Hemoglobin 31.4 pg (27.0-31.0); Mean Platelet Volume 10.6 fL (7.4-10.4); Platelet Count 100 thou/uL (130-400); RBC Distribution Width 12.3 % (11.5-14.5); Red Blood Cell (RBC) Count 2.74 mill/uL (4.20-5.40); White Blood Cell (WBC) Count 7.3 thou/uL (4.8-10.8)
[2018-04-17] MEDS ORDERED: Polyethylene Glycol 3350 17 GM Packet PO SCH (09:00)
--- NOTE | 2018-04-17 09:40 | PRG ---
DATE OF SERVICE: 04/17/2018 SUBJECTIVE: Ms. Bee is a 72-year-old white female with chronic renal failure, was admitted for uremia/CHF. She was initiated on dialysis. She is currently being dialyzed. I am at the bedside supervising her dialysis. No new complaints. OBJECTIVE: VITAL SIGNS: Blood pressure 132/62, heart rate 91, respiratory rate 20, temperature 98.3, and pulse ox 96%. GENERAL: Awake, alert, and comfortable, not in distress. SKIN: Adequate turgor. HEENT: Slightly pale conjunctivae. Anicteric sclerae. No neck mass. No carotid bruits. No JVD. CHEST: No deformities. LUNGS: Clear breath sounds. No wheezing. No crackles. HEART: Normal sinus rhythm. No murmur. No gallops. No rubs. ABDOMEN: Globular, soft. Nontender. No masses. EXTREMITIES: No edema. No deformities. MEDICATIONS: Of April 17, 2018, reviewed. LABORATORIES: April 17, 2018; white count 7.3 and hemoglobin 8.6. Iron is 25. April 16, 2018; BUN 64 and creatinine 3.34. ASSESSMENT AND PLAN: 1. Anemia-continue weekly Epogen and iron supplementation. 2. Chronic renal failure-hemodialysis has been initiated due to uremic signs and symptoms as well as volume overload. Doing well. Continuing daily dialysis. My plan is to do a 4-hour hemodialysis tomorrow. 3. Agree with current management. Job ID: [id number]
[2018-04-17] MEDS ORDERED: Heparin 1,000 UNITS/ML VIAL ONE (11:11)
[2018-04-17] MEDS: Metoprolol Tartrate 25 MG TAB PO SCH (12:09)
[2018-04-17] MEDS: Thiamine 100 MG TAB PO SCH (12:09)
[2018-04-17] MEDS: Calcium Carbonate + Vit D 1 TAB PO SCH (12:10)
[2018-04-17] MEDS: Aspirin 81 mg Enteric Coated Tablet PO SCH (12:10)
[2018-04-17] MEDS: Amlodipine 10 MG TAB PO SCH (12:10)
[2018-04-17] MEDS: levETIRAcetam 500 MG TAB PO SCH ×2 (12:10→20:48)
[2018-04-17] MEDS: Heparin 5,000 UNITS/ML VIAL SC SCH ×2 (12:10→20:48)
[2018-04-17] MEDS: Ferrous Sulfate 325 MG TAB PO SCH ×2 (12:10→16:06)
[2018-04-17] MEDS: hydrALAZINE 25 MG TAB PO SCH ×3 (12:10→20:47)
[2018-04-17] MEDS: Senokot S 8.6-50 MG TAB PO SCH (12:11)
[2018-04-17] MEDS ORDERED: Calcium Carbonate 500 MG ChewTAB PO PRN (17:35)
[2018-04-17] MEDS: Atorvastatin Calcium 40 MG TAB PO SCH (20:47)
[2018-04-17] MEDS: Donepezil HCl 10 MG TAB PO SCH (20:48)
[2018-04-17] MEDS: Minoxidil 2.5 MG TAB PO SCH (20:48)
[2018-04-17] MEDS: Latanoprost 0.005% Ophth Soln 2.5 ml Bottle EA EYE SCH (20:48)
--- NOTE | 2018-04-17 21:28 | PDOC.PN ---
- Subjective Encounter Start Date: 04/17/18 Encounter Start Time: 17:30 Patient seen and examined for Volume overload. No new complaints. No overnight events - Objective Resuscitation Status - Order Detail: 04/12/18 18:02 Resuscitation Status Routine Resuscitation Status: DNAR: NO Resuscitation Discussed with: Patient MICHELLE Reviewed: Yes Vital Signs & Weight: Vital Signs (12 hours) Temp Pulse Resp BP BP Pulse Ox 04/17/18 20:47 70 124/57 L 04/17/18 16:06 70 121/59 L 04/17/18 16:03 98.8 F 70 18 121/59 L 98 04/17/18 11:45 97.0 F L 90 20 170/71 H 97 Weight Admit Weight 238 lb Weight 229 lb 8.019 oz I&O: 04/16/18 04/17/18 04/18/18 06:59 06:59 06:59 Intake Total 920 640 600 Output Total 2800 950 3950 Balance -0006 -068 -9426 Result Diagrams: 04/17/18 05:39 04/16/18 06:07 Additional Labs: Accuchecks 04/17/18 04/17/18 04/17/18 20:39 16:36 05:27 POC Glucose 173 H 162 H 68 L 04/16/18 20:17 POC Glucose 94 Laboratory Tests 04/17/18 04/17/18 04/17/18 05:39 05:39 05:39 Retic Count 3.6 H Iron 25 L TIBC 179 L % Saturation 14 L Ferritin 106.96 EKG Reviewed by me: Yes (Tele SR) Phys Exam - Physical Examination Constitutional: NAD Respiratory: no wheezing, no rhonchi Cardiovascular: RRR, no rub Gastrointestinal: soft, positive bowel sounds Musculoskeletal: edema present (improving) Dx/Plan - Plan PT/OT, DVT proph w/heparin, DVT proph w/SCDs IMPRESSION: 1. Volume overload. 2. Acute kidney injury on chronic kidney disease stage 5, started on hemodialysis. 3. Elevated troponin secondary to demand ischemia. 4. Chronic anemia secondary to renal insufficiency. 5. Hypertension. 6. Dyslipidemia. 7. Hypothyroidism. 8. Glaucoma. 9. Diabetes mellitus type 2 with hypoglycemia 10. Metabolic acidosis. 11. 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 12. History of renal cancer, requiring left nephrectomy. PLAN: Cont meds as below DC Miralax Stable for discharge Await outpt dialysis setup Review of Systems - Review of Systems Respiratory: negative: Cough, Dry, Shortness of Breath, Hemoptysis, SOB with Excertion, Pleuritic Pain, Sputum, Wheezing Cardiovascular: negative: chest pain, palpitations, orthopnea, paroxysmal nocturnal dyspnea, edema, light headedness, other Gastrointestinal: negative: Nausea, Vomiting, Abdominal Pain, Diarrhea, Constipation, Melena, Hematochezia, Other - Medications/Allergies Allergies/Adverse Reactions: Allergies Allergy/AdvReac Type Severity Reaction Status Date / Time azithromycin Allergy Verified 04/12/18 18:22 [From Zithromax Z-Gato] Penicillins Allergy Verified 04/12/18 18:22 Medications: Current Medications Acetaminophen (Tylenol) 650 mg PO Q4H PRN PRN Reason: Headache/Fever/Mild Pain (1-3) Amlodipine Besylate (Norvasc) 10 mg PO DAILY [facility] Last Admin: 04/17/18 12:10 Dose: 10 mg Aspirin (Ecotrin) 81 mg PO DAILY [facility] Last Admin: 04/17/18 12:10 Dose: 81 mg Atorvastatin Calcium (Lipitor) 40 mg PO [facility] Last Admin: 04/17/18 20:47 Dose: 40 mg Bisacodyl (Dulcolax) 10 mg [place] DAILYPRN PRN PRN Reason: Constipation Calcium Carbonate (Tums) 1,000 mg PO Q4H PRN PRN Reason: Heartburn or Indigestion Calcium/Vitamin D (Caltrate 600 + Vit D) 1 tab PO DAILY [facility] Last Admin: 04/17/18 12:10 Dose: 1 tab Clonidine (Aftjpuwu-Goi-2) 0.3 mg TD Q7D@1700 [facility] Last Admin: 04/14/18 20:40 Dose: 0.3 mg Dextrose/Water (Dextrose 50%) 25 gm SLOW IVP PRN PRN PRN Reason: Hypoglycemia Donepezil HCl (Aricept) 10 mg PO [facility] Last Admin: 04/17/18 20:48 Dose: 10 mg Epoetin Grabiel (Procrit) 7,500 units SC Q7D@0900 [facility] Last Admin: 04/13/18 09:37 Dose: 7,500 units Ferrous Sulfate (Feosol) 325 mg PO BID-[facility] Last Admin: 04/17/18 16:06 Dose: 325 mg Glucagon (Glucagon) 1 mg IM PRN PRN PRN Reason: Hypoglycemia Heparin Sodium (Porcine) (Heparin) 5,000 units SC BID [facility] Last Admin: 04/17/18 20:48 Dose: Not Given Hydralazine HCl (Apresoline) 100 mg PO TID [facility] Last Admin: 04/17/18 20:47 Dose: 100 mg Dextrose/Water (D5w) 1,000 mls @ 0 mls/hr IV .Q0M PRN PRN Reason: Hypoglycemia Insulin Human Lispro (Humalog) 0 units SC .MILD SLIDING SCALE PRN PRN Reason: Mild Correctional Scale Latanoprost (Xalatan 0.005% Ophth Soln) 1 drop EA EYE QPM [facility] Last Admin: 04/17/18 20:48 Dose: 1 drop Levetiracetam (Keppra) 500 mg PO BID [facility] Last Admin: 04/17/18 20:48 Dose: 500 mg Levothyroxine Sodium (Synthroid) 112 mcg PO 0600 [facility] Last Admin: 04/17/18 05:52 Dose: 112 mcg Levothyroxine Sodium (Synthroid) 25 mcg PO 0600 [facility] Last Admin: 04/17/18 05:52 Dose: 25 mcg Metoprolol Tartrate (Lopressor) 50 mg PO DAILY [facility] Last Admin: 04/17/18 12:09 Dose: 50 mg Minoxidil (Minoxidil) 2.5 mg PO HS [facility] Last Admin: 04/17/18 20:48 Dose: 2.5 mg Ondansetron HCl (Zofran Odt) 8 mg SL Q8HR PRN PRN Reason: Nausea Polyethylene Glycol (Miralax) 17 gm PO DAILY PRN PRN Reason: Constipation Sodium Chloride (Flush - Normal Saline) 10 ml IVF Q12HR [facility] Last Admin: 04/17/18 20:49 Dose: 10 ml Sodium Chloride (Flush - Normal Saline) 10 ml IVF PRN PRN PRN Reason: Saline Flush Last Admin: 04/13/18 14:07 Dose: 10 ml Thiamine HCl (Thiamine) 50 mg PO DAILY [facility] Last Admin: 04/17/18 12:09 Dose: 50 mg
[2018-04-18] MEDS: Levothyroxine Sodium 112 MCG TAB PO SCH (05:43)
[2018-04-18] MEDS: Levothyroxine Sodium 25 MCG TAB PO SCH (05:43)
[2018-04-18] MEDS: hydrALAZINE 25 MG TAB PO SCH ×3 (08:08→21:13)
[2018-04-18] MEDS: Ferrous Sulfate 325 MG TAB PO SCH ×2 (08:08→16:28)
[2018-04-18] MEDS: Heparin 5,000 UNITS/ML VIAL SC SCH ×2 (08:40→21:13)
--- NOTE | 2018-04-18 09:29 | PRG ---
DATE OF SERVICE: SUBJECTIVE: Ms. Bee is a 72-year-old white female, who was initially admitted for CHF and uremic sign and symptoms. We initiated hemodialysis. She has been receiving daily dialysis and tolerating said treatment. No new complaints today. She feels better. Denies any chest pain or shortness of breath. No acute events noted last night. She is undergoing dialysis and I am at the bedside supervising her dialysis. OBJECTIVE: VITAL SIGNS: Blood pressure is 126/58, heart rate 82, respiratory rate 16, temperature 98.8, and pulse ox 95%. GENERAL: Awake, alert, comfortable, not in distress. SKIN: Adequate turgor. HEENT: Slightly pale conjunctivae. Anicteric sclerae. No neck mass. No carotid bruits. No JVD. CHEST: No deformities. LUNGS: Clear breath sounds. No wheezing. No crackles. HEART: Normal sinus rhythm. No murmur. No gallops. No rubs. ABDOMEN: Globular, soft, and nontender. No masses. EXTREMITIES: No edema. No deformities. MEDICATIONS: Reviewed for April 18, 2018. LABORATORY DATA: April 17, 2018, hemoglobin 8.6; April 18, 2018, glucose 104. April 16, 2018, BUN 64 and creatinine 3.34. ASSESSMENT AND PLAN: 1. Anemia, on weekly Epogen and iron supplementation. 2. Chronic renal failure/end-stage renal disease - the patient will undergo hemodialysis today. We will then resume her back now on 3 times a week hemodialysis regimen. Awaiting placement. 3. Congestive heart failure/uremia, clinically much improved with hemodialysis. Agree with current management. Job ID: [id number]
[2018-04-18] MEDS: Amlodipine 10 MG TAB PO SCH (12:38)
[2018-04-18] MEDS: Aspirin 81 mg Enteric Coated Tablet PO SCH (12:39)
[2018-04-18] MEDS: Calcium Carbonate + Vit D 1 TAB PO SCH (12:40)
[2018-04-18] MEDS: levETIRAcetam 500 MG TAB PO SCH ×2 (12:41→21:14)
[2018-04-18] MEDS: Thiamine 100 MG TAB PO SCH (12:41)
[2018-04-18] MEDS: Metoprolol Tartrate 25 MG TAB PO SCH (12:42)
--- NOTE | 2018-04-18 14:02 | PDOC.GSPN ---
Surgery Progress Note: Subj - Subjective Narrative: Patient feels fine and is tolerating dialysis. No pain numbness or tingling in her right hand. She has an excellent thrill in her cephalic vein and her incision looks good. She can follow up with me as an outpatient in 2-3 weeks after discharge. Surgery Progress Note: Obj - Vital signs Vital signs: Vital Signs - Most Recent Temp Pulse Resp BP Pulse Ox 98.2 F 74 17 147/63 H 99 04/18/18 12:27 04/18/18 12:38 04/18/18 12:27 04/18/18 12:38 04/18/18 12:27 Surgery Progress Note: Results - Labs Result Diagrams: 04/17/18 05:39 04/16/18 06:07 Lab results: Laboratory Results - last 24 hr 04/18/18 04/18/18 05:15 12:14 POC Glucose 104 79 - Radiology Interpretation US - venous Status: report reviewed by me Additional comments: Right forearm cephalic vein of good caliber and quality. Smaller cephalic vein on the left but upper arm basilic looks okay. Surgery Progress Note: A/P - Problem (1) [id number] kidney injury Current Visit: No Code(s): N17.9 - ACUTE KIDNEY FAILURE, UNSPECIFIED; N18.9 - CHRONIC KIDNEY DISEASE, UNSPECIFIED Status: Acute Qualifiers: Chronic kidney disease stage: stage 4 (severe)
[2018-04-18] MEDS: Polyethylene Glycol 3350 17 GM Packet PO PRN (16:29)
--- NOTE | 2018-04-18 20:40 | PDOC.PN ---
- Subjective Encounter Start Date: 04/18/18 Encounter Start Time: 14:00 Patient seen and examined for Volume overload. Feels gen weak. No new complaints. No overnight events - Objective Resuscitation Status - Order Detail: 04/12/18 18:02 Resuscitation Status Routine Resuscitation Status: DNAR: NO Resuscitation Discussed with: Patient MAR Reviewed: Yes Vital Signs & Weight: Vital Signs (12 hours) Temp Pulse Pulse Pulse Resp BP BP 04/18/18 16:26 98.1 F 69 18 04/18/18 15:30 68 70 113/56 L 04/18/18 14:24 72 70 113/59 L 04/18/18 12:38 74 147/63 H 04/18/18 12:27 98.2 F 74 17 BP BP Pulse Ox 04/18/18 16:26 115/55 L 96 04/18/18 15:30 127/58 L 04/18/18 14:24 108/53 L 04/18/18 12:38 04/18/18 12:27 147/63 H 99 Weight Admit Weight 238 lb Weight 211 lb 12.8 oz I&O: 04/17/18 04/18/18 04/19/18 06:59 06:59 06:59 Intake Total 640 960 480 Output Total 950 3950 Balance -310 -2990 480 Result Diagrams: 04/17/18 05:39 04/16/18 06:07 Additional Labs: Accuchecks 04/18/18 04/18/18 04/18/18 16:29 12:14 05:15 POC Glucose 122 H 79 104 04/17/18 20:39 POC Glucose 173 H EKG Reviewed by me: Yes (Tele SR) Phys Exam - Physical Examination Constitutional: NAD Respiratory: no wheezing, no rhonchi Cardiovascular: RRR, no rub Gastrointestinal: soft, non-tender, positive bowel sounds Dx/Plan - Plan DVT proph w/heparin, DVT proph w/SCDs IMPRESSION: 1. Volume overload. 2. Acute kidney injury on chronic kidney disease stage 5, started on hemodialysis. 3. Elevated troponin secondary to demand ischemia. 4. Chronic anemia secondary to renal insufficiency. 5. Hypertension. 6. Dyslipidemia. 7. Hypothyroidism. 8. Glaucoma. 9. Diabetes mellitus type 2 with hypoglycemia. 10. Metabolic acidosis. 11. Normal-pressure hydrocephalus, status post DIRECTOR CASE shunt in the past. 12. History of renal cancer, requiring left nephrectomy. PLAN: Await placement and outpatient dialysis setup Cont Clonidine and Amlodipine Cont meds as below Stable for discharge CBC/BMP in AM Review of Systems - Review of Systems Respiratory: negative: Cough, Dry, Shortness of Breath, Hemoptysis, SOB with Excertion, Pleuritic Pain, Sputum, Wheezing Cardiovascular: negative: chest pain, palpitations, orthopnea, paroxysmal nocturnal dyspnea, edema, light headedness, other - Medications/Allergies Allergies/Adverse Reactions: Allergies Allergy/AdvReac Type Severity Reaction Status Date / Time azithromycin Allergy Verified 04/12/18 18:22 [From Zithromax Z-Gato] Penicillins Allergy Verified 04/12/18 18:22 Medications: Current Medications Acetaminophen (Tylenol) 650 mg PO Q4H PRN PRN Reason: Headache/Fever/Mild Pain (1-3) Amlodipine Besylate (Norvasc) 10 mg PO DAILY [facility] Last Admin: 04/18/18 12:38 Dose: 10 mg Aspirin (Ecotrin) 81 mg PO DAILY [facility] Last Admin: 04/18/18 12:39 Dose: Not Given Atorvastatin Calcium (Lipitor) 40 mg PO HS [facility] Last Admin: 04/17/18 20:47 Dose: 40 mg Bisacodyl (Dulcolax) 10 mg [place] DAILYPRN PRN PRN Reason: Constipation Calcium Carbonate (Tums) 1,000 mg PO Q4H PRN PRN Reason: Heartburn or Indigestion Calcium/Vitamin D (Caltrate 600 + Vit D) 1 tab PO DAILY [facility] Last Admin: 04/18/18 12:40 Dose: 1 tab Clonidine (Dsfsubfs-Cdg-2) 0.3 mg TD Q7D@1700 [facility] Last Admin: 04/14/18 20:40 Dose: 0.3 mg Dextrose/Water (Dextrose 50%) 25 gm SLOW IVP PRN PRN PRN Reason: Hypoglycemia Donepezil HCl (Aricept) 10 mg PO [facility] Last Admin: 04/17/18 20:48 Dose: 10 mg Epoetin Grabiel (Procrit) 7,500 units SC Q7D@0900 [facility] Last Admin: 04/13/18 09:37 Dose: 7,500 units Ferrous Sulfate (Feosol) 325 mg PO BID-[facility] Last Admin: 04/18/18 16:28 Dose: 325 mg Glucagon (Glucagon) 1 mg IM PRN PRN PRN Reason: Hypoglycemia Heparin Sodium (Porcine) (Heparin) 5,000 units SC BID [facility] Last Admin: 04/18/18 08:40 Dose: Not Given Hydralazine HCl (Apresoline) 100 mg PO TID [facility] Last Admin: 04/18/18 16:28 Dose: Not Given Dextrose/Water (D5w) 1,000 mls @ 0 mls/hr IV .Q0M PRN PRN Reason: Hypoglycemia Insulin Human Lispro (Humalog) 0 units SC .MILD SLIDING SCALE PRN PRN Reason: Mild Correctional Scale Latanoprost (Xalatan 0.005% Ophth Soln) 1 drop EA EYE QPM [facility] Last Admin: 04/17/18 20:48 Dose: 1 drop Levetiracetam (Keppra) 500 mg PO BID [facility] Last Admin: 04/18/18 12:41 Dose: 500 mg Levothyroxine Sodium (Synthroid) 112 mcg PO 0600 [facility] Last Admin: 04/18/18 05:43 Dose: 112 mcg Levothyroxine Sodium (Synthroid) 25 mcg PO 0600 [facility] Last Admin: 04/18/18 05:43 Dose: 25 mcg Metoprolol Tartrate (Lopressor) 50 mg PO DAILY [facility] Last Admin: 04/18/18 12:42 Dose: 50 mg Minoxidil (Minoxidil) 2.5 mg PO HS [facility] Last Admin: 04/17/18 20:48 Dose: 2.5 mg Ondansetron HCl (Zofran Odt) 8 mg SL Q8HR PRN PRN Reason: Nausea Polyethylene Glycol (Miralax) 17 gm PO DAILY PRN PRN Reason: Constipation Last Admin: 04/18/18 16:29 Dose: 17 gm Sodium Chloride (Flush - Normal Saline) 10 ml IVF Q12HR [facility] Last Admin: 04/18/18 12:43 Dose: Not Given Sodium Chloride (Flush - Normal Saline) 10 ml IVF PRN PRN PRN Reason: Saline Flush Last Admin: 04/13/18 14:07 Dose: 10 ml Thiamine HCl (Thiamine) 50 mg PO DAILY [facility] Last Admin: 04/18/18 12:41 Dose: 50 mg
[2018-04-18] MEDS: Atorvastatin Calcium 40 MG TAB PO SCH (21:11)
[2018-04-18] MEDS: Donepezil HCl 10 MG TAB PO SCH (21:12)
[2018-04-18] MEDS: Minoxidil 2.5 MG TAB PO SCH (21:13)
[2018-04-18] MEDS: Latanoprost 0.005% Ophth Soln 2.5 ml Bottle EA EYE SCH (21:14)
[2018-04-19] MEDS: Levothyroxine Sodium 112 MCG TAB PO SCH (04:53)
[2018-04-19] MEDS: Levothyroxine Sodium 25 MCG TAB PO SCH (04:53)
[2018-04-19 06:23] LABS: #Eosinphils 0.2 thou/uL (0.0-0.7); #Lymphocytes 1.1 thou/uL (1.20-3.40); #Monocytes 0.6 thou/uL (0.11-0.59); #Neutrophils 3.5 thou/uL (1.40-6.50); %Basophils 0.2 % (0.0-1.0); %Eosinophils 3.8 % (0.0-10.0); %Lymphocytes 20.5 % (21.0-51.0); %Monocytes 11.7 % (0.0-10.0); %Neutrophils 63.9 % (42.0-75.0); Hemoglobin 8.1 g/dL (12.0-16.0); Mean Corpuscular HGB CONC 32.4 g/dL (32.0-36.0); Mean Corpuscular Hemoglobin 31.4 pg (27.0-31.0); Mean Platelet Volume 10.2 fL (7.4-10.4); Platelet Count 93 thou/uL (130-400); RBC Distribution Width 12.2 % (11.5-14.5); Red Blood Cell (RBC) Count 2.58 mill/uL (4.20-5.40); White Blood Cell (WBC) Count 5.5 thou/uL (4.8-10.8)
[2018-04-19 06:47] LABS: Anion Gap 11 mmol/L (10-20); BUN (Urea Nitrogen) 22 mg/dL (9.8-20.1); Calc. Creatinine Clearance 34 mL/min (70-130); Calcium 8.5 mg/dL (7.8-10.44); Carbon Dioxide 29 mmol/L (23-31); Chloride 104 mmol/L (98-107); Estimated GFR-MDRD 22; Glucose 113 mg/dL (83-110); Potassium 4.1 mmol/L (3.5-5.1); Sodium 140 mmol/L (136-145)
--- NOTE | 2018-04-19 08:51 | PRG ---
DATE OF SERVICE: 04/19/2018 SUBJECTIVE: Ms. Bee is a 72-year-old white female with chronic renal failure and was admitted due to volume overload and uremic sign and symptoms. Hemodialysis has been initiated. She is tolerating said treatment. Yesterday, she received a 4-hour hemodialysis treatment. No other complaints today. Denies any chest pain or shortness of breath. OBJECTIVE: VITAL SIGNS: Blood pressure 114/57, heart rate 77, respiratory rate 16, temperature 98, and pulse ox 95%. GENERAL: Awake, alert, and comfortable, not in distress. SKIN: Adequate turgor. HEENT: Slightly pale conjunctivae. Anicteric sclerae. NECK: No neck mass. No carotid bruits. No JVD. CHEST: No deformities. LUNGS: Clear breath sounds. HEART: Normal sinus rhythm. No murmurs. No gallops. No rubs. ABDOMEN: Globular, soft, and nontender. No masses. EXTREMITIES: No edema. No deformities. MEDICATIONS: Medications of April 19, 2018, was reviewed. LABORATORY DATA: Laboratories of April 19, 2018; white count 5.5, hemoglobin 8.1, and hematocrit 25. Sodium 140, potassium 4.1, chloride 104, carbon dioxide 29, BUN 22, creatinine 2.22, glucose 113, and calcium 8.5. ASSESSMENT AND PLAN: 1. Chronic renal failure - tolerating hemodialysis. Continue 3 times a week hemodialysis with fluid removal. 2. Congestive heart failure, clinically much improved. 3. Anemia - currently on weekly Epogen and iron supplementation. 4. Labile hypertension, much improved BP with initiation of dialysis. For the moment, continue current management. Awaiting outpatient dialysis placement. Job ID: [id number]
[2018-04-19] MEDS: Ferrous Sulfate 325 MG TAB PO SCH ×2 (08:55→18:39)
[2018-04-19] MEDS: Calcium Carbonate + Vit D 1 TAB PO SCH (08:55)
[2018-04-19] MEDS: levETIRAcetam 500 MG TAB PO SCH ×2 (08:55→20:30)
[2018-04-19] MEDS: Metoprolol Tartrate 25 MG TAB PO SCH (08:55)
[2018-04-19] MEDS: Thiamine 100 MG TAB PO SCH (08:56)
[2018-04-19] MEDS ORDERED: cloNIDine 0.3mg/24 Hour PATCH TD SCH (09:00)
[2018-04-19] MEDS: hydrALAZINE 25 MG TAB PO SCH ×3 (10:15→20:27)
[2018-04-19] MEDS: Amlodipine 10 MG TAB PO SCH (10:15)
[2018-04-19] MEDS: Heparin 5,000 UNITS/ML VIAL SC SCH ×2 (10:16→20:26)
[2018-04-19] MEDS: Donepezil HCl 10 MG TAB PO SCH (20:26)
[2018-04-19] MEDS: Atorvastatin Calcium 40 MG TAB PO SCH (20:26)
[2018-04-19] MEDS: Latanoprost 0.005% Ophth Soln 2.5 ml Bottle EA EYE SCH (20:30)
[2018-04-19] MEDS: Minoxidil 2.5 MG TAB PO SCH (20:32)
--- NOTE | 2018-04-19 21:47 | PDOC.PN ---
- Subjective Encounter Start Date: 04/19/18 Encounter Start Time: 11:30 Patient seen and examined for ESRD/Volume overload. No CP/SOB. No new complaints. No overnight events - Objective Resuscitation Status - Order Detail: 04/12/18 18:02 Resuscitation Status Routine Resuscitation Status: DNAR: NO Resuscitation Discussed with: Patient MAR Reviewed: Yes Vital Signs & Weight: Vital Signs (12 hours) Temp Pulse Resp BP BP Pulse Ox 04/19/18 20:27 72 114/53 L 04/19/18 16:55 72 16 139/62 98 04/19/18 12:26 98.6 F 72 16 118/56 L 96 Weight Admit Weight 238 lb Weight 207 lb 1.6 oz I&O: 04/18/18 04/19/18 04/20/18 06:59 06:59 06:59 Intake Total 960 580 720 Output Total 3950 Balance -2990 580 720 Result Diagrams: 04/19/18 06:09 04/19/18 06:09 Additional Labs: Accuchecks 04/19/18 04/19/18 04/19/18 20:36 17:18 10:43 POC Glucose 169 H 133 H 167 H 04/19/18 05:55 POC Glucose 121 H EKG Reviewed by me: Yes (Tele SR) Phys Exam - Physical Examination Constitutional: NAD Respiratory: no wheezing, no rhonchi Cardiovascular: RRR, no rub Gastrointestinal: soft, non-tender, positive bowel sounds Dx/Plan - Plan DVT proph w/heparin, DVT proph w/SCDs 1. Volume overload. improving 2. Acute kidney injury on chronic kidney disease stage 5, started on hemodialysis. 3. Elevated troponin secondary to demand ischemia. 4. Chronic anemia secondary to renal insufficiency. 5. Hypertension. 6. Dyslipidemia. 7. Hypothyroidism. 8. Glaucoma. 9. Diabetes mellitus type 2 with hypoglycemia. 10. Metabolic acidosis. 11. Normal-pressure hydrocephalus, status post SOFTWARE SUPPORT ANALYST shunt in the past. 12. History of renal cancer, requiring left nephrectomy. 13. Thrombocytopenia PLAN: Patient is refusing ASA - due to intracranial bleed in the past Will hold Heparin due to thrombocytopenia Await SNF placement/outpatient dialysis setup Cont current meds including Clonidine and Amlodipine Stable for discharge AM labs Review of Systems - Review of Systems Respiratory: negative: Cough, Dry, Shortness of Breath, Hemoptysis, SOB with Excertion, Pleuritic Pain, Sputum, Wheezing Cardiovascular: negative: chest pain, palpitations, orthopnea, paroxysmal nocturnal dyspnea, edema, light headedness, other - Medications/Allergies Allergies/Adverse Reactions: Allergies Allergy/AdvReac Type Severity Reaction Status Date / Time azithromycin Allergy Verified 04/12/18 18:22 [From Zithromax Z-Gato] Penicillins Allergy Verified 04/12/18 18:22 Medications: Current Medications Acetaminophen (Tylenol) 650 mg PO Q4H PRN PRN Reason: Headache/Fever/Mild Pain (1-3) Amlodipine Besylate (Norvasc) 10 mg PO DAILY [facility] Last Admin: 04/19/18 10:15 Dose: Not Given Atorvastatin Calcium (Lipitor) 40 mg PO [facility] Last Admin: 04/19/18 20:26 Dose: 40 mg Bisacodyl (Dulcolax) 10 mg [place] DAILYPRN PRN PRN Reason: Constipation Calcium Carbonate (Tums) 1,000 mg PO Q4H PRN PRN Reason: Heartburn or Indigestion Calcium/Vitamin D (Caltrate 600 + Vit D) 1 tab PO DAILY [facility] Last Admin: 04/19/18 08:55 Dose: 1 tab Clonidine (Zuvjwkjk-Nub-0) 0.3 mg TD Q7D@1700 [facility] Last Admin: 04/14/18 20:40 Dose: 0.3 mg Dextrose/Water (Dextrose 50%) 25 gm SLOW IVP PRN PRN PRN Reason: Hypoglycemia Donepezil HCl (Aricept) 10 mg PO [facility] Last Admin: 04/19/18 20:26 Dose: 10 mg Epoetin Grabiel (Procrit) 7,500 units SC Q7D@0900 [facility] Last Admin: 04/13/18 09:37 Dose: 7,500 units Ferrous Sulfate (Feosol) 325 mg PO BID-[facility] Last Admin: 04/19/18 18:39 Dose: 325 mg Glucagon (Glucagon) 1 mg IM PRN PRN PRN Reason: Hypoglycemia Heparin Sodium (Porcine) (Heparin) 5,000 units SC BID [facility] Last Admin: 04/19/18 20:26 Dose: Not Given Hydralazine HCl (Apresoline) 100 mg PO TID [facility] Last Admin: 04/19/18 20:27 Dose: Not Given Dextrose/Water (D5w) 1,000 mls @ 0 mls/hr IV .Q0M PRN PRN Reason: Hypoglycemia Insulin Human Lispro (Humalog) 0 units SC .MILD SLIDING SCALE PRN PRN Reason: Mild Correctional Scale Latanoprost (Xalatan 0.005% Ophth Soln) 1 drop EA EYE QPM [facility] Last Admin: 04/19/18 20:30 Dose: 1 drop Levetiracetam (Keppra) 500 mg PO BID [facility] Last Admin: 04/19/18 20:30 Dose: 500 mg Levothyroxine Sodium (Synthroid) 112 mcg PO 0600 [facility] Last Admin: 04/19/18 04:53 Dose: 112 mcg Levothyroxine Sodium (Synthroid) 25 mcg PO 0600 [facility] Last Admin: 04/19/18 04:53 Dose: 25 mcg Metoprolol Tartrate (Lopressor) 50 mg PO DAILY [facility] Last Admin: 04/19/18 08:55 Dose: 50 mg Minoxidil (Minoxidil) 2.5 mg PO HS [facility] Last Admin: 04/19/18 20:32 Dose: 2.5 mg Ondansetron HCl (Zofran Odt) 8 mg SL Q8HR PRN PRN Reason: Nausea Polyethylene Glycol (Miralax) 17 gm PO DAILY PRN PRN Reason: Constipation Last Admin: 04/18/18 16:29 Dose: 17 gm Sodium Chloride (Flush - Normal Saline) 10 ml IVF Q12HR [facility] Last Admin: 04/19/18 20:35 Dose: 10 ml Sodium Chloride (Flush - Normal Saline) 10 ml IVF PRN PRN PRN Reason: Saline Flush Last Admin: 04/13/18 14:07 Dose: 10 ml Thiamine HCl (Thiamine) 50 mg PO DAILY [facility] Last Admin: 04/19/18 08:56 Dose: 50 mg
[2018-04-20] MEDS: Levothyroxine Sodium 112 MCG TAB PO SCH (06:13)
[2018-04-20] MEDS: Levothyroxine Sodium 25 MCG TAB PO SCH (06:13)
--- NOTE | 2018-04-20 09:20 | PRG ---
DATE OF SERVICE: 04/20/2018 SUBJECTIVE: Ms. Bee is a 72-year-old white female with known history of chronic renal failure. She was admitted for uremic signs, symptoms, and CHF. She was initiated dialysis. She is currently undergoing dialysis. I am at the bedside supervising her dialysis. She is tolerating said treatment. No other complaints. No chest pain or shortness of breath. OBJECTIVE: VITAL SIGNS: Blood pressure 112/59, heart rate 74, respiratory rate 18, temperature 98.8, and pulse ox 96 percent. GENERAL: Awake, alert, comfortable, not in distress. SKIN: Adequate turgor. HEENT: Pale conjunctivae. Anicteric sclerae. NECK: No neck mass. No carotid bruits. No JVD. CHEST: No deformities. LUNGS: Clear breath sounds. HEART: Normal sinus rhythm. No murmur. No gallops. No rubs. ABDOMEN: Globular, soft, nontender. No masses. EXTREMITIES: No edema, no deformities. MEDICATIONS: Medications of April 20, 2018, reviewed. LABORATORY DATA: Laboratories of April 19, 2018; white count 5.5, hemoglobin 8.1. Sodium 140, potassium 4.1, chloride 104, carbon dioxide 29, BUN 22, creatinine 2.22, calcium 8.5. ASSESSMENT AND PLAN: 1. End-stage renal disease/chronic renal failure. Continuing 3 times a week hemodialysis. Fluid removal as tolerated. My plan is simply to do a 3.5 hour dialysis with this patient. 2. Anemia continue weekly Epogen. 3. Status post cranial bleed-patient requesting to have a CT scan for a followup with her Neurosurgeon. 4. We will get in touch with Dr. Nicholas to get guidance what he wants to do. 5. Agree with current management. Job ID: [id number] [id number]
[2018-04-20] MEDS: hydrALAZINE 25 MG TAB PO SCH ×3 (11:10→21:55)
[2018-04-20] MEDS: Amlodipine 10 MG TAB PO SCH (11:11)
[2018-04-20] MEDS: Ferrous Sulfate 325 MG TAB PO SCH ×2 (12:40→16:35)
[2018-04-20] MEDS: Metoprolol Tartrate 25 MG TAB PO SCH (12:40)
[2018-04-20] MEDS: Calcium Carbonate + Vit D 1 TAB PO SCH (12:40)
[2018-04-20] MEDS: Thiamine 100 MG TAB PO SCH (12:41)
[2018-04-20] MEDS: levETIRAcetam 500 MG TAB PO SCH ×2 (12:41→21:56)
[2018-04-20 12:57] VITALS: BMI 31.7
[2018-04-20] MEDS ORDERED: Heparin 10,000 UNITS/ 10 ML VIAL ONE (15:00)
[2018-04-20] MEDS: Epoetin (ESRD) 20,000 UNITS/ML SC SCH (16:35)
--- NOTE | 2018-04-20 20:06 | PDOC.PN ---
- Subjective Encounter Start Date: 04/20/18 Encounter Start Time: 17:30 Patient seen and examined for Volume overload/TOSHIA. No new complaints. No overnight events - Objective Resuscitation Status - Order Detail: 04/12/18 18:02 Resuscitation Status Routine Resuscitation Status: DNAR: NO Resuscitation Discussed with: Patient MAR Reviewed: Yes Vital Signs & Weight: Vital Signs (12 hours) Temp Pulse Resp BP BP Pulse Ox 04/20/18 16:38 99.2 F 62 20 115/53 L 95 04/20/18 15:34 68 106/56 L 04/20/18 12:43 98.4 F 72 18 132/76 95 Weight Admit Weight 238 lb Weight 209 lb I&O: 04/19/18 04/20/18 04/21/18 06:59 06:59 06:59 Intake Total 580 720 760 Balance 580 720 760 Result Diagrams: 04/19/18 06:09 04/19/18 06:09 Additional Labs: Accuchecks 04/20/18 04/20/18 04/20/18 17:17 10:56 05:49 POC Glucose 139 H 101 130 H 04/19/18 20:36 POC Glucose 169 H EKG Reviewed by me: Yes (Tele SR) Phys Exam - Physical Examination Constitutional: NAD Respiratory: no wheezing, no rhonchi Cardiovascular: RRR, no rub Gastrointestinal: soft, non-tender, positive bowel sounds Neurological: moves all 4 limbs Dx/Plan - Plan DVT proph w/SCDs 1. Volume overload/Acute kidney injury on chronic kidney disease stage 5, started on hemodialysis. 2. Thrombocytopenia - Heparin on hold 3. Elevated troponin secondary to demand ischemia. 4. Chronic anemia secondary to renal insufficiency. 5. Hypertension. 6. Dyslipidemia. 7. Hypothyroidism. 8. Glaucoma. 9. Diabetes mellitus type 2 with hypoglycemia. 10. Metabolic acidosis. 11. 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 12. History of renal cancer, requiring left nephrectomy. PLAN: Patient is refusing ASA - due to intracranial bleed in the past Await SNF placement/outpatient dialysis setup Cont current meds as below Stable for discharge AM labs Review of Systems - Review of Systems Respiratory: negative: Cough, Dry, Shortness of Breath, Hemoptysis, SOB with Excertion, Pleuritic Pain, Sputum, Wheezing Cardiovascular: negative: chest pain, palpitations, orthopnea, paroxysmal nocturnal dyspnea, edema, light headedness, other - Medications/Allergies Allergies/Adverse Reactions: Allergies Allergy/AdvReac Type Severity Reaction Status Date / Time azithromycin Allergy Verified 04/12/18 18:22 [From Zithromax Z-Gato] Penicillins Allergy Verified 04/12/18 18:22 Medications: Current Medications Acetaminophen (Tylenol) 650 mg PO Q4H PRN PRN Reason: Headache/Fever/Mild Pain (1-3) Amlodipine Besylate (Norvasc) 10 mg PO DAILY [facility] Last Admin: 04/20/18 11:11 Dose: Not Given Atorvastatin Calcium (Lipitor) 40 mg PO HS [facility] Last Admin: 04/19/18 20:26 Dose: 40 mg Bisacodyl (Dulcolax) 10 mg [place] DAILYPRN PRN PRN Reason: Constipation Calcium Carbonate (Tums) 1,000 mg PO Q4H PRN PRN Reason: Heartburn or Indigestion Calcium/Vitamin D (Caltrate 600 + Vit D) 1 tab PO DAILY [facility] Last Admin: 04/20/18 12:40 Dose: 1 tab Clonidine (Ibgkysha-Dzi-4) 0.3 mg TD Q7D@1700 [facility] Last Admin: 04/14/18 20:40 Dose: 0.3 mg Dextrose/Water (Dextrose 50%) 25 gm SLOW IVP PRN PRN PRN Reason: Hypoglycemia Donepezil HCl (Aricept) 10 mg PO [facility] Last Admin: 04/19/18 20:26 Dose: 10 mg Epoetin Grabiel (Procrit) 7,500 units SC Q7D@0900 [facility] Last Admin: 04/20/18 16:35 Dose: 7,500 units Ferrous Sulfate (Feosol) 325 mg PO BID-[facility] Last Admin: 04/20/18 16:35 Dose: 325 mg Glucagon (Glucagon) 1 mg IM PRN PRN PRN Reason: Hypoglycemia Hydralazine HCl (Apresoline) 100 mg PO TID [facility] Last Admin: 04/20/18 15:34 Dose: Not Given Dextrose/Water (D5w) 1,000 mls @ 0 mls/hr IV .Q0M PRN PRN Reason: Hypoglycemia Insulin Human Lispro (Humalog) 0 units SC .MILD SLIDING SCALE PRN PRN Reason: Mild Correctional Scale Latanoprost (Xalatan 0.005% [facility]) 1 drop EA EYE QPM [facility] Last Admin: 04/19/18 20:30 Dose: 1 drop Levetiracetam (Keppra) 500 mg PO BID [facility] Last Admin: 04/20/18 12:41 Dose: 500 mg Levothyroxine Sodium (Synthroid) 112 mcg PO 0600 [facility] Last Admin: 04/20/18 06:13 Dose: 112 mcg Levothyroxine Sodium (Synthroid) 25 mcg PO 0600 [facility] Last Admin: 04/20/18 06:13 Dose: 25 mcg Metoprolol Tartrate (Lopressor) 50 mg PO DAILY [facility] Last Admin: 04/20/18 12:40 Dose: 50 mg Minoxidil (Minoxidil) 2.5 mg PO HS [facility] Last Admin: 04/19/18 20:32 Dose: 2.5 mg Ondansetron HCl (Zofran Odt) 8 mg SL Q8HR PRN PRN Reason: Nausea Polyethylene Glycol (Miralax) 17 gm PO DAILY PRN PRN Reason: Constipation Last Admin: 04/18/18 16:29 Dose: 17 gm Sodium Chloride (Flush - Normal Saline) 10 ml IVF Q12HR [facility] Last Admin: 04/20/18 11:10 Dose: Not Given Sodium Chloride (Flush - Normal Saline) 10 ml IVF PRN PRN PRN Reason: Saline Flush Last Admin: 04/13/18 14:07 Dose: 10 ml Thiamine HCl (Thiamine) 50 mg PO DAILY [facility] Last Admin: 04/20/18 12:41 Dose: 50 mg
[2018-04-20] MEDS: Atorvastatin Calcium 40 MG TAB PO SCH (21:55)
[2018-04-20] MEDS: Donepezil HCl 10 MG TAB PO SCH (21:55)
[2018-04-20] MEDS: Latanoprost 0.005% Ophth Soln 2.5 ml Bottle EA EYE SCH (21:56)
[2018-04-20] MEDS: Minoxidil 2.5 MG TAB PO SCH (21:56)
[2018-04-21 05:44] LABS: #Eosinphils 0.2 thou/uL (0.0-0.7); #Lymphocytes 1.2 thou/uL (1.20-3.40); #Monocytes 0.4 thou/uL (0.11-0.59); #Neutrophils 3.4 thou/uL (1.40-6.50); %Basophils 0.2 % (0.0-1.0); %Eosinophils 3.5 % (0.0-10.0); %Lymphocytes 23.6 % (21.0-51.0); %Monocytes 8.3 % (0.0-10.0); %Neutrophils 64.4 % (42.0-75.0); Hemoglobin 8.3 g/dL (12.0-16.0); Mean Corpuscular HGB CONC 32.9 g/dL (32.0-36.0); Mean Corpuscular Hemoglobin 30.9 pg (27.0-31.0); Mean Corpuscular Volume 93.8 fL (78.0-98.0); Mean Platelet Volume 9.6 fL (7.4-10.4); Platelet Count 119 thou/uL (130-400); RBC Distribution Width 11.9 % (11.5-14.5); Red Blood Cell (RBC) Count 2.67 mill/uL (4.20-5.40); White Blood Cell (WBC) Count 5.2 thou/uL (4.8-10.8)
[2018-04-21 05:59] LABS: Anion Gap 11 mmol/L (10-20); BUN (Urea Nitrogen) 22 mg/dL (9.8-20.1); Calc. Creatinine Clearance 29 mL/min (70-130); Calcium 8.9 mg/dL (7.8-10.44); Carbon Dioxide 29 mmol/L (23-31); Chloride 102 mmol/L (98-107); Estimated GFR-MDRD 18; Glucose 106 mg/dL (83-110); Sodium 138 mmol/L (136-145)
[2018-04-21] MEDS: Levothyroxine Sodium 112 MCG TAB PO SCH (06:10)
[2018-04-21] MEDS: Levothyroxine Sodium 25 MCG TAB PO SCH (06:10)
--- NOTE | 2018-04-21 09:37 | PRG ---
DATE OF SERVICE: 04/21/2018 SUBJECTIVE: Ms. Bee is a 72-year-old white female, who was admitted for CHF and uremic signs and symptoms. She was initiated dialysis. She is now currently on maintenance hemodialysis and doing well. No other complaints today. No chest pain or shortness of breath. We are currently awaiting outpatient dialysis placement. OBJECTIVE: VITAL SIGNS: Blood pressure 136/63, heart rate 74, respiratory rate 14, temperature 98.3, and pulse ox 95%. GENERAL: Noted to be awake, alert, supine, comfortable, not in distress. SKIN: Adequate turgor. HEENT: Slightly pale conjunctivae. Anicteric sclerae. No neck mass. No carotid bruits. No JVD. CHEST: No deformities. LUNGS: Clear breath sounds. No wheezing. No crackles. HEART: Normal sinus rhythm. No murmur. No gallops. No rubs. ABDOMEN: Globular, soft, nontender. No masses. EXTREMITIES: No edema. MEDICATIONS: Medications of April 21, 2018, reviewed. LABORATORY DATA: Laboratories of April 21, 2018; white count 5.2, hemoglobin 8.3. Sodium 138, potassium 4.0, chloride 102, carbon dioxide 29, BUN 22, creatinine 2.58, glucose 106, and calcium 8.9. ASSESSMENT AND PLAN: 1. Chronic renal failure/end-stage renal disease, continuing three times a week hemodialysis. She is tolerating said treatment. Fluid removal is also being tolerated. 2. Anemia-continue Epogen weekly. Continue iron supplementation. 3. Labile hypertension-much improved with initiation of dialysis. 4. Congestive heart failure, clinically improved. Awaiting outpatient dialysis placement. Job ID: [id number]
[2018-04-21] MEDS: levETIRAcetam 500 MG TAB PO SCH ×2 (10:07→19:55)
[2018-04-21] MEDS: Ferrous Sulfate 325 MG TAB PO SCH ×2 (10:07→18:22)
[2018-04-21] MEDS: Thiamine 100 MG TAB PO SCH (10:08)
[2018-04-21] MEDS: Metoprolol Tartrate 25 MG TAB PO SCH (10:09)
[2018-04-21] MEDS: hydrALAZINE 25 MG TAB PO SCH ×3 (10:09→19:55)
[2018-04-21] MEDS: Amlodipine 10 MG TAB PO SCH (10:10)
[2018-04-21] MEDS: Calcium Carbonate + Vit D 1 TAB PO SCH (10:10)
[2018-04-21] MEDS: cloNIDine 0.3mg/24 Hour PATCH TD SCH (18:29)
[2018-04-21] MEDS: Minoxidil 2.5 MG TAB PO SCH (19:55)
[2018-04-21] MEDS: Atorvastatin Calcium 40 MG TAB PO SCH (19:55)
[2018-04-21] MEDS: Latanoprost 0.005% Ophth Soln 2.5 ml Bottle EA EYE SCH (19:56)
[2018-04-21] MEDS: Donepezil HCl 10 MG TAB PO SCH (19:56)
--- NOTE | 2018-04-21 22:23 | PDOC.PN ---
- Subjective Encounter Start Date: 04/21/18 Encounter Start Time: 09:30 Patient seen and examined for volume overload. No new complaints. No overnight events - Objective Resuscitation Status - Order Detail: 04/12/18 18:02 Resuscitation Status Routine Resuscitation Status: DNAR: NO Resuscitation Discussed with: Patient MAR Reviewed: Yes Vital Signs & Weight: Vital Signs (12 hours) Temp Pulse Resp BP BP Pulse Ox 04/21/18 19:55 70 121/58 L 04/21/18 15:10 74 04/21/18 14:30 98.4 F 70 14 118/59 L 98 Weight Admit Weight 238 lb Weight 200 lb 6.4 oz I&O: 04/20/18 04/21/18 04/22/18 06:59 06:59 06:59 Intake Total 720 960 960 Balance 720 960 960 Result Diagrams: 04/21/18 05:18 04/21/18 05:18 Additional Labs: Accuchecks 04/21/18 04/21/18 04/21/18 20:40 17:30 10:50 POC Glucose 149 H 118 H 152 H 04/21/18 05:14 POC Glucose 109 EKG Reviewed by me: Yes (Tele SR) Phys Exam - Physical Examination Constitutional: NAD Respiratory: no wheezing, no rhonchi Cardiovascular: RRR, no rub Gastrointestinal: soft, non-tender, positive bowel sounds Dx/Plan - Plan DVT proph w/SCDs 1. Volume overload/Acute kidney injury on chronic kidney disease stage 5, started on hemodialysis. 2. Thrombocytopenia - improving - Heparin on hold 3. Elevated troponin secondary to demand ischemia. 4. Chronic anemia secondary to renal insufficiency. 5. Hypertension. 6. Dyslipidemia. 7. Hypothyroidism. 8. Glaucoma. 9. Diabetes mellitus type 2 with hypoglycemia. 10. Metabolic acidosis. 11. 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 12. History of renal cancer, requiring left nephrectomy. PLAN: Await SNF placement Patient is refusing ASA - due to intracranial bleed in the past Outpatient dialysis arranged Cont current meds as below Stable for discharge Review of Systems - Review of Systems Respiratory: negative: Cough, Dry, Shortness of Breath, Hemoptysis, SOB with Excertion, Pleuritic Pain, Sputum, Wheezing Cardiovascular: negative: chest pain, palpitations, orthopnea, paroxysmal nocturnal dyspnea, edema, light headedness, other - Medications/Allergies Allergies/Adverse Reactions: Allergies Allergy/AdvReac Type Severity Reaction Status Date / Time azithromycin Allergy Verified 04/12/18 18:22 [From Zithromax Z-Gato] Penicillins Allergy Verified 04/12/18 18:22 Medications: Current Medications Acetaminophen (Tylenol) 650 mg PO Q4H PRN PRN Reason: Headache/Fever/Mild Pain (1-3) Amlodipine Besylate (Norvasc) 10 mg PO DAILY [facility] Last Admin: 04/21/18 10:10 Dose: 10 mg Atorvastatin Calcium (Lipitor) 40 mg PO [facility] Last Admin: 04/21/18 19:55 Dose: 40 mg Bisacodyl (Dulcolax) 10 mg [place] DAILYPRN PRN PRN Reason: Constipation Calcium Carbonate (Tums) 1,000 mg PO Q4H PRN PRN Reason: Heartburn or Indigestion Calcium/Vitamin D (Caltrate 600 + Vit D) 1 tab PO DAILY [facility] Last Admin: 04/21/18 10:10 Dose: 1 tab Clonidine (Bogjmtlv-Amu-5) 0.3 mg TD Q7D@1700 [facility] Last Admin: 04/21/18 18:29 Dose: 0.3 mg Dextrose/Water (Dextrose 50%) 25 gm SLOW IVP PRN PRN PRN Reason: Hypoglycemia Donepezil HCl (Aricept) 10 mg PO [facility] Last Admin: 04/21/18 19:56 Dose: 10 mg Epoetin Grabiel (Procrit) 7,500 units SC Q7D@0900 [facility] Last Admin: 04/20/18 16:35 Dose: 7,500 units Ferrous Sulfate (Feosol) 325 mg PO BID-[facility] Last Admin: 04/21/18 18:22 Dose: 325 mg Glucagon (Glucagon) 1 mg IM PRN PRN PRN Reason: Hypoglycemia Hydralazine HCl (Apresoline) 100 mg PO TID [facility] Last Admin: 04/21/18 19:55 Dose: 100 mg Dextrose/Water (D5w) 1,000 mls @ 0 mls/hr IV .Q0M PRN PRN Reason: Hypoglycemia Insulin Human Lispro (Humalog) 0 units SC .MILD SLIDING SCALE PRN PRN Reason: Mild Correctional Scale Latanoprost (Xalatan 0.005% Ophth Soln) 1 drop EA EYE QPM [facility] Last Admin: 04/21/18 19:56 Dose: 1 drop Levetiracetam (Keppra) 500 mg PO BID [facility] Last Admin: 04/21/18 19:55 Dose: 500 mg Levothyroxine Sodium (Synthroid) 112 mcg PO 0600 [facility] Last Admin: 04/21/18 06:10 Dose: 112 mcg Levothyroxine Sodium (Synthroid) 25 mcg PO 0600 [facility] Last Admin: 04/21/18 06:10 Dose: 25 mcg Metoprolol Tartrate (Lopressor) 50 mg PO DAILY [facility] Last Admin: 04/21/18 10:09 Dose: 50 mg Minoxidil (Minoxidil) 2.5 mg PO HS [facility] Last Admin: 04/21/18 19:55 Dose: 2.5 mg Ondansetron HCl (Zofran Odt) 8 mg SL Q8HR PRN PRN Reason: Nausea Polyethylene Glycol (Miralax) 17 gm PO DAILY PRN PRN Reason: Constipation Last Admin: 04/18/18 16:29 Dose: 17 gm Sodium Chloride (Flush - Normal Saline) 10 ml IVF Q12HR [facility] Last Admin: 04/21/18 19:56 Dose: Not Given Sodium Chloride (Flush - Normal Saline) 10 ml IVF PRN PRN PRN Reason: Saline Flush Last Admin: 04/13/18 14:07 Dose: 10 ml Thiamine HCl (Thiamine) 50 mg PO DAILY [facility] Last Admin: 04/21/18 10:08 Dose: 50 mg
[2018-04-22] MEDS: Levothyroxine Sodium 112 MCG TAB PO SCH (06:21)
[2018-04-22] MEDS: Levothyroxine Sodium 25 MCG TAB PO SCH (06:21)
--- NOTE | 2018-04-22 10:53 | PRG ---
DATE OF SERVICE: SERVICE: Renal Medicine. SUBJECTIVE: Ms. Bee is a 72-year-old white female, who was initiated on dialysis due to CHF and uremic signs and symptoms. Doing well. Currently, patient is scheduled for dialysis. Fluid removal as tolerated. No other complaints. No chest pain or shortness of breath. OBJECTIVE: VITAL SIGNS: Blood pressure 128/58, heart rate 69, respiratory rate 17, temperature 97.8, pulse ox 96%. GENERAL: Awake, alert, comfortable, not in distress. SKIN: Adequate turgor. HEENT: She has a slightly pale conjunctivae. Anicteric sclerae. NECK: No neck mass. No carotid bruits. No JVD. CHEST: No deformities. LUNGS: Clear breath sounds. No wheezing. No crackles. HEART: Normal sinus rhythm. No murmur. No gallops. No rubs. ABDOMEN: Globular, soft, nontender. No masses. EXTREMITIES: No edema. No deformities. MEDICATIONS: Medications of April 22, 2018, was reviewed. LABORATORY DATA: Laboratories of April 21, 2018; white count 5.2, hemoglobin 8.3. Sodium 138, potassium 4, chloride 102, carbon dioxide 29, BUN 22, creatinine 2.58, glucose 106, calcium 8.9. ASSESSMENT AND PLAN: 1. Chronic renal failure/end-stage renal disease, continuing 3 times a week hemodialysis. Fluid removal only as tolerated. Awaiting outpatient dialysis placement. 2. Anemia. Continuing weekly Epogen. 3. Decreased blood pressure - we will decrease hydralazine to 50 mg tablet t.i.d. Hold BP medications before dialysis. Job ID: [id number]
[2018-04-22] MEDS ORDERED: hydrALAZINE 25 MG TAB PO SCH (11:30)
[2018-04-22] MEDS: Ferrous Sulfate 325 MG TAB PO SCH ×2 (13:27→17:59)
[2018-04-22] MEDS: Amlodipine 10 MG TAB PO SCH (13:27)
[2018-04-22] MEDS: levETIRAcetam 500 MG TAB PO SCH ×3 (13:28→21:31)
[2018-04-22] MEDS: hydrALAZINE 25 MG TAB PO SCH ×3 (13:34→21:31)
[2018-04-22] MEDS ORDERED: Heparin 10,000 UNITS/ 10 ML VIAL ONE (15:00)
[2018-04-22] MEDS: Calcium Carbonate + Vit D 1 TAB PO SCH (15:33)
[2018-04-22] MEDS: Thiamine 100 MG TAB PO SCH (15:33)
[2018-04-22] MEDS: Metoprolol Tartrate 25 MG TAB PO SCH (15:34)
--- NOTE | 2018-04-22 19:05 | PDOC.PN ---
- Subjective Encounter Start Date: 04/22/18 Encounter Start Time: 13:00 Patient seen and examined for TOSHIA/Volume overload. No new complaints. No overnight events - Objective Resuscitation Status - Order Detail: 04/12/18 18:02 Resuscitation Status Routine Resuscitation Status: DNAR: NO Resuscitation Discussed with: Patient MAR Reviewed: Yes Vital Signs & Weight: Vital Signs (12 hours) Temp Pulse Resp BP BP Pulse Ox 04/22/18 15:34 72 141/64 H 04/22/18 08:40 97.4 F L 73 17 146/65 H 97 Weight Admit Weight 238 lb Weight 200 lb 6.4 oz I&O: 04/21/18 04/22/18 04/23/18 06:59 06:59 06:59 Intake Total 960 960 Balance 960 960 Result Diagrams: 04/21/18 05:18 04/21/18 05:18 Additional Labs: Accuchecks 04/22/18 04/22/18 04/22/18 17:07 10:33 05:39 POC Glucose 114 H 123 H 126 H 04/21/18 04/21/18 20:40 17:30 POC Glucose 149 H 118 H EKG Reviewed by me: Yes (Tele SR) Phys Exam - Physical Examination Constitutional: NAD Respiratory: no wheezing, no rhonchi Cardiovascular: RRR, no rub Gastrointestinal: soft, non-tender, positive bowel sounds Neurological: moves all 4 limbs Dx/Plan - Plan DVT proph w/SCDs 1. Volume overload/Acute kidney injury on chronic kidney disease stage 5, started on hemodialysis. Outpatient dialysis arranged 2. Thrombocytopenia - improving - Heparin on hold 3. Elevated troponin secondary to demand ischemia. 4. Chronic anemia secondary to renal insufficiency. 5. Hypertension. 6. Dyslipidemia. 7. Hypothyroidism. 8. Glaucoma. 9. Diabetes mellitus type 2 with hypoglycemia. 10. Metabolic acidosis. 11. 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 12. History of renal cancer, requiring left nephrectomy. 13. h/o intracranial bleed - Patient is refusing ASA PLAN: Await SNF placement - Stable for discharge Cont current meds as below Review of Systems - Review of Systems Cardiovascular: negative: chest pain, palpitations, orthopnea, paroxysmal nocturnal dyspnea, edema, light headedness, other Gastrointestinal: negative: Nausea, Vomiting, Abdominal Pain, Diarrhea, Constipation, Melena, Hematochezia, Other - Medications/Allergies Allergies/Adverse Reactions: Allergies Allergy/AdvReac Type Severity Reaction Status Date / Time azithromycin Allergy Verified 04/12/18 18:22 [From Zithromax Z-Gato] Penicillins Allergy Verified 04/12/18 18:22 Medications: Current Medications Acetaminophen (Tylenol) 650 mg PO Q4H PRN PRN Reason: Headache/Fever/Mild Pain (1-3) Amlodipine Besylate (Norvasc) 10 mg PO DAILY [facility] Last Admin: 04/22/18 13:27 Dose: Not Given Atorvastatin Calcium (Lipitor) 40 mg PO HS [facility] Last Admin: 04/21/18 19:55 Dose: 40 mg Bisacodyl (Dulcolax) 10 mg [place] DAILYPRN PRN PRN Reason: Constipation Calcium Carbonate (Tums) 1,000 mg PO Q4H PRN PRN Reason: Heartburn or Indigestion Calcium/Vitamin D (Caltrate 600 + Vit D) 1 tab PO DAILY [facility] Last Admin: 04/22/18 15:33 Dose: 1 tab Clonidine (Wmnfnexn-Rpp-5) 0.3 mg TD Q7D@1700 [facility] Last Admin: 04/21/18 18:29 Dose: 0.3 mg Dextrose/Water (Dextrose 50%) 25 gm SLOW IVP PRN PRN PRN Reason: Hypoglycemia Donepezil HCl (Aricept) 10 mg PO [facility] Last Admin: 04/21/18 19:56 Dose: 10 mg Epoetin Grabiel (Procrit) 7,500 units SC Q7D@0900 [facility] Last Admin: 04/20/18 16:35 Dose: 7,500 units Ferrous Sulfate (Feosol) 325 mg PO BID-[facility] Last Admin: 04/22/18 17:59 Dose: 325 mg Glucagon (Glucagon) 1 mg IM PRN PRN PRN Reason: Hypoglycemia Hydralazine HCl (Apresoline) 50 mg PO TID [facility] Last Admin: 04/22/18 15:34 Dose: 50 mg Dextrose/Water (D5w) 1,000 mls @ 0 mls/hr IV .Q0M PRN PRN Reason: Hypoglycemia Insulin Human Lispro (Humalog) 0 units SC .MILD SLIDING SCALE PRN PRN Reason: Mild Correctional Scale Latanoprost (Xalatan 0.005% Ophth Soln) 1 drop EA EYE QPM [facility] Last Admin: 04/21/18 19:56 Dose: 1 drop Levetiracetam (Keppra) 500 mg PO BID [facility] Last Admin: 04/22/18 15:35 Dose: 500 mg Levothyroxine Sodium (Synthroid) 112 mcg PO 0600 [facility] Last Admin: 04/22/18 06:21 Dose: 112 mcg Levothyroxine Sodium (Synthroid) 25 mcg PO 0600 [facility] Last Admin: 04/22/18 06:21 Dose: 25 mcg Metoprolol Tartrate (Lopressor) 50 mg PO DAILY [facility] Last Admin: 04/22/18 15:34 Dose: 50 mg Minoxidil (Minoxidil) 2.5 mg PO HS [facility] Last Admin: 04/21/18 19:55 Dose: 2.5 mg Ondansetron HCl (Zofran Odt) 8 mg SL Q8HR PRN PRN Reason: Nausea Polyethylene Glycol (Miralax) 17 gm PO DAILY PRN PRN Reason: Constipation Last Admin: 04/18/18 16:29 Dose: 17 gm Sodium Chloride (Flush - Normal Saline) 10 ml IVF Q12HR [facility] Last Admin: 04/22/18 13:28 Dose: Not Given Sodium Chloride (Flush - Normal Saline) 10 ml IVF PRN PRN PRN Reason: Saline Flush Last Admin: 04/13/18 14:07 Dose: 10 ml Thiamine HCl (Thiamine) 50 mg PO DAILY [facility] Last Admin: 04/22/18 15:33 Dose: 50 mg
[2018-04-22] MEDS: Minoxidil 2.5 MG TAB PO SCH (21:31)
[2018-04-22] MEDS: Donepezil HCl 10 MG TAB PO SCH (21:31)
[2018-04-22] MEDS: Latanoprost 0.005% Ophth Soln 2.5 ml Bottle EA EYE SCH (21:31)
[2018-04-22] MEDS: Atorvastatin Calcium 40 MG TAB PO SCH (21:31)
[2018-04-23] MEDS: Levothyroxine Sodium 112 MCG TAB PO SCH (06:13)
[2018-04-23] MEDS: Levothyroxine Sodium 25 MCG TAB PO SCH (06:13)
[2018-04-23] MEDS: Ferrous Sulfate 325 MG TAB PO SCH ×2 (08:46→15:50)
[2018-04-23] MEDS: Calcium Carbonate + Vit D 1 TAB PO SCH (08:46)
[2018-04-23] MEDS: Metoprolol Tartrate 25 MG TAB PO SCH (08:47)
[2018-04-23] MEDS: hydrALAZINE 25 MG TAB PO SCH ×3 (08:47→23:07)
[2018-04-23] MEDS: levETIRAcetam 500 MG TAB PO SCH ×2 (08:48→23:07)
[2018-04-23] MEDS: Thiamine 100 MG TAB PO SCH (08:48)
[2018-04-23] MEDS: Amlodipine 10 MG TAB PO SCH (08:48)
--- NOTE | 2018-04-23 10:08 | PRG ---
DATE OF SERVICE: 04/23/2018 SERVICE: Renal Medicine. SUBJECTIVE: Ms. Bee is a 72-year-old white female, who was admitted for CHF, uremic signs and symptoms, initiated on dialysis. She has been undergoing dialysis 3 times a week. She is tolerating said treatment. We were able to remove several liters of fluid yesterday. The issue with this patient yesterday was the blood pressure was running on the low side. Please note, the blood pressure became better controlled with initiation of dialysis. I have decided to decrease her hydralazine from 100 mg t.i.d. to 50 mg p.o. t.i.d. I noted also that the patient's blood pressure has been hovering on the low side at times. We can consider also holding off her amlodipine today. No other complaints. No chest pain or shortness of breath. OBJECTIVE: VITAL SIGNS: Blood pressure is 122/58, heart rate 79, respiratory rate 18, temperature 99, pulse ox 95%. GENERAL: Awake, alert, supine, comfortable, not in distress. SKIN: Adequate turgor. HEENT: Slightly pale conjunctivae. Anicteric sclerae. NECK: No neck mass. No carotid bruits. No JVD. CHEST: No deformities. LUNGS: Clear breath sounds. No wheezing. No crackles. HEART: Normal sinus rhythm. No murmurs, gallops, or rubs. ABDOMEN: Globular, soft, nontender. No masses. EXTREMITIES: No edema. No deformities. MEDICATIONS: Medications of April 23, 2018, reviewed. LABORATORY DATA: April 21, 2018; white count 5.2, hemoglobin 8.3. April 23, 2018, glucose 116. April 21, 2018, BUN 22 and creatinine 2.58. ASSESSMENT AND PLAN: 1. Hypertension-labile in nature. Due to the lower BP, we will discontinue amlodipine. Otherwise, continue the other BP medications. 2. Chronic renal failure, end-stage renal failure, continuing 3 times a week hemodialysis. Tolerating said treatment. Fluid removal only as tolerated. Awaiting outpatient placement. 3. Anemia. Continue iron supplementation and Epogen. Overall, agree with current management. Job ID: [id number]
[2018-04-23] MEDS: HumaLOG 300 UNITS/3 ML VIAL SC PRN (12:24)
--- NOTE | 2018-04-23 12:24 | CT ---
NONCONTRAST CT HEAD: Date: 04/23/18 HISTORY: Follow-up ventriculoperitoneal shunt catheter placement. COMPARISON: 03/29/18. FINDINGS: Ventriculoperitoneal shunt catheter is again noted in place, entering via right frontal approach, whi ch courses across the midline and appears to terminate in the region of the foramen of Monro on the l eft. The ventricular system is otherwise normal in size, shape, and position. There are subdural collections again seen bilaterally with left subdural collection measuring approxi mately 10.0 mm in greatest transverse dimension with greatest dimension on prior exam of 15.0 mm. The right subdural collection is much smaller in size and overall stable in transverse dimension measuri ng approximately 6.0 mm. The degree of mass effect on the left cerebral hemisphere has diminished fro m the prior exam. There is no midline shift present. Left frontal bur holes are again present. Low density area in the right anterior frontal lobe may be related to gliosis secondary to placement of the ventriculoperitoneal shunt catheter. No intraparenchymal hemorrhage or acute cortical infarcti on is seen. No other interval change. IMPRESSION: 1. Slight interval decrease in size of the left subdural collection/hematoma which measures 10.0 mm in greatest transverse dimension with overall stable and smaller right subdural collection measuring 6.0 mm in transverse dimension. 2. Ventriculoperitoneal shunt catheter remaining in place. Ventricular system does appear slightly m ore prominent than on the prior exam, but this is likely attributable to greater degree of mass effec t on the cerebral hemispheres due to the subdural collections on the prior exam compared to the curre nt study. 3. Probable gliosis in the right anterior frontal lobe adjacent to the ventriculoperitoneal shunt ca theter. POS: DEANDRE
--- NOTE | 2018-04-23 21:59 | PDOC.PN ---
- Subjective Encounter Start Date: 04/23/18 Encounter Start Time: 12:30 Patient seen and examined for ESRD. No new complaints. No overnight events - Objective Resuscitation Status - Order Detail: 04/12/18 18:02 Resuscitation Status Routine Resuscitation Status: DNAR: NO Resuscitation Discussed with: Patient MAR Reviewed: Yes Vital Signs & Weight: Vital Signs (12 hours) Temp Pulse Pulse Pulse Resp BP BP 04/23/18 15:46 98.7 F 70 18 04/23/18 12:20 68 111/50 L 04/23/18 11:32 98.3 F 68 18 04/23/18 10:20 72 67 149/67 H BP BP Pulse Ox 04/23/18 15:46 128/59 L 98 04/23/18 12:20 04/23/18 11:32 111/55 L 98 04/23/18 10:20 117/54 L Weight Admit Weight 238 lb Weight 200 lb 6.4 oz I&O: 04/22/18 04/23/18 04/24/18 06:59 06:59 06:59 Intake Total 960 820 400 Balance 960 820 400 Result Diagrams: 04/21/18 05:18 04/21/18 05:18 Additional Labs: Accuchecks 04/23/18 04/23/18 04/23/18 20:31 16:48 10:52 POC Glucose 173 H 101 199 H 04/23/18 05:33 POC Glucose 116 H EKG Reviewed by me: Yes (Tele SR) Phys Exam - Physical Examination Constitutional: NAD Respiratory: no wheezing, no rhonchi Cardiovascular: RRR, no rub Gastrointestinal: soft Dx/Plan - Plan DVT proph w/SCDs 1. Volume overload/Acute kidney injury on chronic kidney disease stage 5, started on hemodialysis. 2. Thrombocytopenia - improving - Heparin on hold 3. Elevated troponin secondary to demand ischemia. 4. Chronic anemia secondary to renal insufficiency. 5. Hypertension. 6. Dyslipidemia. 7. Hypothyroidism. 8. Glaucoma. 9. Diabetes mellitus type 2 with hypoglycemia. 10. Metabolic acidosis. 11. Normal-pressure hydrocephalus, status post [employer]OD V[employer]ER shunt in the past. 12. History of renal cancer, requiring left nephrectomy. 13. h/o intracranial bleed - Patient is refusing ASA PLAN: Await SNF placement - Stable for discharge Outpatient dialysis arranged Review of Systems - Review of Systems Respiratory: negative: Cough, Dry, Shortness of Breath, Hemoptysis, SOB with Excertion, Pleuritic Pain, Sputum, Wheezing Cardiovascular: negative: chest pain, palpitations, orthopnea, paroxysmal nocturnal dyspnea, edema, light headedness, other - Medications/Allergies Allergies/Adverse Reactions: Allergies Allergy/AdvReac Type Severity Reaction Status Date / Time azithromycin Allergy Verified 04/12/18 18:22 [From Zithromax Z-Gato] Penicillins Allergy Verified 04/12/18 18:22 Medications: Current Medications Acetaminophen (Tylenol) 650 mg PO Q4H PRN PRN Reason: Headache/Fever/Mild Pain (1-3) Amlodipine Besylate (Norvasc) 10 mg PO DAILY [facility] Last Admin: 04/23/18 08:48 Dose: 10 mg Atorvastatin Calcium (Lipitor) 40 mg PO HS [facility] Last Admin: 04/22/18 21:31 Dose: 40 mg Bisacodyl (Dulcolax) 10 mg [place] DAILYPRN PRN PRN Reason: Constipation Calcium Carbonate (Tums) 1,000 mg PO Q4H PRN PRN Reason: Heartburn or Indigestion Calcium/Vitamin D (Caltrate 600 + Vit D) 1 tab PO DAILY [facility] Last Admin: 04/23/18 08:46 Dose: 1 tab Clonidine (Fzadfqfn-Vjq-8) 0.3 mg TD Q7D@1700 [facility] Last Admin: 04/21/18 18:29 Dose: 0.3 mg Dextrose/Water (Dextrose 50%) 25 gm SLOW IVP PRN PRN PRN Reason: Hypoglycemia Donepezil HCl (Aricept) 10 mg PO HS [facility] Last Admin: 04/22/18 21:31 Dose: 10 mg Epoetin Grabiel (Procrit) 7,500 units SC Q7D@0900 [facility] Last Admin: 04/20/18 16:35 Dose: 7,500 units Ferrous Sulfate (Feosol) 325 mg PO BID-WM [facility] Last Admin: 04/23/18 15:50 Dose: 325 mg Glucagon (Glucagon) 1 mg IM PRN PRN PRN Reason: Hypoglycemia Hydralazine HCl (Apresoline) 50 mg PO TID [facility] Last Admin: 04/23/18 12:20 Dose: Not Given Dextrose/Water (D5w) 1,000 mls @ 0 mls/hr IV .Q0M PRN PRN Reason: Hypoglycemia Insulin Human Lispro (Humalog) 0 units SC .MILD SLIDING SCALE PRN PRN Reason: Mild Correctional Scale Last Admin: 04/23/18 12:24 Dose: 2 unit Latanoprost (Xalatan 0.005% Ophth Soln) 1 drop EA EYE QPM [facility] Last Admin: 04/22/18 21:31 Dose: 1 drop Levetiracetam (Keppra) 500 mg PO BID [facility] Last Admin: 04/23/18 08:48 Dose: 500 mg Levothyroxine Sodium (Synthroid) 112 mcg PO 0600 [facility] Last Admin: 04/23/18 06:13 Dose: 112 mcg Levothyroxine Sodium (Synthroid) 25 mcg PO 0600 [facility] Last Admin: 04/23/18 06:13 Dose: 25 mcg Metoprolol Tartrate (Lopressor) 50 mg PO DAILY [facility] Last Admin: 04/23/18 08:47 Dose: 50 mg Minoxidil (Minoxidil) 2.5 mg PO HS [facility] Last Admin: 04/22/18 21:31 Dose: 2.5 mg Ondansetron HCl (Zofran Odt) 8 mg SL Q8HR PRN PRN Reason: Nausea Polyethylene Glycol (Miralax) 17 gm PO DAILY PRN PRN Reason: Constipation Last Admin: 04/18/18 16:29 Dose: 17 gm Sodium Chloride (Flush - Normal Saline) 10 ml IVF Q12HR [facility] Last Admin: 04/23/18 08:49 Dose: Not Given Sodium Chloride (Flush - Normal Saline) 10 ml IVF PRN PRN PRN Reason: Saline Flush Last Admin: 04/13/18 14:07 Dose: 10 ml Thiamine HCl (Thiamine) 50 mg PO DAILY [facility] Last Admin: 04/23/18 08:48 Dose: 50 mg
[2018-04-23] MEDS: Latanoprost 0.005% Ophth Soln 2.5 ml Bottle EA EYE SCH (23:06)
[2018-04-23] MEDS: Donepezil HCl 10 MG TAB PO SCH (23:07)
[2018-04-23] MEDS: Atorvastatin Calcium 40 MG TAB PO SCH (23:08)
[2018-04-23] MEDS: Minoxidil 2.5 MG TAB PO SCH (23:08)
[2018-04-24] MEDS: Levothyroxine Sodium 112 MCG TAB PO SCH (05:42)
[2018-04-24] MEDS: Levothyroxine Sodium 25 MCG TAB PO SCH (05:42)
[2018-04-24] MEDS: Metoprolol Tartrate 25 MG TAB PO SCH (09:27)
[2018-04-24] MEDS: Thiamine 100 MG TAB PO SCH (09:28)
[2018-04-24] MEDS: Calcium Carbonate + Vit D 1 TAB PO SCH (09:28)
[2018-04-24] MEDS: hydrALAZINE 25 MG TAB PO SCH ×3 (09:28→21:11)
[2018-04-24] MEDS: Ferrous Sulfate 325 MG TAB PO SCH ×2 (09:28→17:09)
[2018-04-24] MEDS: Amlodipine 10 MG TAB PO SCH (09:28)
[2018-04-24] MEDS: levETIRAcetam 500 MG TAB PO SCH ×2 (09:29→21:11)
--- NOTE | 2018-04-24 09:39 | PRG ---
DATE OF SERVICE: 04/24/2018 SUBJECTIVE: Ms. Bee is a 72-year-old white female, who was initially admitted for CHF and uremic signs and symptoms. Hemodialysis has been initiated. She has been doing well with the current dialysis regimen. She is tolerating the said treatment. No other complaints today. No chest pain or shortness of breath. OBJECTIVE: VITAL SIGNS: Blood pressure 120/68, heart rate 74, respiratory rate 18, temperature 97.7, and pulse ox 96%. GENERAL: Noted to be awake, alert, comfortable, not in distress. SKIN: Adequate turgor. HEENT: Pinkish, slightly pale conjunctivae. Anicteric sclerae. No neck mass. No carotid bruits. No JVD. CHEST: No deformities. LUNGS: Clear breath sounds. HEART: Normal sinus rhythm. No murmurs, gallops, or rubs. ABDOMEN: Globular, soft, and nontender. No masses. EXTREMITIES: No edema. No deformities. MEDICATIONS: Medications of April 24, 2018, reviewed. LABORATORY DATA: Laboratories of April 21, 2018; white count 5.2, hemoglobin 8.3. On april 24, 2018, glucose 120. Potassium 4, BUN 22, creatinine 2.58. ASSESSMENT AND PLAN: 1. Anemia, currently on Epogen and iron supplementation. 2. Chronic renal failure/end-stage renal disease, continuing 3 times a week hemodialysis, again fluid removal as tolerated. 3. Labile hypertension, stable. Continue current blood pressure medications. 4. Awaiting for outpatient hemodialysis placement. Job ID: [id number]
[2018-04-24] MEDS: Polyethylene Glycol 3350 17 GM Packet PO PRN (11:56)
[2018-04-24] MEDS: HumaLOG 300 UNITS/3 ML VIAL SC PRN (12:01)
[2018-04-24] MEDS: Atorvastatin Calcium 40 MG TAB PO SCH (21:11)
[2018-04-24] MEDS: Donepezil HCl 10 MG TAB PO SCH (21:11)
[2018-04-24] MEDS: Latanoprost 0.005% Ophth Soln 2.5 ml Bottle EA EYE SCH (21:12)
[2018-04-24] MEDS: Minoxidil 2.5 MG TAB PO SCH (21:12)
--- NOTE | 2018-04-24 23:17 | PDOC.PN ---
- Subjective Encounter Start Date: 04/24/18 Encounter Start Time: 10:45 Patient seen and examined for ESRD. No new complaints. No overnight events - Objective Resuscitation Status - Order Detail: 04/12/18 18:02 Resuscitation Status Routine Resuscitation Status: DNAR: NO Resuscitation Discussed with: Patient MAR Reviewed: Yes Vital Signs & Weight: Vital Signs (12 hours) Temp Pulse Resp BP BP BP Pulse Ox 04/24/18 21:11 68 115/68 04/24/18 20:00 98.3 F 68 20 115/68 94 L 04/24/18 19:40 94 L 04/24/18 14:50 111/64 111/64 Weight Admit Weight 238 lb Weight 202 lb 11.2 oz I&O: 04/23/18 04/24/18 04/25/18 06:59 06:59 06:59 Intake Total 820 640 950 Balance 820 640 950 Result Diagrams: 04/21/18 05:18 04/21/18 05:18 Additional Labs: Accuchecks 04/24/18 04/24/18 04/24/18 20:57 16:49 11:59 POC Glucose 156 H 133 H 205 H 04/24/18 04/23/18 05:42 23:07 POC Glucose 120 H 196 H Phys Exam - Physical Examination Constitutional: NAD Respiratory: no wheezing, no rhonchi Cardiovascular: RRR, no rub Gastrointestinal: soft, positive bowel sounds Dx/Plan - Plan DVT proph w/SCDs 1. Volume overload/Acute kidney injury on chronic kidney disease stage 5, started on hemodialysis. 2. Thrombocytopenia - improving - Heparin on hold 3. Elevated troponin secondary to demand ischemia. 4. Chronic anemia secondary to renal insufficiency. 5. Hypertension. 6. Dyslipidemia. 7. Hypothyroidism. 8. Glaucoma. 9. Diabetes mellitus type 2 with hypoglycemia. 10. Metabolic acidosis. 11. Normal-pressure hydrocephalus, status post [employer] shunt in the past. 12. History of renal cancer, requiring left nephrectomy. 13. h/o intracranial bleed - Patient is refusing ASA PLAN: Hemodialysis per Nephrology Await SNF placement - Stable for discharge Outpatient dialysis arranged Review of Systems - Review of Systems Respiratory: negative: Cough, Dry, Shortness of Breath, Hemoptysis, SOB with Excertion, Pleuritic Pain, Sputum, Wheezing Cardiovascular: negative: chest pain, palpitations, orthopnea, paroxysmal nocturnal dyspnea, edema, light headedness, other - Medications/Allergies Allergies/Adverse Reactions: Allergies Allergy/AdvReac Type Severity Reaction Status Date / Time azithromycin Allergy Verified 04/12/18 18:22 [From Zithromax Z-Gato] Penicillins Allergy Verified 04/12/18 18:22 Medications: Current Medications Acetaminophen (Tylenol) 650 mg PO Q4H PRN PRN Reason: Headache/Fever/Mild Pain (1-3) Amlodipine Besylate (Norvasc) 10 mg PO DAILY [facility] Last Admin: 04/24/18 09:28 Dose: 10 mg Atorvastatin Calcium (Lipitor) 40 mg PO [facility] Last Admin: 04/24/18 21:11 Dose: 40 mg Bisacodyl (Dulcolax) 10 mg [place] DAILYPRN PRN PRN Reason: Constipation Calcium Carbonate (Tums) 1,000 mg PO Q4H PRN PRN Reason: Heartburn or Indigestion Calcium/Vitamin D (Caltrate 600 + Vit D) 1 tab PO DAILY [facility] Last Admin: 04/24/18 09:28 Dose: 1 tab Clonidine (Vmekygrc-Qkj-0) 0.3 mg TD Q7D@1700 [facility] Last Admin: 04/21/18 18:29 Dose: 0.3 mg Dextrose/Water (Dextrose 50%) 25 gm SLOW IVP PRN PRN PRN Reason: Hypoglycemia Donepezil HCl (Aricept) 10 mg PO [facility] Last Admin: 04/24/18 21:11 Dose: 10 mg Epoetin Grabiel (Procrit) 7,500 units SC Q7D@0900 [facility] Last Admin: 04/20/18 16:35 Dose: 7,500 units Ferrous Sulfate (Feosol) 325 mg PO BID-[facility] Last Admin: 04/24/18 17:09 Dose: 325 mg Glucagon (Glucagon) 1 mg IM PRN PRN PRN Reason: Hypoglycemia Hydralazine HCl (Apresoline) 50 mg PO TID [facility] Last Admin: 04/24/18 21:11 Dose: Not Given Dextrose/Water (D5w) 1,000 mls @ 0 mls/hr IV .Q0M PRN PRN Reason: Hypoglycemia Insulin Human Lispro (Humalog) 0 units SC .MILD SLIDING SCALE PRN PRN Reason: Mild Correctional Scale Last Admin: 04/24/18 12:01 Dose: 3 unit Latanoprost (Xalatan 0.005% Oph Soln) 1 drop EA EYE QPM [facility] Last Admin: 04/24/18 21:12 Dose: 1 drop Levetiracetam (Keppra) 500 mg PO BID [facility] Last Admin: 04/24/18 21:11 Dose: 500 mg Levothyroxine Sodium (Synthroid) 112 mcg PO 0600 [facility] Last Admin: 04/24/18 05:42 Dose: 112 mcg Levothyroxine Sodium (Synthroid) 25 mcg PO 0600 [facility] Last Admin: 04/24/18 05:42 Dose: 25 mcg Metoprolol Tartrate (Lopressor) 50 mg PO DAILY [facility] Last Admin: 04/24/18 09:27 Dose: 50 mg Minoxidil (Minoxidil) 2.5 mg PO HS [facility] Last Admin: 04/24/18 21:12 Dose: 2.5 mg Ondansetron HCl (Zofran Odt) 8 mg SL Q8HR PRN PRN Reason: Nausea Polyethylene Glycol (Miralax) 17 gm PO DAILY PRN PRN Reason: Constipation Last Admin: 04/24/18 11:56 Dose: 17 gm Sodium Chloride (Flush - Normal Saline) 10 ml IVF Q12HR [facility] Last Admin: 04/24/18 21:12 Dose: Not Given Sodium Chloride (Flush - Normal Saline) 10 ml IVF PRN PRN PRN Reason: Saline Flush Last Admin: 04/13/18 14:07 Dose: 10 ml Thiamine HCl (Thiamine) 50 mg PO DAILY [facility] Last Admin: 04/24/18 09:28 Dose: 50 mg
[2018-04-25] MEDS: Levothyroxine Sodium 25 MCG TAB PO SCH (05:24)
[2018-04-25] MEDS: Levothyroxine Sodium 112 MCG TAB PO SCH (05:24)
[2018-04-25 07:21] LABS: Hemoglobin 8.2 g/dL (12.0-16.0); Platelet Count 132 thou/uL (130-400)
[2018-04-25 07:37] LABS: Anion Gap 14 mmol/L (10-20); BUN (Urea Nitrogen) 35 mg/dL (9.8-20.1); Calc. Creatinine Clearance 18 mL/min (70-130); Carbon Dioxide 27 mmol/L (23-31); Chloride 104 mmol/L (98-107); Estimated GFR-MDRD 10; Glucose 114 mg/dL (83-110); Potassium 4.1 mmol/L (3.5-5.1); Sodium 141 mmol/L (136-145)
[2018-04-25] MEDS: Ferrous Sulfate 325 MG TAB PO SCH ×2 (08:49→18:48)
[2018-04-25] MEDS: levETIRAcetam 500 MG TAB PO SCH ×2 (08:49→21:17)
[2018-04-25] MEDS: Calcium Carbonate + Vit D 1 TAB PO SCH (08:49)
[2018-04-25] MEDS: Thiamine 100 MG TAB PO SCH (08:49)
[2018-04-25] MEDS: Amlodipine 10 MG TAB PO SCH (08:52)
[2018-04-25] MEDS: hydrALAZINE 25 MG TAB PO SCH ×3 (08:52→21:15)
[2018-04-25] MEDS: Metoprolol Tartrate 25 MG TAB PO SCH (08:53)
--- NOTE | 2018-04-25 10:01 | PRG ---
DATE OF SERVICE: 04/25/2018 SUBJECTIVE: Ms. Bee is a 72-year-old white female, who was admitted for CHF and uremic signs and symptoms. We initiated hemodialysis with this patient. She is tolerating current hemodialysis regimen. She is currently on three times of week hemodialysis. I have scheduled her this afternoon for another dialytic intervention. We are currently awaiting long-term facility placement. The patient has a placement at the outpatient dialysis in [place]. No complaints of chest pain or shortness of breath. OBJECTIVE: VITAL SIGNS: Blood pressure 108/65, heart rate 73, respiratory rate 16, temperature 98.5, and pulse ox 96%. GENERAL: Awake, alert, comfortable, not in distress. SKIN: Adequate turgor. HEENT: She has a pale conjunctivae. Anicteric sclerae. No neck mass. No carotid bruits. No JVD. CHEST: No deformities. LUNGS: Clear breath sounds. HEART: Normal sinus rhythm. No murmurs. No gallops. No rubs. ABDOMEN: Globular, soft, nontender. No masses. EXTREMITIES: No edema. No deformities. MEDICATIONS: Medications of April 25, 2018, reviewed. LABORATORY DATA: Laboratories of April 25, 2018, hemoglobin is 8.2, sodium 141, potassium 4.1, chloride 104, carbon dioxide 27, BUN 35, creatinine 4.18, glucose 104, and calcium 9. ASSESSMENT AND PLAN: 1. Chronic renal failure/end-stage renal disease, continuing 3 times a week hemodialysis. Fluid removal as tolerated. 2. [place] [address] units subcu every week. In addition, continuing ferrous sulfate. 3. Hypertension, better controlled. Adjustment of BP medications have been done. 4. Awaiting [facility] placement. Job ID: [id number]
--- NOTE | 2018-04-25 14:08 | PDOC.PN ---
- Subjective Encounter Start Date: 04/25/18 Encounter Start Time: 09:30 Patient seen and examined for Volume overload. No new complaints. No overnight events - Objective Resuscitation Status - Order Detail: 04/12/18 18:02 Resuscitation Status Routine Resuscitation Status: DNAR: NO Resuscitation Discussed with: Patient MAR Reviewed: Yes Vital Signs & Weight: Vital Signs (12 hours) Temp Pulse Resp BP BP Pulse Ox 04/25/18 08:52 108/65 04/25/18 08:48 108/65 04/25/18 08:00 96 04/25/18 07:56 98.5 F 73 16 109/64 96 Weight Admit Weight 238 lb Weight 207 lb 14.4 oz I&O: 04/24/18 04/25/18 04/26/18 06:59 06:59 06:59 Intake Total 640 1310 Balance 640 1310 Result Diagrams: 04/25/18 06:50 04/25/18 06:50 Additional Labs: Accuchecks 04/25/18 04/25/18 04/24/18 11:39 04:36 20:57 POC Glucose 170 H 118 H 156 H 04/24/18 16:49 POC Glucose 133 H Phys Exam - Physical Examination Constitutional: NAD Respiratory: no wheezing, no rhonchi Cardiovascular: RRR, no rub Gastrointestinal: soft, non-tender, positive bowel sounds Musculoskeletal: no edema Neurological: moves all 4 limbs Dx/Plan - Plan DVT proph w/SCDs 1. Volume overload/Acute kidney injury on chronic kidney disease stage 5 - on hemodialysis. 2. Thrombocytopenia 3. Elevated troponin secondary to demand ischemia. 4. Chronic anemia secondary to renal insufficiency. 5. Hypertension. 6. Dyslipidemia. 7. Hypothyroidism. 8. Glaucoma. 9. Diabetes mellitus type 2 with hypoglycemia. 10. Metabolic acidosis. 11. Normal-pressure hydrocephalus, status post FIREBREAK CUTTER shunt in the past. 12. History of renal cancer, requiring left nephrectomy. 13. h/o intracranial bleed - Patient is refusing ASA PLAN: Hemodialysis today. Await SNF placement - Stable for discharge Review of Systems - Review of Systems Respiratory: negative: Cough, Dry, Shortness of Breath, Hemoptysis, SOB with Excertion, Pleuritic Pain, Sputum, Wheezing Cardiovascular: negative: chest pain, palpitations, orthopnea, paroxysmal nocturnal dyspnea, edema, light headedness, other Gastrointestinal: negative: Nausea, Vomiting, Abdominal Pain, Diarrhea, Constipation, Melena, Hematochezia, Other - Medications/Allergies Allergies/Adverse Reactions: Allergies Allergy/AdvReac Type Severity Reaction Status Date / Time azithromycin Allergy Verified 04/12/18 18:22 [From Zithromax Z-Gato] Penicillins Allergy Verified 04/12/18 18:22 Medications: Current Medications Acetaminophen (Tylenol) 650 mg PO Q4H PRN PRN Reason: Headache/Fever/Mild Pain (1-3) Amlodipine Besylate (Norvasc) 10 mg PO DAILY [facility] Last Admin: 04/25/18 08:52 Dose: Not Given Atorvastatin Calcium (Lipitor) 40 mg PO [facility] Last Admin: 04/24/18 21:11 Dose: 40 mg Bisacodyl (Dulcolax) 10 mg [place] DAILYPRN PRN PRN Reason: Constipation Calcium Carbonate (Tums) 1,000 mg PO Q4H PRN PRN Reason: Heartburn or Indigestion Calcium/Vitamin D (Caltrate 600 + Vit D) 1 tab PO DAILY [facility] Last Admin: 04/25/18 08:49 Dose: 1 tab Clonidine (Hgshsdyw-Zjf-6) 0.3 mg TD Q7D@1700 [facility] Last Admin: 04/21/18 18:29 Dose: 0.3 mg Dextrose/Water (Dextrose 50%) 25 gm SLOW IVP PRN PRN PRN Reason: Hypoglycemia Donepezil HCl (Aricept) 10 mg PO [facility] Last Admin: 04/24/18 21:11 Dose: 10 mg Epoetin Grabiel (Procrit) 10,000 units SC Q7D@0900 [facility] Ferrous Sulfate (Feosol) 325 mg PO BID-[facility] Last Admin: 04/25/18 08:49 Dose: 325 mg Glucagon (Glucagon) 1 mg IM PRN PRN PRN Reason: Hypoglycemia Hydralazine HCl (Apresoline) 50 mg PO TID [facility] Last Admin: 04/25/18 08:52 Dose: Not Given Dextrose/Water (D5w) 1,000 mls @ 0 mls/hr IV .Q0M PRN PRN Reason: Hypoglycemia Insulin Human Lispro (Humalog) 0 units SC .MILD SLIDING SCALE PRN PRN Reason: Mild Correctional Scale Last Admin: 04/24/18 12:01 Dose: 3 unit Latanoprost (Xalatan 0.005% [facility]) 1 drop EA EYE QPM [facility] Last Admin: 04/24/18 21:12 Dose: 1 drop Levetiracetam (Keppra) 500 mg PO BID [facility] Last Admin: 04/25/18 08:49 Dose: 500 mg Levothyroxine Sodium (Synthroid) 112 mcg PO 0600 [facility] Last Admin: 04/25/18 05:24 Dose: 112 mcg Levothyroxine Sodium (Synthroid) 25 mcg PO 0600 [facility] Last Admin: 04/25/18 05:24 Dose: 25 mcg Metoprolol Tartrate (Lopressor) 50 mg PO DAILY [facility] Last Admin: 04/25/18 08:53 Dose: Not Given Minoxidil (Minoxidil) 2.5 mg PO HS [facility] Last Admin: 04/24/18 21:12 Dose: 2.5 mg Ondansetron HCl (Zofran Odt) 8 mg SL Q8HR PRN PRN Reason: Nausea Polyethylene Glycol (Miralax) 17 gm PO DAILY PRN PRN Reason: Constipation Last Admin: 04/24/18 11:56 Dose: 17 gm Sodium Chloride (Flush - Normal Saline) 10 ml IVF Q12HR [facility] Last Admin: 04/25/18 08:53 Dose: Not Given Sodium Chloride (Flush - Normal Saline) 10 ml IVF PRN PRN PRN Reason: Saline Flush Last Admin: 04/13/18 14:07 Dose: 10 ml Thiamine HCl (Thiamine) 50 mg PO DAILY [facility] Last Admin: 04/25/18 08:49 Dose: 50 mg
[2018-04-25] MEDS: Atorvastatin Calcium 40 MG TAB PO SCH (21:15)
[2018-04-25] MEDS: Donepezil HCl 10 MG TAB PO SCH (21:15)
[2018-04-25] MEDS: Minoxidil 2.5 MG TAB PO SCH (21:16)
[2018-04-25] MEDS: Latanoprost 0.005% Ophth Soln 2.5 ml Bottle EA EYE SCH (21:17)
[2018-04-26] MEDS: Levothyroxine Sodium 112 MCG TAB PO SCH (05:45)
[2018-04-26] MEDS: Levothyroxine Sodium 25 MCG TAB PO SCH (05:45)
[2018-04-26] MEDS ORDERED: Epoetin (ESRD) 20,000 UNITS/ML SC SCH (09:00)
[2018-04-26] MEDS: Thiamine 100 MG TAB PO SCH (09:10)
[2018-04-26] MEDS: Ferrous Sulfate 325 MG TAB PO SCH ×2 (09:10→17:08)
[2018-04-26] MEDS: Calcium Carbonate + Vit D 1 TAB PO SCH (09:10)
[2018-04-26] MEDS: hydrALAZINE 25 MG TAB PO SCH ×2 (09:11→15:40)
[2018-04-26] MEDS: Amlodipine 10 MG TAB PO SCH (09:12)
[2018-04-26] MEDS: Metoprolol Tartrate 25 MG TAB PO SCH (09:12)
[2018-04-26] MEDS: levETIRAcetam 500 MG TAB PO SCH (09:12)
--- NOTE | 2018-04-26 09:39 | PRG ---
DATE OF SERVICE: 04/26/2018 SUBJECTIVE: Ms. Bee is a 72-year-old white female, who was admitted for CHF, labile hypertension and due to progressive azotemia has been initiated with dialysis. She is undergoing hemodialysis 3 times a week. She is tolerating said treatment. She underwent dialysis yesterday without any difficulty. Outpatient dialysis placement has been done. Awaiting for [facility] placement. No new complaints. No chest pain or shortness of breath. The patient's blood pressure has been running low. For that reason, we have been adjusting her blood pressure downwards. I will discontinue amlodipine today. OBJECTIVE: VITAL SIGNS: Blood pressure 106/64-lowest is 99/58, heart rate 75, respiratory rate 20, temperature 98.1, pulse ox 97 percent. GENERAL: Awake, alert, comfortable, not in distress. SKIN: Adequate turgor. HEENT: She has slightly pale conjunctivae. Anicteric sclerae. No neck mass. No carotid bruits. No JVD. CHEST: No deformities. LUNGS: Clear breath sounds. HEART: Normal sinus rhythm. No murmurs, gallops, or rubs. ABDOMEN: Globular, soft, nontender, no masses. EXTREMITIES: No edema, no deformities. MEDICATIONS: April 26, 2018, reviewed. LABORATORY DATA: April 25, 2018, hemoglobin 8.2 sodium 141, potassium 4.1, chloride 104, carbon dioxide 27, BUN 35, creatinine 4.18, glucose 114, calcium 9.0. ASSESSMENT AND PLAN: 1. Chronic renal failure/end-stage renal disease-continuing 3 times a week hemodialysis. Tolerating said treatment. Fluid removal as tolerated. 2. Congestive heart failure, clinically much improved with dialysis and fluid removal. 3. Low blood pressure-we will discontinue amlodipine. She is much improved with her blood pressure with initiation of dialysis. 4. Anemia[place] [address] units [place]cu weekly. Continue ferrous sulfate. 5. Overall agree with current management. Job ID: [id number]
[2018-04-26] MEDS: Polyethylene Glycol 3350 17 GM Packet PO PRN (11:35)
[2018-04-26] MEDS: HumaLOG 300 UNITS/3 ML VIAL SC PRN (11:35)
--- NOTE | 2018-04-26 15:40 | DIS ---
DATE OF ADMISSION: 04/12/2018 DATE OF DISCHARGE: 04/26/2018 DISCHARGE DISPOSITION: Assisted Living Facility. Home health care will be resumed. Outpatient dialysis at [facility] Tuesday, , Tuesday at 1145 hours. FOLLOWUP: 1. The patient will follow up with Dr. Andrews. 2. Follow up with primary care physician at [facility] in 1 week. 3. Follow up with Dr. Dinh Nicholas as scheduled. 4. Follow up with Dr. Chan in 2 to 3 weeks. 5. [facility]. ALLERGIES: THE PATIENT IS ALLERGIC TO AZITHROMYCIN AND PENICILLIN. CODE STATUS: Do not resuscitate. DISCHARGE MEDICATIONS: 1. Clonidine TTS-3 0.3 patch every 7 days. 2. Zofran as needed. 3. Calcium with vitamin D daily. 4. Aricept 10 mg daily. 5. Latanoprost eyedrops q.p.m. in both the eyes. 6. Levothyroxine 137 mcg daily. 7. Metoprolol tartrate 50 mg daily. 8. Minoxidil 2.5 mg daily. 9. Vitamin B1 50 mg daily. 10. Aspirin 81 mg daily. 11. Lipitor 40 mg at bedtime. 12. Ferrous sulfate 325 mg b.i.d. 13. Glipizide 2.5 mg daily. 14. Hydralazine 50 mg three times daily (dose reduced). 15. Keppra 500 mg b.i.d. 16. MiraLAX 17 g daily. INPATIENT CONSULTANTS: 1. Nephrology, Darryl. 2. General Surgery, Dr. Chan. INPATIENT PROCEDURES: On April 14, 2018, the patient underwent right internal jugular tunneled hemodialysis catheter placement. The patient was seen and examined on the day of discharge. Denies any new complaints. No chest pain, shortness of breath, palpitations reported. BRIEF HOSPITAL COURSE: The patient is a 72-year-old female with CKD and diastolic heart failure, presented to the hospital with shortness of breath. Please refer to the history and physical for further details. The patient was admitted to the hospital with a diagnosis of volume overload with acute kidney injury requiring hemodialysis. She underwent a tunneled dialysis catheter placement along with AV fistula in her right forearm. The patient was seen by Dr. Andrews and Dr. Chan. Outpatient dialysis has been arranged. The patient was cleared for discharge last week. However, she was waiting on half-way placement. Insurance has denied half-way. The patient is doing well and is ambulating more than 250 feet with PT. Home health care with physical therapy will be arranged through [facility]. The patient was advised to follow up with Neurosurgery for history of intracranial bleed. Glimepiride has been changed to low-dose glipizide. Please note, the patient was started on aspirin in February due to right eye likely central retinal artery occlusion with visual loss. However, the patient is refusing at this time. I confirmed with Neurosurgery who will follow up the patient as outpatient. She appears stable for discharge. Plan was discussed with the patient. She stated understanding. FINAL DIAGNOSES: 1. Volume overload with acute kidney injury on chronic kidney disease stage 5, started on hemodialysis. 2. Thrombocytopenia, resolved. 3. Elevated troponin secondary to demand ischemia. 4. Chronic anemia secondary to renal insufficiency. 5. Hypertension. 6. Dyslipidemia. 7. Hypothyroidism. 8. Glaucoma. 9. Diabetes mellitus type 2 with hypoglycemia due to glimepiride. Glimepiride has been changed to low-dose glipizide. 10. Metabolic acidosis. 11. Normal-pressure hydrocephalus, status post BULLDOZER/LOADER/COMPACTOR/SCRAPER shunt in the past. 12. History of renal cancer requiring left nephrectomy. 13. History of intracranial bleed in the past. 14. 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 Total time coordinating the discharge of this patient was 33 minutes. Job ID: [id number]
[2018-04-26 17:16] VITALS: BP 125/71; TEMP 98
--- NOTE | 2018-04-29 15:44 | EKG ---
Test Reason : Blood Pressure : / mmHG Vent. Rate : 088 BPM Atrial Rate : 088 BPM P-R Int : 110 ms QRS Dur : 092 ms QT Int : 360 ms P-R-T Axes : 055 -08 027 degrees QTc Int : 435 ms Sinus rhythm with short TX Otherwise normal ECG Confirmed by SALINAS SETHI ([id number]), scientific editor FEMI DOHERTY ([id number] on 04/29/2018 3:43:43 PM Referred By: Confirmed By:SALINAS SETHI
== END 2018-04-26 17:22 | DRG 628 ==
LOC: ERS 11:56 → 2NO 15:42 → T4-A 04-23 21:37
PROVIDERS: ADMIT Internal Medicine; ATTEND Internal Medicine
PROC: 031B0ZF Bypass Right Radial Artery to Lower Arm Vein, Open Approach (ICD-10-PCS; principal; 2018-04-14)
PROC: 0JH63XZ Insertion of Tunneled Vascular Access Device into Chest Subcutaneous Tissue and Fascia, Percutaneous Approach (ICD-10-PCS; 2018-04-14)
PROC: 02HV33Z Insertion of Infusion Device into Superior Vena Cava, Percutaneous Approach (ICD-10-PCS; 2018-04-14)
PROC: 5A1D70Z Performance of Urinary Filtration, Intermittent, Less than 6 Hours Per Day (ICD-10-PCS; 2018-04-14)
PROC: 5A1D70Z Performance of Urinary Filtration, Intermittent, Less than 6 Hours Per Day (ICD-10-PCS; 2018-04-15)
PROC: 5A1D70Z Performance of Urinary Filtration, Intermittent, Less than 6 Hours Per Day (ICD-10-PCS; 2018-04-17)
PROC: 5A1D70Z Performance of Urinary Filtration, Intermittent, Less than 6 Hours Per Day (ICD-10-PCS; 2018-04-18)
PROC: 5A1D70Z Performance of Urinary Filtration, Intermittent, Less than 6 Hours Per Day (ICD-10-PCS; 2018-04-20)
PROC: 5A1D70Z Performance of Urinary Filtration, Intermittent, Less than 6 Hours Per Day (ICD-10-PCS; 2018-04-22)
PROC: 5A1D70Z Performance of Urinary Filtration, Intermittent, Less than 6 Hours Per Day (ICD-10-PCS; 2018-04-25)
DX: E87.70 Fluid overload, unspecified (principal); N18.6 End stage renal disease; N17.9 Acute kidney failure, unspecified; I13.2 Hypertensive heart and chronic kidney disease with heart failure and with stage 5 chronic kidney disease, or end stage renal disease; I24.8 Other forms of acute ischemic heart disease; I50.32 Chronic diastolic (congestive) heart failure; E87.2 Acidosis; E11.22 Type 2 diabetes mellitus with diabetic chronic kidney disease; D69.6 Thrombocytopenia, unspecified; E11.649 Type 2 diabetes mellitus with hypoglycemia without coma; D63.1 Anemia in chronic kidney disease; E78.5 Hyperlipidemia, unspecified; E03.9 Hypothyroidism, unspecified; H40.9 Unspecified glaucoma; Z66 Do not resuscitate; Z99.2 Dependence on renal dialysis; Z85.528 Personal history of other malignant neoplasm of kidney; Z87.891 Personal history of nicotine dependence; Z88.1 Allergy status to other antibiotic agents; Z88.0 Allergy status to penicillin; Z79.82 Long term (current) use of aspirin; Z79.52 Long term (current) use of systemic steroids; Z79.84 Long term (current) use of oral hypoglycemic drugs; Z79.899 Other long term (current) drug therapy; Z90.5 Acquired absence of kidney
CPT/HCPCS: 36415; 36416; 70450; 71045; 80048; 80053; 82553; 82728; 83540; 83550; 83880; 84484; 85014; 85018; 85025; 85046; 85049; 86580; 86704; 86706; 86803; 87340; 90935; 93005; 93798; 93970; 96374; C1752; C1769; G0257; G0365; J0670; J1642; J1644; J1940; J1956; J2001; J2704; J2720; J3010; J3490; Q4081

== ENCOUNTER 2018-07-26 09:32 | Outpatient (CLI) | payer MEDICARE ==
--- NOTE | 2018-07-26 11:55 | CT ---
CT HEAD NONCONTRAST: Date: 07/26/18 INDICATION: Hydrocephalus. COMPARISON: 04/23/18. FINDINGS: Redemonstration of a right frontal approach ventriculostomy, with tip terminating at the left frontal horn. There are bilateral frontal bur holes and left parietal bur hole. Stable area of gliosis is pr esent within the right frontal lobe about the catheter tract. Redemonstration of bilateral extra-axia l fluid collections, which are relatively hyperdense to typical CSF appearance, although are not cons istent with acute hemorrhage. Associated sulcal effacement is present. There is mild, 3 mm, degree of rightward subfalcine herniation demonstrated at the level of the septum pellucidum. Maximum thicknes s of the left subdural fluid collection is 1 cm and maximum thickness of the right subdural collectio n is 7 mm. IMPRESSION: Redemonstration of bilateral extra-axial chronic-appearing subdural hematomas with associated sulcal effacement and slight rightward subfalcine herniation. Volume of the extra-axial fluid collections is grossly stable to the 05/20/18 exam. POS: [facility]
== END 2018-07-26 09:33 | disposition home or self-care (01) ==
LOC: TBSIIMAG 09:32
PROVIDERS: ATTEND Surgery
DX: G91.9 Hydrocephalus, unspecified (principal); G93.5 Compression of brain; I62.03 Nontraumatic chronic subdural hemorrhage
CPT/HCPCS: 70450

== ENCOUNTER 2019-01-24 12:58 | Outpatient (CLI) | payer MEDICARE ==
--- NOTE | 2019-01-24 15:33 | CT ---
CT OF BRAIN PERFORMED WITHOUT CONTRAST ENHANCEMENT: 01/24/19 HISTORY: Follow-up of subdural hematomas. COMPARISON: A 07/26/2018 study. The ventricular and cisternal system is stable in appearance. Right sided ventricular peritoneal shun t tube is unchanged in position. The extra-axial chronic appearing subdural collections are stable as compared to the prior exam. Left sided bur hole is again noted. IMPRESSION: Redemonstration of bilateral chronic appearing subdural hematoma stable. POS: [facility]
== END 2019-01-24 12:59 | disposition home or self-care (01) ==
LOC: TBSIIMAG 12:58
PROVIDERS: ATTEND Surgery
DX: G91.9 Hydrocephalus, unspecified (principal); I62.03 Nontraumatic chronic subdural hemorrhage
CPT/HCPCS: 70450

== ENCOUNTER 2020-03-24 07:14 | Inpatient (IN) | payer MEDICARE ==
--- NOTE | 2020-03-24 08:41 | RAD ---
Exam: One view pelvis HISTORY: Trauma. Pain. Fall. FINDINGS: Bony rotation of the sacrum. Possible left sacral fracture. If there is pain or point tende rness, consider CT. Iliac wings, obturator rings and the left/right hip are unremarkable for posttraumatic change. Mild degenerative changes in the left and right hip IMPRESSION: Possible left sacral fracture. Further evaluation with CT if there is pain or point tende rness.
--- NOTE | 2020-03-24 10:00 | CT ---
CT OF PELVIS PERFORMED WITHOUT CONTRAST ENHANCEMENT: HISTORY: Patient complaints of sacral pain status post fall. COMPARISON: Plain film examination done earlier. FINDINGS: The bones are demineralized. There is a small subtle buckle fracture involving anterior cortex of th e left side of the sacrum. It had more of the mid sacral level. There is no evidence of any fractur e of the superior or inferior pubic rami. There are arthritic changes of the symphysis and arthritic change of the lower lumbar spine and both hips. There is diverticulosis of the sigmoid colon incidentally noted. Partial visualization of what may b e a dialysis catheter is seen in the right side of the abdomen. IMPRESSION: Subtle buckle fracture involving the anterior cortex of the left side of the sacrum. Diffuse bony de mineralization. POS: [facility]
[2020-03-24] MEDS ORDERED: HYDROcodone/Acetaminophen 5/325 mg Tablet ONE (13:01)
[2020-03-24] MEDS ORDERED: Morphine 2 MG/ML VIAL ONE (14:16)
[2020-03-24] MEDS ORDERED: Ketorolac Tromethamine 30 MG/ML VIAL ONE (14:16)
[2020-03-24] MEDS ORDERED: Ondansetron PF 4 MG/2 ML Vial IVP PRN (15:54)
[2020-03-24] MEDS ORDERED: Insulin Regular 300 UNITS/3 ML VIAL SC PRN (15:54)
[2020-03-24] MEDS ORDERED: Dextrose 5% in Water 1,000 ML IV PRN (15:54)
[2020-03-24] MEDS ORDERED: Dextrose 50% Abboject 50 ML SYRINGE SLOW IVP PRN (15:54)
[2020-03-24] MEDS ORDERED: traMADol HCl 50 MG TAB PO PRN ×2 (15:56)
[2020-03-24 16:13] LABS: #Lymphocytes 0.9 thou/uL (1.20-3.40); #Monocytes 0.4 thou/uL (0.11-0.59); #Neutrophils 4.8 thou/uL (1.40-6.50); %Basophils 0.1 % (0.0-1.0); %Eosinophils 0.8 % (0.0-10.0); %Monocytes 5.9 % (0.0-10.0); %Neutrophils 78.2 % (42.0-75.0); Hemoglobin 9.2 g/dL (12.0-16.0); Mean Corpuscular HGB CONC 33.5 g/dL (32.0-36.0); Mean Corpuscular Hemoglobin 35.7 pg (27.0-31.0); RBC Distribution Width 14.3 % (11.5-14.5); Red Blood Cell (RBC) Count 2.59 mill/uL (4.20-5.40); White Blood Cell (WBC) Count 6.2 thou/uL (4.8-10.8)
[2020-03-24 16:18] LABS: INR-International Normal Ratio 1.1; PTT 28.1 sec (22.9-36.1)
[2020-03-24 16:31] LABS: ALT (SGPT) 21 U/L (8-55); AST (SGOT) 15 U/L (5-34); Alkaline Phosphatase 92 U/L (40-110); Anion Gap 20 mmol/L (10-20); BUN (Urea Nitrogen) 37 mg/dL (9.8-20.1); Bilirubin, Total 0.5 mg/dL (0.2-1.2); Calc. Creatinine Clearance 0 mL/min (70-130); Calcium 9.6 mg/dL (7.8-10.44); Carbon Dioxide 28 mmol/L (23-31); Chloride 99 mmol/L (98-107); Globulin 2.4 g/dL (2.4-3.5); Glucose 144 mg/dL (83-110); Magnesium 3.1 mg/dL (1.6-2.6); Phosphorus 3.5 mg/dL (2.3-4.7); Potassium 5.5 mmol/L (3.5-5.1); Protein, Total 6.4 g/dL (5.8-8.1); Sodium 141 mmol/L (136-145)
[2020-03-24 17:13] LABS: Mean Platelet Volume 9.7 fL (7.4-10.4); Platelet Count 91 thou/uL (130-400)
[2020-03-24 17:14] LABS: MDiff Complete? YES; Macrocytosis SLIGHT = 6-15 cells (100X) (0-5/hpf); Platelet Morphology Comment Appears Decreased; Polychromasia SLIGHT = 2-3 cells (100X) (0-2/hpf)
[2020-03-24] MEDS: Senokot S 8.6-50 MG TAB PO SCH (19:59)
[2020-03-24] MEDS: Acetaminophen 500 MG TAB PO SCH ×2 (20:00→22:50)
[2020-03-24] MEDS: Gabapentin 100 MG CAP PO SCH (20:00)
[2020-03-24] MEDS: Famotidine 20 MG TAB PO SCH (20:00)
[2020-03-24 20:41] VITALS: BMI 31.5
--- NOTE | 2020-03-24 22:56 | HP ---
TRAUMA SURGEON: Dr. Kenney. CONSULTING PHYSICIAN: None. HISTORY OF PRESENT ILLNESS: The patient is a 74-year-old female, who presented to the emergency department via EMS after she had a mechanical fall at her independent living facility. The patient reports that she lost her balance and fell backwards onto her buttocks. She did not hit her head or lose consciousness. Denies anticoagulation use. She was evaluated in the emergency department and was found to have a left sacral fracture. It was attempted to provide pain control and discharge to acute rehab facility; however, the patient's pain was not controlled and the rehab facility needed physical therapy notes in order to approve her stay. Upon my evaluation, the patient's pain is well controlled. She denies nausea, vomiting, abdominal pain, loss of consciousness, numbness and tingling in her bilateral upper and lower extremities, cough and shortness of breath. REVIEW OF SYSTEMS: All additional 10-point review of systems is negative except as indicated above. PAST MEDICAL HISTORY: ESRD, on dialysis, Tuesdays, , and Saturdays. Dr. Andrews is her cartridge feeder. Hypertension, diabetes, hyperlipidemia, glaucoma and cataracts. PAST SURGICAL HISTORY: Appendectomy, tonsillectomy, hysterectomy, left nephrectomy, and she has also had zoe holes after a previous fall with a TBI. SOCIAL HISTORY: The patient lives at an independent living facility by herself. She denies tobacco, drug, and alcohol use. She uses a walker to get around. MEDICATIONS: Include, 1. Midodrine taken about an hour and a half before dialysis. 2. Atorvastatin. 3. Calcitriol. 4. Citrate plus vitamin D3. 5. Donepezil. 6. Glipizide. 7. Latanoprost 0.005% ophthalmic solution. 8. Losartan. 9. Magnesium. 10. Sevelamer carbonate, Renvela. 11. Vitamin B1 and cranberry. ALLERGIES: AZITHROMYCIN AND PENICILLIN. PHYSICAL EXAMINATION: VITAL SIGNS: Temperature 99.4, pulse 85, respirations 18, oxygen saturation 96% on room air, and blood pressure 115/63. PRIMARY SURVEY: Airway intact. Adequate breath sounds bilaterally. 2+ pulses in bilateral radials, femorals, and DPs. GCS 15. Gross motor and sensation intact. No lacerations, bruising, or external bleeding. SECONDARY SURVEY: HEAD: Normocephalic and atraumatic. No signs of trauma. EYES: Pupils 3-2, equal, round, reactive to light bilaterally. ENT: No signs of trauma. C-SPINE: No step-offs or deformities. Nontender. C-collar not in place. CHEST: Nontender. No crepitus. No abrasions or ecchymosis noted. Equal chest movement. ABDOMEN: Soft, nontender, nondistended. PELVIS: Stable to palpation. Nontender. No abrasions or ecchymosis noted. RECTAL: Deferred. GENITOURINARY: Deferred. EXTREMITIES: No gross deformities. No abrasions or ecchymosis noted. 2+ pulses in bilateral radials, femorals, and DPs. BACK/SPINE: No step-offs or deformity. Nontender T or L-spine. She does have some sacral tenderness. NEUROLOGIC: 5/5 strength in her bilateral plasterer spot, plantar flexion, dorsiflexion. Gross normal sensation x4 extremities. LABORATORY FINDINGS: White count 6.2, hemoglobin 9.2, hematocrit 29.5, platelets are pending. INR 1.1, PTT 28.1. Sodium 141, potassium 5.5, chloride 99, bicarb 28, BUN 37, creatinine 8.42, glucose 144, phosphorus 3.5, and magnesium 3.1. DIAGNOSTIC FINDINGS: X-ray of the pelvis demonstrates possible left sacral fracture. Further evaluation with CT, if there is pain or point tenderness. CT of the pelvis demonstrates stable buckle fracture involving the anterior cortex of the left side of the sacrum. Diffuse bony demineralization. ASSESSMENT: 1. Status post mechanical fall from standing. 2. Left sacral fracture. 3. History of end-stage renal disease on dialysis, Tuesdays, , and Saturdays. 4. Hypertension. 5. Diabetes. 6. Hyperlipidemia. 7. Glaucoma. 8. Cataracts. PLAN: The patient will be admitted to the Trauma Service. She will go to the Trauma Surgical Nursing Floor. She is an observation patient. We will ask Physical and Occupational Therapy to see her and for Case Management to ask her insurance for approval to transfer to acute rehab facility. Dr. Andrews has been consulted as the patient is on dialysis and he is her cartridge feeder, he will evaluate her for dialysis tomorrow. Job ID: [id number]
[2020-03-25] MEDS: Levothyroxine Sodium 112 MCG TAB PO SCH (06:21)
[2020-03-25] MEDS: Acetaminophen 500 MG TAB PO SCH (06:21)
[2020-03-25] MEDS: Levothyroxine Sodium 25 MCG TAB PO SCH (06:21)
[2020-03-25] MEDS: Gabapentin 100 MG CAP PO SCH ×3 (08:08→19:22)
[2020-03-25] MEDS: Famotidine 20 MG TAB PO SCH (08:08)
[2020-03-25] MEDS: Senokot S 8.6-50 MG TAB PO SCH ×2 (08:08→19:22)
[2020-03-25] MEDS: Polyethylene Glycol 3350 17 GM Packet PO SCH (08:09)
[2020-03-25 08:10] LABS: #Eosinphils 0.2 thou/uL (0.0-0.7); #Lymphocytes 1.3 thou/uL (1.20-3.40); #Monocytes 0.3 thou/uL (0.11-0.59); #Neutrophils 3.1 thou/uL (1.40-6.50); %Basophils 0.5 % (0.0-1.0); %Eosinophils 4.4 % (0.0-10.0); %Lymphocytes 25.6 % (21.0-51.0); %Monocytes 6.7 % (0.0-10.0); %Neutrophils 62.8 % (42.0-75.0); Hemoglobin 8.8 g/dL (12.0-16.0); Mean Corpuscular HGB CONC 34.3 g/dL (32.0-36.0); Mean Corpuscular Hemoglobin 36.9 pg (27.0-31.0); Mean Platelet Volume 9.7 fL (7.4-10.4); Platelet Count 89 thou/uL (130-400); RBC Distribution Width 14.7 % (11.5-14.5); Red Blood Cell (RBC) Count 2.38 mill/uL (4.20-5.40)
[2020-03-25 08:29] LABS: ALT (SGPT) 15 U/L (8-55); AST (SGOT) 15 U/L (5-34); Albumin 3.7 g/dL (3.4-4.8); Alkaline Phosphatase 84 U/L (40-110); Anion Gap 17 mmol/L (10-20); BUN (Urea Nitrogen) 45 mg/dL (9.8-20.1); Bilirubin, Total 0.5 mg/dL (0.2-1.2); Calc. Creatinine Clearance 8 mL/min (70-130); Carbon Dioxide 31 mmol/L (23-31); Chloride 98 mmol/L (98-107); Globulin 2.2 g/dL (2.4-3.5); Glucose 129 mg/dL (83-110); Potassium 5.3 mmol/L (3.5-5.1); Protein, Total 5.9 g/dL (5.8-8.1); Sodium 141 mmol/L (136-145)
[2020-03-25] MEDS ORDERED: Acetaminophen/Codeine 30-300mg Tablet PO PRN (08:37)
[2020-03-25] MEDS ORDERED: Midodrine HCl 5 MG TAB PO PRN (08:45)
[2020-03-25] MEDS ORDERED: Epoetin (ESRD) 20,000 UNITS/ML SC SCH (10:00)
[2020-03-25] MEDS ORDERED: EPOETIN ALFA-EPBX (ESRD) 4,000 UNIT/ML VIAL SC SCH (10:00)
--- NOTE | 2020-03-25 11:22 | CON ---
DATE OF CONSULTATION: 03/25/2020 SUBJECTIVE: Ms. Bee is a 74-year-old white female with ESRD and was admitted due to a fall. She was found to have a sacral fracture/buckling around the sacral bone. We are following up this patient for maintenance hemodialysis. She is undergoing hemodialysis. Due to the low blood pressure, we have challenged her with fluid. We are minimizing fluid removal with the patient. REVIEW OF SYSTEMS: No chest pain. No shortness of breath. Positive for generalized weakness. No fever or chills. No shortness of breath. No hematochezia. No melena. No hematemesis. No abdominal pain. Appetite and energy level are fair. No headache. No diplopia. No sore throat. MEDICATIONS: The patient is currently on, 1. Acetaminophen 325 mg q.6 p.r.n. 2. Atorvastatin 40 mg tablet at bedtime. 3. Donepezil 10 mg at bedtime. 4. Famotidine 20 mg b.i.d. 5. Neurontin 100 mg p.o. t.i.d. 6. Insulin sliding scale. 7. Latanoprost eyedrop as directed. 8. Levothyroxine 112 mcg daily. 9. Midodrine 5 mg q.a.m. 10. Zofran 4 mg IV q.6 p.r.n. 11. Tramadol 100 mg q.6 p.r.n.-currently on hold. PAST MEDICAL HISTORY: 1. The patient has history of hypertension. 2. ESRD, currently on maintenance hemodialysis secondary to hypertensive nephropathy. 3. History of fatty liver, history of liver hemangioma, hypothyroidism, renal cancer in remission, type 2 diabetes mellitus, history of a normal-pressure hydrocephalus, early dementia, hyperlipidemia. PAST SURGICAL HISTORY: Status post AV fistula placement, status post cuffed hemodialysis catheter placement, status post colonoscopy, status post hysterectomy, status post tonsillectomy, status post lumbar tap, status post appendectomy, status post excision of squamous cell cancer, status post left nephrectomy for renal cancer, status post parietal and frontal zoe hole with evacuation of intracranial hematoma. SOCIAL HISTORY: The patient is in independent living arrangement in [place]. Smoked for 5 years 1/4 pack a day. Status post blood transfusion. 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 Alcohol, none. Education, high school. No IV drug abuse. ALLERGIES: PENICILLIN. TRAUMA: Status post snake bite. Status post multiple falls. IMMUNIZATION: Up to date. HOSPITALIZATIONS: Please see past medical history. FAMILY HISTORY: No family history of ESRD. PHYSICAL EXAMINATION: VITAL SIGNS: Blood pressure is 97/59, heart rate 78, respiratory rate 12, temperature 98.6, O2 saturation 96%. GENERAL: The patient is awake, alert, comfortable, not in distress. SKIN: Adequate turgor. HEENT: She has slightly pale conjunctivae. Anicteric sclerae. NECK: No neck mass. No carotid bruits. No JVD. CHEST: No deformities. LUNGS: Clear breath sounds. HEART: Normal sinus rhythm. No murmurs. No gallops. No rubs. ABDOMEN: Globular, soft, nontender. No masses. EXTREMITIES: No edema. No deformities. NEUROLOGIC: Awake and oriented to 3 spheres. Moving all extremities. No tremors. No asterixis. No ataxia. LABORATORY DATA: Laboratories of March 25, 2020; white count 5, hemoglobin 8.8. Sodium 141, potassium 5.3, chloride 98, carbon dioxide 31, BUN 45, creatinine 9.74, glucose 129, calcium 9. AST 15, ALT 15, albumin is 3.7. CT scan of the pelvis, March 24, 2020, buckle fracture involving the anterior cortex of the left side of the sacrum. ASSESSMENT AND PLAN: 1. Status post fall-continue supportive care. Optimize hemodynamics. We will follow for rehab evaluation. 2. End-stage renal disease, stable. We will continue current hemodialysis regimen of Tuesday, , Tuesday. Minimal fluid removal due to the low blood pressure. Normal saline bolus was given during dialysis. 3. Chronic hypotension, midodrine 5 mg tab q.a.m. 4. Anemia. Start Epogen 7500 units subcu q.week. Job ID: [id number]
[2020-03-25] MEDS: Acetaminophen 325 MG TAB PO SCH ×3 (13:42→23:26)
[2020-03-25] MEDS: Acetaminophen/Codeine 30-300mg Tablet PO SCH ×3 (13:43→23:26)
[2020-03-25] MEDS: Insulin Regular 300 UNITS/3 ML VIAL SC PRN (17:39)
[2020-03-25] MEDS: Donepezil HCl 10 MG TAB PO SCH (19:23)
[2020-03-25] MEDS: Atorvastatin Calcium 40 MG TAB PO SCH (19:23)
[2020-03-25] MEDS: Latanoprost 0.005% Ophth Soln 2.5 ml Bottle EA EYE SCH (19:23)
[2020-03-25] MEDS ORDERED: Famotidine 20 MG TAB PO SCH (21:00)
--- NOTE | 2020-03-25 23:41 | PRG ---
DATE OF SERVICE: 03/25/2020 SUBJECTIVE: The patient is currently on the surgical floor. She is hospital day 2 status post a ground level fall which she had a nonoperative small sacral fracture, who was admitted for pain control and placement. She also has end-stage renal disease requiring dialysis, which she will undergo while she is here. Today, her day was primarily in dialysis, so she was unable to work with Physical Therapy. After her dialysis, the patient returned to her room. She had no complaints. She reports her pain is controlled. She is tolerating a diet. PHYSICAL EXAMINATION: VITAL SIGNS: Temperature is 98.8, heart rate 78, blood pressure 96/61, respirations 16, and oxygen saturation 95% on room air. GENERAL: The patient is resting comfortably in bed. She is awake, conversant, appropriate. HEENT: Unremarkable. LUNGS: Have scant rhonchi bilaterally that clears with cough. I instructed the patient on use of incentive spirometry. HEART: Regular rate and rhythm. ABDOMEN: Soft, nontender with active bowel sounds. EXTREMITIES: Neurovascularly intact x4. LABORATORY FINDINGS: White blood cell count 5.0, hemoglobin 8.8, hematocrit 25.5, platelets 89. Sodium 141, potassium 5.3, chloride 98, CO2 of 31, BUN 45, creatinine 9.74, glucose 129. RADIOGRAPHS: There are no radiographs reviewed this morning. ASSESSMENT/PLAN: 1. Status post ground level fall. 2. Left sacral fracture, nonoperative management. 3. History of end-stage renal disease, on dialysis Tuesday, , and Tuesday. 4. History of hypertension, diabetes, hyperlipidemia, glaucoma and cataract. PLAN: Will be to continue supportive care, encourage physical and occupational therapy, await placement decision and dialysis per Dr. Andrews. The patient was discussed with Dr. Kenney this morning during rounds. Job ID: [id number]
[2020-03-26] MEDS: Gabapentin 100 MG CAP PO SCH ×3 (08:43→21:20)
[2020-03-26] MEDS: Levothyroxine Sodium 25 MCG TAB PO SCH (08:43)
[2020-03-26] MEDS: Levothyroxine Sodium 112 MCG TAB PO SCH (08:43)
[2020-03-26] MEDS: Famotidine 20 MG TAB PO SCH (08:43)
[2020-03-26] MEDS: Polyethylene Glycol 3350 17 GM Packet PO SCH (08:43)
[2020-03-26] MEDS: Senokot S 8.6-50 MG TAB PO SCH ×2 (08:43→21:19)
--- NOTE | 2020-03-26 09:43 | PRG ---
DATE OF SERVICE: 03/26/2020 SUBJECTIVE: Ms. Bee is a 74-year-old white female with ESRD - on maintenance hemodialysis and who was admitted secondary to a fall with sacral fracture. Still complaining of pain around the sacral area when ambulating. She underwent hemodialysis yesterday and adjustment with fluid removal was done with the patient due to the low BP. She has been started on midodrine 5 mg tab q.a.m. No complaints of chest pain or shortness of breath. OBJECTIVE: VITAL SIGNS: Blood pressure is 93/61, heart rate 62, respiratory rate 18, temperature 99.1, O2 saturation 97%. GENERAL: Awake, alert, and comfortable, not in overt distress. SKIN: Adequate turgor. HEENT: She has a slightly pale conjunctivae. Anicteric sclerae. No neck mass. No carotid bruits. No JVD. CHEST: No deformities. LUNGS: Clear breath sounds. HEART: Normal in sinus rhythm. No murmurs, gallops, or rubs. ABDOMEN: Globular, soft, and nontender. No masses. EXTREMITIES: No edema. No deformities. MEDICATIONS: Of March 26, 2020, was reviewed. LABORATORY DATA: Laboratories on March 25, 2020 white count 5, hemoglobin 8.8. Sodium 141, potassium 5.3, chloride 98, carbon dioxide 31, BUN 45, creatinine 9.74, glucose 129. AST 15, ALT 15. ASSESSMENT AND PLAN: 1. End-stage renal disease, stable, continuing Tuesday, , and Tuesday hemodialysis regimen. Fluid removal only as tolerated. 2. Chronic hypotension. Start midodrine 5 mg q.a.m. 3. Anemia: Currently on weekly Epogen. 4. Status post fall/sacral fracture-awaiting rehab placement. Job ID: [id number]
[2020-03-26] MEDS: Aspirin 81 mg Enteric Coated Tablet PO SCH ×2 (09:46→21:20)
[2020-03-26] MEDS: Midodrine HCl 5 MG TAB PO SCH (09:49)
[2020-03-26] MEDS: Ibuprofen 200 MG TAB PO SCH ×3 (12:34→23:40)
[2020-03-26] MEDS: Acetaminophen 325 MG TAB PO SCH ×4 (12:34→23:39)
[2020-03-26] MEDS: Acetaminophen/Codeine 30-300mg Tablet PO SCH ×4 (12:36→23:40)
[2020-03-26] MEDS: Insulin Regular 300 UNITS/3 ML VIAL SC PRN (12:37)
--- NOTE | 2020-03-26 13:00 | PRG ---
DATE OF SERVICE: 03/26/2020 SUBJECTIVE: Patient presented for mechanical fall and was found to have left sacral buckle fracture that will be managed nonoperatively. She has a history of end-stage renal disease, on dialysis and receives dialysis Tuesday, , Tuesday. Dr. Andrews is on board and managing her dialysis. Patient reports today that pain at time of exam was 5/10; however, when working with therapy, her pain shot up to "15/10." Otherwise, she is doing well and is in good spirits. OBJECTIVE: VITAL SIGNS: Temperature 99.1, pulse 92, respiratory rate 18, O2 saturation 97% on room air, blood pressure 93/61. GENERAL: A 74-year-old woman, who appears stated age, in no acute distress. RESPIRATORY: Equal chest rise and fall. HEENT: Atraumatic, normocephalic. MUSCULOSKELETAL: Moves all extremities appropriately, however, movement of lower extremities causes pain in her low back. NEUROLOGIC: A and O x3. No focal deficits. PSYCH: Mood and affect appropriate and congruent, patient in very good spirits. LABORATORY STUDIES: No new laboratory studies to report. DIAGNOSTIC IMAGING: No new diagnostic imaging to report. ASSESSMENT: 1. Status post ground level fall. 2. Left sacral fracture, nonoperative management. 3. History of end-stage renal disease, on dialysis Tuesday, , and Tuesday. 4. History of hypertension, diabetes, hyperlipidemia, glaucoma, and cataracts. PLAN: Continue supportive care. Encourage physical and occupational therapy. [facility]. We will leave dialysis management per Dr. Andrews. We will increase pain management with increasing gabapentin to 200 t.i.d. and we will add ibuprofen 400 q.6 hours. These changes were discussed with Dr. Andrews. We will add DVT prophylaxis with aspirin 81 mg b.i.d. The patient was seen and discussed with Dr. Kenney this morning during rounds. Job ID: [id number]
[2020-03-26] MEDS: Latanoprost 0.005% Ophth Soln 2.5 ml Bottle EA EYE SCH (21:20)
[2020-03-26] MEDS: Atorvastatin Calcium 40 MG TAB PO SCH (21:20)
[2020-03-26] MEDS: Donepezil HCl 10 MG TAB PO SCH (21:20)
[2020-03-27] MEDS: Levothyroxine Sodium 25 MCG TAB PO SCH (05:20)
[2020-03-27] MEDS: Levothyroxine Sodium 112 MCG TAB PO SCH (05:20)
[2020-03-27] MEDS: Ibuprofen 200 MG TAB PO SCH ×3 (05:20→17:54)
[2020-03-27] MEDS: Acetaminophen 325 MG TAB PO SCH ×3 (05:21→17:54)
[2020-03-27] MEDS: Acetaminophen/Codeine 30-300mg Tablet PO SCH ×3 (05:21→17:54)
[2020-03-27 06:22] LABS: #Eosinphils 0.3 thou/uL (0.0-0.7); #Monocytes 0.6 thou/uL (0.11-0.59); #Neutrophils 5.1 thou/uL (1.40-6.50); %Basophils 0.3 % (0.0-1.0); %Eosinophils 3.9 % (0.0-10.0); %Lymphocytes 14.5 % (21.0-51.0); %Monocytes 8.1 % (0.0-10.0); %Neutrophils 73.2 % (42.0-75.0); Hemoglobin 9.5 g/dL (12.0-16.0); Mean Corpuscular HGB CONC 33.8 g/dL (32.0-36.0); Mean Corpuscular Hemoglobin 35.4 pg (27.0-31.0); Mean Platelet Volume 9.6 fL (7.4-10.4); Platelet Count 94 thou/uL (130-400); Red Blood Cell (RBC) Count 2.67 mill/uL (4.20-5.40)
[2020-03-27 06:33] LABS: Anion Gap 20 mmol/L (10-20); BUN (Urea Nitrogen) 46 mg/dL (9.8-20.1); Calc. Creatinine Clearance 8 mL/min (70-130); Carbon Dioxide 25 mmol/L (23-31); Chloride 98 mmol/L (98-107); Glucose 137 mg/dL (83-110); Sodium 138 mmol/L (136-145)
[2020-03-27] MEDS: Gabapentin 100 MG CAP PO SCH ×2 (08:39→15:50)
[2020-03-27] MEDS: Famotidine 20 MG TAB PO SCH (08:40)
[2020-03-27] MEDS: Midodrine HCl 5 MG TAB PO SCH (08:40)
[2020-03-27] MEDS: Aspirin 81 mg Enteric Coated Tablet PO SCH (08:40)
[2020-03-27] MEDS: Polyethylene Glycol 3350 17 GM Packet PO SCH (08:43)
[2020-03-27] MEDS: Senokot S 8.6-50 MG TAB PO SCH (08:43)
--- NOTE | 2020-03-27 09:29 | PRG ---
DATE OF SERVICE: 03/27/2020 SUBJECTIVE: Ms. Bee is a 74-year-old white female with ESRD and followed up by the renal service for maintenance hemodialysis. The patient is currently undergoing hemodialysis. She was initially admitted due to a fall resulting in some degree of sacral fracture. She voices no new complaints today. She also has chronic hypotension, which midodrine 5 mg tab q.a.m. has been started. No complaints of chest pain or shortness of breath. OBJECTIVE: VITAL SIGNS: Blood pressure 114/73, heart rate 80, respiratory rate 14, temperature 98.8, and O2 saturation 92% on room air. GENERAL: Awake, alert, comfortable, not in distress. SKIN: Adequate turgor. HEENT: Slightly pale conjunctivae. Anicteric sclerae. NECK: No neck mass. No carotid bruits. No JVD. CHEST: No deformities. LUNGS: Clear breath sounds. HEART: Normal sinus rhythm. No murmur. No gallops. No rubs. ABDOMEN: Globular, soft, nontender. No masses. EXTREMITIES: No edema. No deformities. MEDICATIONS: Of March 27, 2020, were reviewed. LABORATORY DATA: Laboratories of March 27, 2020, white count 7, hemoglobin 9.5, sodium 138, potassium 5, chloride 98, carbon dioxide 25, BUN 46, creatinine 8.78, glucose 137, calcium 9. ASSESSMENT AND PLAN: 1. End-stage renal disease, stable. We will continue current Tuesday, , and Tuesday dialysis regimen. Fluid removal only as tolerated by the patient. If the blood pressure drops some with dialysis, we can give p.r.n. normal saline boluses. 2. Status post fall with sacral fracture, stable. Awaiting rehab placement. 3. Chronic anemia, on weekly Epogen. 4. Chronic hypotension. Continue midodrine 5 mg q.a.m. Job ID: [id number]
--- NOTE | 2020-03-27 14:57 | PDOC.DS.DS ---
Provider Date of Admission: 03/25/20 14:31 Date of Discharge: 03/27/20 Admitting Provider: Gerardo Kenney DO Consultations: Nephrology (ESRD ) Primary Care Physician: MARLON HENDRICKSON Course Hospital Course: 74 y/o female pmhx ESRD on dialysis had a ground level fall on 03/24 which showed a small sacral fracture. The patient was discharged to rehab but the pain was too excruciating and she was brought back to the ED on 03/25. Nephrology consulted and managed dialysis when she was in the hospital. The patient was instructed to follow back up with her outpatient intelligence consultant. The patient was place on pain regimen in the hospital which included Tylenol, Tylenold 3, ibuprofen and gabapentin. The patient was restarted on all her home medication and dvt prophylaxis. Patient received PT OT and SW helped with placement to [facility]. At the time of discharged the patients pain was well controlled, tolerating diet and passing bowels. Lab Results: 03/27/20 06:01 03/27/20 06:01 Abnormal Lab Results - Last 48 hrs 03/27/20 06:01: BUN 46 H, Creatinine 8.78 H 03/27/20 06:01: RBC 2.67 L, Hgb 9.5 L, Hct 28.0 L, MCV 105.0 H, MCH 35.4 H, RDW 15.0 H, Plt Count 94 L, Lymphocytes % 14.5 L, Lymphocytes # 1.0 L, Monocytes # 0.6 H Vitals: Vital Signs (12 hours) Temp Pulse Resp BP Pulse Ox 03/27/20 13:50 99.2 F 92 18 110/65 96 03/27/20 08:00 98.8 F 80 14 114/73 92 L 03/27/20 03:56 98.7 F 75 16 95/58 L 92 L Weight Weight 207 lb Physical Exam: The patient was seen and examined on the day of discharge. General Appearance: NAD, awake alert Eye: PERRL, anicteric sclera ENT: normocephalic atraumatic, no oropharyngeal lesions Neck: supple, symmetric Respiratory: no wheezes, no rales, no ronchi Gastrointestinal: negative: no palpable masses Extremities: no cyanosis, no clubbing, no edema Skin: normal turgor, no lesions, no rashes Musculoskeletal: normal tone, normal strength, no muscle wasting PSYCH: A&O x 3 Problem Assessment: 74 y/o admitted for pain management small sacral fracture, confirmed on CT. Plan of Treatment: - Continue rehab [facility] -Take [place] 5/325 as needed for pain Health Concerns: ESRD Dialysis (1) Sacral fracture Code(s): S32.10XA - UNSP FRACTURE OF SACRUM, INIT ENCNTR FOR CLOSED FRACTURE Status: Acute Qualifiers: Encounter type: initial encounter Fracture type: closed Fracture alignment: nondisplaced Time Spent in discharge related activities (mins): 35 Plan Prescriptions: Acetaminophen W/ Codeine [Acetaminophen/Codeine #3] 1 tab PO Q6H PRN #30 tab PRN Reason: Moderate Pain (4-6) HYDROcodone Bit/APAP 5/325 [[place] 5/325] 1 tab PO Q4HR PRN #20 tab PRN Reason: Pain Home Medications: Medication Instructions Recorded Confirmed Type Calcium Citrate/Vitamin D3 1 tab PO DAILY 04/09/15 03/24/20 History [Calcium Citrate-Vit D3 Tablet] Latanoprost [Xalatan 0.005% Ophth 1 drp EA EYE QPM 04/09/15 03/24/20 History Soln] Levothyroxine Sodium [Synthroid] 137 mcg PO DAILY 04/09/15 03/24/20 History Donepezil HCl [Aricept] 10 mg PO HS 03/04/18 03/24/20 History Thiamine HCl [Vitamin B-1] 50 mg PO DAILY 03/04/18 03/24/20 History Atorvastatin Calcium [Lipitor] 40 mg PO HS #30 tab 03/05/18 03/24/20 Rx glipiZIDE [Glipizide] 2.5 mg PO DAILY #15 tablet 04/26/18 03/24/20 Rx Calcitriol 0.25 mcg PO DAILY 03/24/20 03/24/20 History HYDROcodone Bit/APAP 5/325 [[place] 1 tab PO Q4HR PRN #20 tab 03/24/20 Rx 5/325] Magnesium Oxide [Mag-Oxide] 400 mg PO DAILY 03/24/20 03/24/20 History Midodrine 5 mg PO PRN 03/24/20 03/24/20 History Sevelamer Carbonate 800 mg PO TID-WM 03/24/20 03/24/20 History Acetaminophen W/ Codeine 1 tab PO Q6H PRN #30 tab 03/27/20 Rx [Acetaminophen/Codeine #3] Acetaminophen [Tylenol Regular 325 mg PO Q6HR tab 03/27/20 Rx Strength] Gabapentin [Neurontin] 200 mg PO TID cap 03/27/20 Rx Allergies: azithromycin [From Zithromax Z-Gato] Allergy (Verified 05/11/19 16:13) Penicillins Allergy (Verified 05/11/19 16:13) verified today Activity:: Activity as Tolerated Nourishment:: Renal Diet Equipment/Supplies:: Not Applicable IV Therapy:: Not Applicable Referrals: PUSHPA SOTO & [Primary Care Provider] - Disposition: REHABILITATION INPATIENT Quality CORE MEASURES:: N/A Addendum - Attending - Attending Attestation Date/Time: 03/28/20 [id number] I personally evaluated the patient and discussed the management with Dr. [] I agree with the History, Examination, Assessment and Plan documented above with any addition or exceptions noted below.
[2020-03-27 15:25] VITALS: BP 103/68; TEMP 99.6
[2020-03-27 16:46] LABS: SARS-CoV-2 NAA Rapid Test Not Detected (NotDetected)
[2020-03-27 19:51] LABS: SARS-CoV-2 IgG Ab Non-Reactive (NonReactive); SARS-CoV-2 IgG Index 0.01 S/CO (< 1.40)
--- NOTE | 2020-03-29 20:37 | EKG ---
Test Reason : Blood Pressure : / mmHG Vent. Rate : 079 BPM Atrial Rate : 079 BPM P-R Int : 130 ms QRS Dur : 090 ms QT Int : 396 ms P-R-T Axes : 043 -33 040 degrees QTc Int : 454 ms Normal sinus rhythm Left axis deviation Abnormal ECG Confirmed by SEGUNDO DICKERSON, FILEMON ([id number]), marketing editor JACKSON MARQUIS ([id number]) on 03/29/2020 8:37:09 PM Referred By: Confirmed By:FILEMON RAYMOND MD
== END 2020-03-27 18:08 | DRG 551 ==
LOC: ERS 07:14 → SURG A 14:25 → OBSVTOIN 03-25 14:31
PROVIDERS: ADMIT Surgery; ATTEND Surgery
PROC: 5A1D70Z Performance of Urinary Filtration, Intermittent, Less than 6 Hours Per Day (ICD-10-PCS; principal; 2020-03-25)
DX: S32.10XA Unspecified fracture of sacrum, initial encounter for closed fracture (principal); N18.6 End stage renal disease; I12.0 Hypertensive chronic kidney disease with stage 5 chronic kidney disease or end stage renal disease; Z20.822 Contact with and (suspected) exposure to COVID-19; E11.22 Type 2 diabetes mellitus with diabetic chronic kidney disease; E78.5 Hyperlipidemia, unspecified; H40.9 Unspecified glaucoma; E11.36 Type 2 diabetes mellitus with diabetic cataract; H26.9 Unspecified cataract; W18.30XA Fall on same level, unspecified, initial encounter; K76.0 Fatty (change of) liver, not elsewhere classified; I95.89 Other hypotension; D64.9 Anemia, unspecified; G30.9 Alzheimer's disease, unspecified; F02.80 Dementia in other diseases classified elsewhere, unspecified severity, without behavioral disturbance, psychotic disturbance, mood disturbance, and anxiety; E78.00 Pure hypercholesterolemia, unspecified; Y92.129 Unspecified place in nursing home as the place of occurrence of the external cause; Z99.2 Dependence on renal dialysis; Z90.49 Acquired absence of other specified parts of digestive tract; Z90.710 Acquired absence of both cervix and uterus; Z90.5 Acquired absence of kidney; Z87.820 Personal history of traumatic brain injury; Z79.899 Other long term (current) drug therapy; Z79.84 Long term (current) use of oral hypoglycemic drugs; Z88.1 Allergy status to other antibiotic agents; Z88.0 Allergy status to penicillin; Z85.528 Personal history of other malignant neoplasm of kidney; Z87.891 Personal history of nicotine dependence
CPT/HCPCS: 36415; 36416; 72170; 72192; 80048; 80053; 83735; 84100; 85025; 85610; 85730; 86769; 90935; 93005; 96374; 96375; G0257; G0378; G0390; J1815; J1885; J2270; U0002

== ENCOUNTER 2020-06-21 16:16 | Emergency (ER) | payer MEDICARE ==
[2020-06-21 17:08] LABS: #Eosinphils 0.2 thou/uL (0.0-0.7); #Lymphocytes 1.6 thou/uL (1.20-3.40); #Monocytes 0.3 thou/uL (0.11-0.59); #Neutrophils 3.1 thou/uL (1.40-6.50); %Basophils 0.3 % (0.0-1.0); %Lymphocytes 31.2 % (21.0-51.0); %Monocytes 6.1 % (0.0-10.0); %Neutrophils 59.4 % (42.0-75.0); Hemoglobin 13.2 g/dL (12.0-16.0); Mean Corpuscular HGB CONC 31.6 g/dL (32.0-36.0); Mean Corpuscular Hemoglobin 32.2 pg (27.0-31.0); Mean Platelet Volume 9.5 fL (7.4-10.4); Platelet Count 114 thou/uL (130-400); RBC Distribution Width 15.3 % (11.5-14.5); Red Blood Cell (RBC) Count 4.09 mill/uL (4.20-5.40); White Blood Cell (WBC) Count 5.2 thou/uL (4.8-10.8)
[2020-06-21 17:27] LABS: ALT (SGPT) 18 U/L (8-55); AST (SGOT) 20 U/L (5-34); Albumin 4.1 g/dL (3.4-4.8); Alkaline Phosphatase 126 U/L (40-110); Anion Gap 16 mmol/L (10-20); BUN (Urea Nitrogen) 7 mg/dL (9.8-20.1); Bilirubin, Total 0.6 mg/dL (0.2-1.2); Calc. Creatinine Clearance 0 mL/min (70-130); Calcium 9.8 mg/dL (7.8-10.44); Carbon Dioxide 29 mmol/L (23-31); Chloride 98 mmol/L (98-107); Globulin 2.3 g/dL (2.4-3.5); Glucose 135 mg/dL (83-110); Potassium 3.2 mmol/L (3.5-5.1); Protein, Total 6.4 g/dL (5.8-8.1); Sodium 140 mmol/L (136-145)
[2020-06-21 17:49] LABS: CKMB 1.3 ng/mL (0-6.6)
[2020-06-21 19:50] LABS: Troponin I 0.038 ng/mL (< 0.028)
== END 2020-06-21 20:28 | disposition home or self-care (01) ==
LOC: ERS 16:16
DX: E87.6 Hypokalemia (principal); R79.89 Other specified abnormal findings of blood chemistry; E78.5 Hyperlipidemia, unspecified; E78.00 Pure hypercholesterolemia, unspecified; E11.9 Type 2 diabetes mellitus without complications; I10 Essential (primary) hypertension; G30.9 Alzheimer's disease, unspecified; Z85.528 Personal history of other malignant neoplasm of kidney; Z79.899 Other long term (current) drug therapy
CPT/HCPCS: 36415; 70450; 80053; 82553; 84484; 85025; 93005

== ENCOUNTER 2020-12-01 09:51 | Outpatient (CLI) | payer MEDICARE | END 2020-12-01 09:52 | disposition home or self-care (01) | LOC: BICCT 09:51 | PROVIDERS: ATTEND Surgery | DX: G91.9 Hydrocephalus, unspecified (principal) | CPT/HCPCS: 70450 ==

== ENCOUNTER 2022-12-24 10:13 | Outpatient (CLI) | payer MEDICARE | END 2022-12-24 10:14 | disposition home or self-care (01) | LOC: BICCT 10:13 | PROVIDERS: ATTEND Surgery | DX: G91.9 Hydrocephalus, unspecified (principal); I77.9 Disorder of arteries and arterioles, unspecified | CPT/HCPCS: 70450 ==

== ENCOUNTER 2023-05-17 17:11 | Observation (INO) | payer MEDICARE ==
[2023-05-17] MEDS ORDERED: Aspirin Chewable 81 MG TAB ONE (18:07)
[2023-05-17 18:53] LABS: #Basophils Less than 0.03 10x3/uL (0.0-0.2); %Basophils 0.2 % (0.0-1.0); %Eosinophils 2.1 % (0.0-10.0); %Lymphocytes 19.9 % (21.0-51.0); %Monocytes 7.6 % (0.0-10.0); %Neutrophils 69.1 % (42.0-75.0); Hematocrit 26.9 % (36.0-47.0); Hemoglobin 8.8 g/dL (12.0-16.0); Mean Corpuscular HGB CONC 32.7 g/dL (32.0-36.0); Mean Corpuscular Hemoglobin 35.3 pg (27.0-31.0); Mean Platelet Volume 12.1 fL (7.4-10.4); Platelet Count 115 10x3/uL (130-400); RBC Distribution Width 14.3 % (11.5-14.5); Red Blood Cell (RBC) Count 2.49 mill/uL (4.20-5.40)
[2023-05-17 19:05] LABS: ALT (SGPT) 34 U/L (8-55); AST (SGOT) 32 U/L (5-34); Albumin 4.3 g/dL (3.4-4.8); Alkaline Phosphatase 118 U/L (40-110); Anion Gap 16 mmol/L (10-20); BUN (Urea Nitrogen) 21 mg/dL (9.8-20.1); Bilirubin, Total 0.6 mg/dL (0.2-1.2); Calc. Creatinine Clearance 0 mL/min (70-130); Calcium 9.7 mg/dL (7.8-10.44); Carbon Dioxide 30 mmol/L (23-31); Chloride 97 mmol/L (98-107); Estimated GFR 9; Globulin 2.6 g/dL (2.4-3.5); Glucose 130 mg/dL (83-110); Potassium 3.6 mmol/L (3.5-5.1); Protein, Total 6.9 g/dL (5.8-8.1); Sodium 139 mmol/L (136-145)
[2023-05-17 19:41] LABS: Hypochromia SLIGHT = 6-15 cells HPF (0-5); Macrocytosis SLIGHT = 6-15 cells HPF (0-5); Platelet Adequacy Comment Platelets Decreased
[2023-05-17] MEDS ORDERED: Ondansetron PF 4 MG/2 ML Vial IVP PRN (21:46)
[2023-05-17] MEDS ORDERED: Ondansetron ODT 4 MG TAB PO PRN (21:46)
[2023-05-17] MEDS ORDERED: Nitroglycerin 0.4 MG TAB (25 Tab Bottle) SL PRN (21:46)
[2023-05-17] MEDS ORDERED: Acetaminophen 650 MG Suppository PR PRN (21:46)
[2023-05-17 22:14] VITALS: BMI 28.5
[2023-05-17] MEDS: Acetaminophen 325 MG TAB PO PRN (22:29)
[2023-05-18] MEDS: EPOETIN ALFA-EPBX (ESRD) 10,000 UNITS/ML VIAL SC SCH (00:48)
[2023-05-18 01:32] LABS: #Basophils 0.03 10x3/uL (0.0-0.2); %Basophils 0.5 % (0.0-1.0); %Lymphocytes 31.6 % (21.0-51.0); %Neutrophils 55.8 % (42.0-75.0); Hematocrit 26.3 % (36.0-47.0); Mean Corpuscular HGB CONC 34.2 g/dL (32.0-36.0); Mean Corpuscular Hemoglobin 35.9 pg (27.0-31.0); Mean Corpuscular Volume 104.8 fL (78.0-98.0); Mean Platelet Volume 11.8 fL (7.4-10.4); Platelet Count 101 10x3/uL (130-400); RBC Distribution Width 14.3 % (11.5-14.5); Red Blood Cell (RBC) Count 2.51 mill/uL (4.20-5.40)
[2023-05-18 01:53] LABS: Platelet Adequacy Comment Platelets Decreased; RBC Morphology Within Normal Limits
[2023-05-18 01:56] LABS: Troponin I 0.043 ng/mL (< 0.028)
[2023-05-18 03:47] LABS: Anion Gap 15 mmol/L (10-20); BUN (Urea Nitrogen) 26 mg/dL (9.8-20.1); Calc. Creatinine Clearance 11 mL/min (70-130); Calcium 9.3 mg/dL (7.8-10.44); Carbon Dioxide 30 mmol/L (23-31); Chloride 99 mmol/L (98-107); Estimated GFR 8; Glucose 146 mg/dL (83-110); Potassium 3.4 mmol/L (3.5-5.1); Sodium 141 mmol/L (136-145)
[2023-05-18] MEDS: Sevelamer Carbonate 800 MG TAB PO SCH (09:55)
[2023-05-18] MEDS ORDERED: ADENOSINE 60 MG/20 ML SDV ONE (11:07)
[2023-05-18] MEDS: Aspirin Chewable 81 MG TAB PO SCH (13:48)
[2023-05-18 14:20] VITALS: BP 150/67; TEMP 98.1
== END 2023-05-18 16:44 | disposition home or self-care (01) ==
LOC: ERS 17:11 → 2SW 20:18
PROVIDERS: ADMIT Student in an Organized Health Care Education/Training Program; ATTEND Family Medicine
PROC: B246ZZZ Ultrasonography of Right and Left Heart (ICD-10-PCS; principal; 2023-05-17)
DX: R07.9 Chest pain, unspecified (principal); I13.2 Hypertensive heart and chronic kidney disease with heart failure and with stage 5 chronic kidney disease, or end stage renal disease; N18.6 End stage renal disease; I50.30 Unspecified diastolic (congestive) heart failure; E11.22 Type 2 diabetes mellitus with diabetic chronic kidney disease; D63.1 Anemia in chronic kidney disease; Z99.2 Dependence on renal dialysis; E83.39 Other disorders of phosphorus metabolism; E03.9 Hypothyroidism, unspecified; G30.9 Alzheimer's disease, unspecified; I48.91 Unspecified atrial fibrillation; F02.80 Dementia in other diseases classified elsewhere, unspecified severity, without behavioral disturbance, psychotic disturbance, mood disturbance, and anxiety; C64.9 Malignant neoplasm of unspecified kidney, except renal pelvis; G91.9 Hydrocephalus, unspecified; E78.5 Hyperlipidemia, unspecified; K76.0 Fatty (change of) liver, not elsewhere classified; Z90.710 Acquired absence of both cervix and uterus; Z90.49 Acquired absence of other specified parts of digestive tract; Z90.89 Acquired absence of other organs; Z90.5 Acquired absence of kidney; Z87.891 Personal history of nicotine dependence; Z88.0 Allergy status to penicillin; Z79.82 Long term (current) use of aspirin; Z79.899 Other long term (current) drug therapy; Z88.1 Allergy status to other antibiotic agents; Z88.2 Allergy status to sulfonamides; Z79.890 Hormone replacement therapy
CPT/HCPCS: 71045; 78452; 80048; 80053; 82607; 84484 ×3; 85025 ×2; 93005; 93017; 93306; 94760; 99285; A9502; Q5105; 36415; 96372; G0378; J0153

== ENCOUNTER 2023-08-26 10:11 | Emergency (ER) | payer MEDICARE ==
[2023-08-26 13:33] LABS: #Basophils Less than 0.03 10x3/uL (0.0-0.2); %Basophils 0.2 % (0.0-1.0); %Eosinophils 2.3 % (0.0-10.0); %Lymphocytes 21.5 % (21.0-51.0); %Monocytes 6.7 % (0.0-10.0); %Neutrophils 68.8 % (42.0-75.0); Hematocrit 31.8 % (36.0-47.0); Hemoglobin 10.3 g/dL (12.0-16.0); Mean Corpuscular HGB CONC 32.4 g/dL (32.0-36.0); Mean Corpuscular Hemoglobin 33.6 pg (27.0-31.0); Mean Corpuscular Volume 103.6 fL (78.0-98.0); Mean Platelet Volume 12.5 fL (7.4-10.4); Platelet Count 91 10x3/uL (130-400); Red Blood Cell (RBC) Count 3.07 mill/uL (4.20-5.40)
[2023-08-26 13:45] LABS: PTT 32.5 sec (22.9-36.1)
[2023-08-26 13:53] LABS: Prothrombin Time 13.5 sec (12.0-14.7)
[2023-08-26 13:54] LABS: ALT (SGPT) 35 U/L (8-55); AST (SGOT) 25 U/L (5-34); Albumin 3.9 g/dL (3.4-4.8); Alkaline Phosphatase 95 U/L (40-110); Anion Gap 17 mmol/L (10-20); BUN (Urea Nitrogen) 35 mg/dL (9.8-20.1); Bilirubin, Total 0.5 mg/dL (0.2-1.2); Calc. Creatinine Clearance 0 mL/min (70-130); Calcium 9.4 mg/dL (7.8-10.44); Carbon Dioxide 31 mmol/L (23-31); Chloride 97 mmol/L (98-107); Estimated GFR 7; Globulin 2.9 g/dL (2.4-3.5); Glucose 338 mg/dL (83-110); Potassium 4.2 mmol/L (3.5-5.1); Protein, Total 6.8 g/dL (5.8-8.1); Sodium 141 mmol/L (136-145)
== END 2023-08-26 14:22 | disposition home or self-care (01) ==
LOC: ERS 10:11
DX: T82.838A Hemorrhage due to vascular prosthetic devices, implants and grafts, initial encounter (principal); Z87.891 Personal history of nicotine dependence; E11.9 Type 2 diabetes mellitus without complications; E78.00 Pure hypercholesterolemia, unspecified; Z79.899 Other long term (current) drug therapy; X58.XXXA Exposure to other specified factors, initial encounter
CPT/HCPCS: 36415; 80053; 85025; 85610; 85730; 99283

== ENCOUNTER 2024-03-15 17:15 | Emergency (ER) | payer MEDICARE ==
[2024-03-15 18:49] LABS: #Basophils 0.04 10x3/uL (0.0-0.2); %Basophils 0.4 % (0.0-1.0); %Eosinophils 0.9 % (0.0-10.0); %Lymphocytes 11.3 % (21.0-51.0); %Monocytes 5.1 % (0.0-10.0); %Neutrophils 81.8 % (42.0-75.0); Hematocrit 34.7 % (36.0-47.0); Hemoglobin 11.5 g/dL (12.0-16.0); Mean Corpuscular HGB CONC 33.1 g/dL (32.0-36.0); Mean Corpuscular Hemoglobin 35.4 pg (27.0-31.0); Mean Corpuscular Volume 106.8 fL (78.0-98.0); Mean Platelet Volume 11.7 fL (7.4-10.4); Platelet Count 112 10x3/uL (130-400); RBC Distribution Width 15.1 % (11.5-14.5); Red Blood Cell (RBC) Count 3.25 mill/uL (4.20-5.40)
[2024-03-15 18:58] LABS: ALT (SGPT) 29 U/L (Less than 34); AST (SGOT) 31 U/L (11-34); Albumin 4.1 g/dL (3.1-4.5); Alkaline Phosphatase 90 U/L (40-110); Anion Gap 20 mmol/L (10-20); BUN (Urea Nitrogen) 20 mg/dL (9.8-20.1); Bilirubin, Total 0.5 mg/dL (0.3-1.2); Calc. Creatinine Clearance 0 mL/min (70-130); Calcium 9.9 mg/dL (7.8-10.44); Carbon Dioxide 25 mmol/L (23-31); Chloride 97 mmol/L (98-107); Estimated GFR 9; Globulin 3.1 g/dL (2.4-3.5); Glucose 228 mg/dL (83-110); Lipase 63 U/L (8-78); Potassium 3.4 mmol/L (3.5-5.1); Protein, Total 7.2 g/dL (5.8-8.1); Sodium 139 mmol/L (136-145)
[2024-03-15 19:03] LABS: Troponin I 0.042 ng/mL (< 0.028)
== END 2024-03-15 23:07 | disposition home or self-care (01) ==
LOC: ERS 17:15
DX: I12.0 Hypertensive chronic kidney disease with stage 5 chronic kidney disease or end stage renal disease (principal); E11.22 Type 2 diabetes mellitus with diabetic chronic kidney disease; N18.6 End stage renal disease; R11.2 Nausea with vomiting, unspecified; Z99.2 Dependence on renal dialysis; Z87.891 Personal history of nicotine dependence
CPT/HCPCS: 36415; 71045; 80053; 83690; 84484; 85025; 93005

== ENCOUNTER 2025-01-02 11:39 | Outpatient (CLI) | payer MEDICARE ==
[2025-01-02 13:34] LABS: #Basophils 0.05 10x3/uL (0.0-0.2); #Eosinophils 0.30 10x3/uL (0.0-0.7); #Monocytes 0.71 10x3/uL (0.11-0.59); #Neutrophils 4.97 10x3/uL (1.40-6.50); %Basophils 0.6 % (0.0-1.0); %Eosinophils 3.5 % (0.0-10.0); %Lymphocytes 29.3 % (21.0-51.0); %Monocytes 8.3 % (0.0-10.0); %Neutrophils 57.7 % (42.0-75.0); Hematocrit 32.2 % (36.0-47.0); Hemoglobin 10.2 g/dL (12.0-16.0); Mean Corpuscular Hemoglobin 32.9 pg (27.0-31.0); Mean Corpuscular Volume 103.9 fL (78.0-98.0); Platelet Count 112 10x3/uL (130-400); Red Blood Cell (RBC) Count 3.10 mill/uL (4.20-5.40); White Blood Cell (WBC) Count 8.60 10x3/uL (4.8-10.8)
[2025-01-02 13:40] LABS: ALT (SGPT) 44 U/L (Less than 34); AST (SGOT) 27 U/L (11-34); Albumin 4.3 g/dL (3.1-4.5); Alkaline Phosphatase 128 U/L (40-110); Anion Gap 19 mmol/L (10-20); BUN (Urea Nitrogen) 42 mg/dL (9.8-20.1); Bilirubin, Total 0.4 mg/dL (0.3-1.2); Calc. Creatinine Clearance 0 mL/min (70-130); Calcium 10.2 mg/dL (7.8-10.44); Carbon Dioxide 26 mmol/L (23-31); Chloride 96 mmol/L (98-107); Globulin 3.0 g/dL (2.4-3.5); Glucose 194 mg/dL (83-110); Potassium 3.9 mmol/L (3.5-5.1); Sodium 137 mmol/L (136-145)
== END 2025-01-02 11:40 | disposition home or self-care (01) ==
LOC: LABBT 11:39
PROVIDERS: ATTEND Internal Medicine
DX: Z01.818 Encounter for other preprocedural examination (principal); K57.32 Diverticulitis of large intestine without perforation or abscess without bleeding; N82.3 Fistula of vagina to large intestine
CPT/HCPCS: 80053; 85025; 93005; 93010

== ENCOUNTER 2025-01-02 12:00 | Inpatient (IN) | payer MEDICARE ==
[2025-01-02 12:09] VITALS: BMI 26.6
[2025-01-07] MEDS ORDERED: CEFAZOLIN 2 GM VIAL ONE (10:27)
[2025-01-07] MEDS ORDERED: metroNIDAZOLE 500 MG (100 mL) BAG ONE (10:27)
[2025-01-07] MEDS ORDERED: Acetaminophen 325 MG TAB ONE ×2 (10:27→14:38)
[2025-01-07] MEDS ORDERED: Heparin 5,000 UNITS/ML VIAL ONE (10:50)
[2025-01-07] MEDS ORDERED: fentaNYL PF 100 MCG/2 ML SYRINGE ONE (11:11)
[2025-01-07] MEDS ORDERED: Lidocaine 1% PF 5 ML VIAL ONE (11:13)
[2025-01-07] MEDS ORDERED: Rocuronium Bromide 10 MG/ML (10ML VIAL) ONE (11:13)
[2025-01-07] MEDS ORDERED: Glycopyrrolate 0.2 MG/ML 5 ML SYRINGE ONE (11:14)
[2025-01-07] MEDS ORDERED: Bupivacaine 0.25% HCL 30 ML VIAL ONE (11:38)
[2025-01-07] MEDS ORDERED: PROPOFOL 200 MG/20 ML VIAL ONE (11:49)
[2025-01-07] MEDS ORDERED: PHENYLEPHRINE-NS 100 MCG/ML 10 ML SYRINGE ONE (11:57)
[2025-01-07] MEDS ORDERED: diphenhydrAMINE 50 MG/ML VIAL ONE (12:09)
[2025-01-07] MEDS ORDERED: Ondansetron PF 4 MG/2 ML Vial ONE ×2 (13:40→14:42)
[2025-01-07] MEDS ORDERED: SUGAMMADEX SODIUM 200 MG/2 ML VIAL ONE (13:41)
[2025-01-07] MEDS ORDERED: hydrALAZINE 20 MG/ML VIAL SLOW IVP PRN (14:13)
[2025-01-07] MEDS: Acetaminophen 325 MG TAB PO SCH (14:56)
[2025-01-07] MEDS ORDERED: HYDROmorphone 0.5 MG/0.5 ML SYRINGE ONE (15:38)
[2025-01-07] MEDS: Metoprolol Succinate XL 50 MG ER.TAB PO SCH (19:58)
[2025-01-08] MEDS: Ondansetron PF 4 MG/2 ML Vial IVP PRN (04:40)
[2025-01-08 05:43] LABS: Anion Gap 21 mmol/L (10-20); BUN (Urea Nitrogen) 48 mg/dL (9.8-20.1); Calc. Creatinine Clearance 7 mL/min (70-130); Calcium 8.9 mg/dL (7.8-10.44); Carbon Dioxide 23 mmol/L (23-31); Chloride 96 mmol/L (98-107); Glucose 123 mg/dL (83-110); Potassium 4.3 mmol/L (3.5-5.1); Sodium 136 mmol/L (136-145)
[2025-01-08 05:55] LABS: #Basophils Less than 0.03 10x3/uL (0.0-0.2); #Eosinophils Less than 0.03 10x3/uL (0.0-0.7); #Monocytes 0.77 10x3/uL (0.11-0.59); #Neutrophils 5.60 10x3/uL (1.40-6.50); %Basophils 0.1 % (0.0-1.0); %Eosinophils 0.1 % (0.0-10.0); %Lymphocytes 17.1 % (21.0-51.0); %Monocytes 10.0 % (0.0-10.0); %Neutrophils 72.4 % (42.0-75.0); Hematocrit 23.3 % (36.0-47.0); Hemoglobin 7.8 g/dL (12.0-16.0); Mean Corpuscular Hemoglobin 34.7 pg (27.0-31.0); Mean Corpuscular Volume 103.6 fL (78.0-98.0); Platelet Count 115 10x3/uL (130-400); Red Blood Cell (RBC) Count 2.25 mill/uL (4.20-5.40); White Blood Cell (WBC) Count 7.73 10x3/uL (4.8-10.8)
[2025-01-08] MEDS ORDERED: Calcium Carbonate 500 MG ChewTAB PO PRN (06:36)
[2025-01-08] MEDS ORDERED: Enoxaparin 40 MG (0.4 mL) SYRINGE SC SCH (09:00)
[2025-01-08] MEDS: Pantoprazole 40 MG VIAL IVP SCH (09:04)
[2025-01-08 11:28] LABS: Hep B Core Total Ab NONREACTIVE (NonReactive); Hep B Core Total Index 0.15 S/CO (0-0.79)
[2025-01-08 11:34] LABS: Hep C IgG Ab NONREACTIVE S/CO (NonReactive); Hep C Index 0.10 S/CO (0-0.79)
[2025-01-08 11:35] LABS: Hep B Surf Ag NONREACTIVE S/CO (NonReactive)
[2025-01-08 12:42] LABS: HBSAB Concentration 10.85 mIU/mL
[2025-01-08] MEDS ORDERED: Epoetin (ESRD) 20,000 UNITS/ML MDV SC SCH (19:30)
[2025-01-08] MEDS: EPOETIN ALFA-EPBX (ESRD) 10,000 UNITS/ML VIAL SC SCH (20:36)
[2025-01-09 05:16] LABS: #Basophils Less than 0.03 10x3/uL (0.0-0.2); #Eosinophils 0.12 10x3/uL (0.0-0.7); #Monocytes 0.54 10x3/uL (0.11-0.59); #Neutrophils 3.71 10x3/uL (1.40-6.50); %Basophils 0.2 % (0.0-1.0); %Eosinophils 2.0 % (0.0-10.0); %Lymphocytes 25.4 % (21.0-51.0); %Monocytes 9.2 % (0.0-10.0); %Neutrophils 62.9 % (42.0-75.0); Hematocrit 22.8 % (36.0-47.0); Hemoglobin 7.1 g/dL (12.0-16.0); Mean Corpuscular Hemoglobin 33.5 pg (27.0-31.0); Mean Corpuscular Volume 107.5 fL (78.0-98.0); Platelet Count 96 10x3/uL (130-400); Red Blood Cell (RBC) Count 2.12 mill/uL (4.20-5.40); White Blood Cell (WBC) Count 5.90 10x3/uL (4.8-10.8)
[2025-01-09 05:22] LABS: Anion Gap 16 mmol/L (10-20); BUN (Urea Nitrogen) 24 mg/dL (9.8-20.1); Calc. Creatinine Clearance 11 mL/min (70-130); Calcium 8.9 mg/dL (7.8-10.44); Carbon Dioxide 28 mmol/L (23-31); Chloride 96 mmol/L (98-107); Glucose 138 mg/dL (83-110); Potassium 3.7 mmol/L (3.5-5.1); Sodium 136 mmol/L (136-145)
[2025-01-10 05:04] LABS: Hematocrit 24.0 % (36.0-47.0); Hemoglobin 7.7 g/dL (12.0-16.0); Mean Corpuscular Hemoglobin 33.3 pg (27.0-31.0); Mean Corpuscular Volume 103.9 fL (78.0-98.0); Platelet Count 84 10x3/uL (130-400); Red Blood Cell (RBC) Count 2.31 mill/uL (4.20-5.40); White Blood Cell (WBC) Count 5.87 10x3/uL (4.8-10.8)
[2025-01-10 05:05] LABS: #Basophils Less than 0.03 10x3/uL (0.0-0.2); #Eosinophils 0.34 10x3/uL (0.0-0.7); #Monocytes 0.43 10x3/uL (0.11-0.59); #Neutrophils 3.95 10x3/uL (1.40-6.50); %Basophils 0.2 % (0.0-1.0); %Eosinophils 5.7 % (0.0-10.0); %Lymphocytes 20.7 % (21.0-51.0); %Monocytes 7.2 % (0.0-10.0); %Neutrophils 65.9 % (42.0-75.0); Hematocrit 24.4 % (36.0-47.0); Hemoglobin 7.9 g/dL (12.0-16.0); Mean Corpuscular Hemoglobin 33.5 pg (27.0-31.0); Mean Corpuscular Volume 103.4 fL (78.0-98.0); Platelet Count 88 10x3/uL (130-400); Red Blood Cell (RBC) Count 2.36 mill/uL (4.20-5.40); White Blood Cell (WBC) Count 5.99 10x3/uL (4.8-10.8)
[2025-01-10 05:11] LABS: Anion Gap 16 mmol/L (10-20); BUN (Urea Nitrogen) 31 mg/dL (9.8-20.1); Calc. Creatinine Clearance 8 mL/min (70-130); Calcium 8.8 mg/dL (7.8-10.44); Carbon Dioxide 28 mmol/L (23-31); Chloride 93 mmol/L (98-107); Glucose 132 mg/dL (83-110); Potassium 3.6 mmol/L (3.5-5.1); Sodium 133 mmol/L (136-145)
[2025-01-10] MEDS: Albumin 25% 25 GM (100 mL) BOT IVPB PRN (09:50)
[2025-01-11 05:34] LABS: #Basophils Less than 0.03 10x3/uL (0.0-0.2); #Eosinophils 0.32 10x3/uL (0.0-0.7); #Monocytes 0.37 10x3/uL (0.11-0.59); #Neutrophils 2.80 10x3/uL (1.40-6.50); %Basophils 0.2 % (0.0-1.0); %Eosinophils 7.2 % (0.0-10.0); %Lymphocytes 21.3 % (21.0-51.0); %Monocytes 8.3 % (0.0-10.0); %Neutrophils 62.6 % (42.0-75.0); Hematocrit 25.3 % (36.0-47.0); Hemoglobin 8.2 g/dL (12.0-16.0); Mean Corpuscular Hemoglobin 33.9 pg (27.0-31.0); Mean Corpuscular Volume 104.5 fL (78.0-98.0); Platelet Count 90 10x3/uL (130-400); Red Blood Cell (RBC) Count 2.42 mill/uL (4.20-5.40); White Blood Cell (WBC) Count 4.47 10x3/uL (4.8-10.8)
[2025-01-11 05:41] LABS: Anion Gap 16 mmol/L (10-20); BUN (Urea Nitrogen) 29 mg/dL (9.8-20.1); Calc. Creatinine Clearance 13 mL/min (70-130); Calcium 9.6 mg/dL (7.8-10.44); Carbon Dioxide 29 mmol/L (23-31); Chloride 96 mmol/L (98-107); Glucose 127 mg/dL (83-110); Potassium 4.1 mmol/L (3.5-5.1); Sodium 137 mmol/L (136-145)
[2025-01-11 09:18] VITALS: BMI 26.6
[2025-01-13 09:26] LABS: #Basophils Less than 0.03 10x3/uL (0.0-0.2); #Eosinophils 0.32 10x3/uL (0.0-0.7); #Monocytes 0.59 10x3/uL (0.11-0.59); #Neutrophils 3.12 10x3/uL (1.40-6.50); %Basophils 0.2 % (0.0-1.0); %Eosinophils 6.2 % (0.0-10.0); %Lymphocytes 21.9 % (21.0-51.0); %Monocytes 11.3 % (0.0-10.0); %Neutrophils 60.0 % (42.0-75.0); Hematocrit 23.2 % (36.0-47.0); Hemoglobin 7.1 g/dL (12.0-16.0); Mean Corpuscular Hemoglobin 33.0 pg (27.0-31.0); Mean Corpuscular Volume 107.9 fL (78.0-98.0); Platelet Count 94 10x3/uL (130-400); Red Blood Cell (RBC) Count 2.15 mill/uL (4.20-5.40); White Blood Cell (WBC) Count 5.20 10x3/uL (4.8-10.8)
[2025-01-13 09:35] LABS: Albumin 2.8 g/dL (3.1-4.5); Anion Gap 16 mmol/L (10-20); BUN (Urea Nitrogen) 49 mg/dL (9.8-20.1); BUN/Creatinine Ratio 11.26; Calc. Creatinine Clearance 13 mL/min (70-130); Calcium 8.9 mg/dL (7.8-10.44); Carbon Dioxide 28 mmol/L (23-31); Chloride 94 mmol/L (98-107); Glucose 232 mg/dL (83-110); Potassium 4.7 mmol/L (3.5-5.1); Sodium 133 mmol/L (136-145)
[2025-01-14 05:02] LABS: #Basophils 0.03 10x3/uL (0.0-0.2); #Eosinophils 0.31 10x3/uL (0.0-0.7); #Monocytes 0.51 10x3/uL (0.11-0.59); #Neutrophils 3.38 10x3/uL (1.40-6.50); %Basophils 0.5 % (0.0-1.0); %Eosinophils 5.5 % (0.0-10.0); %Lymphocytes 23.8 % (21.0-51.0); %Monocytes 9.1 % (0.0-10.0); %Neutrophils 60.6 % (42.0-75.0); Hematocrit 24.3 % (36.0-47.0); Hemoglobin 7.8 g/dL (12.0-16.0); Mean Corpuscular Hemoglobin 33.5 pg (27.0-31.0); Mean Corpuscular Volume 104.3 fL (78.0-98.0); Platelet Count 102 10x3/uL (130-400); Red Blood Cell (RBC) Count 2.33 mill/uL (4.20-5.40); White Blood Cell (WBC) Count 5.59 10x3/uL (4.8-10.8)
[2025-01-14 05:05] LABS: Iron 21 ug/dL (50-170); Iron Binding Capacity, Total 123 mcg/dL (265-497)
[2025-01-14 14:20] VITALS: BP 134/71; TEMP 98
== END 2025-01-14 17:26 | DRG 329 ==
LOC: SURG A 01-07 09:00 → SURG B 01-07 19:03
PROVIDERS: ADMIT Surgery; ATTEND Surgery
PROC: 0DTN4ZZ Resection of Sigmoid Colon, Percutaneous Endoscopic Approach (ICD-10-PCS; principal; 2025-01-07)
PROC: 8E0W4CZ Robotic Assisted Procedure of Trunk Region, Percutaneous Endoscopic Approach (ICD-10-PCS; principal; 2025-01-07)
PROC: 30233J1 Transfusion of Nonautologous Serum Albumin into Peripheral Vein, Percutaneous Approach (ICD-10-PCS; 2025-01-07)
DX: K57.32 Diverticulitis of large intestine without perforation or abscess without bleeding (principal); N18.6 End stage renal disease; N82.3 Fistula of vagina to large intestine; K91.89 Other postprocedural complications and disorders of digestive system; K56.7 Ileus, unspecified; D63.1 Anemia in chronic kidney disease; Z99.2 Dependence on renal dialysis
CPT/HCPCS: 36415; 36416; 36430; 74018; 80048; 80069; 82728; 83540; 83550; 85025; 86704; 86706; 86803; 86850; 86900; 86901; 87340; 88307; 88309; 90935; C1776; C1889; G0257; J0169; J0665; J1100; J1171; J1200; J1644; J1815; J2270; J2272; J2405; J2470; J2550; J2704; J3010; P9016; P9047; Q5105; S2900